=== PATIENT | male | born 1955 | race Caucasian/White ===

== ENCOUNTER 2017-10-24 09:25 | Outpatient (CLI) | payer BC ==
[~2017-10-24 09:25] MED LIST: ACET-1015 PO; ASPI-1264 PO; CHOL200016 PO; COLL30OI TP; DOCU100C40 PO; FISH1CAP2 PO; HYDR-3972 PO; LEVO125T69 PO; MULT-785 PO; NALO25TA PO; NAPR500T4 PO; PENT400T2 PO; SANTYL OINT TP ONE; UBID1CAP54 PO; VITC500T PO
== END 2017-10-24 10:31 | disposition home or self-care (01) ==
LOC: WOUND CARE 09:25
PROVIDERS: ATTEND Surgery
DX: E11.622 Type 2 diabetes mellitus with other skin ulcer (principal); L97.321 Non-pressure chronic ulcer of left ankle limited to breakdown of skin; L97.311 Non-pressure chronic ulcer of right ankle limited to breakdown of skin; E03.9 Hypothyroidism, unspecified; E66.9 Obesity, unspecified; M19.90 Unspecified osteoarthritis, unspecified site; I87.2 Venous insufficiency (chronic) (peripheral); Z68.1 Body mass index [BMI] 19.9 or less, adult; Z72.89 Other problems related to lifestyle; Z85.828 Personal history of other malignant neoplasm of skin
CPT/HCPCS: 29581; A6021; A6196; A6206; A6213; A6441

== ENCOUNTER 2017-10-30 09:49 | Outpatient (CLI) | payer BC ==
[2017-10-30] MEDS ORDERED: gentamicin 0.1% topical ointment 15gm TP ONE (13:45)
[2017-10-30] MEDS ORDERED: CLOB15CR4 TOP (13:48)
[2017-10-30] MEDS ORDERED: TYPE IN GENERIC & BRAND NAME OF PATIENT MED STRENGTH & FORM TOP SCH (20:00)
== END 2017-10-30 11:23 | disposition home or self-care (01) ==
LOC: WOUND CARE 09:49
PROVIDERS: ATTEND Surgery
DX: E11.622 Type 2 diabetes mellitus with other skin ulcer (principal); L97.321 Non-pressure chronic ulcer of left ankle limited to breakdown of skin; L97.311 Non-pressure chronic ulcer of right ankle limited to breakdown of skin; E03.9 Hypothyroidism, unspecified; M19.90 Unspecified osteoarthritis, unspecified site; I87.2 Venous insufficiency (chronic) (peripheral); E66.9 Obesity, unspecified; Z68.1 Body mass index [BMI] 19.9 or less, adult; Z72.89 Other problems related to lifestyle; Z85.828 Personal history of other malignant neoplasm of skin
CPT/HCPCS: 29581; A6021; A6196; A6206; A6209; A6441

== ENCOUNTER 2017-11-03 09:15 | Day surgery (SDC) | payer BC ==
[~2017-11-03 09:15] MED LIST changes: +CLOB15CR4 TOP; +CLOBETASOL 0.05% TOP ONE; -SANTYL OINT TP ONE; +[UNRECOGNIZED DRUG - OTHER] TOP ONE
[2017-11-03] MEDS ORDERED: LIDOcaine 2% 5ml jelly ONE (09:54)
[2017-11-03] MEDS ORDERED: gentamicin 0.1% topical ointment 15gm TP ONE (11:05)
== END 2017-11-03 12:00 | disposition home or self-care (01) ==
LOC: WOUND CARE 09:15
PROVIDERS: ATTEND Surgery
DX: I87.2 Venous insufficiency (chronic) (peripheral) (principal); E11.622 Type 2 diabetes mellitus with other skin ulcer; L97.321 Non-pressure chronic ulcer of left ankle limited to breakdown of skin; L97.311 Non-pressure chronic ulcer of right ankle limited to breakdown of skin; E03.9 Hypothyroidism, unspecified; E66.9 Obesity, unspecified; M19.90 Unspecified osteoarthritis, unspecified site; Z68.1 Body mass index [BMI] 19.9 or less, adult; Z72.89 Other problems related to lifestyle; Z85.828 Personal history of other malignant neoplasm of skin
CPT/HCPCS: 97597; 97598; A6021; A6196; A6206; A6209; A6441

== ENCOUNTER 2017-11-07 09:24 | Outpatient (CLI) | payer BC ==
[~2017-11-07 09:24] MED LIST changes: -CLOBETASOL 0.05% TOP ONE; +SANTYL OINTMENT TP ONE; -[UNRECOGNIZED DRUG - OTHER] TOP ONE
[2017-11-07] MEDS ORDERED: CLOBETASOL 0.05% TP ONE (09:25)
== END 2017-11-07 10:52 | disposition home or self-care (01) ==
LOC: WOUND CARE 09:24
PROVIDERS: ATTEND Surgery
DX: E11.622 Type 2 diabetes mellitus with other skin ulcer (principal); L97.321 Non-pressure chronic ulcer of left ankle limited to breakdown of skin; L97.311 Non-pressure chronic ulcer of right ankle limited to breakdown of skin; E03.9 Hypothyroidism, unspecified; E66.9 Obesity, unspecified; M19.90 Unspecified osteoarthritis, unspecified site; I87.2 Venous insufficiency (chronic) (peripheral); Z72.89 Other problems related to lifestyle; Z85.828 Personal history of other malignant neoplasm of skin; Z68.1 Body mass index [BMI] 19.9 or less, adult
CPT/HCPCS: 29581; A6021; A6196; A6206; A6441

== ENCOUNTER 2017-11-11 09:36 | Day surgery (SDC) | payer BC ==
[~2017-11-11 09:36] MED LIST changes: +CLOBETASOL 0.05% TP ONE
[2017-11-11] MEDS ORDERED: LIDOcaine 2% 5ml jelly ONE ×2 (10:35)
[2017-11-11] MEDS ORDERED: gentamicin 0.1% topical ointment 15gm TP ONE (10:50)
== END 2017-11-11 12:31 | disposition home or self-care (01) ==
LOC: WOUND CARE 09:36
PROVIDERS: ATTEND Surgery
DX: I87.2 Venous insufficiency (chronic) (peripheral) (principal); E11.622 Type 2 diabetes mellitus with other skin ulcer; L97.321 Non-pressure chronic ulcer of left ankle limited to breakdown of skin; L97.311 Non-pressure chronic ulcer of right ankle limited to breakdown of skin; E66.9 Obesity, unspecified; E03.9 Hypothyroidism, unspecified; M19.90 Unspecified osteoarthritis, unspecified site; Z72.89 Other problems related to lifestyle; Z68.1 Body mass index [BMI] 19.9 or less, adult; Z85.828 Personal history of other malignant neoplasm of skin
CPT/HCPCS: 97597; 97598; A6196; A6206; A6209; A6441

== ENCOUNTER 2017-11-14 09:20 | Outpatient (CLI) | payer BC ==
[~2017-11-14 09:20] MED LIST changes: -CLOBETASOL 0.05% TP ONE; +CLOBETASOL CREAM TOP ONE; +SANTYL OINTMENT TOP ONE; -SANTYL OINTMENT TP ONE
[2017-11-14] MEDS ORDERED: gentamicin 0.1% topical ointment 15gm TP ONE (09:45)
== END 2017-11-14 10:47 | disposition home or self-care (01) ==
LOC: WOUND CARE 09:20
PROVIDERS: ATTEND Surgery
DX: E11.622 Type 2 diabetes mellitus with other skin ulcer (principal); L97.321 Non-pressure chronic ulcer of left ankle limited to breakdown of skin; L97.311 Non-pressure chronic ulcer of right ankle limited to breakdown of skin; E03.9 Hypothyroidism, unspecified; E66.9 Obesity, unspecified; M19.90 Unspecified osteoarthritis, unspecified site; I87.2 Venous insufficiency (chronic) (peripheral); Z68.1 Body mass index [BMI] 19.9 or less, adult; Z72.89 Other problems related to lifestyle; Z85.828 Personal history of other malignant neoplasm of skin
CPT/HCPCS: 29581; A6021; A6196; A6206; A6209; A6441

== ENCOUNTER 2017-11-18 11:22 | Day surgery (SDC) | payer BC ==
[~2017-11-18 11:22] MED LIST changes: -CLOBETASOL CREAM TOP ONE; +SANTYL OINT TOP ONE; -SANTYL OINTMENT TOP ONE; +clobetasol 0.05% cream 30gm TOP ONE
[2017-11-18] MEDS ORDERED: LIDOcaine 2% 5ml jelly ONE (11:42)
[2017-11-18] MEDS ORDERED: gentamicin 0.1% topical ointment 15gm TP ONE (12:45)
== END 2017-11-18 12:42 | disposition home or self-care (01) ==
LOC: WOUND CARE 11:22
PROVIDERS: ATTEND Surgery
DX: E11.622 Type 2 diabetes mellitus with other skin ulcer (principal); L97.321 Non-pressure chronic ulcer of left ankle limited to breakdown of skin; L97.311 Non-pressure chronic ulcer of right ankle limited to breakdown of skin; I87.2 Venous insufficiency (chronic) (peripheral); E03.9 Hypothyroidism, unspecified; E66.9 Obesity, unspecified; M19.90 Unspecified osteoarthritis, unspecified site; Z68.1 Body mass index [BMI] 19.9 or less, adult; Z72.89 Other problems related to lifestyle; Z85.828 Personal history of other malignant neoplasm of skin
CPT/HCPCS: 97597; A6196; A6206; A6209; A6441

== ENCOUNTER 2017-11-21 09:43 | Outpatient (CLI) | payer BC ==
[~2017-11-21 09:43] MED LIST changes: +CLOBETASOL CREAM TOP ONE; -SANTYL OINT TOP ONE; +SANTYL OINTMENT TOP ONE; -clobetasol 0.05% cream 30gm TOP ONE
== END 2017-11-21 10:54 | disposition home or self-care (01) ==
LOC: WOUND CARE 09:43
PROVIDERS: ATTEND Surgery
DX: E11.622 Type 2 diabetes mellitus with other skin ulcer (principal); L97.321 Non-pressure chronic ulcer of left ankle limited to breakdown of skin; L97.311 Non-pressure chronic ulcer of right ankle limited to breakdown of skin; E03.9 Hypothyroidism, unspecified; M19.90 Unspecified osteoarthritis, unspecified site; I87.2 Venous insufficiency (chronic) (peripheral); E66.9 Obesity, unspecified; Z68.1 Body mass index [BMI] 19.9 or less, adult; Z72.89 Other problems related to lifestyle; Z85.828 Personal history of other malignant neoplasm of skin
CPT/HCPCS: 29581; A6021; A6196; A6206; A6441

== ENCOUNTER 2017-11-25 10:06 | Day surgery (SDC) | payer BC ==
[~2017-11-25 10:06] MED LIST changes: -CLOBETASOL CREAM TOP ONE; +COLLAGENASE TP ONE; -SANTYL OINTMENT TOP ONE
[2017-11-25] MEDS ORDERED: LIDOcaine 2% 5ml jelly ONE (10:29)
[2017-11-25] MEDS ORDERED: hydrocortisone 1% cream 28gm TP ONE (12:25)
== END 2017-11-25 13:11 | disposition home or self-care (01) ==
LOC: WOUND CARE 10:06
PROVIDERS: ATTEND Surgery
DX: E11.622 Type 2 diabetes mellitus with other skin ulcer (principal); L97.321 Non-pressure chronic ulcer of left ankle limited to breakdown of skin; L97.311 Non-pressure chronic ulcer of right ankle limited to breakdown of skin; I87.2 Venous insufficiency (chronic) (peripheral); E03.9 Hypothyroidism, unspecified; M19.90 Unspecified osteoarthritis, unspecified site; E66.9 Obesity, unspecified; Z68.1 Body mass index [BMI] 19.9 or less, adult; Z72.89 Other problems related to lifestyle; Z85.828 Personal history of other malignant neoplasm of skin
CPT/HCPCS: 97597; 97598; A6021; A6196; A6206; A6441

== ENCOUNTER 2017-11-28 10:02 | Outpatient (CLI) | payer BC ==
[~2017-11-28 10:02] MED LIST changes: -COLLAGENASE TP ONE
[2017-11-28] MEDS ORDERED: CLOBETASOL PROPIONATE 0.05% TOP ONE (10:15)
[2017-11-28] MEDS ORDERED: gentamicin 0.1% topical ointment 15gm TP ONE (10:20)
== END 2017-11-28 11:16 | disposition home or self-care (01) ==
LOC: WOUND CARE 10:02
PROVIDERS: ATTEND Surgery
DX: E11.622 Type 2 diabetes mellitus with other skin ulcer (principal); L97.321 Non-pressure chronic ulcer of left ankle limited to breakdown of skin; L97.311 Non-pressure chronic ulcer of right ankle limited to breakdown of skin; I87.2 Venous insufficiency (chronic) (peripheral); E03.9 Hypothyroidism, unspecified; M19.90 Unspecified osteoarthritis, unspecified site; E66.9 Obesity, unspecified; Z68.1 Body mass index [BMI] 19.9 or less, adult; Z72.89 Other problems related to lifestyle; Z85.828 Personal history of other malignant neoplasm of skin
CPT/HCPCS: 29581; A6021; A6196; A6206; A6212; A6441

== ENCOUNTER 2017-12-02 09:33 | Day surgery (SDC) | payer BC ==
[~2017-12-02 09:33] MED LIST changes: +CLOBETASOL 0.05% TP ONE; +SANTYL OINTMENT TP ONE
[2017-12-02] MEDS ORDERED: LIDOcaine 2% 5ml jelly ONE ×2 (09:57→09:58)
== END 2017-12-02 11:07 | disposition home or self-care (01) ==
LOC: WOUND CARE 09:33
PROVIDERS: ATTEND Surgery
DX: E11.622 Type 2 diabetes mellitus with other skin ulcer (principal); L97.321 Non-pressure chronic ulcer of left ankle limited to breakdown of skin; L97.311 Non-pressure chronic ulcer of right ankle limited to breakdown of skin; I87.2 Venous insufficiency (chronic) (peripheral); E03.9 Hypothyroidism, unspecified; M19.90 Unspecified osteoarthritis, unspecified site; E66.9 Obesity, unspecified; Z68.1 Body mass index [BMI] 19.9 or less, adult; Z72.89 Other problems related to lifestyle; Z85.828 Personal history of other malignant neoplasm of skin
CPT/HCPCS: 97597; A6021; A6196; A6206; A6441

== ENCOUNTER 2017-12-05 12:47 | Outpatient (CLI) | payer BC ==
[~2017-12-05 12:47] MED LIST changes: -CLOBETASOL 0.05% TP ONE; +CLOBETASOL TOP ONE; +SANTYL OINT TOP ONE; -SANTYL OINTMENT TP ONE; +gentamicin 0.1% topical ointment 15gm TP ONE
== END 2017-12-05 13:34 | disposition home or self-care (01) ==
LOC: WOUND CARE 12:47
PROVIDERS: ATTEND Surgery
DX: E11.622 Type 2 diabetes mellitus with other skin ulcer (principal); L97.321 Non-pressure chronic ulcer of left ankle limited to breakdown of skin; L97.311 Non-pressure chronic ulcer of right ankle limited to breakdown of skin; I87.2 Venous insufficiency (chronic) (peripheral); E03.9 Hypothyroidism, unspecified; M19.90 Unspecified osteoarthritis, unspecified site; E66.9 Obesity, unspecified; Z68.1 Body mass index [BMI] 19.9 or less, adult; Z72.89 Other problems related to lifestyle; Z85.828 Personal history of other malignant neoplasm of skin
CPT/HCPCS: 29581; A6021; A6206; A6441

== ENCOUNTER 2017-12-09 10:22 | Day surgery (SDC) | payer BC ==
[~2017-12-09 10:22] MED LIST changes: +CLOBETASOL 0.05% TOP ONE; -CLOBETASOL TOP ONE; -SANTYL OINT TOP ONE; +SANTYL OINTMENT TOP ONE; -gentamicin 0.1% topical ointment 15gm TP ONE
[2017-12-09] MEDS ORDERED: LIDOcaine 2% 5ml jelly ONE (12:20)
== END 2017-12-09 14:00 | disposition home or self-care (01) ==
LOC: WOUND CARE 10:22
PROVIDERS: ATTEND Surgery
DX: I87.2 Venous insufficiency (chronic) (peripheral) (principal); E11.622 Type 2 diabetes mellitus with other skin ulcer; L97.321 Non-pressure chronic ulcer of left ankle limited to breakdown of skin; L97.311 Non-pressure chronic ulcer of right ankle limited to breakdown of skin; E03.9 Hypothyroidism, unspecified; M19.90 Unspecified osteoarthritis, unspecified site; E66.9 Obesity, unspecified; Z68.1 Body mass index [BMI] 19.9 or less, adult; Z72.89 Other problems related to lifestyle; Z85.828 Personal history of other malignant neoplasm of skin
CPT/HCPCS: 97597; 97598; A6021; A6196; A6206; A6222; A6441

== ENCOUNTER 2017-12-12 09:45 | Outpatient (CLI) | payer BC ==
[~2017-12-12 09:45] MED LIST changes: -CLOBETASOL 0.05% TOP ONE; +CLOBETASOL OINTMENT TOP ONE
== END 2017-12-12 11:47 | disposition home or self-care (01) ==
LOC: WOUND CARE 09:45
PROVIDERS: ATTEND Surgery
DX: E11.622 Type 2 diabetes mellitus with other skin ulcer (principal); L97.321 Non-pressure chronic ulcer of left ankle limited to breakdown of skin; L97.311 Non-pressure chronic ulcer of right ankle limited to breakdown of skin; I87.2 Venous insufficiency (chronic) (peripheral); E03.9 Hypothyroidism, unspecified; M19.90 Unspecified osteoarthritis, unspecified site; E66.9 Obesity, unspecified; Z68.1 Body mass index [BMI] 19.9 or less, adult; Z72.89 Other problems related to lifestyle; Z85.828 Personal history of other malignant neoplasm of skin
CPT/HCPCS: 29581; A6021; A6206; A6222; A6441; 97598

== ENCOUNTER 2017-12-17 09:17 | Day surgery (SDC) | payer BC ==
[~2017-12-17 09:17] MED LIST changes: -CLOBETASOL OINTMENT TOP ONE; +CLOBETASOL TOP ONE; +SANTYL OINT TOP ONE; -SANTYL OINTMENT TOP ONE
[2017-12-17] MEDS ORDERED: LIDOcaine 2% 5ml jelly ONE ×2 (10:06)
[2017-12-17] MEDS ORDERED: gentamicin 0.1% topical ointment 15gm TP ONE (11:03)
== END 2017-12-17 11:54 | disposition home or self-care (01) ==
LOC: WOUND CARE 09:17
PROVIDERS: ATTEND Surgery
DX: E11.622 Type 2 diabetes mellitus with other skin ulcer (principal); L97.321 Non-pressure chronic ulcer of left ankle limited to breakdown of skin; L97.311 Non-pressure chronic ulcer of right ankle limited to breakdown of skin; I87.2 Venous insufficiency (chronic) (peripheral); E03.9 Hypothyroidism, unspecified; M19.90 Unspecified osteoarthritis, unspecified site; E66.9 Obesity, unspecified; Z68.1 Body mass index [BMI] 19.9 or less, adult; Z72.89 Other problems related to lifestyle; Z85.828 Personal history of other malignant neoplasm of skin
CPT/HCPCS: 97597; 97598; A6021; A6441

== ENCOUNTER 2017-12-19 09:30 | Outpatient (CLI) | payer BC ==
[~2017-12-19 09:30] MED LIST changes: +CLOBETASOL CREAM TOP SCH; -CLOBETASOL TOP ONE; -SANTYL OINT TOP ONE; +SANTYL TOP SCH
== END 2017-12-19 10:47 | disposition home or self-care (01) ==
LOC: WOUND CARE 09:30
PROVIDERS: ATTEND Surgery
DX: E11.622 Type 2 diabetes mellitus with other skin ulcer (principal); L97.321 Non-pressure chronic ulcer of left ankle limited to breakdown of skin; L97.311 Non-pressure chronic ulcer of right ankle limited to breakdown of skin; I87.2 Venous insufficiency (chronic) (peripheral); E03.9 Hypothyroidism, unspecified; M19.90 Unspecified osteoarthritis, unspecified site; E66.9 Obesity, unspecified; Z68.1 Body mass index [BMI] 19.9 or less, adult; Z72.89 Other problems related to lifestyle; Z85.828 Personal history of other malignant neoplasm of skin
CPT/HCPCS: 29581; A6206; A6209; A6441

== ENCOUNTER 2017-12-23 09:29 | Day surgery (SDC) | payer BC ==
[~2017-12-23 09:29] MED LIST changes: -CLOBETASOL CREAM TOP SCH; +SANTYL OINTMENT TP NR; -SANTYL TOP SCH
[2017-12-23] MEDS ORDERED: LIDOcaine 2% 5ml jelly ONE (09:59)
[2017-12-23] MEDS: clobetasol propionate ointment 15gm TP SCH ×3 (11:35→11:37)
[2017-12-23] MEDS: gentamicin 0.1% topical ointment 15gm TP SCH ×2 (11:35→11:36)
== END 2017-12-23 11:35 | disposition home or self-care (01) ==
LOC: WOUND CARE 09:29
PROVIDERS: ATTEND Surgery
DX: E11.622 Type 2 diabetes mellitus with other skin ulcer (principal); L97.321 Non-pressure chronic ulcer of left ankle limited to breakdown of skin; L97.311 Non-pressure chronic ulcer of right ankle limited to breakdown of skin; I87.2 Venous insufficiency (chronic) (peripheral); E03.9 Hypothyroidism, unspecified; M19.90 Unspecified osteoarthritis, unspecified site; E66.9 Obesity, unspecified; Z68.1 Body mass index [BMI] 19.9 or less, adult; Z72.89 Other problems related to lifestyle; Z85.828 Personal history of other malignant neoplasm of skin
CPT/HCPCS: 97597; 97598; A6021; A6206; A6209

== ENCOUNTER 2017-12-26 09:30 | Outpatient (CLI) | payer BC ==
[~2017-12-26 09:30] MED LIST changes: +CLOBETASOL TOP ONE; +SANTYL OINT TOP ONE; -SANTYL OINTMENT TP NR
[2017-12-26] MEDS ORDERED: gentamicin 0.1% topical ointment 15gm TP ONE (10:25)
== END 2017-12-26 10:52 | disposition home or self-care (01) ==
LOC: WOUND CARE 09:30
PROVIDERS: ATTEND Surgery
DX: E11.622 Type 2 diabetes mellitus with other skin ulcer (principal); L97.311 Non-pressure chronic ulcer of right ankle limited to breakdown of skin; L97.321 Non-pressure chronic ulcer of left ankle limited to breakdown of skin; I83.013 Varicose veins of right lower extremity with ulcer of ankle; I83.023 Varicose veins of left lower extremity with ulcer of ankle; E03.9 Hypothyroidism, unspecified; E66.9 Obesity, unspecified; M19.90 Unspecified osteoarthritis, unspecified site; Z72.89 Other problems related to lifestyle; Z68.1 Body mass index [BMI] 19.9 or less, adult; Z85.828 Personal history of other malignant neoplasm of skin
CPT/HCPCS: 29581; A6021; A6206; A6441

== ENCOUNTER 2017-12-30 09:16 | Outpatient (CLI) | payer BC ==
[2017-12-30] MEDS ORDERED: LIDOcaine 2% 5ml jelly ONE (09:45)
[2017-12-30] MEDS ORDERED: gentamicin 0.1% topical ointment 15gm TP ONE (09:50)
== END 2017-12-30 11:26 | disposition home or self-care (01) ==
LOC: WOUND CARE 09:16
PROVIDERS: ATTEND Surgery
DX: E11.622 Type 2 diabetes mellitus with other skin ulcer (principal); L97.311 Non-pressure chronic ulcer of right ankle limited to breakdown of skin; L97.321 Non-pressure chronic ulcer of left ankle limited to breakdown of skin; I83.013 Varicose veins of right lower extremity with ulcer of ankle; I83.023 Varicose veins of left lower extremity with ulcer of ankle; E03.9 Hypothyroidism, unspecified; E66.9 Obesity, unspecified; M19.90 Unspecified osteoarthritis, unspecified site; Z72.89 Other problems related to lifestyle; Z68.1 Body mass index [BMI] 19.9 or less, adult; Z85.828 Personal history of other malignant neoplasm of skin
CPT/HCPCS: 97597; 97598; A6021; A6206; A6209; A6441

== ENCOUNTER 2018-01-02 09:19 | Outpatient (CLI) | payer BC ==
[~2018-01-02 09:19] MED LIST changes: -CLOBETASOL TOP ONE; -SANTYL OINT TOP ONE
[2018-01-02] MEDS ORDERED: CLOBETASOL TOP ONE (09:30)
[2018-01-02] MEDS ORDERED: SANTYL TOP ONE (09:35)
[2018-01-02] MEDS ORDERED: gentamicin 0.1% topical ointment 15gm TP ONE (10:25)
== END 2018-01-02 11:26 | disposition home or self-care (01) ==
LOC: WOUND CARE 09:19
PROVIDERS: ATTEND Surgery
DX: E11.622 Type 2 diabetes mellitus with other skin ulcer (principal); L97.311 Non-pressure chronic ulcer of right ankle limited to breakdown of skin; L97.321 Non-pressure chronic ulcer of left ankle limited to breakdown of skin; I83.013 Varicose veins of right lower extremity with ulcer of ankle; I83.023 Varicose veins of left lower extremity with ulcer of ankle; E03.9 Hypothyroidism, unspecified; E66.9 Obesity, unspecified; M19.90 Unspecified osteoarthritis, unspecified site; Z72.89 Other problems related to lifestyle; Z68.1 Body mass index [BMI] 19.9 or less, adult; Z85.828 Personal history of other malignant neoplasm of skin
CPT/HCPCS: 29581; A6021; A6206; A6209; A6441

== ENCOUNTER 2018-01-06 09:30 | Day surgery (SDC) | payer BC ==
[~2018-01-06 09:30] MED LIST changes: +CLOBETASOL CREAM TOP ONE; +SANTYL OINTMENT TP ONE
[2018-01-06] MEDS ORDERED: LIDOcaine 2% 5ml jelly ONE ×2 (10:50→10:51)
== END 2018-01-06 12:16 | disposition home or self-care (01) ==
LOC: WOUND CARE 09:30
PROVIDERS: ATTEND Surgery
DX: E11.622 Type 2 diabetes mellitus with other skin ulcer (principal); L97.321 Non-pressure chronic ulcer of left ankle limited to breakdown of skin; L97.311 Non-pressure chronic ulcer of right ankle limited to breakdown of skin; I83.013 Varicose veins of right lower extremity with ulcer of ankle; I83.023 Varicose veins of left lower extremity with ulcer of ankle; E03.9 Hypothyroidism, unspecified; E66.9 Obesity, unspecified; M19.90 Unspecified osteoarthritis, unspecified site; Z68.1 Body mass index [BMI] 19.9 or less, adult; Z72.89 Other problems related to lifestyle; Z85.828 Personal history of other malignant neoplasm of skin
CPT/HCPCS: 97597; 97598; A6021; A6206; A6441

== ENCOUNTER 2018-01-09 10:30 | Outpatient (CLI) | payer BC ==
[~2018-01-09 10:30] MED LIST changes: +CLOBETASOL 0.05% TOP ONE; -CLOBETASOL CREAM TOP ONE; +NAPR-996 PO; -NAPR500T4 PO; +SANTYL OINTMENT TOP ONE; -SANTYL OINTMENT TP ONE
[2018-01-09] MEDS ORDERED: clobetasol propionate ointment 15gm TP ONE (11:25)
== END 2018-01-09 12:35 | disposition home or self-care (01) ==
LOC: WOUND CARE 10:30
PROVIDERS: ATTEND Surgery
DX: E11.622 Type 2 diabetes mellitus with other skin ulcer (principal); L97.321 Non-pressure chronic ulcer of left ankle limited to breakdown of skin; L97.311 Non-pressure chronic ulcer of right ankle limited to breakdown of skin; I83.013 Varicose veins of right lower extremity with ulcer of ankle; I83.023 Varicose veins of left lower extremity with ulcer of ankle; E03.9 Hypothyroidism, unspecified; E66.9 Obesity, unspecified; M19.90 Unspecified osteoarthritis, unspecified site; Z68.1 Body mass index [BMI] 19.9 or less, adult; Z72.89 Other problems related to lifestyle; Z85.828 Personal history of other malignant neoplasm of skin
CPT/HCPCS: 29581; A6021; A6206; A6441

== ENCOUNTER 2018-01-13 09:36 | Outpatient (CLI) | payer BC ==
[~2018-01-13 09:36] MED LIST changes: -CLOBETASOL 0.05% TOP ONE; +CLOBETASOL OINTMENT TP ONE; -SANTYL OINTMENT TOP ONE; +SANTYL OINTMENT TP ONE
[2018-01-13] MEDS ORDERED: gentamicin 0.1% topical ointment 15gm TP ONE (09:55)
== END 2018-01-13 10:55 | disposition home or self-care (01) ==
LOC: WOUND CARE 09:36
PROVIDERS: ATTEND Surgery
DX: E11.622 Type 2 diabetes mellitus with other skin ulcer (principal); L97.311 Non-pressure chronic ulcer of right ankle limited to breakdown of skin; L97.321 Non-pressure chronic ulcer of left ankle limited to breakdown of skin; I83.013 Varicose veins of right lower extremity with ulcer of ankle; I83.023 Varicose veins of left lower extremity with ulcer of ankle; E03.9 Hypothyroidism, unspecified; E66.9 Obesity, unspecified; M19.90 Unspecified osteoarthritis, unspecified site; Z68.1 Body mass index [BMI] 19.9 or less, adult; Z85.828 Personal history of other malignant neoplasm of skin
CPT/HCPCS: 29581; A6198; A6206; A6209; A6441

== ENCOUNTER 2018-01-19 09:56 | Day surgery (SDC) | payer BC ==
[~2018-01-19 09:56] MED LIST changes: -CLOBETASOL OINTMENT TP ONE; -SANTYL OINTMENT TP ONE
[2018-01-19] MEDS ORDERED: SANTYL OINTMENT TOP ONE (11:05)
[2018-01-19] MEDS ORDERED: LIDOcaine 2% 5ml jelly ONE (11:09)
[2018-01-19] MEDS ORDERED: CLOBETASOL 0.05% CREAM TOP ONE (11:20)
== END 2018-01-19 13:00 | disposition home or self-care (01) ==
LOC: WOUND CARE 09:56
PROVIDERS: ATTEND Surgery
DX: E11.622 Type 2 diabetes mellitus with other skin ulcer (principal); L97.311 Non-pressure chronic ulcer of right ankle limited to breakdown of skin; L97.321 Non-pressure chronic ulcer of left ankle limited to breakdown of skin; I83.013 Varicose veins of right lower extremity with ulcer of ankle; I83.023 Varicose veins of left lower extremity with ulcer of ankle; E03.9 Hypothyroidism, unspecified; E66.9 Obesity, unspecified; M19.90 Unspecified osteoarthritis, unspecified site; Z68.1 Body mass index [BMI] 19.9 or less, adult; Z85.828 Personal history of other malignant neoplasm of skin
CPT/HCPCS: 97597; 97598; A6021; A6206; A6441

== ENCOUNTER 2018-01-22 09:36 | Outpatient (CLI) | payer BC ==
[~2018-01-22 09:36] MED LIST changes: +SANTYL OINTMENT TOP ONE
[2018-01-22] MEDS ORDERED: CLOBETASOL 0.05% CREAM TOP ONE (09:40)
== END 2018-01-22 11:25 | disposition home or self-care (01) ==
LOC: WOUND CARE 09:36
PROVIDERS: ATTEND Surgery
DX: E11.622 Type 2 diabetes mellitus with other skin ulcer (principal); L97.311 Non-pressure chronic ulcer of right ankle limited to breakdown of skin; L97.321 Non-pressure chronic ulcer of left ankle limited to breakdown of skin; I87.2 Venous insufficiency (chronic) (peripheral); E03.9 Hypothyroidism, unspecified; E66.9 Obesity, unspecified; M19.90 Unspecified osteoarthritis, unspecified site; Z68.1 Body mass index [BMI] 19.9 or less, adult; Z85.828 Personal history of other malignant neoplasm of skin
CPT/HCPCS: 29581; A6206; A6209; A6441

== ENCOUNTER 2018-01-27 10:02 | Day surgery (SDC) | payer BC ==
[~2018-01-27 10:02] MED LIST changes: +CLOBETASOL PROPIONATE 0.05% CREAM TP ONE; +COLLAGENASE TP ONE; -SANTYL OINTMENT TOP ONE
[2018-01-27] MEDS ORDERED: LIDOcaine 2% 5ml jelly ONE ×2 (11:13→11:46)
== END 2018-01-27 12:55 | disposition home or self-care (01) ==
LOC: WOUND CARE 10:02
PROVIDERS: ATTEND Surgery
DX: E11.622 Type 2 diabetes mellitus with other skin ulcer (principal); L97.311 Non-pressure chronic ulcer of right ankle limited to breakdown of skin; L97.321 Non-pressure chronic ulcer of left ankle limited to breakdown of skin; I87.2 Venous insufficiency (chronic) (peripheral); E03.9 Hypothyroidism, unspecified; E66.9 Obesity, unspecified; M19.90 Unspecified osteoarthritis, unspecified site; Z68.1 Body mass index [BMI] 19.9 or less, adult; Z85.828 Personal history of other malignant neoplasm of skin
CPT/HCPCS: 97597; 97598; A6021; A6198; A6206; A6441

== ENCOUNTER 2018-01-29 09:10 | Outpatient (CLI) | payer BC ==
[2018-01-29] MEDS: CLOBETASOL TOP SCH ×2 (08:30→10:15)
[2018-01-29] MEDS: [UNRECOGNIZED DRUG - OTHER] TOP SCH ×2 (08:30→10:15)
[~2018-01-29 09:10] MED LIST changes: -CLOBETASOL PROPIONATE 0.05% CREAM TP ONE; +COLLAGENASE TOP SCH; -COLLAGENASE TP ONE; +[UNRECOGNIZED DRUG - OTHER] TOP SCH
[2018-01-29] MEDS ORDERED: gentamicin 0.1% topical ointment 15gm TP ONE (09:20)
== END 2018-01-29 10:19 | disposition home or self-care (01) ==
LOC: WOUND CARE 09:10
PROVIDERS: ATTEND Surgery
DX: E11.622 Type 2 diabetes mellitus with other skin ulcer (principal); L97.311 Non-pressure chronic ulcer of right ankle limited to breakdown of skin; L97.321 Non-pressure chronic ulcer of left ankle limited to breakdown of skin; I87.2 Venous insufficiency (chronic) (peripheral); E03.9 Hypothyroidism, unspecified; E66.9 Obesity, unspecified; M19.90 Unspecified osteoarthritis, unspecified site; Z68.1 Body mass index [BMI] 19.9 or less, adult; Z85.828 Personal history of other malignant neoplasm of skin
CPT/HCPCS: 29581; A6021; A6206; A6441

== ENCOUNTER 2018-02-03 09:40 | Outpatient (CLI) | payer BC ==
[~2018-02-03 09:40] MED LIST changes: +CLOBETASOL OINTMENT TP PRN; -COLLAGENASE TOP SCH; +SANTYL OINTMENT TP PRN; -[UNRECOGNIZED DRUG - OTHER] TOP SCH
[2018-02-03] MEDS ORDERED: LIDOcaine 2% 5ml jelly ONE (10:15)
== END 2018-02-03 11:02 | disposition home or self-care (01) ==
LOC: WOUND CARE 09:40
PROVIDERS: ATTEND Surgery
DX: E11.622 Type 2 diabetes mellitus with other skin ulcer (principal); L97.311 Non-pressure chronic ulcer of right ankle limited to breakdown of skin; L97.321 Non-pressure chronic ulcer of left ankle limited to breakdown of skin; I87.2 Venous insufficiency (chronic) (peripheral); E03.9 Hypothyroidism, unspecified; E66.9 Obesity, unspecified; M19.90 Unspecified osteoarthritis, unspecified site; Z68.1 Body mass index [BMI] 19.9 or less, adult; Z85.828 Personal history of other malignant neoplasm of skin
CPT/HCPCS: 29581; A6021

== ENCOUNTER 2018-02-06 09:24 | Day surgery (SDC) | payer BC ==
[~2018-02-06 09:24] MED LIST changes: +CLOBETASOL OINT TOP ONE; -CLOBETASOL OINTMENT TP PRN; +PENT400T12 PO; -PENT400T2 PO; +SANTYL OINT TOP ONE; -SANTYL OINTMENT TP PRN
[2018-02-06] MEDS ORDERED: LIDOcaine 2% 5ml jelly ONE (10:00)
== END 2018-02-06 11:41 | disposition home or self-care (01) ==
LOC: WOUND CARE 09:24
PROVIDERS: ATTEND Surgery
DX: E11.622 Type 2 diabetes mellitus with other skin ulcer (principal); L97.311 Non-pressure chronic ulcer of right ankle limited to breakdown of skin; L97.321 Non-pressure chronic ulcer of left ankle limited to breakdown of skin; I87.2 Venous insufficiency (chronic) (peripheral); I83.013 Varicose veins of right lower extremity with ulcer of ankle; I83.023 Varicose veins of left lower extremity with ulcer of ankle; E03.9 Hypothyroidism, unspecified; E66.9 Obesity, unspecified; M19.90 Unspecified osteoarthritis, unspecified site; Z68.1 Body mass index [BMI] 19.9 or less, adult; Z85.828 Personal history of other malignant neoplasm of skin
CPT/HCPCS: 97597; 97598; A6021; A6206; A6209; A6441

== ENCOUNTER 2018-02-10 09:40 | Outpatient (CLI) | payer BC ==
[~2018-02-10 09:40] MED LIST changes: +CLOBETASOL 0.05% CREAM TOP ONE; -CLOBETASOL OINT TOP ONE; -SANTYL OINT TOP ONE; +SANTYL OINTMENT TOP ONE; +albumin (human) 25% 100 ML IV solution IV PRN
[2018-02-10] MEDS ORDERED: gentamicin 0.1% topical ointment 15gm TP ONE (09:56)
[2018-02-10] MEDS ORDERED: LIDOcaine 2% 5ml jelly ONE ×2 (10:17)
== END 2018-02-10 11:24 | disposition home or self-care (01) ==
LOC: WOUND CARE 09:40
PROVIDERS: ATTEND Surgery
DX: E11.622 Type 2 diabetes mellitus with other skin ulcer (principal); L97.311 Non-pressure chronic ulcer of right ankle limited to breakdown of skin; L97.321 Non-pressure chronic ulcer of left ankle limited to breakdown of skin; I83.013 Varicose veins of right lower extremity with ulcer of ankle; I83.023 Varicose veins of left lower extremity with ulcer of ankle; E03.9 Hypothyroidism, unspecified; E66.9 Obesity, unspecified; M19.90 Unspecified osteoarthritis, unspecified site; Z68.1 Body mass index [BMI] 19.9 or less, adult; Z85.828 Personal history of other malignant neoplasm of skin
CPT/HCPCS: 29581; A6021; A6206; A6209; A6441

== ENCOUNTER 2018-02-13 09:46 | Day surgery (SDC) | payer BC ==
[~2018-02-13 09:46] MED LIST changes: -CLOBETASOL 0.05% CREAM TOP ONE; +CLOBETASOL TOP ONE; +SANTYL OINT TOP ONE; -SANTYL OINTMENT TOP ONE; -albumin (human) 25% 100 ML IV solution IV PRN
[2018-02-13] MEDS ORDERED: LIDOcaine 2% 5ml jelly ONE ×2 (11:21)
== END 2018-02-13 12:55 | disposition home or self-care (01) ==
LOC: WOUND CARE 09:46
PROVIDERS: ATTEND Surgery
DX: E11.622 Type 2 diabetes mellitus with other skin ulcer (principal); L97.311 Non-pressure chronic ulcer of right ankle limited to breakdown of skin; L97.321 Non-pressure chronic ulcer of left ankle limited to breakdown of skin; I83.013 Varicose veins of right lower extremity with ulcer of ankle; I83.023 Varicose veins of left lower extremity with ulcer of ankle; E03.9 Hypothyroidism, unspecified; E66.9 Obesity, unspecified; M19.90 Unspecified osteoarthritis, unspecified site; Z68.1 Body mass index [BMI] 19.9 or less, adult; Z85.828 Personal history of other malignant neoplasm of skin
CPT/HCPCS: 15271; 15272; 97597; A6021; A6206; A6223; A6449; Q4101

== ENCOUNTER 2018-02-17 09:38 | Outpatient (CLI) | payer BC ==
[2018-02-17] MEDS ORDERED: gentamicin 0.1% topical ointment 15gm TP ONE (10:55)
== END 2018-02-17 10:50 | disposition home or self-care (01) ==
LOC: WOUND CARE 09:38
PROVIDERS: ATTEND Surgery
DX: E11.622 Type 2 diabetes mellitus with other skin ulcer (principal); L97.311 Non-pressure chronic ulcer of right ankle limited to breakdown of skin; L97.321 Non-pressure chronic ulcer of left ankle limited to breakdown of skin; I83.013 Varicose veins of right lower extremity with ulcer of ankle; I83.023 Varicose veins of left lower extremity with ulcer of ankle; E03.9 Hypothyroidism, unspecified; E66.9 Obesity, unspecified; M19.90 Unspecified osteoarthritis, unspecified site; Z68.1 Body mass index [BMI] 19.9 or less, adult; Z85.828 Personal history of other malignant neoplasm of skin
CPT/HCPCS: 29581; A6198; A6206; A6441

== ENCOUNTER 2018-02-20 09:55 | Outpatient (CLI) | payer BC ==
[~2018-02-20 09:55] MED LIST changes: -CLOBETASOL TOP ONE; +CLOBETASOL TP SCH; -SANTYL OINT TOP ONE; +SANTYL TOP SCH
[2018-02-20] MEDS ORDERED: LIDOcaine 2% 5ml jelly ONE ×2 (11:33)
== END 2018-02-20 12:24 | disposition home or self-care (01) ==
LOC: WOUND CARE 09:55
PROVIDERS: ATTEND Surgery
DX: E11.622 Type 2 diabetes mellitus with other skin ulcer (principal); L97.312 Non-pressure chronic ulcer of right ankle with fat layer exposed; L97.322 Non-pressure chronic ulcer of left ankle with fat layer exposed; I83.013 Varicose veins of right lower extremity with ulcer of ankle; I83.023 Varicose veins of left lower extremity with ulcer of ankle; E03.9 Hypothyroidism, unspecified; E66.9 Obesity, unspecified; M19.90 Unspecified osteoarthritis, unspecified site; Z68.1 Body mass index [BMI] 19.9 or less, adult; Z85.828 Personal history of other malignant neoplasm of skin
CPT/HCPCS: 29581; A6021; A6196; A6206; A6441

== ENCOUNTER 2018-02-24 09:43 | Outpatient (CLI) | payer BC ==
[~2018-02-24 09:43] MED LIST changes: +CLOBETASOL TOP ONE; -CLOBETASOL TP SCH; +SANTYL OINT TOP ONE; -SANTYL TOP SCH
[2018-02-24] MEDS ORDERED: gentamicin 0.1% topical ointment 15gm TP ONE (09:59)
== END 2018-02-24 11:15 | disposition home or self-care (01) ==
LOC: WOUND CARE 09:43
PROVIDERS: ATTEND Surgery
DX: E11.622 Type 2 diabetes mellitus with other skin ulcer (principal); L97.312 Non-pressure chronic ulcer of right ankle with fat layer exposed; L97.322 Non-pressure chronic ulcer of left ankle with fat layer exposed; I83.013 Varicose veins of right lower extremity with ulcer of ankle; I83.023 Varicose veins of left lower extremity with ulcer of ankle; E03.9 Hypothyroidism, unspecified; E66.9 Obesity, unspecified; M19.90 Unspecified osteoarthritis, unspecified site; Z68.1 Body mass index [BMI] 19.9 or less, adult; Z85.828 Personal history of other malignant neoplasm of skin
CPT/HCPCS: 29581; A6021; A6206; A6212; A6441

== ENCOUNTER 2018-02-27 09:25 | Day surgery (SDC) | payer BC ==
[~2018-02-27 09:25] MED LIST changes: -CLOBETASOL TOP ONE; -SANTYL OINT TOP ONE
[2018-02-27] MEDS ORDERED: LIDOcaine 2% 5ml jelly ONE (11:00)
[2018-02-27] MEDS ORDERED: gentamicin 0.1% topical ointment 15gm TP SCH (20:00)
[2018-02-28] MEDS ORDERED: clobetasol 0.05% cream 30gm TP SCH (08:00)
[2018-02-28] MEDS ORDERED: [UNRECOGNIZED DRUG - OTHER] TP SCH (08:00)
== END 2018-02-27 12:11 | disposition home or self-care (01) ==
LOC: WOUND CARE 09:25
PROVIDERS: ATTEND Surgery
DX: E11.622 Type 2 diabetes mellitus with other skin ulcer (principal); L97.312 Non-pressure chronic ulcer of right ankle with fat layer exposed; L97.322 Non-pressure chronic ulcer of left ankle with fat layer exposed; I83.013 Varicose veins of right lower extremity with ulcer of ankle; I83.023 Varicose veins of left lower extremity with ulcer of ankle; E03.9 Hypothyroidism, unspecified; E66.9 Obesity, unspecified; M19.90 Unspecified osteoarthritis, unspecified site; Z68.1 Body mass index [BMI] 19.9 or less, adult; Z85.828 Personal history of other malignant neoplasm of skin
CPT/HCPCS: 15271; 15272; 87070; 87075; 87077; 87102; 87186; 97597; A6021; A6198; A6206; A6209; Q4101; A6441

== ENCOUNTER 2018-03-03 11:52 | Outpatient (CLI) | payer BC | END 2018-03-03 13:20 | disposition home or self-care (01) | LOC: WOUND CARE 11:52 | PROVIDERS: ATTEND Surgery | DX: E11.622 Type 2 diabetes mellitus with other skin ulcer (principal); L97.312 Non-pressure chronic ulcer of right ankle with fat layer exposed; L97.322 Non-pressure chronic ulcer of left ankle with fat layer exposed; I83.013 Varicose veins of right lower extremity with ulcer of ankle; I83.023 Varicose veins of left lower extremity with ulcer of ankle; E03.9 Hypothyroidism, unspecified; E66.9 Obesity, unspecified; M19.90 Unspecified osteoarthritis, unspecified site; Z68.1 Body mass index [BMI] 19.9 or less, adult; Z85.828 Personal history of other malignant neoplasm of skin | CPT/HCPCS: 29581; A6021; A6206; A6441 ==

== ENCOUNTER 2018-03-10 09:34 | Outpatient (CLI) | payer BC ==
[2018-03-10] MEDS ORDERED: LIDOcaine 2% 5ml jelly ONE ×2 (10:07)
[2018-03-10] MEDS ORDERED: COLLAGENASE TOP ONE (11:09)
[2018-03-10] MEDS ORDERED: CLOBETASOL TOP ONE (11:10)
[2018-03-10] MEDS ORDERED: CEPH-572 PO (12:28)
== END 2018-03-10 12:20 | disposition home or self-care (01) ==
LOC: WOUND CARE 09:34
PROVIDERS: ATTEND Surgery
DX: E11.622 Type 2 diabetes mellitus with other skin ulcer (principal); L97.312 Non-pressure chronic ulcer of right ankle with fat layer exposed; L97.322 Non-pressure chronic ulcer of left ankle with fat layer exposed; I83.013 Varicose veins of right lower extremity with ulcer of ankle; I83.023 Varicose veins of left lower extremity with ulcer of ankle; E03.9 Hypothyroidism, unspecified; E66.9 Obesity, unspecified; M19.90 Unspecified osteoarthritis, unspecified site; Z68.1 Body mass index [BMI] 19.9 or less, adult; Z85.828 Personal history of other malignant neoplasm of skin
CPT/HCPCS: 29581; A6021; A6206; A6441

== ENCOUNTER 2018-03-13 09:42 | Day surgery (SDC) | payer BC ==
[~2018-03-13 09:42] MED LIST changes: +CEPH-572 PO
[2018-03-13] MEDS ORDERED: LIDOcaine 2% 5ml jelly ONE (09:58)
== END 2018-03-13 11:55 | disposition home or self-care (01) ==
LOC: WOUND CARE 09:42
PROVIDERS: ATTEND Surgery
DX: E11.622 Type 2 diabetes mellitus with other skin ulcer (principal); L97.312 Non-pressure chronic ulcer of right ankle with fat layer exposed; L97.322 Non-pressure chronic ulcer of left ankle with fat layer exposed; I83.013 Varicose veins of right lower extremity with ulcer of ankle; I83.023 Varicose veins of left lower extremity with ulcer of ankle; E03.9 Hypothyroidism, unspecified; E66.9 Obesity, unspecified; M19.90 Unspecified osteoarthritis, unspecified site; Z68.1 Body mass index [BMI] 19.9 or less, adult; Z85.828 Personal history of other malignant neoplasm of skin
CPT/HCPCS: 15271; 15272; A6021; A6206; A6209; Q4101; A6250; A6441

== ENCOUNTER 2018-03-17 09:50 | Outpatient (CLI) | payer BC | END 2018-03-17 11:46 | disposition home or self-care (01) | LOC: WOUND CARE 09:50 | PROVIDERS: ATTEND Surgery | DX: E11.622 Type 2 diabetes mellitus with other skin ulcer (principal); L97.312 Non-pressure chronic ulcer of right ankle with fat layer exposed; L97.322 Non-pressure chronic ulcer of left ankle with fat layer exposed; I83.013 Varicose veins of right lower extremity with ulcer of ankle; I83.023 Varicose veins of left lower extremity with ulcer of ankle; E03.9 Hypothyroidism, unspecified; E66.9 Obesity, unspecified; M19.90 Unspecified osteoarthritis, unspecified site; Z68.1 Body mass index [BMI] 19.9 or less, adult; Z85.828 Personal history of other malignant neoplasm of skin | CPT/HCPCS: 29581; A6206; A6446; A6441 ==

== ENCOUNTER 2018-03-19 09:25 | Outpatient (CLI) | payer BC | END 2018-03-19 12:02 | disposition home or self-care (01) | LOC: WOUND CARE 09:25 | PROVIDERS: ATTEND Surgery | DX: E11.622 Type 2 diabetes mellitus with other skin ulcer (principal); L97.312 Non-pressure chronic ulcer of right ankle with fat layer exposed; L97.322 Non-pressure chronic ulcer of left ankle with fat layer exposed; I83.013 Varicose veins of right lower extremity with ulcer of ankle; I83.023 Varicose veins of left lower extremity with ulcer of ankle; E03.9 Hypothyroidism, unspecified; E66.9 Obesity, unspecified; M19.90 Unspecified osteoarthritis, unspecified site; Z68.1 Body mass index [BMI] 19.9 or less, adult; Z85.828 Personal history of other malignant neoplasm of skin | CPT/HCPCS: 29581; A6021; A6206; A6441 ==

== ENCOUNTER 2018-03-24 10:45 | Outpatient (CLI) | payer BC | END 2018-03-24 12:49 | disposition home or self-care (01) | LOC: WOUND CARE 10:45 | PROVIDERS: ATTEND Surgery | DX: E11.622 Type 2 diabetes mellitus with other skin ulcer (principal); L97.312 Non-pressure chronic ulcer of right ankle with fat layer exposed; L97.322 Non-pressure chronic ulcer of left ankle with fat layer exposed; I83.013 Varicose veins of right lower extremity with ulcer of ankle; I83.023 Varicose veins of left lower extremity with ulcer of ankle; E03.9 Hypothyroidism, unspecified; E66.9 Obesity, unspecified; M19.90 Unspecified osteoarthritis, unspecified site; Z68.1 Body mass index [BMI] 19.9 or less, adult; Z85.828 Personal history of other malignant neoplasm of skin | CPT/HCPCS: 29581; A6021; A6206; A6441 ==

== ENCOUNTER 2018-03-27 10:18 | Outpatient (CLI) | payer BC | END 2018-03-27 11:59 | disposition home or self-care (01) | LOC: WOUND CARE 10:18 | PROVIDERS: ATTEND Surgery | DX: E11.622 Type 2 diabetes mellitus with other skin ulcer (principal); L97.312 Non-pressure chronic ulcer of right ankle with fat layer exposed; L97.322 Non-pressure chronic ulcer of left ankle with fat layer exposed; I83.013 Varicose veins of right lower extremity with ulcer of ankle; I83.023 Varicose veins of left lower extremity with ulcer of ankle; E03.9 Hypothyroidism, unspecified; E66.9 Obesity, unspecified; M19.90 Unspecified osteoarthritis, unspecified site; Z68.1 Body mass index [BMI] 19.9 or less, adult; Z85.828 Personal history of other malignant neoplasm of skin | CPT/HCPCS: 29581; A6021; A6206; A6209 ==

== ENCOUNTER 2018-03-31 09:30 | Day surgery (SDC) | payer BC ==
[2018-03-31] MEDS ORDERED: LIDOcaine 2% 5ml jelly ONE ×2 (10:48)
== END 2018-03-31 13:01 | disposition home or self-care (01) ==
LOC: WOUND CARE 09:30
PROVIDERS: ATTEND Surgery
DX: E11.622 Type 2 diabetes mellitus with other skin ulcer (principal); L97.312 Non-pressure chronic ulcer of right ankle with fat layer exposed; L97.322 Non-pressure chronic ulcer of left ankle with fat layer exposed; I83.013 Varicose veins of right lower extremity with ulcer of ankle; I83.023 Varicose veins of left lower extremity with ulcer of ankle; E03.9 Hypothyroidism, unspecified; E66.9 Obesity, unspecified; M19.90 Unspecified osteoarthritis, unspecified site; Z68.1 Body mass index [BMI] 19.9 or less, adult; Z85.828 Personal history of other malignant neoplasm of skin
CPT/HCPCS: 15271; 15272; A6209; A6222; A6223; A6449; Q4101; A6250; A6441

== ENCOUNTER 2018-04-03 10:25 | Outpatient (CLI) | payer BC | END 2018-04-03 12:00 | disposition home or self-care (01) | LOC: WOUND CARE 10:25 | PROVIDERS: ATTEND Surgery | DX: E11.622 Type 2 diabetes mellitus with other skin ulcer (principal); L97.312 Non-pressure chronic ulcer of right ankle with fat layer exposed; L97.322 Non-pressure chronic ulcer of left ankle with fat layer exposed; I83.013 Varicose veins of right lower extremity with ulcer of ankle; I83.023 Varicose veins of left lower extremity with ulcer of ankle; E03.9 Hypothyroidism, unspecified; E66.9 Obesity, unspecified; M19.90 Unspecified osteoarthritis, unspecified site; Z68.1 Body mass index [BMI] 19.9 or less, adult; Z85.828 Personal history of other malignant neoplasm of skin | CPT/HCPCS: 29581; A6206; A6441 ==

== ENCOUNTER 2018-04-07 09:56 | Outpatient (CLI) | payer BC | END 2018-04-07 12:24 | disposition home or self-care (01) | LOC: WOUND CARE 09:56 | PROVIDERS: ATTEND Surgery | DX: E11.622 Type 2 diabetes mellitus with other skin ulcer (principal); L97.312 Non-pressure chronic ulcer of right ankle with fat layer exposed; L97.322 Non-pressure chronic ulcer of left ankle with fat layer exposed; I83.013 Varicose veins of right lower extremity with ulcer of ankle; I83.023 Varicose veins of left lower extremity with ulcer of ankle; E03.9 Hypothyroidism, unspecified; E66.9 Obesity, unspecified; M19.90 Unspecified osteoarthritis, unspecified site; Z68.1 Body mass index [BMI] 19.9 or less, adult; Z85.828 Personal history of other malignant neoplasm of skin | CPT/HCPCS: 29581; A6021; A6206; A6209; A6441 ==

== ENCOUNTER 2018-04-10 11:39 | Outpatient (CLI) | payer BC | END 2018-04-10 12:49 | disposition home or self-care (01) | LOC: WOUND CARE 11:39 | PROVIDERS: ATTEND Surgery | DX: E11.622 Type 2 diabetes mellitus with other skin ulcer (principal); L97.312 Non-pressure chronic ulcer of right ankle with fat layer exposed; L97.322 Non-pressure chronic ulcer of left ankle with fat layer exposed; I83.013 Varicose veins of right lower extremity with ulcer of ankle; I83.023 Varicose veins of left lower extremity with ulcer of ankle; E03.9 Hypothyroidism, unspecified; E66.9 Obesity, unspecified; M19.90 Unspecified osteoarthritis, unspecified site; Z68.1 Body mass index [BMI] 19.9 or less, adult; Z85.828 Personal history of other malignant neoplasm of skin | CPT/HCPCS: 29581; A6021; A6206; A6223; A6441 ==

== ENCOUNTER 2018-04-14 10:03 | Day surgery (SDC) | payer BC ==
[~2018-04-14 10:03] MED LIST changes: -CEPH-572 PO; -CLOB15CR4 TOP; -COLL30OI TP
== END 2018-04-14 13:37 | disposition home or self-care (01) ==
LOC: WOUND CARE 10:03
PROVIDERS: ATTEND Surgery
DX: E11.622 Type 2 diabetes mellitus with other skin ulcer (principal); L97.312 Non-pressure chronic ulcer of right ankle with fat layer exposed; L97.322 Non-pressure chronic ulcer of left ankle with fat layer exposed; E11.621 Type 2 diabetes mellitus with foot ulcer; L97.511 Non-pressure chronic ulcer of other part of right foot limited to breakdown of skin; I83.013 Varicose veins of right lower extremity with ulcer of ankle; I83.023 Varicose veins of left lower extremity with ulcer of ankle; E03.9 Hypothyroidism, unspecified; E66.9 Obesity, unspecified; M19.90 Unspecified osteoarthritis, unspecified site; Z68.1 Body mass index [BMI] 19.9 or less, adult; Z85.828 Personal history of other malignant neoplasm of skin
CPT/HCPCS: 15271; 15275; 15276; 87070; 87075; 87077; 87102; 87186; A6021; A6206; A6212; A6223; Q4101; A6250; A6441

== ENCOUNTER 2018-04-17 09:58 | Outpatient (CLI) | payer BC | END 2018-04-17 11:26 | disposition home or self-care (01) | LOC: WOUND CARE 09:58 | PROVIDERS: ATTEND Surgery | DX: E11.622 Type 2 diabetes mellitus with other skin ulcer (principal); L97.312 Non-pressure chronic ulcer of right ankle with fat layer exposed; L97.322 Non-pressure chronic ulcer of left ankle with fat layer exposed; E11.621 Type 2 diabetes mellitus with foot ulcer; L97.511 Non-pressure chronic ulcer of other part of right foot limited to breakdown of skin; I83.013 Varicose veins of right lower extremity with ulcer of ankle; I83.023 Varicose veins of left lower extremity with ulcer of ankle; E03.9 Hypothyroidism, unspecified; E66.9 Obesity, unspecified; M19.90 Unspecified osteoarthritis, unspecified site; Z68.1 Body mass index [BMI] 19.9 or less, adult; Z85.828 Personal history of other malignant neoplasm of skin | CPT/HCPCS: 29581; A6206; A6209; A6222; A6441 ==

== ENCOUNTER 2018-04-22 09:44 | Outpatient (CLI) | payer BC | END 2018-04-22 12:50 | disposition home or self-care (01) | LOC: WOUND CARE 09:44 | PROVIDERS: ATTEND Surgery | DX: E11.622 Type 2 diabetes mellitus with other skin ulcer (principal); L97.312 Non-pressure chronic ulcer of right ankle with fat layer exposed; L97.322 Non-pressure chronic ulcer of left ankle with fat layer exposed; E11.621 Type 2 diabetes mellitus with foot ulcer; L97.511 Non-pressure chronic ulcer of other part of right foot limited to breakdown of skin; I83.013 Varicose veins of right lower extremity with ulcer of ankle; I83.023 Varicose veins of left lower extremity with ulcer of ankle; E03.9 Hypothyroidism, unspecified; E66.9 Obesity, unspecified; M19.90 Unspecified osteoarthritis, unspecified site; Z68.1 Body mass index [BMI] 19.9 or less, adult; Z85.828 Personal history of other malignant neoplasm of skin | CPT/HCPCS: 29581; A6206; A6222; A6441 ==

== ENCOUNTER 2018-04-24 08:43 | Outpatient (CLI) | payer BC | END 2018-04-24 09:59 | disposition home or self-care (01) | LOC: WOUND CARE 08:43 → EDSTATUS 09:00 → WOUND CARE 09:59 | PROVIDERS: ATTEND Surgery | DX: E11.622 Type 2 diabetes mellitus with other skin ulcer (principal); L97.312 Non-pressure chronic ulcer of right ankle with fat layer exposed; L97.322 Non-pressure chronic ulcer of left ankle with fat layer exposed; E11.621 Type 2 diabetes mellitus with foot ulcer; L97.511 Non-pressure chronic ulcer of other part of right foot limited to breakdown of skin; I83.013 Varicose veins of right lower extremity with ulcer of ankle; I83.023 Varicose veins of left lower extremity with ulcer of ankle; E03.9 Hypothyroidism, unspecified; E66.9 Obesity, unspecified; M19.90 Unspecified osteoarthritis, unspecified site; Z68.1 Body mass index [BMI] 19.9 or less, adult; Z85.828 Personal history of other malignant neoplasm of skin | CPT/HCPCS: 29581; A6206; A6441 ==

== ENCOUNTER 2018-04-28 11:25 | Day surgery (SDC) | payer BC ==
[2018-04-28] MEDS ORDERED: LIDOcaine 2% 5ml jelly ONE (12:55)
[2018-04-28] MEDS ORDERED: hydrocortisone 1% cream 28gm TP ONE (13:35)
== END 2018-04-28 14:09 | disposition home or self-care (01) ==
LOC: WOUND CARE 11:25
PROVIDERS: ATTEND Surgery
DX: E11.622 Type 2 diabetes mellitus with other skin ulcer (principal); L97.312 Non-pressure chronic ulcer of right ankle with fat layer exposed; L97.322 Non-pressure chronic ulcer of left ankle with fat layer exposed; E11.621 Type 2 diabetes mellitus with foot ulcer; L97.511 Non-pressure chronic ulcer of other part of right foot limited to breakdown of skin; I83.013 Varicose veins of right lower extremity with ulcer of ankle; I83.023 Varicose veins of left lower extremity with ulcer of ankle; E03.9 Hypothyroidism, unspecified; E66.9 Obesity, unspecified; M19.90 Unspecified osteoarthritis, unspecified site; Z68.1 Body mass index [BMI] 19.9 or less, adult; Z85.828 Personal history of other malignant neoplasm of skin
CPT/HCPCS: 97597; 97598; A6021; A6206; A6209; A6441

== ENCOUNTER 2018-05-01 09:26 | Outpatient (CLI) | payer BC ==
[2018-05-01] MEDS ORDERED: hydrocortisone 1% cream 28gm TP ONE (10:50)
== END 2018-05-01 11:45 | disposition home or self-care (01) ==
LOC: WOUND CARE 09:26
PROVIDERS: ATTEND Surgery
DX: E11.622 Type 2 diabetes mellitus with other skin ulcer (principal); L97.312 Non-pressure chronic ulcer of right ankle with fat layer exposed; L97.322 Non-pressure chronic ulcer of left ankle with fat layer exposed; E11.621 Type 2 diabetes mellitus with foot ulcer; L97.511 Non-pressure chronic ulcer of other part of right foot limited to breakdown of skin; I83.013 Varicose veins of right lower extremity with ulcer of ankle; I83.023 Varicose veins of left lower extremity with ulcer of ankle; E03.9 Hypothyroidism, unspecified; E66.9 Obesity, unspecified; M19.90 Unspecified osteoarthritis, unspecified site; Z68.1 Body mass index [BMI] 19.9 or less, adult; Z85.828 Personal history of other malignant neoplasm of skin
CPT/HCPCS: 29581; A6021; A6206; A6209; A6223; A6441

== ENCOUNTER 2018-05-05 09:37 | Day surgery (SDC) | payer BC ==
[2018-05-05] MEDS ORDERED: LIDOcaine 2% 5ml jelly ONE ×2 (10:56)
== END 2018-05-05 12:57 | disposition home or self-care (01) ==
LOC: WOUND CARE 09:37
PROVIDERS: ATTEND Surgery
DX: E11.622 Type 2 diabetes mellitus with other skin ulcer (principal); L97.312 Non-pressure chronic ulcer of right ankle with fat layer exposed; L97.322 Non-pressure chronic ulcer of left ankle with fat layer exposed; E11.621 Type 2 diabetes mellitus with foot ulcer; L97.511 Non-pressure chronic ulcer of other part of right foot limited to breakdown of skin; I83.013 Varicose veins of right lower extremity with ulcer of ankle; I83.023 Varicose veins of left lower extremity with ulcer of ankle; E03.9 Hypothyroidism, unspecified; E66.9 Obesity, unspecified; M19.90 Unspecified osteoarthritis, unspecified site; Z68.1 Body mass index [BMI] 19.9 or less, adult; Z85.828 Personal history of other malignant neoplasm of skin
CPT/HCPCS: 15271; 15272; 15275; 15276; A6206; A6223; Q4101; A6441

== ENCOUNTER 2018-05-08 10:01 | Outpatient (CLI) | payer BC | END 2018-05-08 11:34 | disposition home or self-care (01) | LOC: WOUND CARE 10:01 | PROVIDERS: ATTEND Surgery | DX: E11.622 Type 2 diabetes mellitus with other skin ulcer (principal); L97.312 Non-pressure chronic ulcer of right ankle with fat layer exposed; L97.322 Non-pressure chronic ulcer of left ankle with fat layer exposed; E11.621 Type 2 diabetes mellitus with foot ulcer; L97.511 Non-pressure chronic ulcer of other part of right foot limited to breakdown of skin; I83.013 Varicose veins of right lower extremity with ulcer of ankle; I83.023 Varicose veins of left lower extremity with ulcer of ankle; E03.9 Hypothyroidism, unspecified; E66.9 Obesity, unspecified; M19.90 Unspecified osteoarthritis, unspecified site; Z68.1 Body mass index [BMI] 19.9 or less, adult; Z85.828 Personal history of other malignant neoplasm of skin | CPT/HCPCS: 29581; A6206; A6209; A6222; A6223; A6441 ==

== ENCOUNTER 2018-05-12 09:20 | Outpatient (CLI) | payer BC ==
[2018-05-12] MEDS ORDERED: LIDOcaine 2% 5ml jelly ONE (10:01)
== END 2018-05-12 11:43 | disposition home or self-care (01) ==
LOC: WOUND CARE 09:20
PROVIDERS: ATTEND Surgery
DX: E11.622 Type 2 diabetes mellitus with other skin ulcer (principal); L97.312 Non-pressure chronic ulcer of right ankle with fat layer exposed; L97.322 Non-pressure chronic ulcer of left ankle with fat layer exposed; E11.621 Type 2 diabetes mellitus with foot ulcer; L97.511 Non-pressure chronic ulcer of other part of right foot limited to breakdown of skin; I83.013 Varicose veins of right lower extremity with ulcer of ankle; I83.023 Varicose veins of left lower extremity with ulcer of ankle; E03.9 Hypothyroidism, unspecified; E66.9 Obesity, unspecified; M19.90 Unspecified osteoarthritis, unspecified site; Z68.1 Body mass index [BMI] 19.9 or less, adult; Z85.828 Personal history of other malignant neoplasm of skin
CPT/HCPCS: 29581; A6021; A6206; A6209; A6222; A6223; A6441

== ENCOUNTER 2018-05-15 10:25 | Outpatient (CLI) | payer BC ==
[2018-05-15] MEDS ORDERED: hydrocortisone 1% cream 28gm TP ONE (11:20)
== END 2018-05-15 12:33 | disposition home or self-care (01) ==
LOC: WOUND CARE 10:25
PROVIDERS: ATTEND Surgery
DX: E11.622 Type 2 diabetes mellitus with other skin ulcer (principal); L97.312 Non-pressure chronic ulcer of right ankle with fat layer exposed; L97.322 Non-pressure chronic ulcer of left ankle with fat layer exposed; E11.621 Type 2 diabetes mellitus with foot ulcer; L97.511 Non-pressure chronic ulcer of other part of right foot limited to breakdown of skin; I83.013 Varicose veins of right lower extremity with ulcer of ankle; I83.023 Varicose veins of left lower extremity with ulcer of ankle; E03.9 Hypothyroidism, unspecified; E66.9 Obesity, unspecified; M19.90 Unspecified osteoarthritis, unspecified site; Z68.1 Body mass index [BMI] 19.9 or less, adult; Z85.828 Personal history of other malignant neoplasm of skin
CPT/HCPCS: 29581; A6021; A6206; A6209; A6222; A6223; A6441

== ENCOUNTER 2018-05-19 10:27 | Day surgery (SDC) | payer BC | END 2018-05-19 12:23 | disposition home or self-care (01) | LOC: WOUND CARE 10:27 | PROVIDERS: ATTEND Surgery | DX: E11.622 Type 2 diabetes mellitus with other skin ulcer (principal); L97.312 Non-pressure chronic ulcer of right ankle with fat layer exposed; L97.322 Non-pressure chronic ulcer of left ankle with fat layer exposed; E11.621 Type 2 diabetes mellitus with foot ulcer; L97.511 Non-pressure chronic ulcer of other part of right foot limited to breakdown of skin; I83.013 Varicose veins of right lower extremity with ulcer of ankle; I83.023 Varicose veins of left lower extremity with ulcer of ankle; E03.9 Hypothyroidism, unspecified; E66.9 Obesity, unspecified; M19.90 Unspecified osteoarthritis, unspecified site; Z68.1 Body mass index [BMI] 19.9 or less, adult; Z85.828 Personal history of other malignant neoplasm of skin | CPT/HCPCS: 97597; 97598; A6021; A6206; A6223; A6441 ==

== ENCOUNTER 2018-05-26 09:16 | Day surgery (SDC) | payer BC ==
[2018-05-26] MEDS ORDERED: LIDOcaine 2% 5ml jelly ONE (10:30)
== END 2018-05-26 11:45 | disposition home or self-care (01) ==
LOC: WOUND CARE 09:16
PROVIDERS: ATTEND Surgery
DX: E11.622 Type 2 diabetes mellitus with other skin ulcer (principal); L97.312 Non-pressure chronic ulcer of right ankle with fat layer exposed; L97.322 Non-pressure chronic ulcer of left ankle with fat layer exposed; E11.621 Type 2 diabetes mellitus with foot ulcer; L97.511 Non-pressure chronic ulcer of other part of right foot limited to breakdown of skin; I83.013 Varicose veins of right lower extremity with ulcer of ankle; I83.023 Varicose veins of left lower extremity with ulcer of ankle; I87.2 Venous insufficiency (chronic) (peripheral); E03.9 Hypothyroidism, unspecified; E66.9 Obesity, unspecified; M19.90 Unspecified osteoarthritis, unspecified site; Z68.1 Body mass index [BMI] 19.9 or less, adult; Z85.828 Personal history of other malignant neoplasm of skin
CPT/HCPCS: 15271; 15272; 15275; A6209; A6223; Q4101; A6441

== ENCOUNTER 2018-05-29 09:35 | Outpatient (CLI) | payer BC | END 2018-05-29 12:30 | disposition home or self-care (01) | LOC: WOUND CARE 09:35 | PROVIDERS: ATTEND Surgery | DX: E11.622 Type 2 diabetes mellitus with other skin ulcer (principal); L97.312 Non-pressure chronic ulcer of right ankle with fat layer exposed; L97.322 Non-pressure chronic ulcer of left ankle with fat layer exposed; E11.621 Type 2 diabetes mellitus with foot ulcer; L97.511 Non-pressure chronic ulcer of other part of right foot limited to breakdown of skin; I83.013 Varicose veins of right lower extremity with ulcer of ankle; I83.023 Varicose veins of left lower extremity with ulcer of ankle; I87.2 Venous insufficiency (chronic) (peripheral); E03.9 Hypothyroidism, unspecified; E66.9 Obesity, unspecified; M19.90 Unspecified osteoarthritis, unspecified site; Z68.1 Body mass index [BMI] 19.9 or less, adult; Z85.828 Personal history of other malignant neoplasm of skin | CPT/HCPCS: 29581; A6206; A6209; A6223; A6441 ==

== ENCOUNTER 2018-06-02 09:29 | Outpatient (CLI) | payer BC | END 2018-06-02 11:06 | disposition home or self-care (01) | LOC: WOUND CARE 09:29 | PROVIDERS: ATTEND Surgery | DX: E11.622 Type 2 diabetes mellitus with other skin ulcer (principal); L97.312 Non-pressure chronic ulcer of right ankle with fat layer exposed; L97.322 Non-pressure chronic ulcer of left ankle with fat layer exposed; E11.621 Type 2 diabetes mellitus with foot ulcer; L97.511 Non-pressure chronic ulcer of other part of right foot limited to breakdown of skin; I83.013 Varicose veins of right lower extremity with ulcer of ankle; I83.023 Varicose veins of left lower extremity with ulcer of ankle; I87.2 Venous insufficiency (chronic) (peripheral); E03.9 Hypothyroidism, unspecified; E66.9 Obesity, unspecified; M19.90 Unspecified osteoarthritis, unspecified site; Z68.1 Body mass index [BMI] 19.9 or less, adult; Z85.828 Personal history of other malignant neoplasm of skin | CPT/HCPCS: 29581; A6206; A6209; A6222; A6223; A6441 ==

== ENCOUNTER 2018-06-05 09:44 | Outpatient (CLI) | payer BC ==
[2018-06-05] MEDS ORDERED: hydrocortisone 1% cream 28gm TP ONE (16:55)
== END 2018-06-05 13:13 | disposition home or self-care (01) ==
LOC: WOUND CARE 09:44
PROVIDERS: ATTEND Surgery
DX: E11.622 Type 2 diabetes mellitus with other skin ulcer (principal); L97.312 Non-pressure chronic ulcer of right ankle with fat layer exposed; L97.322 Non-pressure chronic ulcer of left ankle with fat layer exposed; E11.621 Type 2 diabetes mellitus with foot ulcer; L97.511 Non-pressure chronic ulcer of other part of right foot limited to breakdown of skin; I83.013 Varicose veins of right lower extremity with ulcer of ankle; I83.023 Varicose veins of left lower extremity with ulcer of ankle; I87.2 Venous insufficiency (chronic) (peripheral); E03.9 Hypothyroidism, unspecified; E66.9 Obesity, unspecified; M19.90 Unspecified osteoarthritis, unspecified site; Z68.1 Body mass index [BMI] 19.9 or less, adult; Z85.828 Personal history of other malignant neoplasm of skin
CPT/HCPCS: 29581; A6021; A6206; A6212; A6223; A6441

== ENCOUNTER 2018-06-09 09:12 | Day surgery (SDC) | payer BC ==
[2018-06-09] MEDS ORDERED: LIDOcaine 2% 5ml jelly ONE (09:52)
== END 2018-06-09 13:45 | disposition home or self-care (01) ==
LOC: WOUND CARE 09:12
PROVIDERS: ATTEND Surgery
DX: E11.622 Type 2 diabetes mellitus with other skin ulcer (principal); L97.312 Non-pressure chronic ulcer of right ankle with fat layer exposed; L97.322 Non-pressure chronic ulcer of left ankle with fat layer exposed; E11.621 Type 2 diabetes mellitus with foot ulcer; L97.511 Non-pressure chronic ulcer of other part of right foot limited to breakdown of skin; I83.013 Varicose veins of right lower extremity with ulcer of ankle; I83.023 Varicose veins of left lower extremity with ulcer of ankle; I87.2 Venous insufficiency (chronic) (peripheral); E03.9 Hypothyroidism, unspecified; E66.9 Obesity, unspecified; M19.90 Unspecified osteoarthritis, unspecified site; Z68.1 Body mass index [BMI] 19.9 or less, adult; Z85.828 Personal history of other malignant neoplasm of skin
CPT/HCPCS: 15271; 15272; 15275; A6209; A6222; A6223; Q4101; A6441

== ENCOUNTER 2018-06-12 11:00 | Outpatient (CLI) | payer BC | END 2018-06-12 13:24 | disposition home or self-care (01) | LOC: WOUND CARE 11:00 | PROVIDERS: ATTEND Surgery | DX: E11.622 Type 2 diabetes mellitus with other skin ulcer (principal); L97.312 Non-pressure chronic ulcer of right ankle with fat layer exposed; L97.322 Non-pressure chronic ulcer of left ankle with fat layer exposed; E11.621 Type 2 diabetes mellitus with foot ulcer; L97.511 Non-pressure chronic ulcer of other part of right foot limited to breakdown of skin; I83.013 Varicose veins of right lower extremity with ulcer of ankle; I83.023 Varicose veins of left lower extremity with ulcer of ankle; I87.2 Venous insufficiency (chronic) (peripheral); E03.9 Hypothyroidism, unspecified; E66.9 Obesity, unspecified; M19.90 Unspecified osteoarthritis, unspecified site; Z68.1 Body mass index [BMI] 19.9 or less, adult; Z85.828 Personal history of other malignant neoplasm of skin | CPT/HCPCS: 29581; A6206; A6222; A6223; A6441 ==

== ENCOUNTER 2018-06-16 11:58 | Day surgery (SDC) | payer BC ==
[2018-06-16] MEDS ORDERED: LIDOcaine 2% 5ml jelly ONE ×2 (12:36→12:37)
== END 2018-06-16 14:00 | disposition home or self-care (01) ==
LOC: WOUND CARE 11:58
PROVIDERS: ATTEND Surgery
DX: E11.622 Type 2 diabetes mellitus with other skin ulcer (principal); L97.312 Non-pressure chronic ulcer of right ankle with fat layer exposed; L97.322 Non-pressure chronic ulcer of left ankle with fat layer exposed; E11.621 Type 2 diabetes mellitus with foot ulcer; L97.511 Non-pressure chronic ulcer of other part of right foot limited to breakdown of skin; I83.013 Varicose veins of right lower extremity with ulcer of ankle; I83.023 Varicose veins of left lower extremity with ulcer of ankle; I87.2 Venous insufficiency (chronic) (peripheral); E03.9 Hypothyroidism, unspecified; E66.9 Obesity, unspecified; M19.90 Unspecified osteoarthritis, unspecified site; Z68.1 Body mass index [BMI] 19.9 or less, adult; Z85.828 Personal history of other malignant neoplasm of skin
CPT/HCPCS: 97597; 97598; A6021; A6206; A6223; A6441

== ENCOUNTER 2018-06-19 09:32 | Outpatient (CLI) | payer BC ==
[~2018-06-19 09:32] MED LIST changes: +hydrocortisone 1% cream 28gm TP ONE
[2018-06-19] MEDS ORDERED: hydrocortisone 1% cream 28gm TP ONE (12:56)
== END 2018-06-19 13:50 | disposition home or self-care (01) ==
LOC: WOUND CARE 09:32
PROVIDERS: ATTEND Surgery
DX: E11.622 Type 2 diabetes mellitus with other skin ulcer (principal); L97.312 Non-pressure chronic ulcer of right ankle with fat layer exposed; L97.322 Non-pressure chronic ulcer of left ankle with fat layer exposed; E11.621 Type 2 diabetes mellitus with foot ulcer; L97.511 Non-pressure chronic ulcer of other part of right foot limited to breakdown of skin; I83.013 Varicose veins of right lower extremity with ulcer of ankle; I83.023 Varicose veins of left lower extremity with ulcer of ankle; I87.2 Venous insufficiency (chronic) (peripheral); E03.9 Hypothyroidism, unspecified; E66.9 Obesity, unspecified; M19.90 Unspecified osteoarthritis, unspecified site; Z68.1 Body mass index [BMI] 19.9 or less, adult; Z85.828 Personal history of other malignant neoplasm of skin
CPT/HCPCS: 29581; A6021; A6198; A6206; A6223; A6441

== ENCOUNTER 2018-06-23 09:16 | Day surgery (SDC) | payer BC ==
[~2018-06-23 09:16] MED LIST changes: -hydrocortisone 1% cream 28gm TP ONE
[2018-06-23] MEDS ORDERED: LIDOcaine/PRILOcaine 5gm cream TP ONE (10:09)
== END 2018-06-23 12:34 | disposition home or self-care (01) ==
LOC: WOUND CARE 09:16
PROVIDERS: ATTEND Surgery
DX: E11.622 Type 2 diabetes mellitus with other skin ulcer (principal); L97.312 Non-pressure chronic ulcer of right ankle with fat layer exposed; L97.322 Non-pressure chronic ulcer of left ankle with fat layer exposed; E11.621 Type 2 diabetes mellitus with foot ulcer; L97.511 Non-pressure chronic ulcer of other part of right foot limited to breakdown of skin; L97.412 Non-pressure chronic ulcer of right heel and midfoot with fat layer exposed; I83.013 Varicose veins of right lower extremity with ulcer of ankle; I83.023 Varicose veins of left lower extremity with ulcer of ankle; I87.2 Venous insufficiency (chronic) (peripheral); E03.9 Hypothyroidism, unspecified; E66.9 Obesity, unspecified; M19.90 Unspecified osteoarthritis, unspecified site; Z68.1 Body mass index [BMI] 19.9 or less, adult; Z85.828 Personal history of other malignant neoplasm of skin
CPT/HCPCS: 97597; 97598; A6021; A6207; A6441

== ENCOUNTER 2018-06-26 11:20 | Outpatient (CLI) | payer BC | END 2018-06-26 13:06 | disposition home or self-care (01) | LOC: WOUND CARE 11:20 | PROVIDERS: ATTEND Surgery | DX: E11.622 Type 2 diabetes mellitus with other skin ulcer (principal); L97.312 Non-pressure chronic ulcer of right ankle with fat layer exposed; L97.322 Non-pressure chronic ulcer of left ankle with fat layer exposed; E11.621 Type 2 diabetes mellitus with foot ulcer; L97.511 Non-pressure chronic ulcer of other part of right foot limited to breakdown of skin; L97.412 Non-pressure chronic ulcer of right heel and midfoot with fat layer exposed; I83.013 Varicose veins of right lower extremity with ulcer of ankle; I83.023 Varicose veins of left lower extremity with ulcer of ankle; I87.2 Venous insufficiency (chronic) (peripheral); E03.9 Hypothyroidism, unspecified; E66.9 Obesity, unspecified; M19.90 Unspecified osteoarthritis, unspecified site; Z68.1 Body mass index [BMI] 19.9 or less, adult; Z85.828 Personal history of other malignant neoplasm of skin | CPT/HCPCS: 29581; 87070; 87075; 87102; 87186; A6021; A6206; A6209; A6441 ==

== ENCOUNTER 2018-07-07 08:10 | Day surgery (SDC) | payer BC ==
[~2018-07-07 08:10] MED LIST changes: -CHOL200016 PO; +CHOL200085 PO
== END 2018-07-07 11:51 | disposition home or self-care (01) ==
LOC: WOUND CARE 08:10
PROVIDERS: ATTEND Surgery
DX: E11.622 Type 2 diabetes mellitus with other skin ulcer (principal); L97.312 Non-pressure chronic ulcer of right ankle with fat layer exposed; L97.322 Non-pressure chronic ulcer of left ankle with fat layer exposed; E11.621 Type 2 diabetes mellitus with foot ulcer; L97.511 Non-pressure chronic ulcer of other part of right foot limited to breakdown of skin; L97.412 Non-pressure chronic ulcer of right heel and midfoot with fat layer exposed; I83.013 Varicose veins of right lower extremity with ulcer of ankle; I83.023 Varicose veins of left lower extremity with ulcer of ankle; I87.2 Venous insufficiency (chronic) (peripheral); E03.9 Hypothyroidism, unspecified; E66.9 Obesity, unspecified; M19.90 Unspecified osteoarthritis, unspecified site; Z68.1 Body mass index [BMI] 19.9 or less, adult; Z85.828 Personal history of other malignant neoplasm of skin
CPT/HCPCS: 97597; 97598; A6196; A6223; A6441

== ENCOUNTER 2018-07-10 08:32 | Outpatient (CLI) | payer BC ==
[2018-07-10] MEDS ORDERED: hydrocortisone 1% cream 28gm TP ONE (09:54)
== END 2018-07-10 12:34 | disposition home or self-care (01) ==
LOC: WOUND CARE 08:32 → EDSTATUS 09:00 → WOUND CARE 12:34
PROVIDERS: ATTEND Surgery
DX: E11.622 Type 2 diabetes mellitus with other skin ulcer (principal); L97.312 Non-pressure chronic ulcer of right ankle with fat layer exposed; L97.322 Non-pressure chronic ulcer of left ankle with fat layer exposed; E11.621 Type 2 diabetes mellitus with foot ulcer; L97.511 Non-pressure chronic ulcer of other part of right foot limited to breakdown of skin; L97.412 Non-pressure chronic ulcer of right heel and midfoot with fat layer exposed; I83.013 Varicose veins of right lower extremity with ulcer of ankle; I83.023 Varicose veins of left lower extremity with ulcer of ankle; I87.2 Venous insufficiency (chronic) (peripheral); E03.9 Hypothyroidism, unspecified; E66.9 Obesity, unspecified; M19.90 Unspecified osteoarthritis, unspecified site; Z68.1 Body mass index [BMI] 19.9 or less, adult; Z85.828 Personal history of other malignant neoplasm of skin
CPT/HCPCS: 29581; A6021; A6206; A6223; A6441

== ENCOUNTER 2018-07-14 09:21 | Day surgery (SDC) | payer BC ==
[2018-07-14] MEDS ORDERED: LIDOcaine/PRILOcaine 5gm cream TP ONE ×2 (10:21→10:25)
== END 2018-07-14 12:18 | disposition home or self-care (01) ==
LOC: WOUND CARE 09:21
PROVIDERS: ATTEND Surgery
DX: E11.622 Type 2 diabetes mellitus with other skin ulcer (principal); L97.312 Non-pressure chronic ulcer of right ankle with fat layer exposed; L97.322 Non-pressure chronic ulcer of left ankle with fat layer exposed; E11.621 Type 2 diabetes mellitus with foot ulcer; L97.511 Non-pressure chronic ulcer of other part of right foot limited to breakdown of skin; L97.412 Non-pressure chronic ulcer of right heel and midfoot with fat layer exposed; I83.013 Varicose veins of right lower extremity with ulcer of ankle; I83.023 Varicose veins of left lower extremity with ulcer of ankle; I87.2 Venous insufficiency (chronic) (peripheral); E03.9 Hypothyroidism, unspecified; E66.9 Obesity, unspecified; M19.90 Unspecified osteoarthritis, unspecified site; Z68.1 Body mass index [BMI] 19.9 or less, adult; Z85.828 Personal history of other malignant neoplasm of skin
CPT/HCPCS: 29581; A6021; A6206; A6209; 97597; 97598; A6441

== ENCOUNTER 2018-07-17 09:22 | Outpatient (CLI) | payer BC ==
[2018-07-17] MEDS: clobetasol 0.05% cream 30gm TP SCH ×2 (08:55→11:39)
== END 2018-07-17 11:57 | disposition home or self-care (01) ==
LOC: WOUND CARE 09:22
PROVIDERS: ATTEND Surgery
DX: E11.622 Type 2 diabetes mellitus with other skin ulcer (principal); L97.312 Non-pressure chronic ulcer of right ankle with fat layer exposed; L97.322 Non-pressure chronic ulcer of left ankle with fat layer exposed; E11.621 Type 2 diabetes mellitus with foot ulcer; L97.511 Non-pressure chronic ulcer of other part of right foot limited to breakdown of skin; L97.412 Non-pressure chronic ulcer of right heel and midfoot with fat layer exposed; I83.013 Varicose veins of right lower extremity with ulcer of ankle; I83.023 Varicose veins of left lower extremity with ulcer of ankle; I87.2 Venous insufficiency (chronic) (peripheral); E03.9 Hypothyroidism, unspecified; E66.9 Obesity, unspecified; M19.90 Unspecified osteoarthritis, unspecified site; Z68.1 Body mass index [BMI] 19.9 or less, adult; Z85.828 Personal history of other malignant neoplasm of skin
CPT/HCPCS: 29581; A6021; A6206; A6441

== ENCOUNTER 2018-07-21 09:40 | Day surgery (SDC) | payer BC ==
[~2018-07-21 09:40] MED LIST changes: +clobetasol 0.05% cream 30gm TP ONE
[2018-07-21] MEDS ORDERED: LIDOcaine/PRILOcaine 5gm cream TP ONE (10:03)
== END 2018-07-21 12:07 | disposition home or self-care (01) ==
LOC: WOUND CARE 09:40
PROVIDERS: ATTEND Surgery
DX: E11.622 Type 2 diabetes mellitus with other skin ulcer (principal); L97.312 Non-pressure chronic ulcer of right ankle with fat layer exposed; L97.322 Non-pressure chronic ulcer of left ankle with fat layer exposed; E11.621 Type 2 diabetes mellitus with foot ulcer; L97.511 Non-pressure chronic ulcer of other part of right foot limited to breakdown of skin; L97.412 Non-pressure chronic ulcer of right heel and midfoot with fat layer exposed; I83.013 Varicose veins of right lower extremity with ulcer of ankle; I83.023 Varicose veins of left lower extremity with ulcer of ankle; I87.2 Venous insufficiency (chronic) (peripheral); E03.9 Hypothyroidism, unspecified; E66.9 Obesity, unspecified; M19.90 Unspecified osteoarthritis, unspecified site; Z68.1 Body mass index [BMI] 19.9 or less, adult; Z85.828 Personal history of other malignant neoplasm of skin
CPT/HCPCS: 97597; 97598; A6021; A6206; A6209

== ENCOUNTER 2018-07-24 09:16 | Outpatient (CLI) | payer BC | END 2018-07-24 11:53 | disposition home or self-care (01) | LOC: WOUND CARE 09:16 | PROVIDERS: ATTEND Surgery | DX: E11.622 Type 2 diabetes mellitus with other skin ulcer (principal); L97.312 Non-pressure chronic ulcer of right ankle with fat layer exposed; L97.322 Non-pressure chronic ulcer of left ankle with fat layer exposed; E11.621 Type 2 diabetes mellitus with foot ulcer; L97.511 Non-pressure chronic ulcer of other part of right foot limited to breakdown of skin; L97.412 Non-pressure chronic ulcer of right heel and midfoot with fat layer exposed; I83.013 Varicose veins of right lower extremity with ulcer of ankle; I83.023 Varicose veins of left lower extremity with ulcer of ankle; I87.2 Venous insufficiency (chronic) (peripheral); E03.9 Hypothyroidism, unspecified; E66.9 Obesity, unspecified; M19.90 Unspecified osteoarthritis, unspecified site; Z68.1 Body mass index [BMI] 19.9 or less, adult; Z85.828 Personal history of other malignant neoplasm of skin | CPT/HCPCS: 29581; A6021; A6206; A6441 ==

== ENCOUNTER 2018-07-28 09:17 | Day surgery (SDC) | payer BC ==
[2018-07-28] MEDS ORDERED: LIDOcaine/PRILOcaine 5gm cream TP ONE (10:02)
[2018-07-28] MEDS ORDERED: silver sulfadiazine cream 50gm TP ONE (11:08)
== END 2018-07-28 12:40 | disposition home or self-care (01) ==
LOC: WOUND CARE 09:17
PROVIDERS: ATTEND Surgery
DX: E11.622 Type 2 diabetes mellitus with other skin ulcer (principal); L97.312 Non-pressure chronic ulcer of right ankle with fat layer exposed; L97.322 Non-pressure chronic ulcer of left ankle with fat layer exposed; E11.621 Type 2 diabetes mellitus with foot ulcer; L97.511 Non-pressure chronic ulcer of other part of right foot limited to breakdown of skin; L97.412 Non-pressure chronic ulcer of right heel and midfoot with fat layer exposed; I83.013 Varicose veins of right lower extremity with ulcer of ankle; I83.023 Varicose veins of left lower extremity with ulcer of ankle; I87.2 Venous insufficiency (chronic) (peripheral); E03.9 Hypothyroidism, unspecified; E66.9 Obesity, unspecified; M19.90 Unspecified osteoarthritis, unspecified site; Z68.1 Body mass index [BMI] 19.9 or less, adult; Z85.828 Personal history of other malignant neoplasm of skin
CPT/HCPCS: 97597; 97598; A6021; A6206; A6209; A6222; A6441

== ENCOUNTER 2018-07-31 09:31 | Outpatient (CLI) | payer BC ==
[~2018-07-31 09:31] MED LIST changes: -clobetasol 0.05% cream 30gm TP ONE
== END 2018-07-31 13:19 | disposition home or self-care (01) ==
LOC: WOUND CARE 09:31
PROVIDERS: ATTEND Surgery
DX: E11.622 Type 2 diabetes mellitus with other skin ulcer (principal); L97.312 Non-pressure chronic ulcer of right ankle with fat layer exposed; L97.322 Non-pressure chronic ulcer of left ankle with fat layer exposed; L97.211 Non-pressure chronic ulcer of right calf limited to breakdown of skin; E11.621 Type 2 diabetes mellitus with foot ulcer; L97.511 Non-pressure chronic ulcer of other part of right foot limited to breakdown of skin; L97.412 Non-pressure chronic ulcer of right heel and midfoot with fat layer exposed; I83.013 Varicose veins of right lower extremity with ulcer of ankle; I83.023 Varicose veins of left lower extremity with ulcer of ankle; I87.2 Venous insufficiency (chronic) (peripheral); E03.9 Hypothyroidism, unspecified; E66.9 Obesity, unspecified; M19.90 Unspecified osteoarthritis, unspecified site; Z68.1 Body mass index [BMI] 19.9 or less, adult; Z85.828 Personal history of other malignant neoplasm of skin
CPT/HCPCS: 29581; A6021; A6206; A6209; A6222; A6223; A6441

== ENCOUNTER 2018-08-04 09:15 | Day surgery (SDC) | payer BC ==
[2018-08-04] MEDS ORDERED: LIDOcaine/PRILOcaine 5gm cream TP ONE (09:47)
[2018-08-04] MEDS ORDERED: clobetasol 0.05% cream 30gm TP ONE (11:30)
[2018-08-04] MEDS ORDERED: GABA-532 PO (12:25)
== END 2018-08-04 12:45 | disposition home or self-care (01) ==
LOC: WOUND CARE 09:15
PROVIDERS: ATTEND Surgery
DX: E11.622 Type 2 diabetes mellitus with other skin ulcer (principal); L97.312 Non-pressure chronic ulcer of right ankle with fat layer exposed; L97.322 Non-pressure chronic ulcer of left ankle with fat layer exposed; E11.621 Type 2 diabetes mellitus with foot ulcer; L97.511 Non-pressure chronic ulcer of other part of right foot limited to breakdown of skin; L97.412 Non-pressure chronic ulcer of right heel and midfoot with fat layer exposed; I83.013 Varicose veins of right lower extremity with ulcer of ankle; I83.023 Varicose veins of left lower extremity with ulcer of ankle; I87.2 Venous insufficiency (chronic) (peripheral); E03.9 Hypothyroidism, unspecified; E66.9 Obesity, unspecified; M19.90 Unspecified osteoarthritis, unspecified site; Z68.1 Body mass index [BMI] 19.9 or less, adult; Z85.828 Personal history of other malignant neoplasm of skin
CPT/HCPCS: 97597; 97598; A6021; A6206; A6209; A6222; A6441

== ENCOUNTER 2018-08-07 09:41 | Outpatient (CLI) | payer BC ==
[~2018-08-07 09:41] MED LIST changes: +GABA-532 PO
[2018-08-07] MEDS ORDERED: CLOB15CR4 TOP (15:01)
== END 2018-08-07 12:30 | disposition home or self-care (01) ==
LOC: WOUND CARE 09:41
PROVIDERS: ATTEND Surgery
DX: E11.622 Type 2 diabetes mellitus with other skin ulcer (principal); L97.312 Non-pressure chronic ulcer of right ankle with fat layer exposed; L97.322 Non-pressure chronic ulcer of left ankle with fat layer exposed; E11.621 Type 2 diabetes mellitus with foot ulcer; L97.511 Non-pressure chronic ulcer of other part of right foot limited to breakdown of skin; I83.013 Varicose veins of right lower extremity with ulcer of ankle; I83.023 Varicose veins of left lower extremity with ulcer of ankle; I87.2 Venous insufficiency (chronic) (peripheral); E03.9 Hypothyroidism, unspecified; E66.9 Obesity, unspecified; M19.90 Unspecified osteoarthritis, unspecified site; Z68.1 Body mass index [BMI] 19.9 or less, adult; Z85.828 Personal history of other malignant neoplasm of skin
CPT/HCPCS: 29581; A6021; A6206; A6209; A6441

== ENCOUNTER 2018-08-11 10:53 | Day surgery (SDC) | payer BC ==
[~2018-08-11 10:53] MED LIST changes: +CLOB15CR4 TOP
[2018-08-11] MEDS ORDERED: LIDOcaine/PRILOcaine 5gm cream TP ONE (12:08)
[2018-08-11] MEDS ORDERED: clobetasol 0.05% cream 30gm TP ONE (12:15)
== END 2018-08-11 12:55 | disposition home or self-care (01) ==
LOC: WOUND CARE 10:53
PROVIDERS: ATTEND Surgery
DX: E11.622 Type 2 diabetes mellitus with other skin ulcer (principal); L97.312 Non-pressure chronic ulcer of right ankle with fat layer exposed; L97.322 Non-pressure chronic ulcer of left ankle with fat layer exposed; E11.621 Type 2 diabetes mellitus with foot ulcer; L97.511 Non-pressure chronic ulcer of other part of right foot limited to breakdown of skin; L97.412 Non-pressure chronic ulcer of right heel and midfoot with fat layer exposed; I83.013 Varicose veins of right lower extremity with ulcer of ankle; I83.023 Varicose veins of left lower extremity with ulcer of ankle; I87.2 Venous insufficiency (chronic) (peripheral); E03.9 Hypothyroidism, unspecified; E66.9 Obesity, unspecified; M19.90 Unspecified osteoarthritis, unspecified site; Z68.1 Body mass index [BMI] 19.9 or less, adult; Z85.828 Personal history of other malignant neoplasm of skin
CPT/HCPCS: 97597; 97598; A6021; A6198; A6206; A6209; A6441

== ENCOUNTER 2018-08-14 10:20 | Outpatient (CLI) | payer BC ==
[~2018-08-14 10:20] MED LIST changes: +LIDOcaine/PRILOcaine 5gm cream TP ONE
== END 2018-08-14 12:24 | disposition home or self-care (01) ==
LOC: WOUND CARE 10:20
PROVIDERS: ATTEND Surgery
DX: E11.622 Type 2 diabetes mellitus with other skin ulcer (principal); L97.312 Non-pressure chronic ulcer of right ankle with fat layer exposed; L97.322 Non-pressure chronic ulcer of left ankle with fat layer exposed; L97.811 Non-pressure chronic ulcer of other part of right lower leg limited to breakdown of skin; E11.621 Type 2 diabetes mellitus with foot ulcer; L97.511 Non-pressure chronic ulcer of other part of right foot limited to breakdown of skin; L97.412 Non-pressure chronic ulcer of right heel and midfoot with fat layer exposed; I83.013 Varicose veins of right lower extremity with ulcer of ankle; I83.023 Varicose veins of left lower extremity with ulcer of ankle; I87.2 Venous insufficiency (chronic) (peripheral); E03.9 Hypothyroidism, unspecified; E66.9 Obesity, unspecified; M19.90 Unspecified osteoarthritis, unspecified site; Z68.1 Body mass index [BMI] 19.9 or less, adult; Z85.828 Personal history of other malignant neoplasm of skin
CPT/HCPCS: 29581; A6021; A6206; A6209; A6441

== ENCOUNTER 2018-08-18 10:12 | Day surgery (SDC) | payer BC ==
[~2018-08-18 10:12] MED LIST changes: -LIDOcaine/PRILOcaine 5gm cream TP ONE
[2018-08-18] MEDS ORDERED: LIDOcaine/PRILOcaine 5gm cream TP ONE (11:33)
== END 2018-08-18 13:59 | disposition home or self-care (01) ==
LOC: WOUND CARE 10:12
PROVIDERS: ATTEND Surgery
DX: E11.622 Type 2 diabetes mellitus with other skin ulcer (principal); L97.312 Non-pressure chronic ulcer of right ankle with fat layer exposed; L97.322 Non-pressure chronic ulcer of left ankle with fat layer exposed; L97.811 Non-pressure chronic ulcer of other part of right lower leg limited to breakdown of skin; E11.621 Type 2 diabetes mellitus with foot ulcer; L97.511 Non-pressure chronic ulcer of other part of right foot limited to breakdown of skin; L97.412 Non-pressure chronic ulcer of right heel and midfoot with fat layer exposed; I83.013 Varicose veins of right lower extremity with ulcer of ankle; I83.023 Varicose veins of left lower extremity with ulcer of ankle; I87.2 Venous insufficiency (chronic) (peripheral); E03.9 Hypothyroidism, unspecified; E66.9 Obesity, unspecified; M19.90 Unspecified osteoarthritis, unspecified site; Z68.1 Body mass index [BMI] 19.9 or less, adult; Z85.828 Personal history of other malignant neoplasm of skin
CPT/HCPCS: 97597; 97598; A6021; A6206; A6441

== ENCOUNTER 2018-08-21 09:20 | Outpatient (CLI) | payer BC ==
[2018-08-21] MEDS ORDERED: clobetasol 0.05% cream 30gm TP ONE (10:40)
== END 2018-08-21 11:39 | disposition home or self-care (01) ==
LOC: WOUND CARE 09:20
PROVIDERS: ATTEND Surgery
DX: E11.622 Type 2 diabetes mellitus with other skin ulcer (principal); L97.312 Non-pressure chronic ulcer of right ankle with fat layer exposed; L97.322 Non-pressure chronic ulcer of left ankle with fat layer exposed; L97.811 Non-pressure chronic ulcer of other part of right lower leg limited to breakdown of skin; E11.621 Type 2 diabetes mellitus with foot ulcer; L97.511 Non-pressure chronic ulcer of other part of right foot limited to breakdown of skin; I83.013 Varicose veins of right lower extremity with ulcer of ankle; I83.023 Varicose veins of left lower extremity with ulcer of ankle; I87.2 Venous insufficiency (chronic) (peripheral); E03.9 Hypothyroidism, unspecified; E66.9 Obesity, unspecified; M19.90 Unspecified osteoarthritis, unspecified site; Z68.1 Body mass index [BMI] 19.9 or less, adult; Z85.828 Personal history of other malignant neoplasm of skin
CPT/HCPCS: 29581; A6209; 97597; A6021; A6206; A6441

== ENCOUNTER 2018-08-25 09:45 | Day surgery (SDC) | payer BC ==
[2018-08-25] MEDS ORDERED: LIDOcaine/PRILOcaine 5gm cream TP ONE (09:52)
== END 2018-08-25 13:30 | disposition home or self-care (01) ==
LOC: WOUND CARE 09:45
PROVIDERS: ATTEND Surgery
DX: E11.622 Type 2 diabetes mellitus with other skin ulcer (principal); L97.312 Non-pressure chronic ulcer of right ankle with fat layer exposed; L97.322 Non-pressure chronic ulcer of left ankle with fat layer exposed; L97.811 Non-pressure chronic ulcer of other part of right lower leg limited to breakdown of skin; E11.621 Type 2 diabetes mellitus with foot ulcer; L97.511 Non-pressure chronic ulcer of other part of right foot limited to breakdown of skin; L97.412 Non-pressure chronic ulcer of right heel and midfoot with fat layer exposed; I83.013 Varicose veins of right lower extremity with ulcer of ankle; I83.023 Varicose veins of left lower extremity with ulcer of ankle; I87.2 Venous insufficiency (chronic) (peripheral); E03.9 Hypothyroidism, unspecified; E66.9 Obesity, unspecified; M19.90 Unspecified osteoarthritis, unspecified site; Z68.1 Body mass index [BMI] 19.9 or less, adult; Z85.828 Personal history of other malignant neoplasm of skin
CPT/HCPCS: 93970; 97597; 97598; A6209; A6021; A6206; A6441

== ENCOUNTER 2018-08-28 10:53 | Outpatient (CLI) | payer BC ==
[~2018-08-28 10:53] MED LIST changes: +clobetasol 0.05% cream 30gm TP ONE
== END 2018-08-28 13:00 | disposition home or self-care (01) ==
LOC: WOUND CARE 10:53
PROVIDERS: ATTEND Surgery
DX: E11.622 Type 2 diabetes mellitus with other skin ulcer (principal); L97.312 Non-pressure chronic ulcer of right ankle with fat layer exposed; L97.322 Non-pressure chronic ulcer of left ankle with fat layer exposed; L97.811 Non-pressure chronic ulcer of other part of right lower leg limited to breakdown of skin; E11.621 Type 2 diabetes mellitus with foot ulcer; L97.511 Non-pressure chronic ulcer of other part of right foot limited to breakdown of skin; I83.013 Varicose veins of right lower extremity with ulcer of ankle; I83.023 Varicose veins of left lower extremity with ulcer of ankle; I87.2 Venous insufficiency (chronic) (peripheral); E03.9 Hypothyroidism, unspecified; E66.9 Obesity, unspecified; M19.90 Unspecified osteoarthritis, unspecified site; Z68.1 Body mass index [BMI] 19.9 or less, adult; Z85.828 Personal history of other malignant neoplasm of skin
CPT/HCPCS: 29581; A6209; A6021; A6206; A6441

== ENCOUNTER 2018-09-01 09:18 | Day surgery (SDC) | payer BC ==
[~2018-09-01 09:18] MED LIST changes: -clobetasol 0.05% cream 30gm TP ONE
[2018-09-01] MEDS ORDERED: LIDOcaine/PRILOcaine 5gm cream TP ONE (09:58)
[2018-09-01] MEDS ORDERED: clobetasol 0.05% cream 30gm TP ONE (11:15)
== END 2018-09-01 12:01 | disposition home or self-care (01) ==
LOC: WOUND CARE 09:18
PROVIDERS: ATTEND Surgery
DX: E11.622 Type 2 diabetes mellitus with other skin ulcer (principal); L97.312 Non-pressure chronic ulcer of right ankle with fat layer exposed; L97.322 Non-pressure chronic ulcer of left ankle with fat layer exposed; L97.811 Non-pressure chronic ulcer of other part of right lower leg limited to breakdown of skin; E11.621 Type 2 diabetes mellitus with foot ulcer; L97.511 Non-pressure chronic ulcer of other part of right foot limited to breakdown of skin; L97.412 Non-pressure chronic ulcer of right heel and midfoot with fat layer exposed; I83.013 Varicose veins of right lower extremity with ulcer of ankle; I83.023 Varicose veins of left lower extremity with ulcer of ankle; I87.2 Venous insufficiency (chronic) (peripheral); E03.9 Hypothyroidism, unspecified; E66.9 Obesity, unspecified; M19.90 Unspecified osteoarthritis, unspecified site; Z68.1 Body mass index [BMI] 19.9 or less, adult; Z85.828 Personal history of other malignant neoplasm of skin
CPT/HCPCS: 97597; 97598; A6209; A6021; A6206; A6441

== ENCOUNTER 2018-09-04 09:30 | Outpatient (CLI) | payer BC ==
[~2018-09-04 09:30] MED LIST changes: +clobetasol 0.05% cream 30gm TP ONE; +clobetasol propionate ointment 15gm TP ONE
== END 2018-09-04 11:03 | disposition home or self-care (01) ==
LOC: WOUND CARE 09:30
PROVIDERS: ATTEND Surgery
DX: E11.622 Type 2 diabetes mellitus with other skin ulcer (principal); L97.312 Non-pressure chronic ulcer of right ankle with fat layer exposed; L97.322 Non-pressure chronic ulcer of left ankle with fat layer exposed; L97.811 Non-pressure chronic ulcer of other part of right lower leg limited to breakdown of skin; E11.621 Type 2 diabetes mellitus with foot ulcer; L97.511 Non-pressure chronic ulcer of other part of right foot limited to breakdown of skin; I83.013 Varicose veins of right lower extremity with ulcer of ankle; I83.023 Varicose veins of left lower extremity with ulcer of ankle; I87.2 Venous insufficiency (chronic) (peripheral); E03.9 Hypothyroidism, unspecified; E66.9 Obesity, unspecified; M19.90 Unspecified osteoarthritis, unspecified site; Z68.1 Body mass index [BMI] 19.9 or less, adult; Z85.828 Personal history of other malignant neoplasm of skin
CPT/HCPCS: 29581; A6021; A6206; A6441

== ENCOUNTER 2018-09-08 09:26 | Day surgery (SDC) | payer BC ==
[~2018-09-08 09:26] MED LIST changes: -clobetasol 0.05% cream 30gm TP ONE; -clobetasol propionate ointment 15gm TP ONE
[2018-09-08] MEDS ORDERED: LIDOcaine/PRILOcaine 5gm cream TP ONE (10:08)
[2018-09-09] MEDS ORDERED: clobetasol 0.05% cream 30gm TP SCH (08:00)
== END 2018-09-08 11:52 | disposition home or self-care (01) ==
LOC: WOUND CARE 09:26
PROVIDERS: ATTEND Surgery
DX: E11.622 Type 2 diabetes mellitus with other skin ulcer (principal); L97.312 Non-pressure chronic ulcer of right ankle with fat layer exposed; L97.322 Non-pressure chronic ulcer of left ankle with fat layer exposed; L97.811 Non-pressure chronic ulcer of other part of right lower leg limited to breakdown of skin; E11.621 Type 2 diabetes mellitus with foot ulcer; L97.511 Non-pressure chronic ulcer of other part of right foot limited to breakdown of skin; L97.412 Non-pressure chronic ulcer of right heel and midfoot with fat layer exposed; I83.013 Varicose veins of right lower extremity with ulcer of ankle; I83.023 Varicose veins of left lower extremity with ulcer of ankle; I87.2 Venous insufficiency (chronic) (peripheral); E03.9 Hypothyroidism, unspecified; E66.9 Obesity, unspecified; M19.90 Unspecified osteoarthritis, unspecified site; Z68.1 Body mass index [BMI] 19.9 or less, adult; Z85.828 Personal history of other malignant neoplasm of skin
CPT/HCPCS: 87070; 87075; 87077; 87102; 87176; 87186; 97597; 97598; A6209; A6021; A6206; A6441

== ENCOUNTER 2018-09-11 09:22 | Outpatient (CLI) | payer BC ==
[2018-09-11] MEDS ORDERED: clobetasol propionate ointment 15gm TP ONE (15:00)
== END 2018-09-11 12:17 | disposition home or self-care (01) ==
LOC: WOUND CARE 09:22
PROVIDERS: ATTEND Surgery
DX: E11.622 Type 2 diabetes mellitus with other skin ulcer (principal); L97.312 Non-pressure chronic ulcer of right ankle with fat layer exposed; L97.811 Non-pressure chronic ulcer of other part of right lower leg limited to breakdown of skin; E11.621 Type 2 diabetes mellitus with foot ulcer; L97.511 Non-pressure chronic ulcer of other part of right foot limited to breakdown of skin; L97.412 Non-pressure chronic ulcer of right heel and midfoot with fat layer exposed; I87.2 Venous insufficiency (chronic) (peripheral); E03.9 Hypothyroidism, unspecified; E66.9 Obesity, unspecified; M19.90 Unspecified osteoarthritis, unspecified site; Z68.1 Body mass index [BMI] 19.9 or less, adult; Z85.828 Personal history of other malignant neoplasm of skin
CPT/HCPCS: 29581; A6209; A6021; A6206; A6441

== ENCOUNTER 2018-09-16 10:16 | Day surgery (SDC) | payer BC ==
[~2018-09-16] VITALS: Ht 165.1 cm; Wt 64.2 kg
[~2018-09-16 10:16] MED LIST changes: +clobetasol 0.05% cream 30gm TP ONE
[2018-09-16] MEDS ORDERED: LIDOcaine/PRILOcaine 5gm cream TP ONE (11:05)
== END 2018-09-16 13:15 | disposition home or self-care (01) ==
LOC: WOUND CARE 10:16
PROVIDERS: ATTEND Surgery
DX: E11.622 Type 2 diabetes mellitus with other skin ulcer (principal); L97.312 Non-pressure chronic ulcer of right ankle with fat layer exposed; L97.322 Non-pressure chronic ulcer of left ankle with fat layer exposed; L97.811 Non-pressure chronic ulcer of other part of right lower leg limited to breakdown of skin; E11.621 Type 2 diabetes mellitus with foot ulcer; L97.511 Non-pressure chronic ulcer of other part of right foot limited to breakdown of skin; L97.412 Non-pressure chronic ulcer of right heel and midfoot with fat layer exposed; I83.013 Varicose veins of right lower extremity with ulcer of ankle; I83.023 Varicose veins of left lower extremity with ulcer of ankle; I87.2 Venous insufficiency (chronic) (peripheral); E03.9 Hypothyroidism, unspecified; E66.9 Obesity, unspecified; M19.90 Unspecified osteoarthritis, unspecified site; Z68.1 Body mass index [BMI] 19.9 or less, adult; Z85.828 Personal history of other malignant neoplasm of skin
CPT/HCPCS: 97597; 97598; A6021; A6206; A6441

== ENCOUNTER 2018-09-21 09:33 | Day surgery (SDC) | payer BC ==
[~2018-09-21 09:33] MED LIST changes: -clobetasol 0.05% cream 30gm TP ONE
[2018-09-21] MEDS ORDERED: LIDOcaine/PRILOcaine 5gm cream TP ONE ×2 (12:08→12:13)
== END 2018-09-21 13:48 | disposition home or self-care (01) ==
LOC: WOUND CARE 09:33
PROVIDERS: ATTEND Surgery
DX: E11.622 Type 2 diabetes mellitus with other skin ulcer (principal); L97.312 Non-pressure chronic ulcer of right ankle with fat layer exposed; L97.322 Non-pressure chronic ulcer of left ankle with fat layer exposed; L97.811 Non-pressure chronic ulcer of other part of right lower leg limited to breakdown of skin; E11.621 Type 2 diabetes mellitus with foot ulcer; L97.511 Non-pressure chronic ulcer of other part of right foot limited to breakdown of skin; L97.412 Non-pressure chronic ulcer of right heel and midfoot with fat layer exposed; I83.013 Varicose veins of right lower extremity with ulcer of ankle; I83.023 Varicose veins of left lower extremity with ulcer of ankle; I87.2 Venous insufficiency (chronic) (peripheral); E03.9 Hypothyroidism, unspecified; E66.9 Obesity, unspecified; M19.90 Unspecified osteoarthritis, unspecified site; Z68.1 Body mass index [BMI] 19.9 or less, adult; Z85.828 Personal history of other malignant neoplasm of skin
CPT/HCPCS: 97597; 97598; A6209; A6021; A6196; A6206

== ENCOUNTER 2018-09-25 09:48 | Outpatient (CLI) | payer BC ==
[2018-09-25] MEDS: clobetasol 0.05% cream 30gm TP SCH ×2 (08:40→11:00)
== END 2018-09-25 11:14 | disposition home or self-care (01) ==
LOC: WOUND CARE 09:48
PROVIDERS: ATTEND Surgery
DX: E11.622 Type 2 diabetes mellitus with other skin ulcer (principal); L97.312 Non-pressure chronic ulcer of right ankle with fat layer exposed; L97.322 Non-pressure chronic ulcer of left ankle with fat layer exposed; L97.811 Non-pressure chronic ulcer of other part of right lower leg limited to breakdown of skin; E11.621 Type 2 diabetes mellitus with foot ulcer; L97.511 Non-pressure chronic ulcer of other part of right foot limited to breakdown of skin; I83.013 Varicose veins of right lower extremity with ulcer of ankle; I83.023 Varicose veins of left lower extremity with ulcer of ankle; I87.2 Venous insufficiency (chronic) (peripheral); E03.9 Hypothyroidism, unspecified; E66.9 Obesity, unspecified; M19.90 Unspecified osteoarthritis, unspecified site; Z68.1 Body mass index [BMI] 19.9 or less, adult; Z85.828 Personal history of other malignant neoplasm of skin
CPT/HCPCS: 29581; A6209; A6021; A6198; A6206; A6441

== ENCOUNTER 2018-09-29 09:55 | Day surgery (SDC) | payer BC ==
[2018-09-29] MEDS ORDERED: LIDOcaine/PRILOcaine 5gm cream TP ONE (11:12)
== END 2018-09-29 13:07 | disposition home or self-care (01) ==
LOC: WOUND CARE 09:55
PROVIDERS: ATTEND Surgery
DX: E11.622 Type 2 diabetes mellitus with other skin ulcer (principal); L97.312 Non-pressure chronic ulcer of right ankle with fat layer exposed; L97.322 Non-pressure chronic ulcer of left ankle with fat layer exposed; E11.621 Type 2 diabetes mellitus with foot ulcer; L97.511 Non-pressure chronic ulcer of other part of right foot limited to breakdown of skin; I83.013 Varicose veins of right lower extremity with ulcer of ankle; I83.023 Varicose veins of left lower extremity with ulcer of ankle; I87.2 Venous insufficiency (chronic) (peripheral); E03.9 Hypothyroidism, unspecified; E66.9 Obesity, unspecified; M19.90 Unspecified osteoarthritis, unspecified site; Z68.1 Body mass index [BMI] 19.9 or less, adult; Z85.828 Personal history of other malignant neoplasm of skin
CPT/HCPCS: 97597; 97598; A6209; A6021; A6206; A6441

== ENCOUNTER 2018-10-02 10:03 | Outpatient (CLI) | payer BC ==
[2018-10-02] MEDS: clobetasol 0.05% cream 30gm TP SCH ×2 (08:30→12:50)
== END 2018-10-02 13:09 | disposition home or self-care (01) ==
LOC: WOUND CARE 10:03
PROVIDERS: ATTEND Surgery
DX: E11.622 Type 2 diabetes mellitus with other skin ulcer (principal); L97.312 Non-pressure chronic ulcer of right ankle with fat layer exposed; L97.322 Non-pressure chronic ulcer of left ankle with fat layer exposed; L97.811 Non-pressure chronic ulcer of other part of right lower leg limited to breakdown of skin; E11.621 Type 2 diabetes mellitus with foot ulcer; L97.511 Non-pressure chronic ulcer of other part of right foot limited to breakdown of skin; I83.013 Varicose veins of right lower extremity with ulcer of ankle; I83.023 Varicose veins of left lower extremity with ulcer of ankle; I87.2 Venous insufficiency (chronic) (peripheral); E03.9 Hypothyroidism, unspecified; E66.9 Obesity, unspecified; M19.90 Unspecified osteoarthritis, unspecified site; Z68.1 Body mass index [BMI] 19.9 or less, adult; Z85.828 Personal history of other malignant neoplasm of skin
CPT/HCPCS: 29581; A6223; A6021; A6206; A6441

== ENCOUNTER 2018-10-06 11:25 | Outpatient (CLI) | payer BC | END 2018-10-06 13:15 | disposition home or self-care (01) | LOC: WOUND CARE 11:25 | PROVIDERS: ATTEND Surgery | DX: E11.622 Type 2 diabetes mellitus with other skin ulcer (principal); L97.312 Non-pressure chronic ulcer of right ankle with fat layer exposed; L97.322 Non-pressure chronic ulcer of left ankle with fat layer exposed; L97.811 Non-pressure chronic ulcer of other part of right lower leg limited to breakdown of skin; E11.621 Type 2 diabetes mellitus with foot ulcer; L97.412 Non-pressure chronic ulcer of right heel and midfoot with fat layer exposed; I83.013 Varicose veins of right lower extremity with ulcer of ankle; I83.023 Varicose veins of left lower extremity with ulcer of ankle; I87.2 Venous insufficiency (chronic) (peripheral); E03.9 Hypothyroidism, unspecified; E66.9 Obesity, unspecified; M19.90 Unspecified osteoarthritis, unspecified site; Z68.1 Body mass index [BMI] 19.9 or less, adult; Z85.828 Personal history of other malignant neoplasm of skin | CPT/HCPCS: 29581; A6209; A6021; A6206; A6441 ==

== ENCOUNTER 2018-10-09 10:00 | Outpatient (CLI) | payer BC ==
[~2018-10-09 10:00] MED LIST changes: +CHOL200016 PO; -CHOL200085 PO; +clobetasol 0.05% cream 30gm TP ONE
== END 2018-10-09 14:00 | disposition home or self-care (01) ==
LOC: EDSTATUS 10:00 → WOUND CARE 10:00
PROVIDERS: ATTEND Surgery
DX: E11.622 Type 2 diabetes mellitus with other skin ulcer (principal); L97.312 Non-pressure chronic ulcer of right ankle with fat layer exposed; L97.322 Non-pressure chronic ulcer of left ankle with fat layer exposed; L97.811 Non-pressure chronic ulcer of other part of right lower leg limited to breakdown of skin; E11.621 Type 2 diabetes mellitus with foot ulcer; L97.412 Non-pressure chronic ulcer of right heel and midfoot with fat layer exposed; I83.013 Varicose veins of right lower extremity with ulcer of ankle; I83.023 Varicose veins of left lower extremity with ulcer of ankle; I87.2 Venous insufficiency (chronic) (peripheral); E03.9 Hypothyroidism, unspecified; E66.9 Obesity, unspecified; M19.90 Unspecified osteoarthritis, unspecified site; Z68.1 Body mass index [BMI] 19.9 or less, adult; Z85.828 Personal history of other malignant neoplasm of skin
CPT/HCPCS: 29581; A6021; A6206; A6212; A6441

== ENCOUNTER 2018-10-13 09:05 | Day surgery (SDC) | payer BC ==
[~2018-10-13 09:05] MED LIST changes: -clobetasol 0.05% cream 30gm TP ONE
== END 2018-10-13 12:08 | disposition home or self-care (01) ==
LOC: WOUND CARE 09:05
PROVIDERS: ATTEND Surgery
DX: E11.622 Type 2 diabetes mellitus with other skin ulcer (principal); L97.312 Non-pressure chronic ulcer of right ankle with fat layer exposed; L97.322 Non-pressure chronic ulcer of left ankle with fat layer exposed; L97.811 Non-pressure chronic ulcer of other part of right lower leg limited to breakdown of skin; E11.621 Type 2 diabetes mellitus with foot ulcer; L97.412 Non-pressure chronic ulcer of right heel and midfoot with fat layer exposed; I83.013 Varicose veins of right lower extremity with ulcer of ankle; I83.023 Varicose veins of left lower extremity with ulcer of ankle; I87.2 Venous insufficiency (chronic) (peripheral); E03.9 Hypothyroidism, unspecified; E66.9 Obesity, unspecified; M19.90 Unspecified osteoarthritis, unspecified site; Z68.1 Body mass index [BMI] 19.9 or less, adult; Z85.828 Personal history of other malignant neoplasm of skin
CPT/HCPCS: 97597; 97598; A6021; A6206

== ENCOUNTER 2018-10-16 10:32 | Outpatient (CLI) | payer BC ==
[2018-10-16] MEDS ORDERED: clobetasol 0.05% cream 30gm TP ONE (10:50)
== END 2018-10-16 12:01 | disposition home or self-care (01) ==
LOC: WOUND CARE 10:32
PROVIDERS: ATTEND Surgery
DX: E11.622 Type 2 diabetes mellitus with other skin ulcer (principal); L97.312 Non-pressure chronic ulcer of right ankle with fat layer exposed; L97.322 Non-pressure chronic ulcer of left ankle with fat layer exposed; L97.811 Non-pressure chronic ulcer of other part of right lower leg limited to breakdown of skin; E11.621 Type 2 diabetes mellitus with foot ulcer; L97.412 Non-pressure chronic ulcer of right heel and midfoot with fat layer exposed; I83.013 Varicose veins of right lower extremity with ulcer of ankle; I83.023 Varicose veins of left lower extremity with ulcer of ankle; I87.2 Venous insufficiency (chronic) (peripheral); E03.9 Hypothyroidism, unspecified; E66.9 Obesity, unspecified; M19.90 Unspecified osteoarthritis, unspecified site; Z68.1 Body mass index [BMI] 19.9 or less, adult; Z85.828 Personal history of other malignant neoplasm of skin
CPT/HCPCS: 29581; A6209; A6021; A6206; A6212

== ENCOUNTER 2018-10-21 09:15 | Day surgery (SDC) | payer BC ==
[2018-10-21] MEDS ORDERED: LIDOcaine 2% 5ml jelly MM ONE (16:15)
== END 2018-10-21 11:44 | disposition home or self-care (01) ==
LOC: WOUND CARE 09:15
PROVIDERS: ATTEND Surgery
DX: E11.622 Type 2 diabetes mellitus with other skin ulcer (principal); L97.312 Non-pressure chronic ulcer of right ankle with fat layer exposed; L97.322 Non-pressure chronic ulcer of left ankle with fat layer exposed; L97.811 Non-pressure chronic ulcer of other part of right lower leg limited to breakdown of skin; E11.621 Type 2 diabetes mellitus with foot ulcer; L97.412 Non-pressure chronic ulcer of right heel and midfoot with fat layer exposed; I83.013 Varicose veins of right lower extremity with ulcer of ankle; I83.023 Varicose veins of left lower extremity with ulcer of ankle; I87.2 Venous insufficiency (chronic) (peripheral); E03.9 Hypothyroidism, unspecified; E66.9 Obesity, unspecified; M19.90 Unspecified osteoarthritis, unspecified site; Z68.1 Body mass index [BMI] 19.9 or less, adult; Z85.828 Personal history of other malignant neoplasm of skin
CPT/HCPCS: 87070; 87075; 87102; 87176; 97597; 97598; A6222; 87077; 87186; A6021; A6206; A6212; A6441

== ENCOUNTER 2018-10-23 09:15 | Outpatient (CLI) | payer BC ==
[~2018-10-23 09:15] MED LIST changes: +clobetasol 0.05% cream 30gm TP ONE
--- NOTE | 2018-10-23 13:50 | NUR ---
Patient arrived safely into [facility]. Patient admitted to outpatient wound care clinic for nursing visit, under direct supervision of . Dressings removed and wounds cleansed. Patient assessed for changes in conditions, medications and medical history. Dressings reapplied per physician orders. Patient instructed on the signs and symptoms of infection and to call the Wound Center if any occur or to go to the ED if we are closed: Increased pain in wound Increase in drainage from the wound Redness in the skin surrounding the wound Bleeding from the wound Temperature of 101 or greater Pt instructed to elevate legs at least 30 minutes 3 times a day or 10 minutes every 4 hours, also instructed check their toes. If they become purplish or blue, cool to the touch, numb or tingly, use a pair of scissors and carefully cut off the dressing. Call the Wound Center for an appointment to have the dressing reapplied. Pt instructed that decreased swelling in the legs and the potential for drainage from the wound may require them to have to schedule visits twice weekly, progressing to weekly as the swelling decreases in their legs. Pt instructed that if dressings become loose, wrinkled or falls down and if they are experiencing any pain or discomfort under their dressing cut the dressing off and call the Wound Center to have it reapplied. Pt instructed that the wraps needs to be kept dry. They may bath at a sink or there are devices designed to keep dressings dry these are available at most drug stores. If they choose to shower with a plastic bag taped over the wraps. Be sure to having another person available for assistance or placing towels on the floor of the shower or tub to eliminate the slick surface can reduce the risk of falls. Patient instructed that the weight of their body puts a large amount of pressure on their wounds. This pressure keeps the new tissue from growing and inhibits new blood vessels from forming. Explained that, if they continue to bear weight on a body part that has a wound, the time it takes to heal the wound increases, the wound may get worse or the wound may not heal at all. Patient verbalized understanding of all discharge instructions and plan of care and ambulated independently out to [facility] in stable condition with no sign or symptom of distress at time of discharge. Addendum: 10/23/18 at 1353 by Talia Worrell RN Amended: Links added.
== END 2018-10-23 12:25 | disposition home or self-care (01) ==
LOC: WOUND CARE 09:15
PROVIDERS: ATTEND Surgery
DX: E11.622 Type 2 diabetes mellitus with other skin ulcer (principal); L97.312 Non-pressure chronic ulcer of right ankle with fat layer exposed; L97.322 Non-pressure chronic ulcer of left ankle with fat layer exposed; E11.621 Type 2 diabetes mellitus with foot ulcer; L97.511 Non-pressure chronic ulcer of other part of right foot limited to breakdown of skin; I83.013 Varicose veins of right lower extremity with ulcer of ankle; I83.023 Varicose veins of left lower extremity with ulcer of ankle; I87.2 Venous insufficiency (chronic) (peripheral); E03.9 Hypothyroidism, unspecified; E66.9 Obesity, unspecified; M19.90 Unspecified osteoarthritis, unspecified site; Z68.1 Body mass index [BMI] 19.9 or less, adult; Z85.828 Personal history of other malignant neoplasm of skin
CPT/HCPCS: 29581; A6209; A6223; A6206; A6441

== ENCOUNTER 2018-10-28 09:15 | Outpatient (CLI) | payer BC ==
[~2018-10-28 09:15] MED LIST changes: -clobetasol 0.05% cream 30gm TP ONE
--- NOTE | 2018-10-28 12:49 | NUR ---
[facility] Patient admitted to outpatient wound care. Dressings removed, wounds cleansed and lidocaine applied per order. Patient assessed for changes in conditions, medications and medical history. Patient showed no s/s of distress at time of assessment. 1145- at bedside accompanied by RN. Wounds assessed and no debridement was done. Dressings applied per physician orders. Patient instructed on the signs and symptoms of infection and to call the Wound Center if any occur or to go to the ED if we are closed: Increased pain in wound Increase in drainage from the wound Redness in the skin surrounding the wound Bleeding from the wound Temperature of 101 or greater Pt instructed to elevate legs at least 30 minutes 3 times a day or 10 minutes every 4 hours, also instructed check their toes. If they become purplish or blue, cool to the touch, numb or tingly, use a pair of scissors and carefully cut off the dressing. Call the Wound Center for an appointment to have the dressing reapplied. Pt instructed that decreased swelling in the legs and the potential for drainage from the wound may require them to have to schedule visits twice weekly, progressing to weekly as the swelling decreases in their legs. Pt instructed that if dressings become loose, wrinkled or falls down and if they are experiencing any pain or discomfort under their dressing cut the dressing off and call the Wound Center to have it reapplied. Pt instructed that the wraps needs to be kept dry. They may bath at a sink or there are devices designed to keep dressings dry these are available at most drug stores. If they choose to shower with a plastic bag taped over the wraps. Be sure to having another person available for assistance or placing towels on the floor of the shower or tub to eliminate the slick surface can reduce the risk of falls. Patient verbalized understanding of all instructions and POC. Patient instructed to return to wound care clinic for scheduled follow-up appointment with physician. Patient left in stable condition with no complaints. Addendum: 01/02/19 at 1252 by Talia Worrell RN Amended: Links added.
== END 2018-10-28 12:34 | disposition home or self-care (01) ==
LOC: WOUND CARE 09:15
PROVIDERS: ATTEND Surgery
DX: E11.622 Type 2 diabetes mellitus with other skin ulcer (principal); L97.312 Non-pressure chronic ulcer of right ankle with fat layer exposed; L97.322 Non-pressure chronic ulcer of left ankle with fat layer exposed; E11.621 Type 2 diabetes mellitus with foot ulcer; L97.511 Non-pressure chronic ulcer of other part of right foot limited to breakdown of skin; I83.013 Varicose veins of right lower extremity with ulcer of ankle; I83.023 Varicose veins of left lower extremity with ulcer of ankle; I87.2 Venous insufficiency (chronic) (peripheral); E03.9 Hypothyroidism, unspecified; E66.9 Obesity, unspecified; M19.90 Unspecified osteoarthritis, unspecified site; Z68.1 Body mass index [BMI] 19.9 or less, adult; Z85.828 Personal history of other malignant neoplasm of skin
CPT/HCPCS: 29581; A6209; A6223; A6021; A6196; A6206; A6441

== ENCOUNTER 2018-10-30 09:15 | Outpatient (CLI) | payer BC ==
[2018-10-30] MEDS ORDERED: clobetasol 0.05% cream 30gm TP ONE (09:30)
--- NOTE | 2018-10-30 13:17 | NUR ---
Patient ambulated independently from [facility] and was admitted to outpatient wound care for physician visit with Elieser Brennan MD. Dressing removed, wound cleansed and lidocaine applied per order. Patient assessed for changes in conditions, medications and medical history. Dr. Brennan at bedside accompanied by RN. Wound assessed, time out performed by MD/RN. Wound debrided as detailed in the physician progress/procedure note. Plan of care discussed with patient. Dressings placed per MD orders. Patient instructed on the signs and symptoms of infection and to call the Wound Center if any occur or to go to the ED if we are closed: Increased pain in wound Increase in drainage from the wound Redness in the skin surrounding the wound Bleeding from the wound Temperature of 101 or greater Pt instructed to elevate legs at least 30 minutes 3 times a day or 10 minutes every 4 hours, also instructed check their toes. If they become purplish or blue, cool to the touch, numb or tingly, use a pair of scissors and carefully cut off the dressing. Call the Wound Center for an appointment to have the dressing reapplied. Pt instructed that decreased swelling in the legs and the potential for drainage from the wound may require them to have to schedule visits twice weekly, progressing to weekly as the swelling decreases in their legs. Pt instructed that if dressings become loose, wrinkled or falls down and if they are experiencing any pain or discomfort under their dressing cut the dressing off and call the Wound Center to have it reapplied. Pt instructed that the wraps needs to be kept dry. They may bath at a sink or there are devices designed to keep dressings dry these are available at most drug stores. If they choose to shower with a plastic bag taped over the wraps. Be sure to having another person available for assistance or placing towels on the floor of the shower or tub to eliminate the slick surface can reduce the risk of falls. Patient instructed that the weight of their body puts a large amount of pressure on their wounds. This pressure keeps the new tissue from growing and inhibits new blood vessels from forming. Explained that, if they continue to bear weight on a body part that has a wound, the time it takes to heal the wound increases, the wound may get worse or the wound may not heal at all. Patient verbalized understanding of all discharge instructions and plan of care and ambulated independently out to [facility] in stable condition with no sign or symptom of distress at time of discharge. Addendum: 10/30/18 at 1319 by Talia Worrell RN Amended: Links added.
== END 2018-10-30 10:50 | disposition home or self-care (01) ==
LOC: WOUND CARE 09:15
PROVIDERS: ATTEND Surgery
DX: E11.622 Type 2 diabetes mellitus with other skin ulcer (principal); L97.312 Non-pressure chronic ulcer of right ankle with fat layer exposed; L97.322 Non-pressure chronic ulcer of left ankle with fat layer exposed; E11.621 Type 2 diabetes mellitus with foot ulcer; L97.511 Non-pressure chronic ulcer of other part of right foot limited to breakdown of skin; I83.013 Varicose veins of right lower extremity with ulcer of ankle; I83.023 Varicose veins of left lower extremity with ulcer of ankle; I87.2 Venous insufficiency (chronic) (peripheral); E03.9 Hypothyroidism, unspecified; E66.9 Obesity, unspecified; M19.90 Unspecified osteoarthritis, unspecified site; Z68.1 Body mass index [BMI] 19.9 or less, adult; Z85.828 Personal history of other malignant neoplasm of skin
CPT/HCPCS: 29581; A6209; A6021; A6206; A6441

== ENCOUNTER 2018-11-03 10:34 | Day surgery (SDC) | payer BC ==
[2018-11-03] MEDS ORDERED: clobetasol propionate ointment 15gm TP ONE (11:55)
--- NOTE | 2018-11-03 12:15 | NUR ---
Patient ambulated independently from [facility] and was admitted to outpatient wound care for physician visit. Dressing removed, wound cleansed and Emla applied per order. Patient assessed for changes in conditions, medications and medical history. Dr. Brennan at bedside accompanied by RN. Wound assessed, time out performed by MD/RN. Wound debrided as detailed in the physician progress/procedure note. Plan of care discussed with patient. Dressings placed per MD orders. Patient instructed on the signs and symptoms of infection and to call the Wound Center if any occur or to go to the ED if we are closed: Increased pain in wound Increase in drainage from the wound Redness in the skin surrounding the wound Bleeding from the wound Temperature of 101 or greater Pt instructed to elevate legs at least 30 minutes 3 times a day or 10 minutes every 4 hours, also instructed check their toes. If they become purplish or blue, cool to the touch, numb or tingly, use a pair of scissors and carefully cut off the dressing. Call the Wound Center for an appointment to have the dressing reapplied. Pt instructed that decreased swelling in the legs and the potential for drainage from the wound may require them to have to schedule visits twice weekly, progressing to weekly as the swelling decreases in their legs. Pt instructed that if dressings become loose, wrinkled or falls down and if they are experiencing any pain or discomfort under their dressing cut the dressing off and call the Wound Center to have it reapplied. Pt instructed that the wraps needs to be kept dry. They may bath at a sink or there are devices designed to keep dressings dry these are available at most drug stores. If they choose to shower with a plastic bag taped over the wraps. Be sure to having another person available for assistance or placing towels on the floor of the shower or tub to eliminate the slick surface can reduce the risk of falls. Patient instructed that the weight of their body puts a large amount of pressure on their wounds. This pressure keeps the new tissue from growing and inhibits new blood vessels from forming. Explained that, if they continue to bear weight on a body part that has a wound, the time it takes to heal the wound increases, the wound may get worse or the wound may not heal at all. Patient verbalized understanding of all discharge instructions and plan of care and ambulated independently out to [facility] in stable condition with no sign or symptom of distress at time of discharge. Addendum: 11/03/18 at 1217 by Talia Worrell RN Amended: Links added.
== END 2018-11-03 13:30 | disposition home or self-care (01) ==
LOC: WOUND CARE 10:34
PROVIDERS: ATTEND Surgery
DX: E11.622 Type 2 diabetes mellitus with other skin ulcer (principal); L97.312 Non-pressure chronic ulcer of right ankle with fat layer exposed; L97.322 Non-pressure chronic ulcer of left ankle with fat layer exposed; E11.621 Type 2 diabetes mellitus with foot ulcer; L97.511 Non-pressure chronic ulcer of other part of right foot limited to breakdown of skin; L97.412 Non-pressure chronic ulcer of right heel and midfoot with fat layer exposed; I87.2 Venous insufficiency (chronic) (peripheral); I83.013 Varicose veins of right lower extremity with ulcer of ankle; I83.023 Varicose veins of left lower extremity with ulcer of ankle; E03.9 Hypothyroidism, unspecified; E66.9 Obesity, unspecified; M19.90 Unspecified osteoarthritis, unspecified site; Z68.1 Body mass index [BMI] 19.9 or less, adult; Z85.828 Personal history of other malignant neoplasm of skin
CPT/HCPCS: 97597; 97598; A6209; A6021; A6206

== ENCOUNTER 2018-11-06 09:21 | Outpatient (CLI) | payer BC ==
--- NOTE | 2018-11-06 11:00 | NUR ---
Patient ambulated independently from [facility] and was admitted to outpatient wound care for nursing visit under the direct supervision of Elieser Brennan MD. Dressing removed, wound cleansed and dressings applied per order. Patient assessed for changes in conditions, medications and medical history. Pt instructed to elevate legs at least 30 minutes 3 times a day or 10 minutes every 4 hours, also instructed check their toes. If they become purplish or blue, cool to the touch, numb or tingly, use a pair of scissors and carefully cut off the dressing. Call the Wound Center for an appointment to have the dressing reapplied. Pt instructed that decreased swelling in the legs and the potential for drainage from the wound may require them to have to schedule visits twice weekly, progressing to weekly as the swelling decreases in their legs. Pt instructed that if dressings become loose, wrinkled or falls down and if they are experiencing any pain or discomfort under their dressing cut the dressing off and call the Wound Center to have it reapplied. Pt instructed that the wrap needs to be kept dry. They may bath at a sink or there are devices designed to keep dressings dry these are available at most drug stores. If they choose to shower with a plastic bag taped over the wrap. Be sure to having another person available for assistance or placing towels on the floor of the shower or tub to eliminate the slick surface can reduce the risk of falls. Patient instructed on the signs and symptoms of infection and to call the Wound Center if any occur or to go to the ED if we are closed: Increased pain in wound Increase in drainage from the wound Redness in the skin surrounding the wound Bleeding from the wound Temperature of 101 or greater Patient instructed that the weight of their body puts a large amount of pressure on their wounds. This pressure keeps the new tissue from growing and inhibits new blood vessels from forming. Explained that, if they continue to bear weight on a body part that has a wound, the time it takes to heal the wound increases, the wound may get worse or the wound may not heal at all. Patient verbalized understanding of all discharge instructions and plan of care and ambulated independently out to [facility] in stable condition with no sign or symptom of distress at time of discharge.
== END 2018-11-06 11:10 | disposition home or self-care (01) ==
LOC: WOUND CARE 09:21
PROVIDERS: ATTEND Surgery
DX: E11.622 Type 2 diabetes mellitus with other skin ulcer (principal); L97.312 Non-pressure chronic ulcer of right ankle with fat layer exposed; L97.322 Non-pressure chronic ulcer of left ankle with fat layer exposed; E11.621 Type 2 diabetes mellitus with foot ulcer; L97.511 Non-pressure chronic ulcer of other part of right foot limited to breakdown of skin; I87.2 Venous insufficiency (chronic) (peripheral); I83.013 Varicose veins of right lower extremity with ulcer of ankle; I83.023 Varicose veins of left lower extremity with ulcer of ankle; E03.9 Hypothyroidism, unspecified; E66.9 Obesity, unspecified; M19.90 Unspecified osteoarthritis, unspecified site; Z68.1 Body mass index [BMI] 19.9 or less, adult; Z85.828 Personal history of other malignant neoplasm of skin
CPT/HCPCS: 29581; A6209; A6021; A6196; A6206; A6441

== ENCOUNTER 2018-11-12 09:15 | Day surgery (SDC) | payer BC ==
[~2018-11-12 09:15] MED LIST changes: +clobetasol 0.05% cream 30gm TOP ONE
[2018-11-12] MEDS ORDERED: LIDOcaine/PRILOcaine 5gm cream TP ONE (09:16)
[2018-11-12] MEDS ORDERED: clobetasol 0.05% cream 30gm TOP ONE ×2 (10:55)
[2018-11-12] MEDS ORDERED: clobetasol 0.05% cream 30gm TP SCH (11:05)
--- NOTE | 2018-11-12 14:53 | NUR ---
Patient ambulated safely into [facility]. Patient admitted to outpatient wound care clinic for follow-up visit with physician. Dressings removed, wounds cleansed and Emla cream applied per order. Patient assessed for changes in conditions, medications and medical history. Patient showed no s/s of distress at time of assessment. Lakisha- at bedside accompanied by RN. Wound assessed and selectively debrided with a scalpel. Minimal bleeding noted. Hemostasis achieved with applied pressure. Patient tolerated procedure well. Dressings applied per physician orders. Patient instructed on the signs and symptoms of infection and to call the Wound Center if any occur or to go to the ED if we are closed: Increased pain in wound Increase in drainage from the wound Redness in the skin surrounding the wound Bleeding from the wound Temperature of 101 or greater Pt instructed to elevate legs at least 30 minutes 3 times a day or 10 minutes every 4 hours, also instructed check their toes. If they become purplish or blue, cool to the touch, numb or tingly, use a pair of scissors and carefully cut off the dressing. Call the Wound Center for an appointment to have the dressing reapplied. Pt instructed that decreased swelling in the legs and the potential for drainage from the wound may require them to have to schedule visits twice weekly, progressing to weekly as the swelling decreases in their legs. Pt instructed that if dressings become loose, wrinkled or falls down and if they are experiencing any pain or discomfort under their dressing cut the dressing off and call the Wound Center to have it reapplied. Pt instructed that the wraps needs to be kept dry. They may bath at a sink or there are devices designed to keep dressings dry these are available at most drug stores. If they choose to shower with a plastic bag taped over the wraps. Be sure to having another person available for assistance or placing towels on the floor of the shower or tub to eliminate the slick surface can reduce the risk of falls. Patient verbalized understanding of all instructions and POC. Patient instructed to return to wound care clinic for scheduled follow-up visit with physician. Patient left in stable condition with no complaints. Addendum: 11/12/18 at 1500 by Talia Worrell RN Amended: Links added.
== END 2018-11-12 11:05 | disposition home or self-care (01) ==
LOC: WOUND CARE 09:15
PROVIDERS: ATTEND Surgery
DX: E11.622 Type 2 diabetes mellitus with other skin ulcer (principal); L97.312 Non-pressure chronic ulcer of right ankle with fat layer exposed; L97.322 Non-pressure chronic ulcer of left ankle with fat layer exposed; E11.621 Type 2 diabetes mellitus with foot ulcer; L97.511 Non-pressure chronic ulcer of other part of right foot limited to breakdown of skin; L97.412 Non-pressure chronic ulcer of right heel and midfoot with fat layer exposed; I87.2 Venous insufficiency (chronic) (peripheral); I83.013 Varicose veins of right lower extremity with ulcer of ankle; I83.023 Varicose veins of left lower extremity with ulcer of ankle; E03.9 Hypothyroidism, unspecified; E66.9 Obesity, unspecified; M19.90 Unspecified osteoarthritis, unspecified site; Z68.1 Body mass index [BMI] 19.9 or less, adult; Z85.828 Personal history of other malignant neoplasm of skin
CPT/HCPCS: 97597; 97598; A6209; A6223; A6021; A6196

== ENCOUNTER 2018-11-13 08:00 | Outpatient (CLI) | payer BC ==
[~2018-11-13 08:00] MED LIST changes: +LIDOcaine/PRILOcaine 5gm cream TP ONE; -clobetasol 0.05% cream 30gm TOP ONE
== END 2018-11-13 08:05 | disposition home or self-care (01) ==
LOC: WOUND CARE 08:00 → EDSTATUS 09:00
PROVIDERS: ATTEND Surgery
DX: E11.622 Type 2 diabetes mellitus with other skin ulcer (principal); L97.312 Non-pressure chronic ulcer of right ankle with fat layer exposed; Z53.21 Procedure and treatment not carried out due to patient leaving prior to being seen by health care provider; L97.322 Non-pressure chronic ulcer of left ankle with fat layer exposed; E11.621 Type 2 diabetes mellitus with foot ulcer; L97.511 Non-pressure chronic ulcer of other part of right foot limited to breakdown of skin; I87.2 Venous insufficiency (chronic) (peripheral); I83.013 Varicose veins of right lower extremity with ulcer of ankle; I83.023 Varicose veins of left lower extremity with ulcer of ankle; E03.9 Hypothyroidism, unspecified; E66.9 Obesity, unspecified; M19.90 Unspecified osteoarthritis, unspecified site; Z68.1 Body mass index [BMI] 19.9 or less, adult

== ENCOUNTER 2018-11-18 08:45 | Day surgery (SDC) | payer BC ==
[~2018-11-18 08:45] MED LIST changes: -LIDOcaine/PRILOcaine 5gm cream TP ONE
[2018-11-18] MEDS ORDERED: clobetasol propionate ointment 15gm TP ONE (08:55)
[2018-11-18] MEDS ORDERED: LIDOcaine 2% 5ml jelly ONE (09:46)
--- NOTE | 2018-11-18 14:43 | NUR ---
Patient ambulated independently from [facility] and was admitted to outpatient wound care for physician visit. Dressing removed, wound cleansed and lidocaine applied per order. Patient assessed for changes in conditions, medications and medical history. Dr. Brennan at bedside accompanied by RN. Wound assessed, time out performed by MD/RN. Wound debrided as detailed in the physician progress/procedure note. Plan of care discussed with patient. Dressings placed per MD orders. Patient instructed on the signs and symptoms of infection and to call the Wound Center if any occur or to go to the ED if we are closed: Increased pain in wound Increase in drainage from the wound Redness in the skin surrounding the wound Bleeding from the wound Temperature of 101 or greater Pt instructed to elevate legs at least 30 minutes 3 times a day or 10 minutes every 4 hours, also instructed check their toes. If they become purplish or blue, cool to the touch, numb or tingly, use a pair of scissors and carefully cut off the dressing. Call the Wound Center for an appointment to have the dressing reapplied. Pt instructed that decreased swelling in the legs and the potential for drainage from the wound may require them to have to schedule visits twice weekly, progressing to weekly as the swelling decreases in their legs. Pt instructed that if dressings become loose, wrinkled or falls down and if they are experiencing any pain or discomfort under their dressing cut the dressing off and call the Wound Center to have it reapplied. Pt instructed that the wraps needs to be kept dry. They may bath at a sink or there are devices designed to keep dressings dry these are available at most drug stores. If they choose to shower with a plastic bag taped over the wraps. Be sure to having another person available for assistance or placing towels on the floor of the shower or tub to eliminate the slick surface can reduce the risk of falls. Patient verbalized understanding of all discharge instructions and plan of care and ambulated independently out to [facility] in stable condition with no sign or symptom of distress at time of discharge. Addendum: 11/18/18 at 1452 by Talia Worrell RN Amended: Links added.
== END 2018-11-18 12:00 | disposition home or self-care (01) ==
LOC: WOUND CARE 08:45
PROVIDERS: ATTEND Surgery
DX: E11.622 Type 2 diabetes mellitus with other skin ulcer (principal); L97.312 Non-pressure chronic ulcer of right ankle with fat layer exposed; L97.322 Non-pressure chronic ulcer of left ankle with fat layer exposed; E11.621 Type 2 diabetes mellitus with foot ulcer; L97.511 Non-pressure chronic ulcer of other part of right foot limited to breakdown of skin; L97.412 Non-pressure chronic ulcer of right heel and midfoot with fat layer exposed; I87.2 Venous insufficiency (chronic) (peripheral); I83.013 Varicose veins of right lower extremity with ulcer of ankle; I83.023 Varicose veins of left lower extremity with ulcer of ankle; E03.9 Hypothyroidism, unspecified; E66.9 Obesity, unspecified; M19.90 Unspecified osteoarthritis, unspecified site; Z68.1 Body mass index [BMI] 19.9 or less, adult; Z85.828 Personal history of other malignant neoplasm of skin
CPT/HCPCS: 97597; 97598; A6209; A6021; A6196; A6206; A6441

== ENCOUNTER 2018-11-20 09:21 | Outpatient (CLI) | payer BC ==
[~2018-11-20 09:21] MED LIST changes: +clobetasol propionate ointment 15gm TP SCH
--- NOTE | 2018-11-20 12:52 | NUR ---
Patient ambulated independently from [facility] and was admitted to outpatient wound care for nursing visit under the direct supervision of Elieser Brennan MD. Placed in contact isolation precautions per hospital policy. Dressing removed, wound cleansed and new dressings applied per order. Patient assessed for changes in conditions, medications and medical history. Pt instructed to elevate legs at least 30 minutes 3 times a day or 10 minutes every 4 hours, also instructed check their toes. If they become purplish or blue, cool to the touch, numb or tingly, use a pair of scissors and carefully cut off the dressing. Call the Wound Center for an appointment to have the dressing reapplied. Pt instructed that decreased swelling in the legs and the potential for drainage from the wound may require them to have to schedule visits twice weekly, progressing to weekly as the swelling decreases in their legs. Pt instructed that if dressings become loose, wrinkled or falls down and if they are experiencing any pain or discomfort under their dressing cut the dressing off and call the Wound Center to have it reapplied. Pt instructed that the wrap needs to be kept dry. They may bath at a sink or there are devices designed to keep dressings dry these are available at most drug stores. If they choose to shower with a plastic bag taped over the wrap. Be sure to having another person available for assistance or placing towels on the floor of the shower or tub to eliminate the slick surface can reduce the risk of falls. Patient instructed on the signs and symptoms of infection and to call the Wound Center if any occur or to go to the ED if we are closed: Increased pain in wound Increase in drainage from the wound Redness in the skin surrounding the wound Bleeding from the wound Temperature of 101 or greater Patient instructed that the weight of their body puts a large amount of pressure on their wounds. This pressure keeps the new tissue from growing and inhibits new blood vessels from forming. Explained that, if they continue to bear weight on a body part that has a wound, the time it takes to heal the wound increases, the wound may get worse or the wound may not heal at all. Patient verbalized understanding of all discharge instructions and plan of care and ambulated independently out to [facility] in stable condition with no sign or symptom of distress at time of discharge.
== END 2018-11-20 11:24 | disposition home or self-care (01) ==
LOC: WOUND CARE 09:21
PROVIDERS: ATTEND Surgery
DX: E11.622 Type 2 diabetes mellitus with other skin ulcer (principal); L97.312 Non-pressure chronic ulcer of right ankle with fat layer exposed; L97.322 Non-pressure chronic ulcer of left ankle with fat layer exposed; E11.621 Type 2 diabetes mellitus with foot ulcer; L97.511 Non-pressure chronic ulcer of other part of right foot limited to breakdown of skin; L97.412 Non-pressure chronic ulcer of right heel and midfoot with fat layer exposed; I87.2 Venous insufficiency (chronic) (peripheral); I83.013 Varicose veins of right lower extremity with ulcer of ankle; I83.023 Varicose veins of left lower extremity with ulcer of ankle; E03.9 Hypothyroidism, unspecified; E66.9 Obesity, unspecified; M19.90 Unspecified osteoarthritis, unspecified site; Z68.1 Body mass index [BMI] 19.9 or less, adult; Z85.828 Personal history of other malignant neoplasm of skin
CPT/HCPCS: 29581; A6209; A6206; A6213; A6441

== ENCOUNTER 2018-11-24 10:47 | Day surgery (SDC) | payer BC ==
[~2018-11-24 10:47] MED LIST changes: -clobetasol propionate ointment 15gm TP SCH
[2018-11-24] MEDS ORDERED: LIDOcaine 2% 5ml jelly ONE (11:39)
--- NOTE | 2018-11-24 12:47 | NUR ---
Patient ambulated independently from [facility] and was admitted to outpatient wound care for physician visit with Elieser Brennan MD. Placed in contact isolation precautions per hospital policy. Dressing removed, wound cleansed and lidocaine applied per order. Patient assessed for changes in conditions, medications and medical history. 1220 - Dr. Brennan at bedside accompanied by RN. Wound assessed, time out performed by MD/RN. Wound debrided as detailed in the physician progress/procedure note. Plan of care discussed with patient. Dressings placed per MD orders. Pt instructed to elevate legs at least 30 minutes 3 times a day or 10 minutes every 4 hours, also instructed check their toes. If they become purplish or blue, cool to the touch, numb or tingly, use a pair of scissors and carefully cut off the dressing. Call the Wound Center for an appointment to have the dressing reapplied. Pt instructed that decreased swelling in the legs and the potential for drainage from the wound may require them to have to schedule visits twice weekly, progressing to weekly as the swelling decreases in their legs. Pt instructed that if dressings become loose, wrinkled or falls down and if they are experiencing any pain or discomfort under their dressing cut the dressing off and call the Wound Center to have it reapplied. Pt instructed that the wrap needs to be kept dry. They may bath at a sink or there are devices designed to keep dressings dry these are available at most drug stores. If they choose to shower with a plastic bag taped over the wrap. Be sure to having another person available for assistance or placing towels on the floor of the shower or tub to eliminate the slick surface can reduce the risk of falls. Patient instructed on the signs and symptoms of infection and to call the Wound Center if any occur or to go to the ED if we are closed: Increased pain in wound Increase in drainage from the wound Redness in the skin surrounding the wound Bleeding from the wound Temperature of 101 or greater Patient instructed that the weight of their body puts a large amount of pressure on their wounds. This pressure keeps the new tissue from growing and inhibits new blood vessels from forming. Explained that, if they continue to bear weight on a body part that has a wound, the time it takes to heal the wound increases, the wound may get worse or the wound may not heal at all. Patient verbalized understanding of all discharge instructions and plan of care and ambulated independently out to [facility] in stable condition with no sign or symptom of distress at time of discharge.
== END 2018-11-24 13:05 | disposition home or self-care (01) ==
LOC: WOUND CARE 10:47
PROVIDERS: ATTEND Surgery
DX: E11.622 Type 2 diabetes mellitus with other skin ulcer (principal); L97.312 Non-pressure chronic ulcer of right ankle with fat layer exposed; L97.322 Non-pressure chronic ulcer of left ankle with fat layer exposed; E11.621 Type 2 diabetes mellitus with foot ulcer; L97.511 Non-pressure chronic ulcer of other part of right foot limited to breakdown of skin; L97.412 Non-pressure chronic ulcer of right heel and midfoot with fat layer exposed; I87.2 Venous insufficiency (chronic) (peripheral); I83.013 Varicose veins of right lower extremity with ulcer of ankle; I83.023 Varicose veins of left lower extremity with ulcer of ankle; E03.9 Hypothyroidism, unspecified; E66.9 Obesity, unspecified; M19.90 Unspecified osteoarthritis, unspecified site; Z68.1 Body mass index [BMI] 19.9 or less, adult; Z85.828 Personal history of other malignant neoplasm of skin
CPT/HCPCS: 87070; 87075; 87102; 87176; 97597; 97598; A6209; 87077; 87186; A6021; A6206; A6441

== ENCOUNTER 2018-11-27 09:19 | Outpatient (CLI) | payer BC ==
[~2018-11-27 09:19] MED LIST changes: +CLOBETASOL OINTMENT TP NR
--- NOTE | 2018-11-27 11:00 | NUR ---
Patient ambulated independently from [facility] and was admitted to outpatient wound care for nursing visit under the direct supervision of Elieser Brennan MD. Placed in contact isolation precautions per hospital policy. Dressing removed, wound cleansed and dressings applied per order. Patient assessed for changes in conditions, medications and medical history. Per patient request, MD stopped by bedside to discuss results of culture performed on patient's last visit. Pt instructed to elevate legs at least 30 minutes 3 times a day or 10 minutes every 4 hours, also instructed check their toes. If they become purplish or blue, cool to the touch, numb or tingly, use a pair of scissors and carefully cut off the dressing. Call the Wound Center for an appointment to have the dressing reapplied. Pt instructed that decreased swelling in the legs and the potential for drainage from the wound may require them to have to schedule visits twice weekly, progressing to weekly as the swelling decreases in their legs. Pt instructed that if dressings become loose, wrinkled or falls down and if they are experiencing any pain or discomfort under their dressing cut the dressing off and call the Wound Center to have it reapplied. Pt instructed that the wrap needs to be kept dry. They may bath at a sink or there are devices designed to keep dressings dry these are available at most drug stores. If they choose to shower with a plastic bag taped over the wrap. Be sure to having another person available for assistance or placing towels on the floor of the shower or tub to eliminate the slick surface can reduce the risk of falls. Patient instructed on the signs and symptoms of infection and to call the Wound Center if any occur or to go to the ED if we are closed: Increased pain in wound Increase in drainage from the wound Redness in the skin surrounding the wound Bleeding from the wound Temperature of 101 or greater Patient instructed that the weight of their body puts a large amount of pressure on their wounds. This pressure keeps the new tissue from growing and inhibits new blood vessels from forming. Explained that, if they continue to bear weight on a body part that has a wound, the time it takes to heal the wound increases, the wound may get worse or the wound may not heal at all. Patient verbalized understanding of all discharge instructions and plan of care and ambulated independently out to [facility] in stable condition with no sign or symptom of distress at time of discharge.
== END 2018-11-27 11:53 | disposition home or self-care (01) ==
LOC: WOUND CARE 09:19
PROVIDERS: ATTEND Surgery
DX: E11.622 Type 2 diabetes mellitus with other skin ulcer (principal); L97.312 Non-pressure chronic ulcer of right ankle with fat layer exposed; L97.322 Non-pressure chronic ulcer of left ankle with fat layer exposed; E11.621 Type 2 diabetes mellitus with foot ulcer; I87.2 Venous insufficiency (chronic) (peripheral); L97.511 Non-pressure chronic ulcer of other part of right foot limited to breakdown of skin; L97.412 Non-pressure chronic ulcer of right heel and midfoot with fat layer exposed; I83.013 Varicose veins of right lower extremity with ulcer of ankle; I83.023 Varicose veins of left lower extremity with ulcer of ankle; E03.9 Hypothyroidism, unspecified; E66.9 Obesity, unspecified; M19.90 Unspecified osteoarthritis, unspecified site; Z68.1 Body mass index [BMI] 19.9 or less, adult; Z85.828 Personal history of other malignant neoplasm of skin
CPT/HCPCS: 29581; A6021; A6196; A6206; A6441

== ENCOUNTER 2018-12-01 10:11 | Day surgery (SDC) | payer BC ==
[~2018-12-01 10:11] MED LIST changes: -CLOBETASOL OINTMENT TP NR; +clobetasol propionate ointment 15gm TP ONE
[2018-12-01] MEDS ORDERED: LIDOcaine 2% 5ml jelly ONE (11:16)
[2018-12-01] MEDS ORDERED: gentamicin 0.1% topical ointment 15gm TP ONE (11:38)
--- NOTE | 2018-12-01 12:30 | NUR ---
Patient ambulated independently from [facility] and was admitted to outpatient wound care for physician visit with Elieser Brennan MD. Placed in contact isolation precautions per hospital policy. Dressing removed, wound cleansed and lidocaine applied per order. Patient assessed for changes in conditions, medications and medical history. 1130 - Dr. Brennan at bedside accompanied by RN. Wound assessed, time out performed by MD/RN. Wound debrided as detailed in the physician progress/procedure note. Plan of care discussed with patient. Dressings placed per MD orders. Pt instructed to elevate legs at least 30 minutes 3 times a day or 10 minutes every 4 hours, also instructed check their toes. If they become purplish or blue, cool to the touch, numb or tingly, use a pair of scissors and carefully cut off the dressing. Call the Wound Center for an appointment to have the dressing reapplied. Pt instructed that decreased swelling in the legs and the potential for drainage from the wound may require them to have to schedule visits twice weekly, progressing to weekly as the swelling decreases in their legs. Pt instructed that if dressings become loose, wrinkled or falls down and if they are experiencing any pain or discomfort under their dressing cut the dressing off and call the Wound Center to have it reapplied. Pt instructed that the wrap needs to be kept dry. They may bath at a sink or there are devices designed to keep dressings dry these are available at most drug stores. If they choose to shower with a plastic bag taped over the wrap. Be sure to having another person available for assistance or placing towels on the floor of the shower or tub to eliminate the slick surface can reduce the risk of falls. Patient instructed on the signs and symptoms of infection and to call the Wound Center if any occur or to go to the ED if we are closed: Increased pain in wound Increase in drainage from the wound Redness in the skin surrounding the wound Bleeding from the wound Temperature of 101 or greater Patient instructed that the weight of their body puts a large amount of pressure on their wounds. This pressure keeps the new tissue from growing and inhibits new blood vessels from forming. Explained that, if they continue to bear weight on a body part that has a wound, the time it takes to heal the wound increases, the wound may get worse or the wound may not heal at all. Patient verbalized understanding of all discharge instructions and plan of care and ambulated independently out to lobby in stable condition with no sign or symptom of distress at time of discharge.
== END 2018-12-01 13:00 | disposition home or self-care (01) ==
LOC: WOUND CARE 10:11
PROVIDERS: ATTEND Surgery
DX: E11.622 Type 2 diabetes mellitus with other skin ulcer (principal); L97.312 Non-pressure chronic ulcer of right ankle with fat layer exposed; L97.322 Non-pressure chronic ulcer of left ankle with fat layer exposed; E11.621 Type 2 diabetes mellitus with foot ulcer; I87.2 Venous insufficiency (chronic) (peripheral); L97.511 Non-pressure chronic ulcer of other part of right foot limited to breakdown of skin; L97.412 Non-pressure chronic ulcer of right heel and midfoot with fat layer exposed; I83.013 Varicose veins of right lower extremity with ulcer of ankle; I83.023 Varicose veins of left lower extremity with ulcer of ankle; E03.9 Hypothyroidism, unspecified; E66.9 Obesity, unspecified; M19.90 Unspecified osteoarthritis, unspecified site; Z68.1 Body mass index [BMI] 19.9 or less, adult; Z85.828 Personal history of other malignant neoplasm of skin
CPT/HCPCS: 97597; 97598; A6021; A6206; A6441

== ENCOUNTER 2018-12-04 09:30 | Outpatient (CLI) | payer BC ==
[~2018-12-04 09:30] MED LIST changes: -clobetasol propionate ointment 15gm TP ONE
[2018-12-04] MEDS ORDERED: gentamicin 0.1% topical ointment 15gm TP ONE (10:10)
[2018-12-04] MEDS ORDERED: clobetasol propionate ointment 15gm TP ONE (10:30)
--- NOTE | 2018-12-04 10:30 | NUR ---
Patient ambulated independently from [facility] and was admitted to outpatient wound care for nursing visit under the direct supervision of Elieser Brennan MD. Placed in contact isolation precautions per hospital policy. Dressing removed, wound cleansed and dressings applied per order. Patient assessed for changes in conditions, medications and medical history. Pt instructed to elevate legs at least 30 minutes 3 times a day or 10 minutes every 4 hours, also instructed check their toes. If they become purplish or blue, cool to the touch, numb or tingly, use a pair of scissors and carefully cut off the dressing. Call the Wound Center for an appointment to have the dressing reapplied. Pt instructed that decreased swelling in the legs and the potential for drainage from the wound may require them to have to schedule visits twice weekly, progressing to weekly as the swelling decreases in their legs. Pt instructed that if dressings become loose, wrinkled or falls down and if they are experiencing any pain or discomfort under their dressing cut the dressing off and call the Wound Center to have it reapplied. Pt instructed that the wrap needs to be kept dry. They may bath at a sink or there are devices designed to keep dressings dry these are available at most drug stores. If they choose to shower with a plastic bag taped over the wrap. Be sure to having another person available for assistance or placing towels on the floor of the shower or tub to eliminate the slick surface can reduce the risk of falls. Patient instructed on the signs and symptoms of infection and to call the Wound Center if any occur or to go to the ED if we are closed: Increased pain in wound Increase in drainage from the wound Redness in the skin surrounding the wound Bleeding from the wound Temperature of 101 or greater Patient instructed that the weight of their body puts a large amount of pressure on their wounds. This pressure keeps the new tissue from growing and inhibits new blood vessels from forming. Explained that, if they continue to bear weight on a body part that has a wound, the time it takes to heal the wound increases, the wound may get worse or the wound may not heal at all. Patient verbalized understanding of all discharge instructions and plan of care and ambulated independently out to [facility] in stable condition with no sign or symptom of distress at time of discharge.
== END 2018-12-04 11:30 | disposition home or self-care (01) ==
LOC: WOUND CARE 09:30
PROVIDERS: ATTEND Surgery
DX: E11.622 Type 2 diabetes mellitus with other skin ulcer (principal); L97.312 Non-pressure chronic ulcer of right ankle with fat layer exposed; L97.322 Non-pressure chronic ulcer of left ankle with fat layer exposed; E11.621 Type 2 diabetes mellitus with foot ulcer; I87.2 Venous insufficiency (chronic) (peripheral); L97.511 Non-pressure chronic ulcer of other part of right foot limited to breakdown of skin; L97.412 Non-pressure chronic ulcer of right heel and midfoot with fat layer exposed; I83.013 Varicose veins of right lower extremity with ulcer of ankle; I83.023 Varicose veins of left lower extremity with ulcer of ankle; E03.9 Hypothyroidism, unspecified; E66.9 Obesity, unspecified; M19.90 Unspecified osteoarthritis, unspecified site; Z68.1 Body mass index [BMI] 19.9 or less, adult; Z85.828 Personal history of other malignant neoplasm of skin
CPT/HCPCS: 29581; A6209; A6021; A6196; A6206; A6441

== ENCOUNTER 2018-12-08 09:52 | Day surgery (SDC) | payer BC ==
[2018-12-08] MEDS ORDERED: LIDOcaine 2% 5ml jelly ONE ×2 (11:28→11:29)
[2018-12-08] MEDS ORDERED: gentamicin 0.1% topical ointment 15gm TP ONE (11:37)
[2018-12-08] MEDS ORDERED: clobetasol propionate ointment 15gm TP ONE (11:37)
--- NOTE | 2018-12-08 12:30 | NUR ---
Patient ambulated independently from [facility] and was admitted to outpatient wound care for physician visit with Elieser Brennan MD. Placed in contact isolation precautions per hospital policy. Dressing removed, wound cleansed and lidocaine applied per order. Patient assessed for changes in conditions, medications and medical history. 1130 - Dr. Brennan at bedside accompanied by RN. Wound assessed, time out performed by MD/RN. Wound debrided as detailed in the physician progress/procedure note. Plan of care discussed with patient. Dressings placed per MD orders. Pt instructed to elevate legs at least 30 minutes 3 times a day or 10 minutes every 4 hours, also instructed check their toes. If they become purplish or blue, cool to the touch, numb or tingly, use a pair of scissors and carefully cut off the dressing. Call the Wound Center for an appointment to have the dressing reapplied. Pt instructed that decreased swelling in the legs and the potential for drainage from the wound may require them to have to schedule visits twice weekly, progressing to weekly as the swelling decreases in their legs. Pt instructed that if dressings become loose, wrinkled or falls down and if they are experiencing any pain or discomfort under their dressing cut the dressing off and call the Wound Center to have it reapplied. Pt instructed that the wrap needs to be kept dry. They may bath at a sink or there are devices designed to keep dressings dry these are available at most drug stores. If they choose to shower with a plastic bag taped over the wrap. Be sure to having another person available for assistance or placing towels on the floor of the shower or tub to eliminate the slick surface can reduce the risk of falls. Patient instructed on the signs and symptoms of infection and to call the Wound Center if any occur or to go to the ED if we are closed: Increased pain in wound Increase in drainage from the wound Redness in the skin surrounding the wound Bleeding from the wound Temperature of 101 or greater Patient instructed that the weight of their body puts a large amount of pressure on their wounds. This pressure keeps the new tissue from growing and inhibits new blood vessels from forming. Explained that, if they continue to bear weight on a body part that has a wound, the time it takes to heal the wound increases, the wound may get worse or the wound may not heal at all. Patient verbalized understanding of all discharge instructions and plan of care and ambulated independently out to lobby in stable condition with no sign or symptom of distress at time of discharge.
== END 2018-12-08 12:46 | disposition home or self-care (01) ==
LOC: WOUND CARE 09:52
PROVIDERS: ATTEND Surgery
DX: E11.622 Type 2 diabetes mellitus with other skin ulcer (principal); L97.312 Non-pressure chronic ulcer of right ankle with fat layer exposed; L97.322 Non-pressure chronic ulcer of left ankle with fat layer exposed; E11.621 Type 2 diabetes mellitus with foot ulcer; L97.511 Non-pressure chronic ulcer of other part of right foot limited to breakdown of skin; L97.412 Non-pressure chronic ulcer of right heel and midfoot with fat layer exposed; I87.2 Venous insufficiency (chronic) (peripheral); I83.013 Varicose veins of right lower extremity with ulcer of ankle; I83.023 Varicose veins of left lower extremity with ulcer of ankle; E03.9 Hypothyroidism, unspecified; E66.9 Obesity, unspecified; M19.90 Unspecified osteoarthritis, unspecified site; Z68.1 Body mass index [BMI] 19.9 or less, adult; Z85.828 Personal history of other malignant neoplasm of skin
CPT/HCPCS: 29581; 97597; 97598; A6209; A6223; A6021; A6206; A6441

== ENCOUNTER 2018-12-11 10:55 | Outpatient (CLI) | payer BC ==
[2018-12-11] MEDS ORDERED: clobetasol propionate ointment 15gm TP ONE (11:47)
[2018-12-11] MEDS ORDERED: gentamicin 0.1% topical ointment 15gm TP ONE (11:47)
--- NOTE | 2018-12-11 13:49 | NUR ---
Patient ambulated independently from [facility] and was admitted to outpatient wound care clinic for nursing visit. Dressings removed and wounds cleansed. Patient assessed for changes in conditions, medications and medical history. Dressings applied per physician orders. Patient instructed on the signs and symptoms of infection and to call the Wound Center if any occur or to go to the ED if we are closed: Increased pain in wound Increase in drainage from the wound Redness in the skin surrounding the wound Bleeding from the wound Temperature of 101 or greater Pt instructed to elevate legs at least 30 minutes 3 times a day or 10 minutes every 4 hours, also instructed check their toes. If they become purplish or blue, cool to the touch, numb or tingly, use a pair of scissors and carefully cut off the dressing. Call the Wound Center for an appointment to have the dressing reapplied. Pt instructed that decreased swelling in the legs and the potential for drainage from the wound may require them to have to schedule visits twice weekly, progressing to weekly as the swelling decreases in their legs. Pt instructed that if dressings become loose, wrinkled or falls down and if they are experiencing any pain or discomfort under their dressing cut the dressing off and call the Wound Center to have it reapplied. Pt instructed that the wraps needs to be kept dry. They may bath at a sink or there are devices designed to keep dressings dry these are available at most drug stores. If they choose to shower with a plastic bag taped over the wraps. Be sure to having another person available for assistance or placing towels on the floor of the shower or tub to eliminate the slick surface can reduce the risk of falls. Patient instructed that the weight of their body puts a large amount of pressure on their wounds. This pressure keeps the new tissue from growing and inhibits new blood vessels from forming. Explained that, if they continue to bear weight on a body part that has a wound, the time it takes to heal the wound increases, the wound may get worse or the wound may not heal at all. Patient verbalized understanding of all discharge instructions and plan of care and ambulated independently out to [facility] in stable condition with no sign or symptom of distress at time of discharge. Addendum: 12/11/18 at 1352 by Talia Worrell RN Amended: Links added.
== END 2018-12-11 12:50 | disposition home or self-care (01) ==
LOC: WOUND CARE 10:55
PROVIDERS: ATTEND Surgery
DX: E11.622 Type 2 diabetes mellitus with other skin ulcer (principal); L97.312 Non-pressure chronic ulcer of right ankle with fat layer exposed; L97.322 Non-pressure chronic ulcer of left ankle with fat layer exposed; I87.2 Venous insufficiency (chronic) (peripheral); I83.013 Varicose veins of right lower extremity with ulcer of ankle; I83.023 Varicose veins of left lower extremity with ulcer of ankle; E03.9 Hypothyroidism, unspecified; E66.9 Obesity, unspecified; M19.90 Unspecified osteoarthritis, unspecified site; Z68.1 Body mass index [BMI] 19.9 or less, adult; Z85.828 Personal history of other malignant neoplasm of skin
CPT/HCPCS: 29581; A6209; A6223; A6021; A6206; A6441

== ENCOUNTER 2018-12-16 09:40 | Outpatient (CLI) | payer BC ==
[2018-12-16] MEDS ORDERED: LIDOcaine/PRILOcaine 5gm cream TP ONE ×2 (10:22)
[2018-12-16] MEDS ORDERED: gentamicin 0.1% topical ointment 15gm TP ONE (11:13)
[2018-12-16] MEDS ORDERED: clobetasol propionate ointment 15gm TP ONE (11:13)
--- NOTE | 2018-12-16 12:32 | NUR ---
Patient ambulated independently from [facility] and was admitted to outpatient wound care for physician visit with Elieser Brennan MD. Dressing removed, wound cleansed and lidocaine applied per order. Patient assessed for changes in conditions, medications and medical history. Dr. Brennan at bedside accompanied by RN. Wound assessed, time out performed by MD/RN. Wound debrided as detailed in the physician progress/procedure note. Plan of care discussed with patient. Dressings placed per MD orders. Patient instructed on the signs and symptoms of infection and to call the Wound Center if any occur or to go to the ED if we are closed: Increased pain in wound Increase in drainage from the wound Redness in the skin surrounding the wound Bleeding from the wound Temperature of 101 or greater Pt instructed to elevate legs at least 30 minutes 3 times a day or 10 minutes every 4 hours, also instructed check their toes. If they become purplish or blue, cool to the touch, numb or tingly, use a pair of scissors and carefully cut off the dressing. Call the Wound Center for an appointment to have the dressing reapplied. Pt instructed that decreased swelling in the legs and the potential for drainage from the wound may require them to have to schedule visits twice weekly, progressing to weekly as the swelling decreases in their legs. Pt instructed that if dressings become loose, wrinkled or falls down and if they are experiencing any pain or discomfort under their dressing cut the dressing off and call the Wound Center to have it reapplied. Pt instructed that the wraps needs to be kept dry. They may bath at a sink or there are devices designed to keep dressings dry these are available at most drug stores. If they choose to shower with a plastic bag taped over the wraps. Be sure to having another person available for assistance or placing towels on the floor of the shower or tub to eliminate the slick surface can reduce the risk of falls. Patient instructed that the weight of their body puts a large amount of pressure on their wounds. This pressure keeps the new tissue from growing and inhibits new blood vessels from forming. Explained that, if they continue to bear weight on a body part that has a wound, the time it takes to heal the wound increases, the wound may get worse or the wound may not heal at all. Patient verbalized understanding of all discharge instructions and plan of care and ambulated independently out to [facility] in stable condition with no sign or symptom of distress at time of discharge. Addendum: 12/16/18 at 1234 by Talia Worrell RN Amended: Links added.
== END 2018-12-16 12:47 | disposition home or self-care (01) ==
LOC: WOUND CARE 09:40
PROVIDERS: ATTEND Surgery
DX: E11.622 Type 2 diabetes mellitus with other skin ulcer (principal); L97.312 Non-pressure chronic ulcer of right ankle with fat layer exposed; L97.322 Non-pressure chronic ulcer of left ankle with fat layer exposed; I87.2 Venous insufficiency (chronic) (peripheral); I83.013 Varicose veins of right lower extremity with ulcer of ankle; I83.023 Varicose veins of left lower extremity with ulcer of ankle; E03.9 Hypothyroidism, unspecified; E66.9 Obesity, unspecified; M19.90 Unspecified osteoarthritis, unspecified site; Z68.1 Body mass index [BMI] 19.9 or less, adult; Z85.828 Personal history of other malignant neoplasm of skin
CPT/HCPCS: 29581; A6209; A6223; A6021; A6206; A6250; A6441

== ENCOUNTER 2018-12-18 10:34 | Outpatient (CLI) | payer BC ==
[2018-12-18] MEDS ORDERED: clobetasol propionate ointment 15gm TP ONE (10:39)
[2018-12-18] MEDS ORDERED: gentamicin 0.1% topical ointment 15gm TP ONE (10:39)
--- NOTE | 2018-12-18 12:25 | NUR ---
Patient ambulated independently from [facility] and was admitted to outpatient wound care for nursing visit. Dressings removed and wounds cleansed. Patient assessed for changes in conditions, medications and medical history. Dressings reapplied per physician orders. Patient instructed on the signs and symptoms of infection and to call the Wound Center if any occur or to go to the ED if we are closed: Increased pain in wound Increase in drainage from the wound Redness in the skin surrounding the wound Bleeding from the wound Temperature of 101 or greater Pt instructed to elevate legs at least 30 minutes 3 times a day or 10 minutes every 4 hours, also instructed check their toes. If they become purplish or blue, cool to the touch, numb or tingly, use a pair of scissors and carefully cut off the dressing. Call the Wound Center for an appointment to have the dressing reapplied. Pt instructed that decreased swelling in the legs and the potential for drainage from the wound may require them to have to schedule visits twice weekly, progressing to weekly as the swelling decreases in their legs. Pt instructed that if dressings become loose, wrinkled or falls down and if they are experiencing any pain or discomfort under their dressing cut the dressing off and call the Wound Center to have it reapplied. Pt instructed that the wraps needs to be kept dry. They may bath at a sink or there are devices designed to keep dressings dry these are available at most drug stores. If they choose to shower with a plastic bag taped over the wraps. Be sure to having another person available for assistance or placing towels on the floor of the shower or tub to eliminate the slick surface can reduce the risk of falls. Patient instructed that the weight of their body puts a large amount of pressure on their wounds. This pressure keeps the new tissue from growing and inhibits new blood vessels from forming. Explained that, if they continue to bear weight on a body part that has a wound, the time it takes to heal the wound increases, the wound may get worse or the wound may not heal at all. Patient verbalized understanding of all discharge instructions and plan of care and ambulated independently out to [facility] in stable condition with no sign or symptom of distress at time of discharge. Addendum: 12/18/18 at 1227 by Talia Worrell RN Amended: Links added.
== END 2018-12-18 12:11 | disposition home or self-care (01) ==
LOC: WOUND CARE 10:34
PROVIDERS: ATTEND Surgery
DX: E11.622 Type 2 diabetes mellitus with other skin ulcer (principal); L97.312 Non-pressure chronic ulcer of right ankle with fat layer exposed; L97.322 Non-pressure chronic ulcer of left ankle with fat layer exposed; I83.013 Varicose veins of right lower extremity with ulcer of ankle; I83.023 Varicose veins of left lower extremity with ulcer of ankle; E03.9 Hypothyroidism, unspecified; E66.9 Obesity, unspecified; M19.90 Unspecified osteoarthritis, unspecified site; Z68.1 Body mass index [BMI] 19.9 or less, adult; Z85.828 Personal history of other malignant neoplasm of skin
CPT/HCPCS: 29581; A6209; A6223; A6021; A6196; A6206; A6441

== ENCOUNTER 2018-12-23 10:12 | Day surgery (SDC) | payer BC ==
[2018-12-23] MEDS ORDERED: LIDOcaine/PRILOcaine 5gm cream TP ONE ×2 (11:09)
[2018-12-23] MEDS ORDERED: gentamicin 0.1% topical ointment 15gm TP ONE (11:44)
[2018-12-23] MEDS ORDERED: clobetasol propionate ointment 15gm TP ONE (11:44)
--- NOTE | 2018-12-23 12:48 | NUR ---
Patient ambulated independently from [facility] and was admitted to outpatient wound care for physician visit with Elieser Brennan MD. Dressing removed, wound cleansed and lidocaine applied per order. Patient assessed for changes in conditions, medications and medical history. Dr. Brennan at bedside accompanied by RN. Wound assessed, time out performed by MD/RN. Wound debrided as detailed in the physician progress/procedure note. Plan of care discussed with patient. Dressings placed per MD orders. Patient instructed on the signs and symptoms of infection and to call the Wound Center if any occur or to go to the ED if we are closed: Increased pain in wound Increase in drainage from the wound Redness in the skin surrounding the wound Bleeding from the wound Temperature of 101 or greater Pt instructed to elevate legs at least 30 minutes 3 times a day or 10 minutes every 4 hours, also instructed check their toes. If they become purplish or blue, cool to the touch, numb or tingly, use a pair of scissors and carefully cut off the dressing. Call the Wound Center for an appointment to have the dressing reapplied. Pt instructed that decreased swelling in the legs and the potential for drainage from the wound may require them to have to schedule visits twice weekly, progressing to weekly as the swelling decreases in their legs. Pt instructed that if dressings become loose, wrinkled or falls down and if they are experiencing any pain or discomfort under their dressing cut the dressing off and call the Wound Center to have it reapplied. Pt instructed that the wraps needs to be kept dry. They may bath at a sink or there are devices designed to keep dressings dry these are available at most drug stores. If they choose to shower with a plastic bag taped over the wraps. Be sure to having another person available for assistance or placing towels on the floor of the shower or tub to eliminate the slick surface can reduce the risk of falls. Patient instructed that the weight of their body puts a large amount of pressure on their wounds. This pressure keeps the new tissue from growing and inhibits new blood vessels from forming. Explained that, if they continue to bear weight on a body part that has a wound, the time it takes to heal the wound increases, the wound may get worse or the wound may not heal at all. Patient verbalized understanding of all discharge instructions and plan of care and ambulated independently out to [facility] in stable condition with no sign or symptom of distress at time of discharge. Addendum: 12/23/18 at 1250 by Talia Worrell RN Amended: Links added.
== END 2018-12-23 12:56 | disposition home or self-care (01) ==
LOC: WOUND CARE 10:12
PROVIDERS: ATTEND Surgery
DX: E11.622 Type 2 diabetes mellitus with other skin ulcer (principal); I83.013 Varicose veins of right lower extremity with ulcer of ankle; L97.312 Non-pressure chronic ulcer of right ankle with fat layer exposed; I83.023 Varicose veins of left lower extremity with ulcer of ankle; L97.322 Non-pressure chronic ulcer of left ankle with fat layer exposed; E11.621 Type 2 diabetes mellitus with foot ulcer; L97.412 Non-pressure chronic ulcer of right heel and midfoot with fat layer exposed; E03.9 Hypothyroidism, unspecified; E66.9 Obesity, unspecified; M19.90 Unspecified osteoarthritis, unspecified site; Z68.1 Body mass index [BMI] 19.9 or less, adult; Z85.828 Personal history of other malignant neoplasm of skin
CPT/HCPCS: 87070; 87075; 87102; 87176; 97597; 97598; A6209; A6223; A6206; A6441

== ENCOUNTER 2018-12-28 09:35 | Day surgery (SDC) | payer BC ==
[2018-12-28] MEDS ORDERED: LIDOcaine/PRILOcaine 5gm cream TP ONE (10:24)
[2018-12-28] MEDS ORDERED: gentamicin 0.1% topical ointment 15gm TP ONE (11:09)
[2018-12-28] MEDS ORDERED: clobetasol propionate ointment 15gm TP ONE (11:09)
--- NOTE | 2018-12-28 14:59 | NUR ---
Patient ambulated independently from [facility] and was admitted to outpatient wound care for physician visit with Elieser Brennan MD. Dressing removed, wound cleansed and lidocaine applied per order. Patient assessed for changes in conditions, medications and medical history. Dr. Brennan at bedside accompanied by RN. Wound assessed, time out performed by MD/RN. Wound debrided as detailed in the physician progress/procedure note. Plan of care discussed with patient. Dressings placed per MD orders. Patient instructed on the signs and symptoms of infection and to call the Wound Center if any occur or to go to the ED if we are closed: Increased pain in wound Increase in drainage from the wound Redness in the skin surrounding the wound Bleeding from the wound Temperature of 101 or greater Patient instructed that the weight of their body puts a large amount of pressure on their wounds. This pressure keeps the new tissue from growing and inhibits new blood vessels from forming. Explained that, if they continue to bear weight on a body part that has a wound, the time it takes to heal the wound increases, the wound may get worse or the wound may not heal at all. Patient verbalized understanding of all discharge instructions and plan of care and ambulated independently out to [facility] in stable condition with no sign or symptom of distress at time of discharge. Addendum: 12/28/18 at 1501 by Talia Worrell RN Amended: Links added.
== END 2018-12-28 12:24 | disposition home or self-care (01) ==
LOC: WOUND CARE 09:35
PROVIDERS: ATTEND Surgery
DX: E11.622 Type 2 diabetes mellitus with other skin ulcer (principal); I83.013 Varicose veins of right lower extremity with ulcer of ankle; L97.312 Non-pressure chronic ulcer of right ankle with fat layer exposed; I83.023 Varicose veins of left lower extremity with ulcer of ankle; L97.322 Non-pressure chronic ulcer of left ankle with fat layer exposed; E11.621 Type 2 diabetes mellitus with foot ulcer; L97.412 Non-pressure chronic ulcer of right heel and midfoot with fat layer exposed; E03.9 Hypothyroidism, unspecified; E66.9 Obesity, unspecified; M19.90 Unspecified osteoarthritis, unspecified site; Z68.1 Body mass index [BMI] 19.9 or less, adult; Z85.828 Personal history of other malignant neoplasm of skin
CPT/HCPCS: 97597; 97598; A6209; A6223; A6021; A6206; A6441

== ENCOUNTER 2019-01-04 09:40 | Day surgery (SDC) | payer BC ==
[2019-01-04] MEDS ORDERED: LIDOcaine/PRILOcaine 5gm cream TP ONE ×2 (10:37→10:40)
[2019-01-04] MEDS ORDERED: cadexomer iodine 40gm GEL.GM TP ONE (11:14)
--- NOTE | 2019-01-04 16:05 | NUR ---
Patient ambulated independently from [facility] and was admitted to outpatient wound care for physician visit with Elieser Brennan MD. Dressing removed, wound cleansed and Emla cream applied per order. Patient assessed for changes in conditions, medications and medical history. Dr. Brennan at bedside accompanied by RN. Wound assessed, time out performed by MD/RN. Wound debrided as detailed in the physician progress/procedure note. Plan of care discussed with patient. Dressings placed per MD orders. Patient instructed on the signs and symptoms of infection and to call the Wound Center if any occur or to go to the ED if we are closed: Increased pain in wound Increase in drainage from the wound Redness in the skin surrounding the wound Bleeding from the wound Temperature of 101 or greater Pt instructed to elevate legs at least 30 minutes 3 times a day or 10 minutes every 4 hours, also instructed check their toes. If they become purplish or blue, cool to the touch, numb or tingly, use a pair of scissors and carefully cut off the dressing. Call the Wound Center for an appointment to have the dressing reapplied. Pt instructed that decreased swelling in the legs and the potential for drainage from the wound may require them to have to schedule visits twice weekly, progressing to weekly as the swelling decreases in their legs. Pt instructed that if dressings become loose, wrinkled or falls down and if they are experiencing any pain or discomfort under their dressing cut the dressing off and call the Wound Center to have it reapplied. Pt instructed that the wraps needs to be kept dry. They may bath at a sink or there are devices designed to keep dressings dry these are available at most drug stores. If they choose to shower with a plastic bag taped over the wraps. Be sure to having another person available for assistance or placing towels on the floor of the shower or tub to eliminate the slick surface can reduce the risk of falls. Patient instructed that the weight of their body puts a large amount of pressure on their wounds. This pressure keeps the new tissue from growing and inhibits new blood vessels from forming. Explained that, if they continue to bear weight on a body part that has a wound, the time it takes to heal the wound increases, the wound may get worse or the wound may not heal at all. Patient verbalized understanding of all discharge instructions and plan of care and ambulated independently out to [facility] in stable condition with no sign or symptom of distress at time of discharge. Addendum: 01/04/19 at 1606 by Talia Worrell RN Amended: Links added.
== END 2019-01-04 12:05 | disposition home or self-care (01) ==
LOC: WOUND CARE 09:40
PROVIDERS: ATTEND Surgery
DX: E11.622 Type 2 diabetes mellitus with other skin ulcer (principal); I83.013 Varicose veins of right lower extremity with ulcer of ankle; L97.312 Non-pressure chronic ulcer of right ankle with fat layer exposed; I83.023 Varicose veins of left lower extremity with ulcer of ankle; L97.322 Non-pressure chronic ulcer of left ankle with fat layer exposed; E11.621 Type 2 diabetes mellitus with foot ulcer; L97.412 Non-pressure chronic ulcer of right heel and midfoot with fat layer exposed; E03.9 Hypothyroidism, unspecified; E66.9 Obesity, unspecified; M19.90 Unspecified osteoarthritis, unspecified site; Z68.1 Body mass index [BMI] 19.9 or less, adult; Z85.828 Personal history of other malignant neoplasm of skin
CPT/HCPCS: 97597; 97598; A6209; A6223; A6441

== ENCOUNTER 2019-01-07 10:00 | Outpatient (CLI) | payer BC ==
[2019-01-07] MEDS ORDERED: gentamicin 0.1% topical ointment 15gm TP ONE (11:47)
[2019-01-07] MEDS ORDERED: clobetasol propionate ointment 15gm TP ONE (12:00)
--- NOTE | 2019-01-07 15:04 | NUR ---
Patient ambulated independently from [facility] and was admitted to outpatient wound care for physician visit with Elieser Brennan MD. Dressings removed and wounds cleansed. Patient assessed for changes in conditions, medications and medical history. Dr. Brennan at bedside accompanied by RN. Wound assessed, time out performed by MD/RN. Wound debrided as detailed in the physician progress/procedure note. Plan of care discussed with patient. Dressings placed per MD orders. Patient instructed on the signs and symptoms of infection and to call the Wound Center if any occur or to go to the ED if we are closed: Increased pain in wound Increase in drainage from the wound Redness in the skin surrounding the wound Bleeding from the wound Temperature of 101 or greater Pt instructed to elevate legs at least 30 minutes 3 times a day or 10 minutes every 4 hours, also instructed check their toes. If they become purplish or blue, cool to the touch, numb or tingly, use a pair of scissors and carefully cut off the dressing. Call the Wound Center for an appointment to have the dressing reapplied. Pt instructed that decreased swelling in the legs and the potential for drainage from the wound may require them to have to schedule visits twice weekly, progressing to weekly as the swelling decreases in their legs. Pt instructed that if dressings become loose, wrinkled or falls down and if they are experiencing any pain or discomfort under their dressing cut the dressing off and call the Wound Center to have it reapplied. Pt instructed that the wraps needs to be kept dry. They may bath at a sink or there are devices designed to keep dressings dry these are available at most drug stores. If they choose to shower with a plastic bag taped over the wraps. Be sure to having another person available for assistance or placing towels on the floor of the shower or tub to eliminate the slick surface can reduce the risk of falls. Patient instructed that the weight of their body puts a large amount of pressure on their wounds. This pressure keeps the new tissue from growing and inhibits new blood vessels from forming. Explained that, if they continue to bear weight on a body part that has a wound, the time it takes to heal the wound increases, the wound may get worse or the wound may not heal at all. Patient verbalized understanding of all discharge instructions and plan of care and ambulated independently out to [facility] in stable condition with no sign or symptom of distress at time of discharge. Addendum: 01/07/19 at 1506 by Talia Worrell RN Amended: Links added.
== END 2019-01-07 12:55 | disposition home or self-care (01) ==
LOC: WOUND CARE 10:00
PROVIDERS: ATTEND Surgery
DX: E11.622 Type 2 diabetes mellitus with other skin ulcer (principal); I83.013 Varicose veins of right lower extremity with ulcer of ankle; L97.312 Non-pressure chronic ulcer of right ankle with fat layer exposed; I83.023 Varicose veins of left lower extremity with ulcer of ankle; L97.322 Non-pressure chronic ulcer of left ankle with fat layer exposed; E11.621 Type 2 diabetes mellitus with foot ulcer; L97.412 Non-pressure chronic ulcer of right heel and midfoot with fat layer exposed; E03.9 Hypothyroidism, unspecified; E66.9 Obesity, unspecified; M19.90 Unspecified osteoarthritis, unspecified site; Z68.1 Body mass index [BMI] 19.9 or less, adult; Z85.828 Personal history of other malignant neoplasm of skin
CPT/HCPCS: 29581; A6209; A6021; A6206; A6441

== ENCOUNTER 2019-01-11 10:25 | Day surgery (SDC) | payer BC ==
[2019-01-11] MEDS ORDERED: LIDOcaine/PRILOcaine 5gm cream TP ONE (11:59)
[2019-01-11] MEDS ORDERED: clobetasol propionate ointment 15gm TP ONE ×2 (12:19→13:07)
[2019-01-11] MEDS ORDERED: gentamicin 0.1% topical ointment 15gm TP ONE (12:25)
--- NOTE | 2019-01-11 15:05 | NUR ---
Patient ambulated independently from [facility] and was admitted to outpatient wound care for physician visit with Elieser Brennan MD. Placed in contact isolation precautions per hospital policy. Dressing removed, wound cleansed and Emla cream applied per order. Patient assessed for changes in conditions, medications and medical history. 1214 -Dr. Brennan at bedside accompanied by RN. Wound assessed, time out performed by MD/RN. Wound debrided as detailed in the physician progress/procedure note. Plan of care discussed with patient. Dressings placed per MD orders. Pt instructed to elevate legs at least 30 minutes 3 times a day or 10 minutes every 4 hours, also instructed check their toes. If they become purplish or blue, cool to the touch, numb or tingly, use a pair of scissors and carefully cut off the dressing. Call the Wound Center for an appointment to have the dressing reapplied. Pt instructed that decreased swelling in the legs and the potential for drainage from the wound may require them to have to schedule visits twice weekly, progressing to weekly as the swelling decreases in their legs. Pt instructed that if dressings become loose, wrinkled or falls down and if they are experiencing any pain or discomfort under their dressing cut the dressing off and call the Wound Center to have it reapplied. Pt instructed that the wrap needs to be kept dry. They may bath at a sink or there are devices designed to keep dressings dry these are available at most drug stores. If they choose to shower with a plastic bag taped over the wrap. Be sure to having another person available for assistance or placing towels on the floor of the shower or tub to eliminate the slick surface can reduce the risk of falls. Patient instructed on the signs and symptoms of infection and to call the Wound Center if any occur or to go to the ED if we are closed: Increased pain in wound Increase in drainage from the wound Redness in the skin surrounding the wound Bleeding from the wound Temperature of 101 or greater Patient instructed that the weight of their body puts a large amount of pressure on their wounds. This pressure keeps the new tissue from growing and inhibits new blood vessels from forming. Explained that, if they continue to bear weight on a body part that has a wound, the time it takes to heal the wound increases, the wound may get worse or the wound may not heal at all. Patient verbalized understanding of all discharge instructions and plan of care and ambulated independently out to [facility] in stable condition with no sign or symptom of distress at time of discharge.
== END 2019-01-11 13:19 | disposition home or self-care (01) ==
LOC: WOUND CARE 10:25
PROVIDERS: ATTEND Surgery
DX: E11.622 Type 2 diabetes mellitus with other skin ulcer (principal); I83.013 Varicose veins of right lower extremity with ulcer of ankle; L97.312 Non-pressure chronic ulcer of right ankle with fat layer exposed; I83.023 Varicose veins of left lower extremity with ulcer of ankle; L97.322 Non-pressure chronic ulcer of left ankle with fat layer exposed; E11.621 Type 2 diabetes mellitus with foot ulcer; L97.412 Non-pressure chronic ulcer of right heel and midfoot with fat layer exposed; E03.9 Hypothyroidism, unspecified; E66.9 Obesity, unspecified; M19.90 Unspecified osteoarthritis, unspecified site; Z68.1 Body mass index [BMI] 19.9 or less, adult; Z85.828 Personal history of other malignant neoplasm of skin
CPT/HCPCS: 97597; 97598; A6209; A6021; A6206; A6441

== ENCOUNTER 2019-01-14 10:15 | Outpatient (CLI) | payer BC ==
[2019-01-14] MEDS ORDERED: LIDOcaine 1%/PF 5ML 10 MG/ML VIAL ONE (10:53)
[2019-01-14] MEDS ORDERED: LIDOcaine/PRILOcaine 5gm cream TP ONE (12:45)
[2019-01-14] MEDS ORDERED: clobetasol propionate ointment 15gm TP ONE (12:55)
[2019-01-14] MEDS ORDERED: gentamicin 0.1% topical ointment 15gm TP ONE (12:56)
--- NOTE | 2019-01-14 14:56 | NUR ---
Patient ambulated independently from [facility] and was admitted to outpatient wound care for physician visit with Elieser Brennan MD. Dressing removed, wound cleansed and lidocaine applied per order. Patient assessed for changes in conditions, medications and medical history. Dr. Brennan at bedside accompanied by RN. Wound assessed and no debridement was done. Plan of care discussed with patient. Dressings placed per MD orders. Patient instructed on the signs and symptoms of infection and to call the Wound Center if any occur or to go to the ED if we are closed: Increased pain in wound Increase in drainage from the wound Redness in the skin surrounding the wound Bleeding from the wound Temperature of 101 or greater Pt instructed to elevate legs at least 30 minutes 3 times a day or 10 minutes every 4 hours, also instructed check their toes. If they become purplish or blue, cool to the touch, numb or tingly, use a pair of scissors and carefully cut off the dressing. Call the Wound Center for an appointment to have the dressing reapplied. Pt instructed that decreased swelling in the legs and the potential for drainage from the wound may require them to have to schedule visits twice weekly, progressing to weekly as the swelling decreases in their legs. Pt instructed that if dressings become loose, wrinkled or falls down and if they are experiencing any pain or discomfort under their dressing cut the dressing off and call the Wound Center to have it reapplied. Pt instructed that the wraps needs to be kept dry. They may bath at a sink or there are devices designed to keep dressings dry these are available at most drug stores. If they choose to shower with a plastic bag taped over the wraps. Be sure to having another person available for assistance or placing towels on the floor of the shower or tub to eliminate the slick surface can reduce the risk of falls. Patient instructed that the weight of their body puts a large amount of pressure on their wounds. This pressure keeps the new tissue from growing and inhibits new blood vessels from forming. Explained that, if they continue to bear weight on a body part that has a wound, the time it takes to heal the wound increases, the wound may get worse or the wound may not heal at all. Patient verbalized understanding of all discharge instructions and plan of care and ambulated independently out to [facility] in stable condition with no sign or symptom of distress at time of discharge. Addendum: 01/14/19 at 1457 by Talia Worrell RN Amended: Links added.
== END 2019-01-14 13:47 | disposition home or self-care (01) ==
LOC: WOUND CARE 10:15
PROVIDERS: ATTEND Surgery
DX: E11.622 Type 2 diabetes mellitus with other skin ulcer (principal); I83.013 Varicose veins of right lower extremity with ulcer of ankle; L97.312 Non-pressure chronic ulcer of right ankle with fat layer exposed; I83.023 Varicose veins of left lower extremity with ulcer of ankle; L97.322 Non-pressure chronic ulcer of left ankle with fat layer exposed; E11.621 Type 2 diabetes mellitus with foot ulcer; L97.412 Non-pressure chronic ulcer of right heel and midfoot with fat layer exposed; E03.9 Hypothyroidism, unspecified; E66.9 Obesity, unspecified; M19.90 Unspecified osteoarthritis, unspecified site; Z68.1 Body mass index [BMI] 19.9 or less, adult; Z85.828 Personal history of other malignant neoplasm of skin
CPT/HCPCS: 29581; J2001; A6021; A6206; A6441

== ENCOUNTER 2019-01-20 10:10 | Day surgery (SDC) | payer BC ==
[2019-01-20] MEDS ORDERED: LIDOcaine/PRILOcaine 5gm cream TP ONE (11:47)
[2019-01-20] MEDS ORDERED: gentamicin 0.1% topical ointment 15gm TP ONE (12:13)
[2019-01-20] MEDS ORDERED: clobetasol propionate ointment 15gm TP ONE (12:13)
--- NOTE | 2019-01-20 13:50 | NUR ---
Patient ambulated independently from [facility] and was admitted to outpatient wound care for physician visit with Elieser Brennan MD. Placed in contact isolation precautions per hospital policy. Dressing removed, wound cleansed and Emla cream applied per order. Patient assessed for changes in conditions, medications and medical history. 1200 - Dr. Brennan at bedside accompanied by RN. Wound assessed, time out performed by MD/RN. Wound debrided as detailed in the physician progress/procedure note. Plan of care discussed with patient. Dressings placed per MD orders. Pt instructed to elevate legs at least 30 minutes 3 times a day or 10 minutes every 4 hours, also instructed check their toes. If they become purplish or blue, cool to the touch, numb or tingly, use a pair of scissors and carefully cut off the dressing. Call the Wound Center for an appointment to have the dressing reapplied. Pt instructed that decreased swelling in the legs and the potential for drainage from the wound may require them to have to schedule visits twice weekly, progressing to weekly as the swelling decreases in their legs. Pt instructed that if dressings become loose, wrinkled or falls down and if they are experiencing any pain or discomfort under their dressing cut the dressing off and call the Wound Center to have it reapplied. Pt instructed that the wrap needs to be kept dry. They may bath at a sink or there are devices designed to keep dressings dry these are available at most drug stores. If they choose to shower with a plastic bag taped over the wrap. Be sure to having another person available for assistance or placing towels on the floor of the shower or tub to eliminate the slick surface can reduce the risk of falls. Patient instructed on the signs and symptoms of infection and to call the Wound Center if any occur or to go to the ED if we are closed: Increased pain in wound Increase in drainage from the wound Redness in the skin surrounding the wound Bleeding from the wound Temperature of 101 or greater Patient instructed that the weight of their body puts a large amount of pressure on their wounds. This pressure keeps the new tissue from growing and inhibits new blood vessels from forming. Explained that, if they continue to bear weight on a body part that has a wound, the time it takes to heal the wound increases, the wound may get worse or the wound may not heal at all. Patient verbalized understanding of all discharge instructions and plan of care and ambulated independently out to [facility] in stable condition with no sign or symptom of distress at time of discharge.
== END 2019-01-20 13:00 | disposition home or self-care (01) ==
LOC: WOUND CARE 10:10
PROVIDERS: ATTEND Surgery
DX: E11.622 Type 2 diabetes mellitus with other skin ulcer (principal); I83.013 Varicose veins of right lower extremity with ulcer of ankle; L97.312 Non-pressure chronic ulcer of right ankle with fat layer exposed; I83.023 Varicose veins of left lower extremity with ulcer of ankle; L97.322 Non-pressure chronic ulcer of left ankle with fat layer exposed; E11.621 Type 2 diabetes mellitus with foot ulcer; L97.412 Non-pressure chronic ulcer of right heel and midfoot with fat layer exposed; E03.9 Hypothyroidism, unspecified; E66.9 Obesity, unspecified; M19.90 Unspecified osteoarthritis, unspecified site; Z68.1 Body mass index [BMI] 19.9 or less, adult; Z85.828 Personal history of other malignant neoplasm of skin
CPT/HCPCS: 97597; 97598; A6209; A6021; A6206; A6441

== ENCOUNTER 2019-01-25 10:26 | Day surgery (SDC) | payer BC ==
[2019-01-25] MEDS ORDERED: gentamicin 0.1% topical ointment 15gm TP ONE (12:08)
[2019-01-25] MEDS ORDERED: clobetasol propionate ointment 15gm TP ONE (12:09)
--- NOTE | 2019-01-25 17:19 | NUR ---
1030 Patient ambulated safely into [facility]. Patient admitted to outpatient wound care clinic for follow-up visit with physician. Patient placed in isolation per isolation protocol. Dressing removed, wound cleansed. Patient assessed for changes in conditions, medications and medical history. Patient showed no s/s of distress at time of assessment. Patient was 1.5 hours late today for his appointment. 1150 at bedside accompanied by RN. Wounds assessed, time out performed and debridement done today as detailed in the physician progress/procedure note. Plan of care discussed with patient. Dressings placed per MD orders. Patient instructed on the signs and symptoms of infection and to call the Wound Center if any occur or to go to the ED if we are closed: Increased pain in wound Increase in drainage from the wound Redness in the skin surrounding the wound Bleeding from the wound Temperature of 101 or greater Patient instructed that the weight of their body puts a large amount of pressure on their wounds. This pressure keeps the new tissue from growing and inhibits new blood vessels from forming. Explained that, if they continue to bear weight on a body part that has a wound, the time it takes to heal the wound increases, the wound may get worse or the wound may not heal at all. Patient verbalized understanding of all discharge instructions and plan of care. Patient ambulated independently out to [facility] and is in stable condition with no sign or symptom of distress at time of discharge.
== END 2019-01-25 13:10 | disposition home or self-care (01) ==
LOC: WOUND CARE 10:26
PROVIDERS: ATTEND Surgery
DX: E11.622 Type 2 diabetes mellitus with other skin ulcer (principal); I83.013 Varicose veins of right lower extremity with ulcer of ankle; L97.312 Non-pressure chronic ulcer of right ankle with fat layer exposed; I83.023 Varicose veins of left lower extremity with ulcer of ankle; L97.322 Non-pressure chronic ulcer of left ankle with fat layer exposed; E11.621 Type 2 diabetes mellitus with foot ulcer; L97.412 Non-pressure chronic ulcer of right heel and midfoot with fat layer exposed; E03.9 Hypothyroidism, unspecified; E66.9 Obesity, unspecified; M19.90 Unspecified osteoarthritis, unspecified site; Z68.1 Body mass index [BMI] 19.9 or less, adult; Z85.828 Personal history of other malignant neoplasm of skin
CPT/HCPCS: 97597; 97598; A6209; A6021; A6198; A6206; A6212; A6441

== ENCOUNTER 2019-01-28 09:30 | Outpatient (CLI) | payer BC ==
[2019-01-28] MEDS ORDERED: gentamicin 0.1% topical ointment 15gm TP ONE (11:02)
[2019-01-28] MEDS ORDERED: clobetasol propionate ointment 15gm TP ONE (11:04)
--- NOTE | 2019-01-28 14:49 | NUR ---
Patient ambulated independently from [facility] and was admitted to outpatient wound care for nursing visit, under direct supervision of . Dressings removed and wounds cleansed. Patient assessed for changes in conditions, medications and medical history. Plan of care discussed with patient. Dressings placed per MD orders. Patient instructed on the signs and symptoms of infection and to call the Wound Center if any occur or to go to the ED if we are closed: Increased pain in wound Increase in drainage from the wound Redness in the skin surrounding the wound Bleeding from the wound Temperature of 101 or greater Pt instructed to elevate legs at least 30 minutes 3 times a day or 10 minutes every 4 hours, also instructed check their toes. If they become purplish or blue, cool to the touch, numb or tingly, use a pair of scissors and carefully cut off the dressing. Call the Wound Center for an appointment to have the dressing reapplied. Pt instructed that decreased swelling in the legs and the potential for drainage from the wound may require them to have to schedule visits twice weekly, progressing to weekly as the swelling decreases in their legs. Pt instructed that if dressings become loose, wrinkled or falls down and if they are experiencing any pain or discomfort under their dressing cut the dressing off and call the Wound Center to have it reapplied. Pt instructed that the wraps needs to be kept dry. They may bath at a sink or there are devices designed to keep dressings dry these are available at most drug stores. If they choose to shower with a plastic bag taped over the wraps. Be sure to having another person available for assistance or placing towels on the floor of the shower or tub to eliminate the slick surface can reduce the risk of falls. Patient instructed that the weight of their body puts a large amount of pressure on their wounds. This pressure keeps the new tissue from growing and inhibits new blood vessels from forming. Explained that, if they continue to bear weight on a body part that has a wound, the time it takes to heal the wound increases, the wound may get worse or the wound may not heal at all. Patient verbalized understanding of all discharge instructions and plan of care and ambulated independently out to [facility] in stable condition with no sign or symptom of distress at time of discharge. Addendum: 01/28/19 at 1452 by Talia Worrell RN Amended: Links added.
== END 2019-01-28 12:11 | disposition home or self-care (01) ==
LOC: WOUND CARE 09:30
PROVIDERS: ATTEND Surgery
DX: E11.622 Type 2 diabetes mellitus with other skin ulcer (principal); I83.013 Varicose veins of right lower extremity with ulcer of ankle; L97.312 Non-pressure chronic ulcer of right ankle with fat layer exposed; I83.023 Varicose veins of left lower extremity with ulcer of ankle; L97.322 Non-pressure chronic ulcer of left ankle with fat layer exposed; E11.621 Type 2 diabetes mellitus with foot ulcer; L97.412 Non-pressure chronic ulcer of right heel and midfoot with fat layer exposed; E03.9 Hypothyroidism, unspecified; E66.9 Obesity, unspecified; M19.90 Unspecified osteoarthritis, unspecified site; Z68.1 Body mass index [BMI] 19.9 or less, adult; Z85.828 Personal history of other malignant neoplasm of skin
CPT/HCPCS: 29581; A6209; A6021; A6206; A6441

== ENCOUNTER 2019-02-01 09:53 | Day surgery (SDC) | payer BC ==
[2019-02-01] MEDS ORDERED: LIDOcaine/PRILOcaine 5gm cream TP ONE (11:33)
[2019-02-01] MEDS ORDERED: clobetasol propionate ointment 15gm TP ONE (12:11)
[2019-02-01] MEDS ORDERED: gentamicin 0.1% topical ointment 15gm TP ONE (12:11)
--- NOTE | 2019-02-01 13:00 | NUR ---
Patient ambulated independently from [facility] and was admitted to outpatient wound care for physician visit with Elieser Brennan MD. Dressing removed, wound cleansed and Emla cream applied per order. Patient assessed for changes in conditions, medications and medical history. 1200 - Dr. Brennan at bedside accompanied by RN. Wound assessed, time out performed by MD/RN. Wound debrided as detailed in the physician progress/procedure note. Plan of care discussed with patient. Dressings placed per MD orders. Pt instructed to elevate legs at least 30 minutes 3 times a day or 10 minutes every 4 hours, also instructed check their toes. If they become purplish or blue, cool to the touch, numb or tingly, use a pair of scissors and carefully cut off the dressing. Call the Wound Center for an appointment to have the dressing reapplied. Pt instructed that decreased swelling in the legs and the potential for drainage from the wound may require them to have to schedule visits twice weekly, progressing to weekly as the swelling decreases in their legs. Pt instructed that if dressings become loose, wrinkled or falls down and if they are experiencing any pain or discomfort under their dressing cut the dressing off and call the Wound Center to have it reapplied. Pt instructed that the wrap needs to be kept dry. They may bath at a sink or there are devices designed to keep dressings dry these are available at most drug stores. If they choose to shower with a plastic bag taped over the wrap. Be sure to having another person available for assistance or placing towels on the floor of the shower or tub to eliminate the slick surface can reduce the risk of falls. Patient instructed on the signs and symptoms of infection and to call the Wound Center if any occur or to go to the ED if we are closed: Increased pain in wound Increase in drainage from the wound Redness in the skin surrounding the wound Bleeding from the wound Temperature of 101 or greater Patient instructed that the weight of their body puts a large amount of pressure on their wounds. This pressure keeps the new tissue from growing and inhibits new blood vessels from forming. Explained that, if they continue to bear weight on a body part that has a wound, the time it takes to heal the wound increases, the wound may get worse or the wound may not heal at all. Patient verbalized understanding of all discharge instructions and plan of care and ambulated independently out to [facility] in stable condition with no sign or symptom of distress at time of discharge.
== END 2019-02-01 13:10 | disposition home or self-care (01) ==
LOC: WOUND CARE 09:53
PROVIDERS: ATTEND Surgery
DX: E11.622 Type 2 diabetes mellitus with other skin ulcer (principal); I83.013 Varicose veins of right lower extremity with ulcer of ankle; L97.312 Non-pressure chronic ulcer of right ankle with fat layer exposed; I83.023 Varicose veins of left lower extremity with ulcer of ankle; L97.322 Non-pressure chronic ulcer of left ankle with fat layer exposed; E11.621 Type 2 diabetes mellitus with foot ulcer; L97.412 Non-pressure chronic ulcer of right heel and midfoot with fat layer exposed; E03.9 Hypothyroidism, unspecified; E66.9 Obesity, unspecified; M19.90 Unspecified osteoarthritis, unspecified site; Z68.1 Body mass index [BMI] 19.9 or less, adult; Z85.828 Personal history of other malignant neoplasm of skin
CPT/HCPCS: 29581; 97597; 97598; A6021; A6206; A6441

== ENCOUNTER 2019-02-04 09:49 | Outpatient (CLI) | payer BC ==
[2019-02-04] MEDS ORDERED: LIDOcaine/PRILOcaine 5gm cream TP ONE (11:56)
[2019-02-04] MEDS ORDERED: clobetasol propionate ointment 15gm TP ONE (12:06)
[2019-02-04] MEDS ORDERED: gentamicin 0.1% topical ointment 15gm TP ONE (12:06)
--- NOTE | 2019-02-04 14:43 | NUR ---
Patient ambulated independently from the [facility] and was admitted to outpatient wound care clinic for nursing visit. Dressing removed and wounds cleansed. Patient assessed for changes in conditions, medications and medical history. Dressings reapplied per physician orders. Plan of care discussed with patient. Dressings placed per MD orders. Patient instructed on the signs and symptoms of infection and to call the Wound Center if any occur or to go to the ED if we are closed: Increased pain in wound Increase in drainage from the wound Redness in the skin surrounding the wound Bleeding from the wound Temperature of 101 or greater Pt instructed to elevate legs at least 30 minutes 3 times a day or 10 minutes every 4 hours, also instructed check their toes. If they become purplish or blue, cool to the touch, numb or tingly, use a pair of scissors and carefully cut off the dressing. Call the Wound Center for an appointment to have the dressing reapplied. Pt instructed that decreased swelling in the legs and the potential for drainage from the wound may require them to have to schedule visits twice weekly, progressing to weekly as the swelling decreases in their legs. Pt instructed that if dressings become loose, wrinkled or falls down and if they are experiencing any pain or discomfort under their dressing cut the dressing off and call the Wound Center to have it reapplied. Pt instructed that the wraps needs to be kept dry. They may bath at a sink or there are devices designed to keep dressings dry these are available at most drug stores. If they choose to shower with a plastic bag taped over the wraps. Be sure to having another person available for assistance or placing towels on the floor of the shower or tub to eliminate the slick surface can reduce the risk of falls. Patient instructed that the weight of their body puts a large amount of pressure on their wounds. This pressure keeps the new tissue from growing and inhibits new blood vessels from forming. Explained that, if they continue to bear weight on a body part that has a wound, the time it takes to heal the wound increases, the wound may get worse or the wound may not heal at all. Patient verbalized understanding of all discharge instructions and plan of care and ambulated independently out to the [facility] in stable condition with no sign or symptom of distress at time of discharge. Addendum: 02/04/19 at 1450 by Talia Worrell RN Amended: Links added.
== END 2019-02-04 13:01 | disposition home or self-care (01) ==
LOC: WOUND CARE 09:49
PROVIDERS: ATTEND Surgery
DX: E11.622 Type 2 diabetes mellitus with other skin ulcer (principal); I83.013 Varicose veins of right lower extremity with ulcer of ankle; L97.312 Non-pressure chronic ulcer of right ankle with fat layer exposed; I83.023 Varicose veins of left lower extremity with ulcer of ankle; L97.322 Non-pressure chronic ulcer of left ankle with fat layer exposed; E11.621 Type 2 diabetes mellitus with foot ulcer; L97.412 Non-pressure chronic ulcer of right heel and midfoot with fat layer exposed; E03.9 Hypothyroidism, unspecified; E66.9 Obesity, unspecified; M19.90 Unspecified osteoarthritis, unspecified site; Z68.1 Body mass index [BMI] 19.9 or less, adult; Z85.828 Personal history of other malignant neoplasm of skin
CPT/HCPCS: 29581; 36415; 82728; A6209; A6223; A6021; A6206; A6441

== ENCOUNTER 2019-02-08 10:00 | Day surgery (SDC) | payer BC ==
[2019-02-08] MEDS ORDERED: LIDOcaine/PRILOcaine 5gm cream TP ONE (11:53)
[2019-02-08] MEDS ORDERED: clobetasol propionate ointment 15gm TP ONE (12:33)
[2019-02-08] MEDS ORDERED: gentamicin 0.1% topical ointment 15gm TP ONE (12:33)
--- NOTE | 2019-02-08 16:11 | NUR ---
1100 Patient ambulated safely into [facility]. Patient admitted to outpatient wound care clinic for follow-up visit with physician. Dressing removed, wound cleansed. Patient assessed for changes in conditions, medications and medical history. Patient showed no s/s of distress at time of assessment. 1220 at bedside accompanied by RN. Wounds assessed, time out performed and debridement done today as detailed in the physician progress/procedure note. Plan of care discussed with patient. Dressings placed per MD orders. Patient instructed on the signs and symptoms of infection and to call the Wound Center if any occur or to go to the ED if we are closed: Increased pain in wound Increase in drainage from the wound Redness in the skin surrounding the wound Bleeding from the wound Temperature of 101 or greater Pt instructed to elevate legs at least 30 minutes 3 times a day or 10 minutes every 4 hours, also instructed check their toes. If they become purplish or blue, cool to the touch, numb or tingly, use a pair of scissors and carefully cut off the dressing. Call the Wound Center for an appointment to have the dressing reapplied. Pt instructed that decreased swelling in the legs and the potential for drainage from the wound may require them to have to schedule visits twice weekly, progressing to weekly as the swelling decreases in their legs. Pt instructed that if dressings become loose, wrinkled or falls down and if they are experiencing any pain or discomfort under their dressing cut the dressing off and call the Wound Center to have it reapplied. Pt instructed that the wrap needs to be kept dry. They may bath at a sink or there are devices designed to keep dressings dry these are available at most drug stores. If they choose to shower with a plastic bag taped over the wrap. Be sure to having another person available for assistance or placing towels on the floor of the shower or tub to eliminate the slick surface can reduce the risk of falls. Patient instructed that the weight of their body puts a large amount of pressure on their wounds. This pressure keeps the new tissue from growing and inhibits new blood vessels from forming. Explained that, if they continue to bear weight on a body part that has a wound, the time it takes to heal the wound increases, the wound may get worse or the wound may not heal at all. Patient verbalized understanding of all discharge instructions and plan of care. Patient ambulated independently out to [facility] and is in stable condition with no sign or symptom of distress at time of discharge.
== END 2019-02-08 13:27 | disposition home or self-care (01) ==
LOC: WOUND CARE 10:00
PROVIDERS: ATTEND Surgery
DX: E11.622 Type 2 diabetes mellitus with other skin ulcer (principal); I83.013 Varicose veins of right lower extremity with ulcer of ankle; L97.312 Non-pressure chronic ulcer of right ankle with fat layer exposed; I83.023 Varicose veins of left lower extremity with ulcer of ankle; L97.322 Non-pressure chronic ulcer of left ankle with fat layer exposed; E11.621 Type 2 diabetes mellitus with foot ulcer; L97.412 Non-pressure chronic ulcer of right heel and midfoot with fat layer exposed; E03.9 Hypothyroidism, unspecified; E66.9 Obesity, unspecified; M19.90 Unspecified osteoarthritis, unspecified site; Z68.1 Body mass index [BMI] 19.9 or less, adult; Z85.828 Personal history of other malignant neoplasm of skin
CPT/HCPCS: 97597; 97598; A6021; A6206; A6441

== ENCOUNTER 2019-02-11 10:00 | Outpatient (CLI) | payer BC ==
[2019-02-11] MEDS ORDERED: LIDOcaine/PRILOcaine 5gm cream TP ONE ×2 (10:53)
[2019-02-11] MEDS ORDERED: gentamicin 0.1% topical ointment 15gm TP ONE (11:34)
[2019-02-11] MEDS ORDERED: clobetasol propionate ointment 15gm TP ONE (11:34)
--- NOTE | 2019-02-11 15:43 | NUR ---
Patient ambulated independently from [facility] and was admitted to outpatient wound care clinic for nursing visit under direct supervision of . Dressings removed and wounds cleansed. Patient assessed and medications and any changes reviewed. Dressings reapplied per physician orders. Patient instructed on the signs and symptoms of infection and to call the Wound Center if any occur or to go to the ED if we are closed: Increased pain in wound Increase in drainage from the wound Redness in the skin surrounding the wound Bleeding from the wound Temperature of 101 or greater Pt instructed to elevate legs at least 30 minutes 3 times a day or 10 minutes every 4 hours, also instructed check their toes. If they become purplish or blue, cool to the touch, numb or tingly, use a pair of scissors and carefully cut off the dressing. Call the Wound Center for an appointment to have the dressing reapplied. Pt instructed that decreased swelling in the legs and the potential for drainage from the wound may require them to have to schedule visits twice weekly, progressing to weekly as the swelling decreases in their legs. Pt instructed that if dressings become loose, wrinkled or falls down and if they are experiencing any pain or discomfort under their dressing cut the dressing off and call the Wound Center to have it reapplied. Pt instructed that the wraps needs to be kept dry. They may bath at a sink or there are devices designed to keep dressings dry these are available at most drug stores. If they choose to shower with a plastic bag taped over the wraps. Be sure to having another person available for assistance or placing towels on the floor of the shower or tub to eliminate the slick surface can reduce the risk of falls. Patient instructed that the weight of their body puts a large amount of pressure on their wounds. This pressure keeps the new tissue from growing and inhibits new blood vessels from forming. Explained that, if they continue to bear weight on a body part that has a wound, the time it takes to heal the wound increases, the wound may get worse or the wound may not heal at all. Patient verbalized understanding of all discharge instructions and plan of care and ambulated independently out to [facility] in stable condition with no sign or symptom of distress at time of discharge. Addendum: 02/11/19 at 1549 by Talia Worrell RN Amended: Links added.
== END 2019-02-11 12:30 | disposition home or self-care (01) ==
LOC: WOUND CARE 10:00
PROVIDERS: ATTEND Surgery
DX: E11.622 Type 2 diabetes mellitus with other skin ulcer (principal); I83.013 Varicose veins of right lower extremity with ulcer of ankle; L97.312 Non-pressure chronic ulcer of right ankle with fat layer exposed; I83.023 Varicose veins of left lower extremity with ulcer of ankle; L97.322 Non-pressure chronic ulcer of left ankle with fat layer exposed; E11.621 Type 2 diabetes mellitus with foot ulcer; L97.412 Non-pressure chronic ulcer of right heel and midfoot with fat layer exposed; E03.9 Hypothyroidism, unspecified; E66.9 Obesity, unspecified; M19.90 Unspecified osteoarthritis, unspecified site; Z68.1 Body mass index [BMI] 19.9 or less, adult; Z85.828 Personal history of other malignant neoplasm of skin
CPT/HCPCS: 29581; A6209; A6021; A6206; A6441

== ENCOUNTER 2019-02-15 10:00 | Day surgery (SDC) | payer BC ==
[2019-02-15] MEDS ORDERED: LIDOcaine/PRILOcaine 5gm cream TP ONE (10:54)
[2019-02-15] MEDS ORDERED: gentamicin 0.1% topical ointment 15gm TP ONE (11:37)
--- NOTE | 2019-02-15 15:55 | NUR ---
Patient ambulated independently from [facility] and was admitted to outpatient wound care for physician visit. Dressings removed, wound cleansed. Patient assessment completed with review of patient's medical history and current medications. 1150-Dr. Brennan at bedside accompanied by RN. Wound assessed, time-out performed by MD/RN. Wound debrided as detailed in the physician progress/procedure note. Plan of care discussed with patient. Dressings placed per MD orders. Patient instructed on the signs and symptoms of infection and to call the Wound Center if any occur or to go to the ED if we are closed: Increased pain in the wound Increase in drainage from the wound Redness in the skin surrounding the wound Bleeding from the wound Temperature of 101F or greater Patient instructed that the weight of their body puts a large amount of pressure on their wounds. This pressure keeps the new tissue from growing and inhibits new blood vessels from forming. Explained that, if they continue to bear weight on a body part that has a wound, the time it takes to heal the wound increases, the wound may get worse, or the wound may not heal at all. Patient verbalized understanding of all discharge instructions and plan of care. Patient ambulated independently out to [facility] in stable condition with no signs or symptoms of distress at time of discharge.
== END 2019-02-15 12:16 | disposition home or self-care (01) ==
LOC: WOUND CARE 10:00
PROVIDERS: ATTEND Surgery
DX: E11.622 Type 2 diabetes mellitus with other skin ulcer (principal); I83.013 Varicose veins of right lower extremity with ulcer of ankle; L97.312 Non-pressure chronic ulcer of right ankle with fat layer exposed; I83.023 Varicose veins of left lower extremity with ulcer of ankle; L97.322 Non-pressure chronic ulcer of left ankle with fat layer exposed; E03.9 Hypothyroidism, unspecified; E66.9 Obesity, unspecified; M19.90 Unspecified osteoarthritis, unspecified site; Z68.1 Body mass index [BMI] 19.9 or less, adult; Z85.828 Personal history of other malignant neoplasm of skin
CPT/HCPCS: 97597; 97598; A6209; A6021; A6206; A6441

== ENCOUNTER 2019-02-19 10:00 | Outpatient (CLI) | payer BC ==
[2019-02-19] MEDS ORDERED: gentamicin 0.1% topical ointment 15gm TP ONE (11:57)
--- NOTE | 2019-02-19 14:19 | NUR ---
Patient ambulated independently from [facility] and was admitted to outpatient wound care for nursing visit under direct supervision of Dr. Brennan. Dressing removed and wounds cleansed. Patient assessed for changes in conditions, medications and medical history. Dressings reapplied per physician orders. Patient instructed on the signs and symptoms of infection and to call the Wound Center if any occur or to go to the ED if we are closed: Increased pain in wound Increase in drainage from the wound Redness in the skin surrounding the wound Bleeding from the wound Temperature of 101 or greater Pt instructed to elevate legs at least 30 minutes 3 times a day or 10 minutes every 4 hours, also instructed check their toes. If they become purplish or blue, cool to the touch, numb or tingly, use a pair of scissors and carefully cut off the dressing. Call the Wound Center for an appointment to have the dressing reapplied. Pt instructed that decreased swelling in the legs and the potential for drainage from the wound may require them to have to schedule visits twice weekly, progressing to weekly as the swelling decreases in their legs. Pt instructed that if dressings become loose, wrinkled or falls down and if they are experiencing any pain or discomfort under their dressing cut the dressing off and call the Wound Center to have it reapplied. Pt instructed that the wraps needs to be kept dry. They may bath at a sink or there are devices designed to keep dressings dry these are available at most drug stores. If they choose to shower with a plastic bag taped over the wraps. Be sure to having another person available for assistance or placing towels on the floor of the shower or tub to eliminate the slick surface can reduce the risk of falls. Patient instructed that the weight of their body puts a large amount of pressure on their wounds. This pressure keeps the new tissue from growing and inhibits new blood vessels from forming. Explained that, if they continue to bear weight on a body part that has a wound, the time it takes to heal the wound increases, the wound may get worse or the wound may not heal at all. Patient verbalized understanding of all discharge instructions and plan of care and ambulated independently out to [facility] in stable condition with no sign or symptom of distress at time of discharge. Addendum: 02/19/19 at 1423 by Talia Worrell RN Amended: Links added.
== END 2019-02-19 13:00 | disposition home or self-care (01) ==
LOC: WOUND CARE 10:00
PROVIDERS: ATTEND Surgery
DX: E11.622 Type 2 diabetes mellitus with other skin ulcer (principal); I83.013 Varicose veins of right lower extremity with ulcer of ankle; L97.312 Non-pressure chronic ulcer of right ankle with fat layer exposed; I83.023 Varicose veins of left lower extremity with ulcer of ankle; L97.322 Non-pressure chronic ulcer of left ankle with fat layer exposed; E03.9 Hypothyroidism, unspecified; E66.9 Obesity, unspecified; M19.90 Unspecified osteoarthritis, unspecified site; Z68.1 Body mass index [BMI] 19.9 or less, adult; Z85.828 Personal history of other malignant neoplasm of skin
CPT/HCPCS: 29581; A6209; A6021; A6206; A6441

== ENCOUNTER 2019-02-24 10:00 | Day surgery (SDC) | payer BC ==
[2019-02-24] MEDS ORDERED: LIDOcaine/PRILOcaine 5gm cream TP ONE (11:23)
[2019-02-24] MEDS ORDERED: gentamicin 0.1% topical ointment 15gm TP ONE (11:58)
--- NOTE | 2019-02-24 14:47 | NUR ---
Patient ambulated independently from [facility] and was admitted to outpatient wound care for physician visit with Elieser Brennan MD. Dressing removed, wound cleansed and Emla cream applied per order. Patient assessed for changes in conditions, medications and medical history. Dr. Brennan at bedside accompanied by RN. Wound assessed, time out performed by MD/RN. Wound debrided as detailed in the physician progress/procedure note. Plan of care discussed with patient. Dressings placed per MD orders. Patient instructed on the signs and symptoms of infection and to call the Wound Center if any occur or to go to the ED if we are closed: Increased pain in wound Increase in drainage from the wound Redness in the skin surrounding the wound Bleeding from the wound Temperature of 101 or greater Pt instructed to elevate legs at least 30 minutes 3 times a day or 10 minutes every 4 hours, also instructed check their toes. If they become purplish or blue, cool to the touch, numb or tingly, use a pair of scissors and carefully cut off the dressing. Call the Wound Center for an appointment to have the dressing reapplied. Pt instructed that decreased swelling in the legs and the potential for drainage from the wound may require them to have to schedule visits twice weekly, progressing to weekly as the swelling decreases in their legs. Pt instructed that if dressings become loose, wrinkled or falls down and if they are experiencing any pain or discomfort under their dressing cut the dressing off and call the Wound Center to have it reapplied. Pt instructed that the wraps needs to be kept dry. They may bath at a sink or there are devices designed to keep dressings dry these are available at most drug stores. If they choose to shower with a plastic bag taped over the wraps. Be sure to having another person available for assistance or placing towels on the floor of the shower or tub to eliminate the slick surface can reduce the risk of falls. Patient instructed that the weight of their body puts a large amount of pressure on their wounds. This pressure keeps the new tissue from growing and inhibits new blood vessels from forming. Explained that, if they continue to bear weight on a body part that has a wound, the time it takes to heal the wound increases, the wound may get worse or the wound may not heal at all. Patient verbalized understanding of all discharge instructions and plan of care and ambulated independently out to [facility] in stable condition with no sign or symptom of distress at time of discharge. Addendum: 02/24/19 at 1449 by Talia Worrell RN Amended: Links added.
== END 2019-02-24 12:48 | disposition home or self-care (01) ==
LOC: WOUND CARE 10:00
PROVIDERS: ATTEND Surgery
DX: E11.622 Type 2 diabetes mellitus with other skin ulcer (principal); I83.013 Varicose veins of right lower extremity with ulcer of ankle; L97.312 Non-pressure chronic ulcer of right ankle with fat layer exposed; I83.023 Varicose veins of left lower extremity with ulcer of ankle; L97.322 Non-pressure chronic ulcer of left ankle with fat layer exposed; E11.621 Type 2 diabetes mellitus with foot ulcer; L97.412 Non-pressure chronic ulcer of right heel and midfoot with fat layer exposed; E03.9 Hypothyroidism, unspecified; E66.9 Obesity, unspecified; M19.90 Unspecified osteoarthritis, unspecified site; Z68.1 Body mass index [BMI] 19.9 or less, adult; Z85.828 Personal history of other malignant neoplasm of skin
CPT/HCPCS: 97597; 97598; A6222; A6021; A6206; A6212; A6441

== ENCOUNTER 2019-03-01 09:59 | Day surgery (SDC) | payer BC ==
[2019-03-01] MEDS ORDERED: LIDOcaine/PRILOcaine 5gm cream TP ONE (12:03)
[2019-03-01] MEDS ORDERED: gentamicin 0.1% topical ointment 15gm TP ONE (12:59)
--- NOTE | 2019-03-01 15:30 | NUR ---
Patient ambulated independently from [facility] and was admitted to outpatient wound care for physician visit with Elieser Brennan MD. Dressing removed, wound cleansed and Emla cream applied per order. Patient assessed for changes in conditions, medications and medical history. Dr. Brennan at bedside accompanied by RN. Wound assessed, time out performed by MD/RN. Wound debrided as detailed in the physician progress/procedure note. Plan of care discussed with patient. Dressings placed per MD orders. Patient instructed on the signs and symptoms of infection and to call the Wound Center if any occur or to go to the ED if we are closed: Increased pain in wound Increase in drainage from the wound Redness in the skin surrounding the wound Bleeding from the wound Temperature of 101 or greater Pt instructed to elevate legs at least 30 minutes 3 times a day or 10 minutes every 4 hours, also instructed check their toes. If they become purplish or blue, cool to the touch, numb or tingly, use a pair of scissors and carefully cut off the dressing. Call the Wound Center for an appointment to have the dressing reapplied. Pt instructed that decreased swelling in the legs and the potential for drainage from the wound may require them to have to schedule visits twice weekly, progressing to weekly as the swelling decreases in their legs. Pt instructed that if dressings become loose, wrinkled or falls down and if they are experiencing any pain or discomfort under their dressing cut the dressing off and call the Wound Center to have it reapplied. Pt instructed that the wraps needs to be kept dry. They may bath at a sink or there are devices designed to keep dressings dry these are available at most drug stores. If they choose to shower with a plastic bag taped over the wraps. Be sure to having another person available for assistance or placing towels on the floor of the shower or tub to eliminate the slick surface can reduce the risk of falls. Patient instructed that the weight of their body puts a large amount of pressure on their wounds. This pressure keeps the new tissue from growing and inhibits new blood vessels from forming. Explained that, if they continue to bear weight on a body part that has a wound, the time it takes to heal the wound increases, the wound may get worse or the wound may not heal at all. Patient verbalized understanding of all discharge instructions and plan of care and ambulated independently out to [facility] in stable condition with no sign or symptom of distress at time of discharge. Addendum: 03/01/19 at 1531 by Talia Worrell RN Amended: Links added.
== END 2019-03-01 13:50 | disposition home or self-care (01) ==
LOC: WOUND CARE 09:59
PROVIDERS: ATTEND Surgery
DX: E11.622 Type 2 diabetes mellitus with other skin ulcer (principal); I83.013 Varicose veins of right lower extremity with ulcer of ankle; L97.312 Non-pressure chronic ulcer of right ankle with fat layer exposed; I83.023 Varicose veins of left lower extremity with ulcer of ankle; L97.322 Non-pressure chronic ulcer of left ankle with fat layer exposed; E11.621 Type 2 diabetes mellitus with foot ulcer; L97.412 Non-pressure chronic ulcer of right heel and midfoot with fat layer exposed; E03.9 Hypothyroidism, unspecified; E66.9 Obesity, unspecified; M19.90 Unspecified osteoarthritis, unspecified site; Z68.1 Body mass index [BMI] 19.9 or less, adult; Z85.828 Personal history of other malignant neoplasm of skin
CPT/HCPCS: 97597; 97598; A6021; A6206; A6212; A6441

== ENCOUNTER 2019-03-05 09:45 | Outpatient (CLI) | payer BC ==
[2019-03-05] MEDS ORDERED: gentamicin 0.1% topical ointment 15gm TP ONE (10:31)
--- NOTE | 2019-03-05 12:30 | NUR ---
Patient ambulated independently from [facility] and was admitted to outpatient wound care for nursing visit under the direct supervision of Elieser Brennan MD. Dressing removed, wound cleansed. Patient assessed for changes in conditions, medications and medical history. MD consulted for change in dressing order due to dressings slipping down from patient's activity level during this week - Alex is substituted for coban and patient is instructed to adjust compression on Alex to prevent dressings from bunching up and slipping down. Patient verbalized understanding of these instructions and stated he would be able to do that. Dressings placed per MD orders. Pt instructed to elevate legs at least 30 minutes 3 times a day or 10 minutes every 4 hours, also instructed check their toes. If they become purplish or blue, cool to the touch, numb or tingly, use a pair of scissors and carefully cut off the dressing. Call the Wound Center for an appointment to have the dressing reapplied. Pt instructed that decreased swelling in the legs and the potential for drainage from the wound may require them to have to schedule visits twice weekly, progressing to weekly as the swelling decreases in their legs. Pt instructed that if dressings become loose, wrinkled or falls down and if they are experiencing any pain or discomfort under their dressing cut the dressing off and call the Wound Center to have it reapplied. Pt instructed that the wrap needs to be kept dry. They may bath at a sink or there are devices designed to keep dressings dry these are available at most drug stores. If they choose to shower with a plastic bag taped over the wrap. Be sure to having another person available for assistance or placing towels on the floor of the shower or tub to eliminate the slick surface can reduce the risk of falls. Patient instructed on the signs and symptoms of infection and to call the Wound Center if any occur or to go to the ED if we are closed: Increased pain in wound Increase in drainage from the wound Redness in the skin surrounding the wound Bleeding from the wound Temperature of 101 or greater Patient instructed that the weight of their body puts a large amount of pressure on their wounds. This pressure keeps the new tissue from growing and inhibits new blood vessels from forming. Explained that, if they continue to bear weight on a body part that has a wound, the time it takes to heal the wound increases, the wound may get worse or the wound may not heal at all. Patient verbalized understanding of all discharge instructions and plan of care and ambulated independently out to [facility] in stable condition with no sign or symptom of distress at time of discharge.
== END 2019-03-05 12:08 | disposition home or self-care (01) ==
LOC: WOUND CARE 09:45
PROVIDERS: ATTEND Surgery
DX: E11.622 Type 2 diabetes mellitus with other skin ulcer (principal); I83.013 Varicose veins of right lower extremity with ulcer of ankle; L97.312 Non-pressure chronic ulcer of right ankle with fat layer exposed; I83.023 Varicose veins of left lower extremity with ulcer of ankle; L97.322 Non-pressure chronic ulcer of left ankle with fat layer exposed; E11.621 Type 2 diabetes mellitus with foot ulcer; L97.412 Non-pressure chronic ulcer of right heel and midfoot with fat layer exposed; E03.9 Hypothyroidism, unspecified; E66.9 Obesity, unspecified; M19.90 Unspecified osteoarthritis, unspecified site; Z68.1 Body mass index [BMI] 19.9 or less, adult; Z85.828 Personal history of other malignant neoplasm of skin
CPT/HCPCS: 29581; A6209; A6021; A6206; A6441

== ENCOUNTER 2019-03-09 10:15 | Outpatient (CLI) | payer BC ==
[2019-03-09] MEDS ORDERED: LIDOcaine/PRILOcaine 5gm cream TP ONE (11:45)
[2019-03-09] MEDS ORDERED: gentamicin 0.1% topical ointment 15gm TP ONE (11:58)
--- NOTE | 2019-03-09 13:04 | NUR ---
Patient ambulated independently from [facility] and was admitted to outpatient wound care for physician visit with Elieser Brennan MD. Dressing removed, wound cleansed and Emla cream applied per order. Patient assessed for changes in conditions, medications and medical history. 1147 - Dr. Brennan at bedside accompanied by RN. Wound assessed, time out performed by MD/RN. Wound debrided as detailed in the physician progress/procedure note. Plan of care discussed with patient. Dressings placed per MD orders. Pt instructed to elevate legs at least 30 minutes 3 times a day or 10 minutes every 4 hours, also instructed check their toes. If they become purplish or blue, cool to the touch, numb or tingly, use a pair of scissors and carefully cut off the dressing. Call the Wound Center for an appointment to have the dressing reapplied. Pt instructed that decreased swelling in the legs and the potential for drainage from the wound may require them to have to schedule visits twice weekly, progressing to weekly as the swelling decreases in their legs. Pt instructed that if dressings become loose, wrinkled or falls down and if they are experiencing any pain or discomfort under their dressing cut the dressing off and call the Wound Center to have it reapplied. Pt instructed that the wrap needs to be kept dry. They may bath at a sink or there are devices designed to keep dressings dry these are available at most drug stores. If they choose to shower with a plastic bag taped over the wrap. Be sure to having another person available for assistance or placing towels on the floor of the shower or tub to eliminate the slick surface can reduce the risk of falls. Patient instructed on the signs and symptoms of infection and to call the Wound Center if any occur or to go to the ED if we are closed: Increased pain in wound Increase in drainage from the wound Redness in the skin surrounding the wound Bleeding from the wound Temperature of 101 or greater Patient instructed that the weight of their body puts a large amount of pressure on their wounds. This pressure keeps the new tissue from growing and inhibits new blood vessels from forming. Explained that, if they continue to bear weight on a body part that has a wound, the time it takes to heal the wound increases, the wound may get worse or the wound may not heal at all. Patient verbalized understanding of all discharge instructions and plan of care and ambulated independently out to [facility] in stable condition with no sign or symptom of distress at time of discharge.
== END 2019-03-09 13:00 | disposition home or self-care (01) ==
LOC: WOUND CARE 10:15
PROVIDERS: ATTEND Surgery
DX: E11.622 Type 2 diabetes mellitus with other skin ulcer (principal); I83.013 Varicose veins of right lower extremity with ulcer of ankle; L97.312 Non-pressure chronic ulcer of right ankle with fat layer exposed; I83.023 Varicose veins of left lower extremity with ulcer of ankle; L97.322 Non-pressure chronic ulcer of left ankle with fat layer exposed; E11.621 Type 2 diabetes mellitus with foot ulcer; L97.412 Non-pressure chronic ulcer of right heel and midfoot with fat layer exposed; E03.9 Hypothyroidism, unspecified; E66.9 Obesity, unspecified; M19.90 Unspecified osteoarthritis, unspecified site; Z68.1 Body mass index [BMI] 19.9 or less, adult; Z85.828 Personal history of other malignant neoplasm of skin
CPT/HCPCS: 29581; A6209; A6021; A6206; A6441

== ENCOUNTER 2019-03-12 10:20 | Outpatient (CLI) | payer BC ==
[2019-03-12] MEDS ORDERED: gentamicin 0.1% topical ointment 15gm TP ONE (11:54)
--- NOTE | 2019-03-12 14:15 | NUR ---
Patient ambulated independently from [facility] and was admitted to outpatient wound care for nursing visit. Dressings removed, wounds cleansed and patient assessed for changes in conditions, medications and medical history. Dressings reapplied per physician orders. Patient instructed on the signs and symptoms of infection and to call the Wound Center if any occur or to go to the ED if we are closed: Increased pain in wound Increase in drainage from the wound Redness in the skin surrounding the wound Bleeding from the wound Temperature of 101 or greater Pt instructed to elevate legs at least 30 minutes 3 times a day or 10 minutes every 4 hours, also instructed check their toes. If they become purplish or blue, cool to the touch, numb or tingly, use a pair of scissors and carefully cut off the dressing. Call the Wound Center for an appointment to have the dressing reapplied. Pt instructed that decreased swelling in the legs and the potential for drainage from the wound may require them to have to schedule visits twice weekly, progressing to weekly as the swelling decreases in their legs. Pt instructed that if dressings become loose, wrinkled or falls down and if they are experiencing any pain or discomfort under their dressing cut the dressing off and call the Wound Center to have it reapplied. Pt instructed that the wraps needs to be kept dry. They may bath at a sink or there are devices designed to keep dressings dry these are available at most drug stores. If they choose to shower with a plastic bag taped over the wraps. Be sure to having another person available for assistance or placing towels on the floor of the shower or tub to eliminate the slick surface can reduce the risk of falls. Patient instructed that the weight of their body puts a large amount of pressure on their wounds. This pressure keeps the new tissue from growing and inhibits new blood vessels from forming. Explained that, if they continue to bear weight on a body part that has a wound, the time it takes to heal the wound increases, the wound may get worse or the wound may not heal at all. Patient verbalized understanding of all discharge instructions and plan of care and ambulated independently out to [facility] in stable condition with no sign or symptom of distress at time of discharge. Addendum: 03/12/19 at 1420 by Talia Worrell RN Amended: Links added.
== END 2019-03-12 12:55 | disposition home or self-care (01) ==
LOC: WOUND CARE 10:20
PROVIDERS: ATTEND Surgery
DX: E11.622 Type 2 diabetes mellitus with other skin ulcer (principal); I83.013 Varicose veins of right lower extremity with ulcer of ankle; L97.312 Non-pressure chronic ulcer of right ankle with fat layer exposed; I83.023 Varicose veins of left lower extremity with ulcer of ankle; L97.322 Non-pressure chronic ulcer of left ankle with fat layer exposed; E11.621 Type 2 diabetes mellitus with foot ulcer; L97.412 Non-pressure chronic ulcer of right heel and midfoot with fat layer exposed; E03.9 Hypothyroidism, unspecified; E66.9 Obesity, unspecified; M19.90 Unspecified osteoarthritis, unspecified site; Z68.1 Body mass index [BMI] 19.9 or less, adult; Z85.828 Personal history of other malignant neoplasm of skin
CPT/HCPCS: 29581; A6021; A6206; A6441

== ENCOUNTER 2019-03-16 10:50 | Outpatient (CLI) | payer BC ==
[2019-03-16] MEDS ORDERED: LIDOcaine/PRILOcaine 5gm cream TP ONE (12:00)
[2019-03-16] MEDS ORDERED: nystatin/triamcinolone cream 15gm TP ONE (12:15)
[2019-03-16] MEDS ORDERED: gentamicin 0.1% topical ointment 15gm TP ONE (12:15)
--- NOTE | 2019-03-16 13:00 | NUR ---
Patient ambulated independently from [facility] and was admitted to outpatient wound care for physician visit with Elieser Brennan MD. Dressing removed, wound cleansed and Emla cream applied per order. Patient assessed for changes in conditions, medications and medical history. 1200 - Dr. Brennan at bedside accompanied by RN. Wound assessed by MD, orders written. Plan of care discussed with patient. Dressings placed per MD orders. Pt instructed to elevate legs at least 30 minutes 3 times a day or 10 minutes every 4 hours, also instructed check their toes. If they become purplish or blue, cool to the touch, numb or tingly, use a pair of scissors and carefully cut off the dressing. Call the Wound Center for an appointment to have the dressing reapplied. Pt instructed that decreased swelling in the legs and the potential for drainage from the wound may require them to have to schedule visits twice weekly, progressing to weekly as the swelling decreases in their legs. Pt instructed that if dressings become loose, wrinkled or falls down and if they are experiencing any pain or discomfort under their dressing cut the dressing off and call the Wound Center to have it reapplied. Pt instructed that the wrap needs to be kept dry. They may bath at a sink or there are devices designed to keep dressings dry these are available at most drug stores. If they choose to shower with a plastic bag taped over the wrap. Be sure to having another person available for assistance or placing towels on the floor of the shower or tub to eliminate the slick surface can reduce the risk of falls. Patient instructed on the signs and symptoms of infection and to call the Wound Center if any occur or to go to the ED if we are closed: Increased pain in wound Increase in drainage from the wound Redness in the skin surrounding the wound Bleeding from the wound Temperature of 101 or greater Patient instructed that the weight of their body puts a large amount of pressure on their wounds. This pressure keeps the new tissue from growing and inhibits new blood vessels from forming. Explained that, if they continue to bear weight on a body part that has a wound, the time it takes to heal the wound increases, the wound may get worse or the wound may not heal at all. Patient verbalized understanding of all discharge instructions and plan of care and ambulated independently out to [facility] in stable condition with no sign or symptom of distress at time of discharge.
== END 2019-03-16 13:11 | disposition home or self-care (01) ==
LOC: WOUND CARE 10:50
PROVIDERS: ATTEND Surgery
DX: E11.622 Type 2 diabetes mellitus with other skin ulcer (principal); I83.013 Varicose veins of right lower extremity with ulcer of ankle; L97.312 Non-pressure chronic ulcer of right ankle with fat layer exposed; I83.023 Varicose veins of left lower extremity with ulcer of ankle; L97.322 Non-pressure chronic ulcer of left ankle with fat layer exposed; E11.621 Type 2 diabetes mellitus with foot ulcer; L97.412 Non-pressure chronic ulcer of right heel and midfoot with fat layer exposed; E03.9 Hypothyroidism, unspecified; E66.9 Obesity, unspecified; M19.90 Unspecified osteoarthritis, unspecified site; Z68.1 Body mass index [BMI] 19.9 or less, adult; Z85.828 Personal history of other malignant neoplasm of skin
CPT/HCPCS: 29581; A6223; A6206; A6441

== ENCOUNTER 2019-03-19 10:00 | Outpatient (CLI) | payer BC ==
[2019-03-19] MEDS ORDERED: gentamicin 0.1% topical ointment 15gm TP ONE ×2 (10:48→11:36)
[2019-03-19] MEDS ORDERED: nystatin/triamcinolone cream 15gm TP ONE (10:48)
--- NOTE | 2019-03-19 13:39 | NUR ---
Patient ambulated independently from [facility] and was admitted to outpatient wound care clinic for nursing visit, under direct supervision of . Dressings removed and wounds cleansed. Patient assessed for changes in conditions, medications and medical history. Dressings reapplied per physician orders. Patient instructed on the signs and symptoms of infection and to call the Wound Center if any occur or to go to the ED if we are closed: Increased pain in wound Increase in drainage from the wound Redness in the skin surrounding the wound Bleeding from the wound Temperature of 101 or greater Pt instructed to elevate legs at least 30 minutes 3 times a day or 10 minutes every 4 hours, also instructed check their toes. If they become purplish or blue, cool to the touch, numb or tingly, use a pair of scissors and carefully cut off the dressing. Call the Wound Center for an appointment to have the dressing reapplied. Pt instructed that decreased swelling in the legs and the potential for drainage from the wound may require them to have to schedule visits twice weekly, progressing to weekly as the swelling decreases in their legs. Pt instructed that if dressings become loose, wrinkled or falls down and if they are experiencing any pain or discomfort under their dressing cut the dressing off and call the Wound Center to have it reapplied. Pt instructed that the wraps needs to be kept dry. They may bath at a sink or there are devices designed to keep dressings dry these are available at most drug stores. If they choose to shower with a plastic bag taped over the wraps. Be sure to having another person available for assistance or placing towels on the floor of the shower or tub to eliminate the slick surface can reduce the risk of falls. Patient instructed that the weight of their body puts a large amount of pressure on their wounds. This pressure keeps the new tissue from growing and inhibits new blood vessels from forming. Explained that, if they continue to bear weight on a body part that has a wound, the time it takes to heal the wound increases, the wound may get worse or the wound may not heal at all. Patient verbalized understanding of all discharge instructions and plan of care and ambulated independently out to [facility] in stable condition with no sign or symptom of distress at time of discharge. Addendum: 03/19/19 at 1341 by Talia Worrell RN Amended: Links added.
== END 2019-03-19 12:12 | disposition home or self-care (01) ==
LOC: EDSTATUS 10:00 → WOUND CARE 10:00
PROVIDERS: ATTEND Surgery
DX: E11.622 Type 2 diabetes mellitus with other skin ulcer (principal); I83.013 Varicose veins of right lower extremity with ulcer of ankle; L97.312 Non-pressure chronic ulcer of right ankle with fat layer exposed; I83.023 Varicose veins of left lower extremity with ulcer of ankle; L97.322 Non-pressure chronic ulcer of left ankle with fat layer exposed; E11.621 Type 2 diabetes mellitus with foot ulcer; L97.412 Non-pressure chronic ulcer of right heel and midfoot with fat layer exposed; E03.9 Hypothyroidism, unspecified; E66.9 Obesity, unspecified; M19.90 Unspecified osteoarthritis, unspecified site; Z68.1 Body mass index [BMI] 19.9 or less, adult; Z85.828 Personal history of other malignant neoplasm of skin
CPT/HCPCS: 29581; A6209; A6223; A6206

== ENCOUNTER 2019-03-23 10:25 | Outpatient (CLI) | payer BC ==
[2019-03-23] MEDS ORDERED: gentamicin 0.1% topical ointment 15gm TP ONE (12:29)
[2019-03-23] MEDS ORDERED: nystatin/triamcinolone cream 15gm TP ONE (12:30)
--- NOTE | 2019-03-23 13:00 | NUR ---
Patient ambulated independently from [facility] and was admitted to outpatient wound care for physician visit with Elieser Brennan MD. Dressing removed, wound cleansed and lidocaine applied per order. Patient assessed for changes in conditions, medications and medical history. 1215 - Dr. Brennan at bedside accompanied by RN. Wound assessed by MD, orders written. Plan of care discussed with patient. Dressings placed per MD orders. Pt instructed to elevate legs at least 30 minutes 3 times a day or 10 minutes every 4 hours, also instructed check their toes. If they become purplish or blue, cool to the touch, numb or tingly, use a pair of scissors and carefully cut off the dressing. Call the Wound Center for an appointment to have the dressing reapplied. Pt instructed that decreased swelling in the legs and the potential for drainage from the wound may require them to have to schedule visits twice weekly, progressing to weekly as the swelling decreases in their legs. Pt instructed that if dressings become loose, wrinkled or falls down and if they are experiencing any pain or discomfort under their dressing cut the dressing off and call the Wound Center to have it reapplied. Pt instructed that the wrap needs to be kept dry. They may bath at a sink or there are devices designed to keep dressings dry these are available at most drug stores. If they choose to shower with a plastic bag taped over the wrap. Be sure to having another person available for assistance or placing towels on the floor of the shower or tub to eliminate the slick surface can reduce the risk of falls. Patient instructed on the signs and symptoms of infection and to call the Wound Center if any occur or to go to the ED if we are closed: Increased pain in wound Increase in drainage from the wound Redness in the skin surrounding the wound Bleeding from the wound Temperature of 101 or greater Patient instructed that the weight of their body puts a large amount of pressure on their wounds. This pressure keeps the new tissue from growing and inhibits new blood vessels from forming. Explained that, if they continue to bear weight on a body part that has a wound, the time it takes to heal the wound increases, the wound may get worse or the wound may not heal at all. Patient verbalized understanding of all discharge instructions and plan of care and ambulated independently out to [facility] in stable condition with no sign or symptom of distress at time of discharge.
== END 2019-03-23 13:30 | disposition home or self-care (01) ==
LOC: WOUND CARE 10:25
PROVIDERS: ATTEND Surgery
DX: E11.622 Type 2 diabetes mellitus with other skin ulcer (principal); I83.013 Varicose veins of right lower extremity with ulcer of ankle; L97.312 Non-pressure chronic ulcer of right ankle with fat layer exposed; I83.023 Varicose veins of left lower extremity with ulcer of ankle; L97.322 Non-pressure chronic ulcer of left ankle with fat layer exposed; E11.621 Type 2 diabetes mellitus with foot ulcer; L97.412 Non-pressure chronic ulcer of right heel and midfoot with fat layer exposed; E03.9 Hypothyroidism, unspecified; E66.9 Obesity, unspecified; M19.90 Unspecified osteoarthritis, unspecified site; Z68.1 Body mass index [BMI] 19.9 or less, adult; Z85.828 Personal history of other malignant neoplasm of skin
CPT/HCPCS: 29581; A6209; A6223; A6206; A6441

== ENCOUNTER 2019-03-26 10:17 | Outpatient (CLI) | payer BC ==
[~2019-03-26 10:17] MED LIST changes: -PENT400T12 PO; +PENT400T17 PO
[2019-03-26] MEDS ORDERED: gentamicin 0.1% topical ointment 15gm TP ONE (12:18)
[2019-03-26] MEDS ORDERED: nystatin/triamcinolone cream 15gm TP ONE (12:19)
--- NOTE | 2019-03-26 13:00 | NUR ---
Patient ambulated independently from [facility] and was admitted to outpatient wound care for nursing visit under the direct supervision of Elieser Brennan MD. Dressing removed, wound cleansed. Patient assessed for changes in conditions, medications and medical history. Dressings placed per MD orders. Pt instructed to elevate legs at least 30 minutes 3 times a day or 10 minutes every 4 hours, also instructed check their toes. If they become purplish or blue, cool to the touch, numb or tingly, use a pair of scissors and carefully cut off the dressing. Call the Wound Center for an appointment to have the dressing reapplied. Pt instructed that decreased swelling in the legs and the potential for drainage from the wound may require them to have to schedule visits twice weekly, progressing to weekly as the swelling decreases in their legs. Pt instructed that if dressings become loose, wrinkled or falls down and if they are experiencing any pain or discomfort under their dressing cut the dressing off and call the Wound Center to have it reapplied. Pt instructed that the wrap needs to be kept dry. They may bath at a sink or there are devices designed to keep dressings dry these are available at most drug stores. If they choose to shower with a plastic bag taped over the wrap. Be sure to having another person available for assistance or placing towels on the floor of the shower or tub to eliminate the slick surface can reduce the risk of falls. Patient instructed on the signs and symptoms of infection and to call the Wound Center if any occur or to go to the ED if we are closed: Increased pain in wound Increase in drainage from the wound Redness in the skin surrounding the wound Bleeding from the wound Temperature of 101 or greater Patient instructed that the weight of their body puts a large amount of pressure on their wounds. This pressure keeps the new tissue from growing and inhibits new blood vessels from forming. Explained that, if they continue to bear weight on a body part that has a wound, the time it takes to heal the wound increases, the wound may get worse or the wound may not heal at all. Patient verbalized understanding of all discharge instructions and plan of care and ambulated independently out to [facility] in stable condition with no sign or symptom of distress at time of discharge.
== END 2019-03-26 13:08 | disposition home or self-care (01) ==
LOC: WOUND CARE 10:17
PROVIDERS: ATTEND Surgery
DX: E11.622 Type 2 diabetes mellitus with other skin ulcer (principal); I83.013 Varicose veins of right lower extremity with ulcer of ankle; L97.312 Non-pressure chronic ulcer of right ankle with fat layer exposed; I83.023 Varicose veins of left lower extremity with ulcer of ankle; L97.322 Non-pressure chronic ulcer of left ankle with fat layer exposed; E11.621 Type 2 diabetes mellitus with foot ulcer; L97.412 Non-pressure chronic ulcer of right heel and midfoot with fat layer exposed; E03.9 Hypothyroidism, unspecified; E66.9 Obesity, unspecified; M19.90 Unspecified osteoarthritis, unspecified site; Z68.1 Body mass index [BMI] 19.9 or less, adult; Z85.828 Personal history of other malignant neoplasm of skin
CPT/HCPCS: 29581; A6209; A6223; A6206

== ENCOUNTER 2019-03-30 10:30 | Day surgery (SDC) | payer BC ==
[2019-03-30] MEDS ORDERED: LIDOcaine/PRILOcaine 5gm cream TP ONE (11:04)
[2019-03-30] MEDS ORDERED: nystatin/triamcinolone cream 15gm TP ONE (12:20)
[2019-03-30] MEDS ORDERED: gentamicin 0.1% topical ointment 15gm TP ONE (12:20)
--- NOTE | 2019-03-30 14:06 | NUR ---
Patient ambulated independently from [facility] and was admitted to outpatient wound care for physician visit with Elieser Brennan MD. Dressing removed, wound cleansed and Emla cream applied per order. Patient assessed for changes in conditions, medications and medical history. Dr. Brennan at bedside accompanied by RN. Wound assessed, time out performed by MD/RN. Wound debrided as detailed in the physician progress/procedure note. Plan of care discussed with patient. Dressings placed per MD orders. Patient instructed on the signs and symptoms of infection and to call the Wound Center if any occur or to go to the ED if we are closed: Increased pain in wound Increase in drainage from the wound Redness in the skin surrounding the wound Bleeding from the wound Temperature of 101 or greater Pt instructed to elevate legs at least 30 minutes 3 times a day or 10 minutes every 4 hours, also instructed check their toes. If they become purplish or blue, cool to the touch, numb or tingly, use a pair of scissors and carefully cut off the dressing. Call the Wound Center for an appointment to have the dressing reapplied. Pt instructed that decreased swelling in the legs and the potential for drainage from the wound may require them to have to schedule visits twice weekly, progressing to weekly as the swelling decreases in their legs. Pt instructed that if dressings become loose, wrinkled or falls down and if they are experiencing any pain or discomfort under their dressing cut the dressing off and call the Wound Center to have it reapplied. Pt instructed that the wraps needs to be kept dry. They may bath at a sink or there are devices designed to keep dressings dry these are available at most drug stores. If they choose to shower with a plastic bag taped over the wraps. Be sure to having another person available for assistance or placing towels on the floor of the shower or tub to eliminate the slick surface can reduce the risk of falls. Patient instructed that the weight of their body puts a large amount of pressure on their wounds. This pressure keeps the new tissue from growing and inhibits new blood vessels from forming. Explained that, if they continue to bear weight on a body part that has a wound, the time it takes to heal the wound increases, the wound may get worse or the wound may not heal at all. Patient verbalized understanding of all discharge instructions and plan of care and ambulated independently out to [facility] in stable condition with no sign or symptom of distress at time of discharge. Addendum: 03/30/19 at 1407 by Talia Worrell RN Amended: Links added.
== END 2019-03-30 13:21 | disposition home or self-care (01) ==
LOC: WOUND CARE 10:30
PROVIDERS: ATTEND Surgery
DX: E11.622 Type 2 diabetes mellitus with other skin ulcer (principal); I83.013 Varicose veins of right lower extremity with ulcer of ankle; L97.312 Non-pressure chronic ulcer of right ankle with fat layer exposed; I83.023 Varicose veins of left lower extremity with ulcer of ankle; L97.322 Non-pressure chronic ulcer of left ankle with fat layer exposed; E11.621 Type 2 diabetes mellitus with foot ulcer; L97.412 Non-pressure chronic ulcer of right heel and midfoot with fat layer exposed; E03.9 Hypothyroidism, unspecified; E66.9 Obesity, unspecified; M19.90 Unspecified osteoarthritis, unspecified site; Z68.1 Body mass index [BMI] 19.9 or less, adult; Z85.828 Personal history of other malignant neoplasm of skin
CPT/HCPCS: 97597; 97598; A6209; A6222; A6441

== ENCOUNTER 2019-04-02 10:15 | Outpatient (CLI) | payer BC ==
[2019-04-02] MEDS ORDERED: gentamicin 0.1% topical ointment 15gm TP ONE (12:19)
[2019-04-02] MEDS ORDERED: nystatin/triamcinolone cream 15gm TP ONE (12:20)
--- NOTE | 2019-04-02 15:21 | NUR ---
Patient ambulated independently from [facility] and was admitted to outpatient wound care for physician visit with Elieser Brennan MD. Dressings removed, wounds cleansed and patient assessed for changes in conditions, medications and medical history. Dr. Brennan at bedside accompanied by RN. Wound assessed and no debridement was done. Plan of care discussed with patient. Dressings placed per MD orders. Patient instructed on the signs and symptoms of infection and to call the Wound Center if any occur or to go to the ED if we are closed: Increased pain in wound Increase in drainage from the wound Redness in the skin surrounding the wound Bleeding from the wound Temperature of 101 or greater Pt instructed to elevate legs at least 30 minutes 3 times a day or 10 minutes every 4 hours, also instructed check their toes. If they become purplish or blue, cool to the touch, numb or tingly, use a pair of scissors and carefully cut off the dressing. Call the Wound Center for an appointment to have the dressing reapplied. Pt instructed that decreased swelling in the legs and the potential for drainage from the wound may require them to have to schedule visits twice weekly, progressing to weekly as the swelling decreases in their legs. Pt instructed that if dressings become loose, wrinkled or falls down and if they are experiencing any pain or discomfort under their dressing cut the dressing off and call the Wound Center to have it reapplied. Pt instructed that the wraps needs to be kept dry. They may bath at a sink or there are devices designed to keep dressings dry these are available at most drug stores. If they choose to shower with a plastic bag taped over the wraps. Be sure to having another person available for assistance or placing towels on the floor of the shower or tub to eliminate the slick surface can reduce the risk of falls. Patient instructed that the weight of their body puts a large amount of pressure on their wounds. This pressure keeps the new tissue from growing and inhibits new blood vessels from forming. Explained that, if they continue to bear weight on a body part that has a wound, the time it takes to heal the wound increases, the wound may get worse or the wound may not heal at all. Patient verbalized understanding of all discharge instructions and plan of care and ambulated independently out to [facility] in stable condition with no sign or symptom of distress at time of discharge. Addendum: 04/02/19 at 1523 by Talia Worrell RN Amended: Links added.
== END 2019-04-02 13:10 | disposition home or self-care (01) ==
LOC: WOUND CARE 10:15
PROVIDERS: ATTEND Surgery
DX: E11.622 Type 2 diabetes mellitus with other skin ulcer (principal); I83.013 Varicose veins of right lower extremity with ulcer of ankle; L97.312 Non-pressure chronic ulcer of right ankle with fat layer exposed; I83.023 Varicose veins of left lower extremity with ulcer of ankle; L97.322 Non-pressure chronic ulcer of left ankle with fat layer exposed; E11.621 Type 2 diabetes mellitus with foot ulcer; L97.412 Non-pressure chronic ulcer of right heel and midfoot with fat layer exposed; E03.9 Hypothyroidism, unspecified; E66.9 Obesity, unspecified; M19.90 Unspecified osteoarthritis, unspecified site; Z68.1 Body mass index [BMI] 19.9 or less, adult; Z85.828 Personal history of other malignant neoplasm of skin
CPT/HCPCS: 29581; A6209; A6223; A6441

== ENCOUNTER 2019-04-06 11:35 | Day surgery (SDC) | payer BC ==
[2019-04-06] MEDS ORDERED: LIDOcaine/PRILOcaine 5gm cream TP ONE (11:55)
[2019-04-06] MEDS ORDERED: gentamicin 0.1% topical ointment 15gm TP ONE (13:15)
[2019-04-06] MEDS ORDERED: nystatin/triamcinolone cream 15gm TP ONE (13:15)
--- NOTE | 2019-04-06 14:09 | NUR ---
Patient ambulated independently from [facility] and was admitted to outpatient wound care for physician visit with Elieser Brennan MD. Dressing removed, wound cleansed and Emla cream applied per order. Patient assessed for changes in conditions, medications and medical history. Dr. Brennan at bedside accompanied by RN. Wound assessed, time out performed by MD/RN. Wound debrided as detailed in the physician progress/procedure note. Plan of care discussed with patient. Dressings placed per MD orders. Patient instructed on the signs and symptoms of infection and to call the Wound Center if any occur or to go to the ED if we are closed: Increased pain in wound Increase in drainage from the wound Redness in the skin surrounding the wound Bleeding from the wound Temperature of 101 or greater Pt instructed to elevate legs at least 30 minutes 3 times a day or 10 minutes every 4 hours, also instructed check their toes. If they become purplish or blue, cool to the touch, numb or tingly, use a pair of scissors and carefully cut off the dressing. Call the Wound Center for an appointment to have the dressing reapplied. Pt instructed that decreased swelling in the legs and the potential for drainage from the wound may require them to have to schedule visits twice weekly, progressing to weekly as the swelling decreases in their legs. Pt instructed that if dressings become loose, wrinkled or falls down and if they are experiencing any pain or discomfort under their dressing cut the dressing off and call the Wound Center to have it reapplied. Pt instructed that the wrap needs to be kept dry. They may bath at a sink or there are devices designed to keep dressings dry these are available at most drug stores. If they choose to shower with a plastic bag taped over the wrap. Be sure to having another person available for assistance or placing towels on the floor of the shower or tub to eliminate the slick surface can reduce the risk of falls. Patient instructed that the weight of their body puts a large amount of pressure on their wounds. This pressure keeps the new tissue from growing and inhibits new blood vessels from forming. Explained that, if they continue to bear weight on a body part that has a wound, the time it takes to heal the wound increases, the wound may get worse or the wound may not heal at all. Patient verbalized understanding of all discharge instructions and plan of care and ambulated independently out to [facility] in stable condition with no sign or symptom of distress at time of discharge. Addendum: 04/06/19 at 1410 by Talia Worrell RN Amended: Links added.
== END 2019-04-06 14:00 | disposition home or self-care (01) ==
LOC: WOUND CARE 11:35
PROVIDERS: ATTEND Surgery
DX: E11.622 Type 2 diabetes mellitus with other skin ulcer (principal); I83.013 Varicose veins of right lower extremity with ulcer of ankle; L97.312 Non-pressure chronic ulcer of right ankle with fat layer exposed; I83.023 Varicose veins of left lower extremity with ulcer of ankle; L97.322 Non-pressure chronic ulcer of left ankle with fat layer exposed; E11.621 Type 2 diabetes mellitus with foot ulcer; L97.412 Non-pressure chronic ulcer of right heel and midfoot with fat layer exposed; E03.9 Hypothyroidism, unspecified; E66.9 Obesity, unspecified; M19.90 Unspecified osteoarthritis, unspecified site; Z68.1 Body mass index [BMI] 19.9 or less, adult; Z85.828 Personal history of other malignant neoplasm of skin
CPT/HCPCS: 97597; 97598; A6209; A6223; A6206; A6441

== ENCOUNTER 2019-04-09 10:40 | Outpatient (CLI) | payer BC ==
[2019-04-09] MEDS ORDERED: gentamicin 0.1% topical ointment 15gm TP ONE (11:58)
[2019-04-09] MEDS ORDERED: nystatin/triamcinolone cream 15gm TP ONE (11:58)
--- NOTE | 2019-04-09 13:55 | NUR ---
Patient ambulated independently from [facility] and was admitted to outpatient wound care for nursing visit under direct supervision of . Dressings removed, wound cleansed and patient assessed for changes in conditions, medications and medical history. Patient instructed on the signs and symptoms of infection and to call the Wound Center if any occur or to go to the ED if we are closed: Increased pain in wound Increase in drainage from the wound Redness in the skin surrounding the wound Bleeding from the wound Temperature of 101 or greater Pt instructed to elevate legs at least 30 minutes 3 times a day or 10 minutes every 4 hours, also instructed check their toes. If they become purplish or blue, cool to the touch, numb or tingly, use a pair of scissors and carefully cut off the dressing. Call the Wound Center for an appointment to have the dressing reapplied. Pt instructed that decreased swelling in the legs and the potential for drainage from the wound may require them to have to schedule visits twice weekly, progressing to weekly as the swelling decreases in their legs. Pt instructed that if dressings become loose, wrinkled or falls down and if they are experiencing any pain or discomfort under their dressing cut the dressing off and call the Wound Center to have it reapplied. Pt instructed that the wraps needs to be kept dry. They may bath at a sink or there are devices designed to keep dressings dry these are available at most drug stores. If they choose to shower with a plastic bag taped over the wraps. Be sure to having another person available for assistance or placing towels on the floor of the shower or tub to eliminate the slick surface can reduce the risk of falls. Patient instructed that the weight of their body puts a large amount of pressure on their wounds. This pressure keeps the new tissue from growing and inhibits new blood vessels from forming. Explained that, if they continue to bear weight on a body part that has a wound, the time it takes to heal the wound increases, the wound may get worse or the wound may not heal at all. Patient verbalized understanding of all discharge instructions and plan of care and ambulated independently out to [facility] in stable condition with no sign or symptom of distress at time of discharge. Addendum: 04/09/19 at 1359 by Talia Worrell RN Amended: Links added.
== END 2019-04-09 12:45 | disposition home or self-care (01) ==
LOC: WOUND CARE 10:40
PROVIDERS: ATTEND Surgery
DX: E11.622 Type 2 diabetes mellitus with other skin ulcer (principal); I83.013 Varicose veins of right lower extremity with ulcer of ankle; L97.312 Non-pressure chronic ulcer of right ankle with fat layer exposed; I83.023 Varicose veins of left lower extremity with ulcer of ankle; L97.322 Non-pressure chronic ulcer of left ankle with fat layer exposed; E11.621 Type 2 diabetes mellitus with foot ulcer; L97.412 Non-pressure chronic ulcer of right heel and midfoot with fat layer exposed; E03.9 Hypothyroidism, unspecified; E66.9 Obesity, unspecified; M19.90 Unspecified osteoarthritis, unspecified site; Z68.1 Body mass index [BMI] 19.9 or less, adult; Z85.828 Personal history of other malignant neoplasm of skin
CPT/HCPCS: 29581; A6209; A6223; A6206; A6441

== ENCOUNTER 2019-04-13 13:00 | Outpatient (CLI) | payer BC ==
[2019-04-13] MEDS ORDERED: nystatin/triamcinolone cream 15gm TP ONE (13:12)
[2019-04-13] MEDS ORDERED: gentamicin 0.1% topical ointment 15gm TP ONE (13:12)
--- NOTE | 2019-04-13 13:30 | NUR ---
Patient ambulated independently from [facility] and was admitted to outpatient wound care for visit for compression wrap dressing. Dressing removed, wound cleansed and dressings applied per order. Patient assessed for changes in conditions, medications and medical history. Pt instructed to elevate legs at least 30 minutes 3 times a day or 10 minutes every 4 hours, also instructed check their toes. If they become purplish or blue, cool to the touch, numb or tingly, use a pair of scissors and carefully cut off the dressing. Call the Wound Center for an appointment to have the dressing reapplied. Pt instructed that decreased swelling in the legs and the potential for drainage from the wound may require them to have to schedule visits twice weekly, progressing to weekly as the swelling decreases in their legs. Pt instructed that if dressings become loose, wrinkled or falls down and if they are experiencing any pain or discomfort under their dressing cut the dressing off and call the Wound Center to have it reapplied. Pt instructed that the wrap needs to be kept dry. They may bath at a sink or there are devices designed to keep dressings dry these are available at most drug stores. If they choose to shower with a plastic bag taped over the wrap. Be sure to having another person available for assistance or placing towels on the floor of the shower or tub to eliminate the slick surface can reduce the risk of falls. Patient instructed on the signs and symptoms of infection and to call the Wound Center if any occur or to go to the ED if we are closed: Increased pain in wound Increase in drainage from the wound Redness in the skin surrounding the wound Bleeding from the wound Temperature of 101 or greater Patient instructed that the weight of their body puts a large amount of pressure on their wounds. This pressure keeps the new tissue from growing and inhibits new blood vessels from forming. Explained that, if they continue to bear weight on a body part that has a wound, the time it takes to heal the wound increases, the wound may get worse or the wound may not heal at all. Patient verbalized understanding of all discharge instructions and plan of care and ambulated independently out to [facility] in stable condition with no sign or symptom of distress at time of discharge.
== END 2019-04-13 14:00 | disposition home or self-care (01) ==
LOC: WOUND CARE 13:00
PROVIDERS: ATTEND Surgery
DX: E11.622 Type 2 diabetes mellitus with other skin ulcer (principal); I83.013 Varicose veins of right lower extremity with ulcer of ankle; L97.312 Non-pressure chronic ulcer of right ankle with fat layer exposed; I83.023 Varicose veins of left lower extremity with ulcer of ankle; L97.322 Non-pressure chronic ulcer of left ankle with fat layer exposed; E11.621 Type 2 diabetes mellitus with foot ulcer; L97.412 Non-pressure chronic ulcer of right heel and midfoot with fat layer exposed; E03.9 Hypothyroidism, unspecified; E66.9 Obesity, unspecified; M19.90 Unspecified osteoarthritis, unspecified site; Z68.1 Body mass index [BMI] 19.9 or less, adult; Z85.828 Personal history of other malignant neoplasm of skin
CPT/HCPCS: 29581; A6209; A6223; A6206; A6441

== ENCOUNTER 2019-05-04 10:20 | Outpatient (CLI) | payer BC ==
[2019-05-04] MEDS ORDERED: LIDOcaine/PRILOcaine 5gm cream TP ONE (11:16)
[2019-05-04] MEDS ORDERED: gentamicin 0.1% topical ointment 15gm TP ONE (12:03)
[2019-05-04] MEDS ORDERED: nystatin/triamcinolone cream 15gm TP ONE (12:03)
--- NOTE | 2019-05-04 14:58 | NUR ---
Patient ambulated independently from [facility] and was admitted to outpatient wound care for physician visit with Elieser Brennan MD. Dressing removed, wound cleansed and Emla cream applied per order. Patient assessed for changes in conditions, medications and medical history. Dr. Brennan at bedside accompanied by RN. Wound assessed and no debridement was done. Dressings placed per MD orders. Patient instructed on the signs and symptoms of infection and to call the Wound Center if any occur or to go to the ED if we are closed: Increased pain in wound Increase in drainage from the wound Redness in the skin surrounding the wound Bleeding from the wound Temperature of 101 or greater Pt instructed to elevate legs at least 30 minutes 3 times a day or 10 minutes every 4 hours, also instructed check their toes. If they become purplish or blue, cool to the touch, numb or tingly, use a pair of scissors and carefully cut off the dressing. Call the Wound Center for an appointment to have the dressing reapplied. Pt instructed that decreased swelling in the legs and the potential for drainage from the wound may require them to have to schedule visits twice weekly, progressing to weekly as the swelling decreases in their legs. Pt instructed that if dressings become loose, wrinkled or falls down and if they are experiencing any pain or discomfort under their dressing cut the dressing off and call the Wound Center to have it reapplied. Pt instructed that the wraps needs to be kept dry. They may bath at a sink or there are devices designed to keep dressings dry these are available at most drug stores. If they choose to shower with a plastic bag taped over the wraps. Be sure to having another person available for assistance or placing towels on the floor of the shower or tub to eliminate the slick surface can reduce the risk of falls. Patient instructed that the weight of their body puts a large amount of pressure on their wounds. This pressure keeps the new tissue from growing and inhibits new blood vessels from forming. Explained that, if they continue to bear weight on a body part that has a wound, the time it takes to heal the wound increases, the wound may get worse or the wound may not heal at all. Patient verbalized understanding of all discharge instructions and plan of care and ambulated independently out to [facility] in stable condition with no sign or symptom of distress at time of discharge Addendum: 05/04/19 at 1501 by Talia Worrell RN Amended: Links added.
== END 2019-05-04 13:01 | disposition home or self-care (01) ==
LOC: WOUND CARE 10:20
PROVIDERS: ATTEND Surgery
DX: E11.622 Type 2 diabetes mellitus with other skin ulcer (principal); I83.013 Varicose veins of right lower extremity with ulcer of ankle; L97.312 Non-pressure chronic ulcer of right ankle with fat layer exposed; I83.023 Varicose veins of left lower extremity with ulcer of ankle; L97.322 Non-pressure chronic ulcer of left ankle with fat layer exposed; E11.621 Type 2 diabetes mellitus with foot ulcer; L97.412 Non-pressure chronic ulcer of right heel and midfoot with fat layer exposed; E03.9 Hypothyroidism, unspecified; E66.9 Obesity, unspecified; M19.90 Unspecified osteoarthritis, unspecified site; Z68.1 Body mass index [BMI] 19.9 or less, adult; Z85.828 Personal history of other malignant neoplasm of skin
CPT/HCPCS: 29581; A6223; J7999; A6206; A6441

== ENCOUNTER 2019-05-07 10:20 | Outpatient (CLI) | payer BC ==
[2019-05-07] MEDS ORDERED: nystatin/triamcinolone cream 15gm TP ONE (11:41)
[2019-05-07] MEDS ORDERED: gentamicin 0.1% topical ointment 15gm TP ONE (11:42)
--- NOTE | 2019-05-07 14:12 | NUR ---
Patient ambulated independently from [facility] and was admitted to outpatient wound care for nursing visit under direct supervision of . Dressings removed, wounds cleansed and patient assessed for changes in conditions, medications and medical history. Dressings reapplied per physician orders. Patient instructed on the signs and symptoms of infection and to call the Wound Center if any occur or to go to the ED if we are closed: Increased pain in wound Increase in drainage from the wound Redness in the skin surrounding the wound Bleeding from the wound Temperature of 101 or greater Patient instructed that the weight of their body puts a large amount of pressure on their wounds. This pressure keeps the new tissue from growing and inhibits new blood vessels from forming. Explained that, if they continue to bear weight on a body part that has a wound, the time it takes to heal the wound increases, the wound may get worse or the wound may not heal at all. Patient verbalized understanding of all discharge instructions and plan of care and ambulated independently out to [facility] in stable condition with no sign or symptom of distress at time of discharge. Addendum: 05/07/19 at 1414 by Talia Worrell RN Amended: Links added.
== END 2019-05-07 12:35 | disposition home or self-care (01) ==
LOC: WOUND CARE 10:20
PROVIDERS: ATTEND Surgery
DX: E11.622 Type 2 diabetes mellitus with other skin ulcer (principal); I83.013 Varicose veins of right lower extremity with ulcer of ankle; L97.312 Non-pressure chronic ulcer of right ankle with fat layer exposed; I83.023 Varicose veins of left lower extremity with ulcer of ankle; L97.322 Non-pressure chronic ulcer of left ankle with fat layer exposed; E11.621 Type 2 diabetes mellitus with foot ulcer; L97.412 Non-pressure chronic ulcer of right heel and midfoot with fat layer exposed; E03.9 Hypothyroidism, unspecified; E66.9 Obesity, unspecified; M19.90 Unspecified osteoarthritis, unspecified site; Z68.1 Body mass index [BMI] 19.9 or less, adult; Z85.828 Personal history of other malignant neoplasm of skin
CPT/HCPCS: 29581; A6223; J7999; A6441

== ENCOUNTER 2019-05-11 10:14 | Outpatient (CLI) | payer BC ==
[2019-05-11] MEDS ORDERED: LIDOcaine/PRILOcaine 5gm cream TP ONE (11:08)
[2019-05-11] MEDS ORDERED: nystatin/triamcinolone cream 15gm TP ONE (12:07)
[2019-05-11] MEDS ORDERED: gentamicin 0.1% topical ointment 15gm TP ONE (12:08)
--- NOTE | 2019-05-11 13:34 | NUR ---
Patient ambulated independently from [facility] and was admitted to outpatient wound care for physician visit with Elieser Brennan MD. Dressing removed, wound cleansed. Patient assessed for changes in conditions, medications and medical history. 1200 - Dr. Brennan at bedside accompanied by RN. Wound assessed by MD, orders written. Plan of care discussed with patient. Dressings placed per MD orders. Pt instructed to elevate legs at least 30 minutes 3 times a day or 10 minutes every 4 hours, also instructed check their toes. If they become purplish or blue, cool to the touch, numb or tingly, use a pair of scissors and carefully cut off the dressing. Call the Wound Center for an appointment to have the dressing reapplied. Pt instructed that decreased swelling in the legs and the potential for drainage from the wound may require them to have to schedule visits twice weekly, progressing to weekly as the swelling decreases in their legs. Pt instructed that if dressings become loose, wrinkled or falls down and if they are experiencing any pain or discomfort under their dressing cut the dressing off and call the Wound Center to have it reapplied. Pt instructed that the wrap needs to be kept dry. They may bath at a sink or there are devices designed to keep dressings dry these are available at most drug stores. If they choose to shower with a plastic bag taped over the wrap. Be sure to having another person available for assistance or placing towels on the floor of the shower or tub to eliminate the slick surface can reduce the risk of falls. Patient instructed on the signs and symptoms of infection and to call the Wound Center if any occur or to go to the ED if we are closed: Increased pain in wound Increase in drainage from the wound Redness in the skin surrounding the wound Bleeding from the wound Temperature of 101 or greater Patient instructed that the weight of their body puts a large amount of pressure on their wounds. This pressure keeps the new tissue from growing and inhibits new blood vessels from forming. Explained that, if they continue to bear weight on a body part that has a wound, the time it takes to heal the wound increases, the wound may get worse or the wound may not heal at all. Patient verbalized understanding of all discharge instructions and plan of care and ambulated independently out to [facility] in stable condition with no sign or symptom of distress at time of discharge.
== END 2019-05-11 13:06 | disposition home or self-care (01) ==
LOC: WOUND CARE 10:14
PROVIDERS: ATTEND Surgery
DX: E11.622 Type 2 diabetes mellitus with other skin ulcer (principal); I83.013 Varicose veins of right lower extremity with ulcer of ankle; L97.312 Non-pressure chronic ulcer of right ankle with fat layer exposed; I83.023 Varicose veins of left lower extremity with ulcer of ankle; L97.322 Non-pressure chronic ulcer of left ankle with fat layer exposed; E11.621 Type 2 diabetes mellitus with foot ulcer; L97.412 Non-pressure chronic ulcer of right heel and midfoot with fat layer exposed; E03.9 Hypothyroidism, unspecified; E66.9 Obesity, unspecified; M19.90 Unspecified osteoarthritis, unspecified site; Z68.1 Body mass index [BMI] 19.9 or less, adult; Z85.828 Personal history of other malignant neoplasm of skin
CPT/HCPCS: 29581; A6209; A6223; J7999; A4663; A6441

== ENCOUNTER 2019-05-14 10:15 | Outpatient (CLI) | payer BC ==
[2019-05-14] MEDS ORDERED: nystatin/triamcinolone cream 15gm TP ONE (11:25)
[2019-05-14] MEDS ORDERED: gentamicin 0.1% topical ointment 15gm TP ONE (11:26)
--- NOTE | 2019-05-14 14:13 | NUR ---
Patient ambulated independently from [facility] and was admitted to outpatient wound care clinic for nursing visit under direct supervision of . Dressings removed, wound cleansed and patient assessed for changes in conditions, medications and medical history. Dressings reapplied per physician orders. Patient instructed on the signs and symptoms of infection and to call the Wound Center if any occur or to go to the ED if we are closed: Increased pain in wound Increase in drainage from the wound Redness in the skin surrounding the wound Bleeding from the wound Temperature of 101 or greater Pt instructed to elevate legs at least 30 minutes 3 times a day or 10 minutes every 4 hours, also instructed check their toes. If they become purplish or blue, cool to the touch, numb or tingly, use a pair of scissors and carefully cut off the dressing. Call the Wound Center for an appointment to have the dressing reapplied. Pt instructed that decreased swelling in the legs and the potential for drainage from the wound may require them to have to schedule visits twice weekly, progressing to weekly as the swelling decreases in their legs. Pt instructed that if dressings become loose, wrinkled or falls down and if they are experiencing any pain or discomfort under their dressing cut the dressing off and call the Wound Center to have it reapplied. Pt instructed that the wraps needs to be kept dry. They may bath at a sink or there are devices designed to keep dressings dry these are available at most drug stores. If they choose to shower with a plastic bag taped over the wraps. Be sure to having another person available for assistance or placing towels on the floor of the shower or tub to eliminate the slick surface can reduce the risk of falls. Patient instructed that the weight of their body puts a large amount of pressure on their wounds. This pressure keeps the new tissue from growing and inhibits new blood vessels from forming. Explained that, if they continue to bear weight on a body part that has a wound, the time it takes to heal the wound increases, the wound may get worse or the wound may not heal at all. Patient verbalized understanding of all discharge instructions and plan of care and ambulated independently out to [facility] in stable condition with no sign or symptom of distress at time of discharge. Addendum: 05/14/19 at 1415 by Talia Worrell RN Amended: Links added.
== END 2019-05-14 12:10 | disposition home or self-care (01) ==
LOC: WOUND CARE 10:15
PROVIDERS: ATTEND Surgery
DX: E11.622 Type 2 diabetes mellitus with other skin ulcer (principal); I83.013 Varicose veins of right lower extremity with ulcer of ankle; L97.312 Non-pressure chronic ulcer of right ankle with fat layer exposed; I83.023 Varicose veins of left lower extremity with ulcer of ankle; L97.322 Non-pressure chronic ulcer of left ankle with fat layer exposed; E11.621 Type 2 diabetes mellitus with foot ulcer; L97.412 Non-pressure chronic ulcer of right heel and midfoot with fat layer exposed; E03.9 Hypothyroidism, unspecified; E66.9 Obesity, unspecified; M19.90 Unspecified osteoarthritis, unspecified site; Z68.1 Body mass index [BMI] 19.9 or less, adult; Z85.828 Personal history of other malignant neoplasm of skin
CPT/HCPCS: 29581; A6209; A6223; J7999; A4663; A6154; A6441

== ENCOUNTER 2019-05-18 10:30 | Day surgery (SDC) | payer BC ==
[2019-05-18] MEDS ORDERED: LIDOcaine/PRILOcaine 5gm cream TP ONE (11:08)
[2019-05-18] MEDS ORDERED: gentamicin 0.1% topical ointment 15gm TP ONE (11:44)
[2019-05-18] MEDS ORDERED: nystatin/triamcinolone cream 15gm TP ONE (11:45)
--- NOTE | 2019-05-18 12:10 | NUR ---
Patient ambulated independently from [facility] and was admitted to outpatient wound care for physician visit. Dressings removed, wound cleansed. Patient assessment completed with review of patient's medical history and current medications. [id number]-Dr. Brennan at bedside accompanied by RN. Wound assessed, time-out performed by MD/RN. Wound debrided as detailed in the physician progress/procedure note. Plan of care discussed with patient. Dressings placed per MD orders. Patient instructed on the signs and symptoms of infection and to call the Wound Center if any occur or to go to the ED if we are closed: Increased pain in the wound Increase in drainage from the wound Redness in the skin surrounding the wound Bleeding from the wound Temperature of 101F or greater Patient instructed that the weight of their body puts a large amount of pressure on their wounds. This pressure keeps the new tissue from growing and inhibits new blood vessels from forming. Explained that, if they continue to bear weight on a body part that has a wound, the time it takes to heal the wound increases, the wound may get worse, or the wound may not heal at all. Pt instructed to elevate legs at least 30 minutes 3 times a day or 10 minutes every 4 hours, also instructed check their toes. If they become purplish or blue, cool to the touch, numb or tingly, use a pair of scissors and carefully cut off the dressing. Call the Wound Center for an appointment to have the dressing reapplied. Pt instructed that decreased swelling in the legs and the potential for drainage from the wound may require them to have to schedule visits twice weekly, progressing to weekly as the swelling decreases in their legs. Pt instructed that if dressings become loose, wrinkled or falls down and if they are experiencing any pain or discomfort under their dressing cut the dressing off and call the Wound Center to have it reapplied. Pt instructed that the wrap needs to be kept dry. They may bath at a sink or there are devices designed to keep dressings dry these are available at most drug stores. If they choose to shower with a plastic bag taped over the wrap. Be sure to having another person available for assistance or placing towels on the floor of the shower or tub to eliminate the slick surface can reduce the risk of falls. Patient verbalized understanding of all discharge instructions and plan of care. Patient ambulated independently out to [facility] in stable condition with no signs or symptoms of distress at time of discharge.
== END 2019-05-18 12:32 | disposition home or self-care (01) ==
LOC: WOUND CARE 10:30
PROVIDERS: ATTEND Surgery
DX: E11.622 Type 2 diabetes mellitus with other skin ulcer (principal); I83.013 Varicose veins of right lower extremity with ulcer of ankle; L97.312 Non-pressure chronic ulcer of right ankle with fat layer exposed; I83.023 Varicose veins of left lower extremity with ulcer of ankle; L97.322 Non-pressure chronic ulcer of left ankle with fat layer exposed; E11.621 Type 2 diabetes mellitus with foot ulcer; L97.412 Non-pressure chronic ulcer of right heel and midfoot with fat layer exposed; E03.9 Hypothyroidism, unspecified; E66.9 Obesity, unspecified; M19.90 Unspecified osteoarthritis, unspecified site; Z68.1 Body mass index [BMI] 19.9 or less, adult; Z85.828 Personal history of other malignant neoplasm of skin
CPT/HCPCS: 97597; 97598; A6209; A6223; J7999; A4663; A6154

== ENCOUNTER 2019-05-25 10:00 | Outpatient (CLI) | payer BC ==
[2019-05-25] MEDS ORDERED: LIDOcaine/PRILOcaine 5gm cream TP ONE (10:50)
[2019-05-25] MEDS ORDERED: gentamicin 0.1% topical ointment 15gm TP ONE (12:15)
[2019-05-25] MEDS ORDERED: nystatin/triamcinolone cream 15gm TP ONE (12:16)
--- NOTE | 2019-05-25 14:17 | NUR ---
Patient ambulated independently from [facility] and was admitted to outpatient wound care for physician visit with Elieser Brennan MD. Dressing removed, wound cleansed and Emla cream applied per order. Patient assessed for changes in conditions, medications and medical history. Dr. Brennan at bedside accompanied by RN. Wound assessed and no debridement was done. Plan of care discussed with patient. Dressings placed per MD orders. Patient instructed on the signs and symptoms of infection and to call the Wound Center if any occur or to go to the ED if we are closed: Increased pain in wound Increase in drainage from the wound Redness in the skin surrounding the wound Bleeding from the wound Temperature of 101 or greater Pt instructed to elevate legs at least 30 minutes 3 times a day or 10 minutes every 4 hours, also instructed check their toes. If they become purplish or blue, cool to the touch, numb or tingly, use a pair of scissors and carefully cut off the dressing. Call the Wound Center for an appointment to have the dressing reapplied. Pt instructed that decreased swelling in the legs and the potential for drainage from the wound may require them to have to schedule visits twice weekly, progressing to weekly as the swelling decreases in their legs. Pt instructed that if dressings become loose, wrinkled or falls down and if they are experiencing any pain or discomfort under their dressing cut the dressing off and call the Wound Center to have it reapplied. Pt instructed that the wraps needs to be kept dry. They may bath at a sink or there are devices designed to keep dressings dry these are available at most drug stores. If they choose to shower with a plastic bag taped over the wraps. Be sure to having another person available for assistance or placing towels on the floor of the shower or tub to eliminate the slick surface can reduce the risk of falls. Patient instructed that the weight of their body puts a large amount of pressure on their wounds. This pressure keeps the new tissue from growing and inhibits new blood vessels from forming. Explained that, if they continue to bear weight on a body part that has a wound, the time it takes to heal the wound increases, the wound may get worse or the wound may not heal at all. Patient verbalized understanding of all discharge instructions and plan of care and ambulated independently out to [facility] in stable condition with no sign or symptom of distress at time of discharge. Addendum: 05/25/19 at 1421 by Talia Worrell RN Amended: Anitha added.
== END 2019-05-25 13:00 | disposition home or self-care (01) ==
LOC: EDSTATUS 10:00 → WOUND CARE 10:00
PROVIDERS: ATTEND Surgery
DX: E11.622 Type 2 diabetes mellitus with other skin ulcer (principal); I83.013 Varicose veins of right lower extremity with ulcer of ankle; L97.312 Non-pressure chronic ulcer of right ankle with fat layer exposed; I83.023 Varicose veins of left lower extremity with ulcer of ankle; L97.322 Non-pressure chronic ulcer of left ankle with fat layer exposed; E11.621 Type 2 diabetes mellitus with foot ulcer; L97.412 Non-pressure chronic ulcer of right heel and midfoot with fat layer exposed; E03.9 Hypothyroidism, unspecified; E66.9 Obesity, unspecified; M19.90 Unspecified osteoarthritis, unspecified site; Z68.1 Body mass index [BMI] 19.9 or less, adult; Z85.828 Personal history of other malignant neoplasm of skin
CPT/HCPCS: 29581; A6209; A6223; J7999; A4663

== ENCOUNTER 2019-06-01 11:30 | Outpatient (CLI) | payer BC ==
[2019-06-01] MEDS ORDERED: gentamicin 0.1% topical ointment 15gm TP ONE (11:46)
[2019-06-01] MEDS ORDERED: nystatin/triamcinolone cream 15gm TP ONE (11:46)
== END 2019-06-01 13:46 | disposition home or self-care (01) ==
LOC: WOUND CARE 11:30
PROVIDERS: ATTEND Surgery
DX: E11.622 Type 2 diabetes mellitus with other skin ulcer (principal); I83.013 Varicose veins of right lower extremity with ulcer of ankle; L97.311 Non-pressure chronic ulcer of right ankle limited to breakdown of skin; I83.023 Varicose veins of left lower extremity with ulcer of ankle; L97.322 Non-pressure chronic ulcer of left ankle with fat layer exposed; E11.621 Type 2 diabetes mellitus with foot ulcer; L97.412 Non-pressure chronic ulcer of right heel and midfoot with fat layer exposed; E03.9 Hypothyroidism, unspecified; E66.9 Obesity, unspecified; M19.90 Unspecified osteoarthritis, unspecified site; Z68.1 Body mass index [BMI] 19.9 or less, adult; Z85.828 Personal history of other malignant neoplasm of skin
CPT/HCPCS: 29581; A6223; J7999; A4663; A6154

== ENCOUNTER 2019-06-04 10:00 | Outpatient (CLI) | payer BC ==
[2019-06-04] MEDS ORDERED: gentamicin 0.1% topical ointment 15gm TP ONE (10:48)
[2019-06-04] MEDS ORDERED: nystatin/triamcinolone cream 15gm TP ONE (10:49)
== END 2019-06-04 11:35 | disposition home or self-care (01) ==
LOC: WOUND CARE 10:00 → EDSTATUS 10:00 → WOUND CARE 11:35
PROVIDERS: ATTEND Surgery
DX: E11.622 Type 2 diabetes mellitus with other skin ulcer (principal); I83.013 Varicose veins of right lower extremity with ulcer of ankle; L97.311 Non-pressure chronic ulcer of right ankle limited to breakdown of skin; I83.023 Varicose veins of left lower extremity with ulcer of ankle; L97.322 Non-pressure chronic ulcer of left ankle with fat layer exposed; E11.621 Type 2 diabetes mellitus with foot ulcer; L97.412 Non-pressure chronic ulcer of right heel and midfoot with fat layer exposed; E03.9 Hypothyroidism, unspecified; E66.9 Obesity, unspecified; M19.90 Unspecified osteoarthritis, unspecified site; Z68.1 Body mass index [BMI] 19.9 or less, adult; Z85.828 Personal history of other malignant neoplasm of skin
CPT/HCPCS: 29581; A6209; A6223; J7999; A6154; A6441

== ENCOUNTER 2019-06-08 10:25 | Outpatient (CLI) | payer BC ==
[2019-06-08] MEDS ORDERED: nystatin/triamcinolone cream 15gm TP ONE (12:15)
[2019-06-08] MEDS ORDERED: gentamicin 0.1% topical ointment 15gm TP ONE (12:15)
== END 2019-06-08 13:12 | disposition home or self-care (01) ==
LOC: WOUND CARE 10:25
PROVIDERS: ATTEND Surgery
DX: E11.622 Type 2 diabetes mellitus with other skin ulcer (principal); I83.013 Varicose veins of right lower extremity with ulcer of ankle; L97.311 Non-pressure chronic ulcer of right ankle limited to breakdown of skin; I83.023 Varicose veins of left lower extremity with ulcer of ankle; L97.322 Non-pressure chronic ulcer of left ankle with fat layer exposed; E11.621 Type 2 diabetes mellitus with foot ulcer; L97.412 Non-pressure chronic ulcer of right heel and midfoot with fat layer exposed; E03.9 Hypothyroidism, unspecified; E66.9 Obesity, unspecified; M19.90 Unspecified osteoarthritis, unspecified site; Z68.1 Body mass index [BMI] 19.9 or less, adult; Z85.828 Personal history of other malignant neoplasm of skin
CPT/HCPCS: 29581; A6209; A6223; J7999; A4663; A6154; A6446

== ENCOUNTER 2019-06-11 10:10 | Outpatient (CLI) | payer BC ==
[2019-06-11] MEDS ORDERED: gentamicin 0.1% topical ointment 15gm TP ONE (11:22)
[2019-06-11] MEDS ORDERED: nystatin/triamcinolone cream 15gm TP ONE (11:22)
== END 2019-06-11 12:15 | disposition home or self-care (01) ==
LOC: WOUND CARE 10:10
PROVIDERS: ATTEND Surgery
DX: E11.622 Type 2 diabetes mellitus with other skin ulcer (principal); I83.013 Varicose veins of right lower extremity with ulcer of ankle; L97.311 Non-pressure chronic ulcer of right ankle limited to breakdown of skin; I83.023 Varicose veins of left lower extremity with ulcer of ankle; L97.322 Non-pressure chronic ulcer of left ankle with fat layer exposed; E11.621 Type 2 diabetes mellitus with foot ulcer; L97.412 Non-pressure chronic ulcer of right heel and midfoot with fat layer exposed; E03.9 Hypothyroidism, unspecified; E66.9 Obesity, unspecified; M19.90 Unspecified osteoarthritis, unspecified site; Z68.1 Body mass index [BMI] 19.9 or less, adult; Z85.828 Personal history of other malignant neoplasm of skin
CPT/HCPCS: 29581; A6209; J7999; A4663; A6154; A6441

== ENCOUNTER 2019-06-15 10:22 | Outpatient (CLI) | payer BC ==
[2019-06-15] MEDS ORDERED: LIDOcaine 2% 5ml jelly ONE (11:49)
[2019-06-15] MEDS ORDERED: nystatin/triamcinolone cream 15gm TP ONE (12:33)
[2019-06-15] MEDS ORDERED: gentamicin 0.1% topical ointment 15gm TP ONE (12:33)
== END 2019-06-15 13:25 | disposition home or self-care (01) ==
LOC: WOUND CARE 10:22
PROVIDERS: ATTEND Surgery
DX: E11.622 Type 2 diabetes mellitus with other skin ulcer (principal); I83.013 Varicose veins of right lower extremity with ulcer of ankle; L97.311 Non-pressure chronic ulcer of right ankle limited to breakdown of skin; I83.023 Varicose veins of left lower extremity with ulcer of ankle; L97.322 Non-pressure chronic ulcer of left ankle with fat layer exposed; E11.621 Type 2 diabetes mellitus with foot ulcer; I83.014 Varicose veins of right lower extremity with ulcer of heel and midfoot; L97.412 Non-pressure chronic ulcer of right heel and midfoot with fat layer exposed; E03.9 Hypothyroidism, unspecified; E66.9 Obesity, unspecified; M19.90 Unspecified osteoarthritis, unspecified site; Z68.1 Body mass index [BMI] 19.9 or less, adult; Z85.828 Personal history of other malignant neoplasm of skin
CPT/HCPCS: 29581; A6209; A6223; J7999; A4663; A6154; A6441; A6446

== ENCOUNTER 2019-06-18 09:35 | Outpatient (CLI) | payer BC ==
[2019-06-18] MEDS ORDERED: gentamicin 0.1% topical ointment 15gm TP ONE (10:50)
[2019-06-18] MEDS ORDERED: nystatin/triamcinolone cream 15gm TP ONE (10:50)
== END 2019-06-18 12:15 | disposition home or self-care (01) ==
LOC: WOUND CARE 09:35
PROVIDERS: ATTEND Surgery
DX: E11.622 Type 2 diabetes mellitus with other skin ulcer (principal); I83.013 Varicose veins of right lower extremity with ulcer of ankle; L97.311 Non-pressure chronic ulcer of right ankle limited to breakdown of skin; I83.023 Varicose veins of left lower extremity with ulcer of ankle; L97.322 Non-pressure chronic ulcer of left ankle with fat layer exposed; E11.621 Type 2 diabetes mellitus with foot ulcer; I83.014 Varicose veins of right lower extremity with ulcer of heel and midfoot; L97.412 Non-pressure chronic ulcer of right heel and midfoot with fat layer exposed; E03.9 Hypothyroidism, unspecified; E66.9 Obesity, unspecified; M19.90 Unspecified osteoarthritis, unspecified site; Z68.1 Body mass index [BMI] 19.9 or less, adult; Z85.828 Personal history of other malignant neoplasm of skin
CPT/HCPCS: 29581; A6222; J7999; A4663; A6154; A6441

== ENCOUNTER 2019-06-22 09:30 | Outpatient (CLI) | payer BC ==
[2019-06-22] MEDS ORDERED: LIDOcaine/PRILOcaine 5gm cream TP ONE (09:45)
[2019-06-22] MEDS ORDERED: gentamicin 0.1% topical ointment 15gm TP ONE (11:12)
[2019-06-22] MEDS ORDERED: nystatin/triamcinolone cream 15gm TP ONE (11:12)
== END 2019-06-22 12:20 | disposition home or self-care (01) ==
LOC: WOUND CARE 09:30 → EDSTATUS 10:00 → WOUND CARE 12:20
PROVIDERS: ATTEND Surgery
DX: E11.622 Type 2 diabetes mellitus with other skin ulcer (principal); I83.013 Varicose veins of right lower extremity with ulcer of ankle; L97.311 Non-pressure chronic ulcer of right ankle limited to breakdown of skin; I83.023 Varicose veins of left lower extremity with ulcer of ankle; L97.322 Non-pressure chronic ulcer of left ankle with fat layer exposed; E11.621 Type 2 diabetes mellitus with foot ulcer; I83.014 Varicose veins of right lower extremity with ulcer of heel and midfoot; L97.412 Non-pressure chronic ulcer of right heel and midfoot with fat layer exposed; E03.9 Hypothyroidism, unspecified; E66.9 Obesity, unspecified; M19.90 Unspecified osteoarthritis, unspecified site; Z68.1 Body mass index [BMI] 19.9 or less, adult; Z85.828 Personal history of other malignant neoplasm of skin
CPT/HCPCS: 29581; A6209; A6223; J7999; A4663; A6154; A6446

== ENCOUNTER 2019-06-25 10:30 | Outpatient (CLI) | payer BC ==
[2019-06-25] MEDS ORDERED: gentamicin 0.1% topical ointment 15gm TP ONE (11:41)
[2019-06-25] MEDS ORDERED: nystatin/triamcinolone cream 15gm TP ONE (11:41)
== END 2019-06-25 12:25 | disposition home or self-care (01) ==
LOC: WOUND CARE 10:30
PROVIDERS: ATTEND Surgery
DX: E11.622 Type 2 diabetes mellitus with other skin ulcer (principal); I83.013 Varicose veins of right lower extremity with ulcer of ankle; L97.311 Non-pressure chronic ulcer of right ankle limited to breakdown of skin; I83.023 Varicose veins of left lower extremity with ulcer of ankle; L97.322 Non-pressure chronic ulcer of left ankle with fat layer exposed; E11.621 Type 2 diabetes mellitus with foot ulcer; I83.014 Varicose veins of right lower extremity with ulcer of heel and midfoot; L97.412 Non-pressure chronic ulcer of right heel and midfoot with fat layer exposed; E03.9 Hypothyroidism, unspecified; E66.9 Obesity, unspecified; M19.90 Unspecified osteoarthritis, unspecified site; Z68.1 Body mass index [BMI] 19.9 or less, adult; Z85.828 Personal history of other malignant neoplasm of skin
CPT/HCPCS: 29581; A6209; A6223; J7999; A6446

== ENCOUNTER 2019-06-29 08:45 | Outpatient (CLI) | payer BC ==
[2019-06-29] MEDS ORDERED: LIDOcaine/PRILOcaine 5gm cream TP ONE (09:24)
[2019-06-29] MEDS ORDERED: nystatin/triamcinolone cream 15gm TP ONE (10:22)
[2019-06-29] MEDS ORDERED: gentamicin 0.1% topical ointment 15gm TP ONE (10:22)
== END 2019-06-29 11:05 | disposition home or self-care (01) ==
LOC: WOUND CARE 08:45 → EDSTATUS 10:00 → WOUND CARE 11:05
PROVIDERS: ATTEND Surgery
DX: E11.622 Type 2 diabetes mellitus with other skin ulcer (principal); I83.013 Varicose veins of right lower extremity with ulcer of ankle; L97.311 Non-pressure chronic ulcer of right ankle limited to breakdown of skin; I83.023 Varicose veins of left lower extremity with ulcer of ankle; L97.322 Non-pressure chronic ulcer of left ankle with fat layer exposed; E11.621 Type 2 diabetes mellitus with foot ulcer; I83.014 Varicose veins of right lower extremity with ulcer of heel and midfoot; L97.412 Non-pressure chronic ulcer of right heel and midfoot with fat layer exposed; E03.9 Hypothyroidism, unspecified; E66.9 Obesity, unspecified; M19.90 Unspecified osteoarthritis, unspecified site; Z68.1 Body mass index [BMI] 19.9 or less, adult; Z85.828 Personal history of other malignant neoplasm of skin
CPT/HCPCS: 29581; A6209; A6223; J7999; A4663; A6446

== ENCOUNTER 2019-07-02 10:33 | Outpatient (CLI) | payer BC ==
[2019-07-02] MEDS ORDERED: nystatin/triamcinolone cream 15gm TP ONE (12:14)
[2019-07-02] MEDS ORDERED: gentamicin 0.1% topical ointment 15gm TP ONE (12:14)
== END 2019-07-02 12:55 | disposition home or self-care (01) ==
LOC: WOUND CARE 10:33
PROVIDERS: ATTEND Surgery
DX: E11.622 Type 2 diabetes mellitus with other skin ulcer (principal); I83.013 Varicose veins of right lower extremity with ulcer of ankle; L97.311 Non-pressure chronic ulcer of right ankle limited to breakdown of skin; I83.023 Varicose veins of left lower extremity with ulcer of ankle; L97.322 Non-pressure chronic ulcer of left ankle with fat layer exposed; E11.621 Type 2 diabetes mellitus with foot ulcer; I83.014 Varicose veins of right lower extremity with ulcer of heel and midfoot; L97.412 Non-pressure chronic ulcer of right heel and midfoot with fat layer exposed; E03.9 Hypothyroidism, unspecified; E66.9 Obesity, unspecified; M19.90 Unspecified osteoarthritis, unspecified site; Z68.1 Body mass index [BMI] 19.9 or less, adult; Z85.828 Personal history of other malignant neoplasm of skin
CPT/HCPCS: 29581; A6209; A6223; J7999; A4663; A6154; A6446

== ENCOUNTER 2019-07-07 10:30 | Day surgery (SDC) | payer BC ==
[2019-07-07] MEDS ORDERED: gentamicin 0.1% topical ointment 15gm TP ONE (12:03)
[2019-07-07] MEDS ORDERED: nystatin/triamcinolone cream 15gm TP ONE (12:03)
== END 2019-07-07 12:50 | disposition home or self-care (01) ==
LOC: WOUND CARE 10:30
PROVIDERS: ATTEND Surgery
DX: E11.622 Type 2 diabetes mellitus with other skin ulcer (principal); I83.013 Varicose veins of right lower extremity with ulcer of ankle; L97.311 Non-pressure chronic ulcer of right ankle limited to breakdown of skin; I83.023 Varicose veins of left lower extremity with ulcer of ankle; L97.322 Non-pressure chronic ulcer of left ankle with fat layer exposed; E11.621 Type 2 diabetes mellitus with foot ulcer; I83.014 Varicose veins of right lower extremity with ulcer of heel and midfoot; L97.412 Non-pressure chronic ulcer of right heel and midfoot with fat layer exposed; E03.9 Hypothyroidism, unspecified; E66.9 Obesity, unspecified; M19.90 Unspecified osteoarthritis, unspecified site; Z68.1 Body mass index [BMI] 19.9 or less, adult; Z85.828 Personal history of other malignant neoplasm of skin
CPT/HCPCS: 29581; A6209; A6223; J7999; A4663; A6154; A6441

== ENCOUNTER 2019-07-09 10:15 | Outpatient (CLI) | payer BC ==
[2019-07-09] MEDS ORDERED: nystatin/triamcinolone cream 15gm TP ONE (11:17)
[2019-07-09] MEDS ORDERED: gentamicin 0.1% topical ointment 15gm TP ONE (11:17)
== END 2019-07-09 12:26 | disposition home or self-care (01) ==
LOC: WOUND CARE 10:15
PROVIDERS: ATTEND Surgery
DX: E11.622 Type 2 diabetes mellitus with other skin ulcer (principal); I83.013 Varicose veins of right lower extremity with ulcer of ankle; L97.311 Non-pressure chronic ulcer of right ankle limited to breakdown of skin; I83.023 Varicose veins of left lower extremity with ulcer of ankle; L97.322 Non-pressure chronic ulcer of left ankle with fat layer exposed; E11.621 Type 2 diabetes mellitus with foot ulcer; I83.014 Varicose veins of right lower extremity with ulcer of heel and midfoot; L97.412 Non-pressure chronic ulcer of right heel and midfoot with fat layer exposed; E03.9 Hypothyroidism, unspecified; E66.9 Obesity, unspecified; M19.90 Unspecified osteoarthritis, unspecified site; Z68.1 Body mass index [BMI] 19.9 or less, adult; Z85.828 Personal history of other malignant neoplasm of skin
CPT/HCPCS: 29581; A6209; J7999; A4663; A6154; A6441

== ENCOUNTER 2019-07-13 10:32 | Outpatient (CLI) | payer BC ==
[2019-07-13] MEDS ORDERED: LIDOcaine 2% 5ml jelly ONE (11:43)
[2019-07-13] MEDS ORDERED: nystatin/triamcinolone cream 15gm TP ONE (12:15)
[2019-07-13] MEDS ORDERED: gentamicin 0.1% topical ointment 15gm TP ONE (12:16)
== END 2019-07-13 13:20 | disposition home or self-care (01) ==
LOC: WOUND CARE 10:32
PROVIDERS: ATTEND Surgery
DX: E11.622 Type 2 diabetes mellitus with other skin ulcer (principal); I83.013 Varicose veins of right lower extremity with ulcer of ankle; L97.311 Non-pressure chronic ulcer of right ankle limited to breakdown of skin; I83.023 Varicose veins of left lower extremity with ulcer of ankle; L97.322 Non-pressure chronic ulcer of left ankle with fat layer exposed; E11.621 Type 2 diabetes mellitus with foot ulcer; I83.014 Varicose veins of right lower extremity with ulcer of heel and midfoot; L97.412 Non-pressure chronic ulcer of right heel and midfoot with fat layer exposed; E03.9 Hypothyroidism, unspecified; E66.9 Obesity, unspecified; M19.90 Unspecified osteoarthritis, unspecified site; Z68.1 Body mass index [BMI] 19.9 or less, adult; Z85.828 Personal history of other malignant neoplasm of skin
CPT/HCPCS: 29581; A6209; J7999; A4663; A6154; A6441

== ENCOUNTER 2019-07-16 10:25 | Outpatient (CLI) | payer BC ==
[2019-07-16] MEDS ORDERED: nystatin/triamcinolone cream 15gm TP ONE (11:29)
[2019-07-16] MEDS ORDERED: gentamicin 0.1% topical ointment 15gm TP ONE (11:30)
== END 2019-07-16 12:40 | disposition home or self-care (01) ==
LOC: WOUND CARE 10:25
PROVIDERS: ATTEND Surgery
DX: E11.622 Type 2 diabetes mellitus with other skin ulcer (principal); I83.013 Varicose veins of right lower extremity with ulcer of ankle; L97.311 Non-pressure chronic ulcer of right ankle limited to breakdown of skin; I83.023 Varicose veins of left lower extremity with ulcer of ankle; L97.322 Non-pressure chronic ulcer of left ankle with fat layer exposed; E11.621 Type 2 diabetes mellitus with foot ulcer; I83.014 Varicose veins of right lower extremity with ulcer of heel and midfoot; L97.412 Non-pressure chronic ulcer of right heel and midfoot with fat layer exposed; E03.9 Hypothyroidism, unspecified; E66.9 Obesity, unspecified; M19.90 Unspecified osteoarthritis, unspecified site; Z68.1 Body mass index [BMI] 19.9 or less, adult; Z85.828 Personal history of other malignant neoplasm of skin
CPT/HCPCS: 29581; A6209; J7999; A4663; A6446

== ENCOUNTER 2019-07-23 10:25 | Day surgery (SDC) | payer BC ==
[2019-07-23] MEDS ORDERED: LIDOcaine 2% 5ml jelly ONE ×2 (11:52)
[2019-07-23] MEDS ORDERED: gentamicin 0.1% topical ointment 15gm TP ONE (12:13)
[2019-07-23] MEDS ORDERED: nystatin/triamcinolone cream 15gm TP ONE (12:14)
== END 2019-07-23 13:25 | disposition home or self-care (01) ==
LOC: WOUND CARE 10:25
PROVIDERS: ATTEND Surgery
DX: E11.622 Type 2 diabetes mellitus with other skin ulcer (principal); I83.013 Varicose veins of right lower extremity with ulcer of ankle; L97.311 Non-pressure chronic ulcer of right ankle limited to breakdown of skin; I83.023 Varicose veins of left lower extremity with ulcer of ankle; L97.322 Non-pressure chronic ulcer of left ankle with fat layer exposed; E11.621 Type 2 diabetes mellitus with foot ulcer; I83.014 Varicose veins of right lower extremity with ulcer of heel and midfoot; L97.412 Non-pressure chronic ulcer of right heel and midfoot with fat layer exposed; E03.9 Hypothyroidism, unspecified; E66.9 Obesity, unspecified; M19.90 Unspecified osteoarthritis, unspecified site; Z68.1 Body mass index [BMI] 19.9 or less, adult; Z85.828 Personal history of other malignant neoplasm of skin
CPT/HCPCS: 97597; A6223; J7999; A4663; A6446

== ENCOUNTER 2019-07-27 10:48 | Outpatient (CLI) | payer BC ==
[2019-07-27] MEDS ORDERED: gentamicin 0.1% topical ointment 15gm TP ONE (11:28)
[2019-07-27] MEDS ORDERED: nystatin/triamcinolone cream 15gm TP ONE (11:28)
== END 2019-07-27 12:33 | disposition home or self-care (01) ==
LOC: WOUND CARE 10:48
PROVIDERS: ATTEND Surgery
DX: E11.622 Type 2 diabetes mellitus with other skin ulcer (principal); I83.013 Varicose veins of right lower extremity with ulcer of ankle; L97.311 Non-pressure chronic ulcer of right ankle limited to breakdown of skin; I83.023 Varicose veins of left lower extremity with ulcer of ankle; L97.322 Non-pressure chronic ulcer of left ankle with fat layer exposed; E11.621 Type 2 diabetes mellitus with foot ulcer; I83.014 Varicose veins of right lower extremity with ulcer of heel and midfoot; L97.412 Non-pressure chronic ulcer of right heel and midfoot with fat layer exposed; E03.9 Hypothyroidism, unspecified; E66.9 Obesity, unspecified; M19.90 Unspecified osteoarthritis, unspecified site; Z68.1 Body mass index [BMI] 19.9 or less, adult; Z85.828 Personal history of other malignant neoplasm of skin
CPT/HCPCS: 29581; J7999; A4663; A6154; A6441

== ENCOUNTER 2019-07-30 11:10 | Outpatient (CLI) | payer BC ==
[2019-07-30] MEDS ORDERED: nystatin/triamcinolone cream 15gm TP ONE (11:56)
[2019-07-30] MEDS ORDERED: gentamicin 0.1% topical ointment 15gm TP ONE (11:56)
== END 2019-07-30 13:05 | disposition home or self-care (01) ==
LOC: WOUND CARE 11:10
PROVIDERS: ATTEND Surgery
DX: E11.622 Type 2 diabetes mellitus with other skin ulcer (principal); I83.013 Varicose veins of right lower extremity with ulcer of ankle; L97.311 Non-pressure chronic ulcer of right ankle limited to breakdown of skin; I83.023 Varicose veins of left lower extremity with ulcer of ankle; L97.322 Non-pressure chronic ulcer of left ankle with fat layer exposed; E11.621 Type 2 diabetes mellitus with foot ulcer; I83.014 Varicose veins of right lower extremity with ulcer of heel and midfoot; L97.412 Non-pressure chronic ulcer of right heel and midfoot with fat layer exposed; E03.9 Hypothyroidism, unspecified; E66.9 Obesity, unspecified; M19.90 Unspecified osteoarthritis, unspecified site; Z68.1 Body mass index [BMI] 19.9 or less, adult; Z85.828 Personal history of other malignant neoplasm of skin
CPT/HCPCS: 29581; A6209; A6222; J7999; A6154; A6446

== ENCOUNTER 2019-08-03 11:00 | Outpatient (CLI) | payer BC ==
[2019-08-03] MEDS ORDERED: LIDOcaine 2% 5ml jelly ONE (12:08)
[2019-08-03] MEDS ORDERED: nystatin/triamcinolone cream 15gm TP ONE (12:30)
[2019-08-03] MEDS ORDERED: gentamicin 0.1% topical ointment 15gm TP ONE (12:31)
== END 2019-08-03 13:25 | disposition home or self-care (01) ==
LOC: WOUND CARE 11:00
PROVIDERS: ATTEND Surgery
DX: E11.622 Type 2 diabetes mellitus with other skin ulcer (principal); I83.013 Varicose veins of right lower extremity with ulcer of ankle; L97.311 Non-pressure chronic ulcer of right ankle limited to breakdown of skin; I83.023 Varicose veins of left lower extremity with ulcer of ankle; L97.322 Non-pressure chronic ulcer of left ankle with fat layer exposed; E11.621 Type 2 diabetes mellitus with foot ulcer; I83.014 Varicose veins of right lower extremity with ulcer of heel and midfoot; L97.412 Non-pressure chronic ulcer of right heel and midfoot with fat layer exposed; E03.9 Hypothyroidism, unspecified; E66.9 Obesity, unspecified; M19.90 Unspecified osteoarthritis, unspecified site; Z68.1 Body mass index [BMI] 19.9 or less, adult; Z85.828 Personal history of other malignant neoplasm of skin
CPT/HCPCS: 29581; A6209; A6223; J7999; A4663; A6154; A6446

== ENCOUNTER 2019-08-06 11:00 | Outpatient (CLI) | payer BC ==
[2019-08-06] MEDS ORDERED: nystatin/triamcinolone cream 15gm TP ONE (12:04)
== END 2019-08-06 12:50 | disposition home or self-care (01) ==
LOC: WOUND CARE 11:00
PROVIDERS: ATTEND Surgery
DX: E11.622 Type 2 diabetes mellitus with other skin ulcer (principal); I83.013 Varicose veins of right lower extremity with ulcer of ankle; L97.311 Non-pressure chronic ulcer of right ankle limited to breakdown of skin; I83.023 Varicose veins of left lower extremity with ulcer of ankle; L97.322 Non-pressure chronic ulcer of left ankle with fat layer exposed; E11.621 Type 2 diabetes mellitus with foot ulcer; I83.014 Varicose veins of right lower extremity with ulcer of heel and midfoot; L97.412 Non-pressure chronic ulcer of right heel and midfoot with fat layer exposed; E03.9 Hypothyroidism, unspecified; E66.9 Obesity, unspecified; M19.90 Unspecified osteoarthritis, unspecified site; Z68.1 Body mass index [BMI] 19.9 or less, adult; Z85.828 Personal history of other malignant neoplasm of skin
CPT/HCPCS: 29581; A6209; A6223; J7999; A4663; A6154; A6441

== ENCOUNTER 2019-08-10 11:55 | Outpatient (CLI) | payer BC ==
[2019-08-10] MEDS ORDERED: gentamicin 0.1% topical ointment 15gm TP ONE (12:21)
[2019-08-10] MEDS ORDERED: nystatin/triamcinolone cream 15gm TP ONE (12:23)
== END 2019-08-10 13:17 | disposition home or self-care (01) ==
LOC: WOUND CARE 11:55
PROVIDERS: ATTEND Surgery
DX: E11.622 Type 2 diabetes mellitus with other skin ulcer (principal); I83.013 Varicose veins of right lower extremity with ulcer of ankle; L97.311 Non-pressure chronic ulcer of right ankle limited to breakdown of skin; I83.023 Varicose veins of left lower extremity with ulcer of ankle; L97.322 Non-pressure chronic ulcer of left ankle with fat layer exposed; E11.621 Type 2 diabetes mellitus with foot ulcer; I83.014 Varicose veins of right lower extremity with ulcer of heel and midfoot; L97.412 Non-pressure chronic ulcer of right heel and midfoot with fat layer exposed; E03.9 Hypothyroidism, unspecified; E66.9 Obesity, unspecified; M19.90 Unspecified osteoarthritis, unspecified site; Z68.1 Body mass index [BMI] 19.9 or less, adult; Z85.828 Personal history of other malignant neoplasm of skin
CPT/HCPCS: 29581; A6209; A6223; J7999; A4663; A6154; A6446

== ENCOUNTER 2019-08-13 10:20 | Outpatient (CLI) | payer BC ==
[2019-08-13] MEDS ORDERED: nystatin/triamcinolone cream 15gm TP ONE (11:38)
== END 2019-08-13 12:43 | disposition home or self-care (01) ==
LOC: WOUND CARE 10:20 → EDSTATUS 10:30 → WOUND CARE 12:43
PROVIDERS: ATTEND Surgery
DX: E11.622 Type 2 diabetes mellitus with other skin ulcer (principal); I83.013 Varicose veins of right lower extremity with ulcer of ankle; L97.311 Non-pressure chronic ulcer of right ankle limited to breakdown of skin; I83.023 Varicose veins of left lower extremity with ulcer of ankle; L97.322 Non-pressure chronic ulcer of left ankle with fat layer exposed; E11.621 Type 2 diabetes mellitus with foot ulcer; I83.014 Varicose veins of right lower extremity with ulcer of heel and midfoot; L97.412 Non-pressure chronic ulcer of right heel and midfoot with fat layer exposed; E03.9 Hypothyroidism, unspecified; E66.9 Obesity, unspecified; M19.90 Unspecified osteoarthritis, unspecified site; Z68.1 Body mass index [BMI] 19.9 or less, adult; Z85.828 Personal history of other malignant neoplasm of skin
CPT/HCPCS: 29581; A6223; J7999; A4663; A6154; A6441

== ENCOUNTER 2019-08-17 10:30 | Outpatient (CLI) | payer BC ==
[2019-08-17] MEDS ORDERED: nystatin/triamcinolone cream 15gm TP ONE (11:15)
== END 2019-08-17 12:48 | disposition home or self-care (01) ==
LOC: WOUND CARE 10:30 → EDSTATUS 10:30 → WOUND CARE 12:48
PROVIDERS: ATTEND Surgery
DX: E11.622 Type 2 diabetes mellitus with other skin ulcer (principal); I83.013 Varicose veins of right lower extremity with ulcer of ankle; L97.311 Non-pressure chronic ulcer of right ankle limited to breakdown of skin; I83.023 Varicose veins of left lower extremity with ulcer of ankle; L97.322 Non-pressure chronic ulcer of left ankle with fat layer exposed; E11.621 Type 2 diabetes mellitus with foot ulcer; I83.014 Varicose veins of right lower extremity with ulcer of heel and midfoot; L97.412 Non-pressure chronic ulcer of right heel and midfoot with fat layer exposed; E03.9 Hypothyroidism, unspecified; E66.9 Obesity, unspecified; M19.90 Unspecified osteoarthritis, unspecified site; Z68.1 Body mass index [BMI] 19.9 or less, adult; Z85.828 Personal history of other malignant neoplasm of skin
CPT/HCPCS: 29581; A6209; A6223; J7999; A4663; A6154; A6446

== ENCOUNTER 2019-08-20 10:35 | Outpatient (CLI) | payer BC ==
[2019-08-20] MEDS ORDERED: nystatin/triamcinolone cream 15gm TP ONE (11:46)
== END 2019-08-20 13:00 | disposition home or self-care (01) ==
LOC: WOUND CARE 10:35
PROVIDERS: ATTEND Surgery
DX: T81.89XD Other complications of procedures, not elsewhere classified, subsequent encounter (principal); Z53.21 Procedure and treatment not carried out due to patient leaving prior to being seen by health care provider
CPT/HCPCS: J7999

== ENCOUNTER 2019-08-24 10:55 | Outpatient (CLI) | payer BC ==
[2019-08-24] MEDS ORDERED: LIDOcaine 2% 5ml jelly ONE (12:05)
[2019-08-24] MEDS ORDERED: nystatin/triamcinolone cream 15gm TP ONE (12:47)
== END 2019-08-24 13:48 | disposition home or self-care (01) ==
LOC: WOUND CARE 10:55
PROVIDERS: ATTEND Surgery
DX: E11.622 Type 2 diabetes mellitus with other skin ulcer (principal); I83.013 Varicose veins of right lower extremity with ulcer of ankle; L97.311 Non-pressure chronic ulcer of right ankle limited to breakdown of skin; I83.023 Varicose veins of left lower extremity with ulcer of ankle; L97.322 Non-pressure chronic ulcer of left ankle with fat layer exposed; E11.621 Type 2 diabetes mellitus with foot ulcer; I83.014 Varicose veins of right lower extremity with ulcer of heel and midfoot; L97.412 Non-pressure chronic ulcer of right heel and midfoot with fat layer exposed; E03.9 Hypothyroidism, unspecified; E66.9 Obesity, unspecified; M19.90 Unspecified osteoarthritis, unspecified site; Z68.1 Body mass index [BMI] 19.9 or less, adult; Z85.828 Personal history of other malignant neoplasm of skin
CPT/HCPCS: 29581; A6209; A6223; J7999; A4663; A6154; A6446

== ENCOUNTER 2019-08-31 10:10 | Day surgery (SDC) | payer BC ==
[2019-08-31] MEDS ORDERED: LIDOcaine 2% 5ml jelly ONE (10:58)
[2019-08-31] MEDS ORDERED: nystatin/triamcinolone cream 15gm TP ONE (11:17)
== END 2019-08-31 13:00 | disposition home or self-care (01) ==
LOC: WOUND CARE 10:10
PROVIDERS: ATTEND Surgery
DX: E11.622 Type 2 diabetes mellitus with other skin ulcer (principal); I83.013 Varicose veins of right lower extremity with ulcer of ankle; L97.311 Non-pressure chronic ulcer of right ankle limited to breakdown of skin; I83.023 Varicose veins of left lower extremity with ulcer of ankle; L97.322 Non-pressure chronic ulcer of left ankle with fat layer exposed; E11.621 Type 2 diabetes mellitus with foot ulcer; I83.014 Varicose veins of right lower extremity with ulcer of heel and midfoot; L97.412 Non-pressure chronic ulcer of right heel and midfoot with fat layer exposed; E03.9 Hypothyroidism, unspecified; E66.9 Obesity, unspecified; M19.90 Unspecified osteoarthritis, unspecified site; Z68.1 Body mass index [BMI] 19.9 or less, adult; Z85.828 Personal history of other malignant neoplasm of skin
CPT/HCPCS: 97597; 97598; A6209; J7999; A4663; A6154; A6446

== ENCOUNTER 2019-09-07 10:45 | Day surgery (SDC) | payer BC ==
[~2019-09-07 10:45] MED LIST changes: +LIDOcaine 2% 5ml jelly ONE; +gentamicin 0.1% topical ointment 15gm TP ONE; +nystatin/triamcinolone cream 15gm TP ONE
== END 2019-09-07 11:25 | disposition home or self-care (01) ==
LOC: WOUND CARE 10:45
PROVIDERS: ATTEND Surgery
DX: E11.622 Type 2 diabetes mellitus with other skin ulcer (principal); I83.013 Varicose veins of right lower extremity with ulcer of ankle; L97.312 Non-pressure chronic ulcer of right ankle with fat layer exposed; I83.023 Varicose veins of left lower extremity with ulcer of ankle; L97.322 Non-pressure chronic ulcer of left ankle with fat layer exposed; E11.621 Type 2 diabetes mellitus with foot ulcer; I83.014 Varicose veins of right lower extremity with ulcer of heel and midfoot; L97.412 Non-pressure chronic ulcer of right heel and midfoot with fat layer exposed; E03.9 Hypothyroidism, unspecified; E66.9 Obesity, unspecified; M19.90 Unspecified osteoarthritis, unspecified site; Z68.1 Body mass index [BMI] 19.9 or less, adult; Z85.828 Personal history of other malignant neoplasm of skin
CPT/HCPCS: 87070; 87075; 87077; 87102; 87186; 97597; 97598; A6209; A6223; J7999; 29581; 97602; A4663; A6154; A6446

== ENCOUNTER 2019-09-10 08:40 | Outpatient (CLI) | payer BC ==
[~2019-09-10 08:40] MED LIST changes: -LIDOcaine 2% 5ml jelly ONE; -gentamicin 0.1% topical ointment 15gm TP ONE; -nystatin/triamcinolone cream 15gm TP ONE
[2019-09-10] MEDS ORDERED: nystatin/triamcinolone cream 15gm TP ONE (08:51)
[2019-09-10] MEDS ORDERED: gentamicin 0.1% topical ointment 15gm TP ONE (08:51)
== END 2019-09-10 10:05 | disposition home or self-care (01) ==
LOC: WOUND CARE 08:40 → EDSTATUS 10:00 → WOUND CARE 10:05
PROVIDERS: ATTEND Surgery
DX: E11.622 Type 2 diabetes mellitus with other skin ulcer (principal); I83.013 Varicose veins of right lower extremity with ulcer of ankle; L97.312 Non-pressure chronic ulcer of right ankle with fat layer exposed; I83.023 Varicose veins of left lower extremity with ulcer of ankle; L97.322 Non-pressure chronic ulcer of left ankle with fat layer exposed; E11.621 Type 2 diabetes mellitus with foot ulcer; I83.014 Varicose veins of right lower extremity with ulcer of heel and midfoot; L97.412 Non-pressure chronic ulcer of right heel and midfoot with fat layer exposed; E03.9 Hypothyroidism, unspecified; E66.9 Obesity, unspecified; M19.90 Unspecified osteoarthritis, unspecified site; Z68.1 Body mass index [BMI] 19.9 or less, adult; Z85.828 Personal history of other malignant neoplasm of skin
CPT/HCPCS: 29581; A6209; A6223; J7999; A4663; A6154; A6446

== ENCOUNTER 2019-09-14 11:18 | Outpatient (CLI) | payer BC ==
[2019-09-14] MEDS ORDERED: LIDOcaine 2% 5ml jelly ONE (11:50)
[2019-09-14] MEDS ORDERED: gentamicin 0.1% topical ointment 15gm TP ONE (12:03)
[2019-09-14] MEDS ORDERED: nystatin/triamcinolone cream 15gm TP ONE (12:03)
== END 2019-09-14 13:02 | disposition home or self-care (01) ==
LOC: WOUND CARE 11:18
PROVIDERS: ATTEND Surgery
DX: E11.622 Type 2 diabetes mellitus with other skin ulcer (principal); I83.013 Varicose veins of right lower extremity with ulcer of ankle; L97.312 Non-pressure chronic ulcer of right ankle with fat layer exposed; I83.023 Varicose veins of left lower extremity with ulcer of ankle; L97.322 Non-pressure chronic ulcer of left ankle with fat layer exposed; E11.621 Type 2 diabetes mellitus with foot ulcer; I83.014 Varicose veins of right lower extremity with ulcer of heel and midfoot; L97.412 Non-pressure chronic ulcer of right heel and midfoot with fat layer exposed; E03.9 Hypothyroidism, unspecified; E66.9 Obesity, unspecified; M19.90 Unspecified osteoarthritis, unspecified site; Z68.1 Body mass index [BMI] 19.9 or less, adult; Z85.828 Personal history of other malignant neoplasm of skin
CPT/HCPCS: 29581; A6222; J7999; A6154; A6441; A6446

== ENCOUNTER 2019-09-17 09:30 | Outpatient (CLI) | payer BC ==
[2019-09-17] MEDS ORDERED: gentamicin 0.1% topical ointment 15gm TP ONE (10:22)
[2019-09-17] MEDS ORDERED: nystatin/triamcinolone cream 15gm TP ONE (10:24)
== END 2019-09-17 11:51 | disposition home or self-care (01) ==
LOC: WOUND CARE 09:30
PROVIDERS: ATTEND Surgery
DX: E11.622 Type 2 diabetes mellitus with other skin ulcer (principal); I83.013 Varicose veins of right lower extremity with ulcer of ankle; L97.312 Non-pressure chronic ulcer of right ankle with fat layer exposed; I83.023 Varicose veins of left lower extremity with ulcer of ankle; L97.322 Non-pressure chronic ulcer of left ankle with fat layer exposed; E11.621 Type 2 diabetes mellitus with foot ulcer; I83.014 Varicose veins of right lower extremity with ulcer of heel and midfoot; L97.412 Non-pressure chronic ulcer of right heel and midfoot with fat layer exposed; E03.9 Hypothyroidism, unspecified; E66.9 Obesity, unspecified; M19.90 Unspecified osteoarthritis, unspecified site; Z68.1 Body mass index [BMI] 19.9 or less, adult; Z85.828 Personal history of other malignant neoplasm of skin
CPT/HCPCS: 29581; A6223; J7999; A4663; A6154; A6446

== ENCOUNTER 2019-09-21 11:15 | Outpatient (CLI) | payer BC ==
[2019-09-21] MEDS ORDERED: nystatin/triamcinolone cream 15gm TP ONE (12:03)
[2019-09-21] MEDS ORDERED: gentamicin 0.1% topical ointment 15gm TP ONE (12:04)
== END 2019-09-21 13:07 | disposition home or self-care (01) ==
LOC: WOUND CARE 11:15
PROVIDERS: ATTEND Surgery
DX: E11.622 Type 2 diabetes mellitus with other skin ulcer (principal); I83.013 Varicose veins of right lower extremity with ulcer of ankle; L97.312 Non-pressure chronic ulcer of right ankle with fat layer exposed; I83.023 Varicose veins of left lower extremity with ulcer of ankle; L97.322 Non-pressure chronic ulcer of left ankle with fat layer exposed; E11.621 Type 2 diabetes mellitus with foot ulcer; I83.014 Varicose veins of right lower extremity with ulcer of heel and midfoot; L97.412 Non-pressure chronic ulcer of right heel and midfoot with fat layer exposed; E03.9 Hypothyroidism, unspecified; E66.9 Obesity, unspecified; M19.90 Unspecified osteoarthritis, unspecified site; Z68.1 Body mass index [BMI] 19.9 or less, adult; Z85.828 Personal history of other malignant neoplasm of skin
CPT/HCPCS: 29581; A6223; J7999; A4663; A6446

== ENCOUNTER 2019-09-28 10:46 | Outpatient (CLI) | payer BC ==
[2019-09-28] MEDS ORDERED: gentamicin 0.1% topical ointment 15gm TP ONE (12:04)
[2019-09-28] MEDS ORDERED: nystatin/triamcinolone cream 15gm TP ONE (12:04)
== END 2019-09-28 13:15 | disposition home or self-care (01) ==
LOC: WOUND CARE 10:46
PROVIDERS: ATTEND Surgery
DX: E11.622 Type 2 diabetes mellitus with other skin ulcer (principal); I83.013 Varicose veins of right lower extremity with ulcer of ankle; L97.312 Non-pressure chronic ulcer of right ankle with fat layer exposed; I83.023 Varicose veins of left lower extremity with ulcer of ankle; L97.322 Non-pressure chronic ulcer of left ankle with fat layer exposed; E11.621 Type 2 diabetes mellitus with foot ulcer; I83.014 Varicose veins of right lower extremity with ulcer of heel and midfoot; L97.412 Non-pressure chronic ulcer of right heel and midfoot with fat layer exposed; E03.9 Hypothyroidism, unspecified; E66.9 Obesity, unspecified; M19.90 Unspecified osteoarthritis, unspecified site; Z68.1 Body mass index [BMI] 19.9 or less, adult; Z85.828 Personal history of other malignant neoplasm of skin
CPT/HCPCS: 29581; J7999; A4663; A6441

== ENCOUNTER 2019-10-05 09:53 | Day surgery (SDC) | payer BC ==
[2019-10-05] MEDS ORDERED: LIDOcaine/PRILOcaine 5gm cream TP ONE (10:36)
[2019-10-05] MEDS ORDERED: gentamicin 0.1% topical ointment 15gm TP ONE (12:05)
[2019-10-05] MEDS ORDERED: nystatin/triamcinolone cream 15gm TP ONE (12:05)
== END 2019-10-05 12:14 | disposition home or self-care (01) ==
LOC: WOUND CARE 09:53
PROVIDERS: ATTEND Surgery
DX: E11.622 Type 2 diabetes mellitus with other skin ulcer (principal); I83.013 Varicose veins of right lower extremity with ulcer of ankle; L97.312 Non-pressure chronic ulcer of right ankle with fat layer exposed; I83.023 Varicose veins of left lower extremity with ulcer of ankle; L97.322 Non-pressure chronic ulcer of left ankle with fat layer exposed; E11.621 Type 2 diabetes mellitus with foot ulcer; I83.014 Varicose veins of right lower extremity with ulcer of heel and midfoot; L97.412 Non-pressure chronic ulcer of right heel and midfoot with fat layer exposed; E03.9 Hypothyroidism, unspecified; E66.9 Obesity, unspecified; M19.90 Unspecified osteoarthritis, unspecified site; Z85.828 Personal history of other malignant neoplasm of skin; Z68.31 Body mass index [BMI] 31.0-31.9, adult
CPT/HCPCS: 97597; 97598; A6209; A6223; J7999; A4663; A6154; A6446

== ENCOUNTER 2019-10-08 10:48 | Day surgery (SDC) | payer BC ==
[2019-10-08] MEDS ORDERED: gentamicin 0.1% topical ointment 15gm TP ONE ×2 (12:10→12:13)
[2019-10-08] MEDS ORDERED: nystatin/triamcinolone cream 15gm TP ONE ×2 (12:10→12:12)
== END 2019-10-08 13:01 | disposition home or self-care (01) ==
LOC: WOUND CARE 10:48
PROVIDERS: ATTEND Surgery
DX: E11.622 Type 2 diabetes mellitus with other skin ulcer (principal); I83.013 Varicose veins of right lower extremity with ulcer of ankle; L97.312 Non-pressure chronic ulcer of right ankle with fat layer exposed; I83.023 Varicose veins of left lower extremity with ulcer of ankle; L97.322 Non-pressure chronic ulcer of left ankle with fat layer exposed; E11.621 Type 2 diabetes mellitus with foot ulcer; I83.014 Varicose veins of right lower extremity with ulcer of heel and midfoot; L97.412 Non-pressure chronic ulcer of right heel and midfoot with fat layer exposed; E03.9 Hypothyroidism, unspecified; E66.9 Obesity, unspecified; M19.90 Unspecified osteoarthritis, unspecified site; Z85.828 Personal history of other malignant neoplasm of skin; Z68.31 Body mass index [BMI] 31.0-31.9, adult
CPT/HCPCS: 29581; A6209; A6223; J7999; A4663; A6154; A6446

== ENCOUNTER 2019-10-12 10:10 | Outpatient (CLI) | payer BC ==
[2019-10-12] MEDS ORDERED: nystatin/triamcinolone cream 15gm TP ONE (11:42)
[2019-10-12] MEDS ORDERED: gentamicin 0.1% topical ointment 15gm TP ONE (11:42)
== END 2019-10-12 12:21 | disposition home or self-care (01) ==
LOC: WOUND CARE 10:10
PROVIDERS: ATTEND Surgery
DX: E11.622 Type 2 diabetes mellitus with other skin ulcer (principal); I83.013 Varicose veins of right lower extremity with ulcer of ankle; L97.312 Non-pressure chronic ulcer of right ankle with fat layer exposed; I83.023 Varicose veins of left lower extremity with ulcer of ankle; L97.322 Non-pressure chronic ulcer of left ankle with fat layer exposed; E11.621 Type 2 diabetes mellitus with foot ulcer; I83.014 Varicose veins of right lower extremity with ulcer of heel and midfoot; L97.412 Non-pressure chronic ulcer of right heel and midfoot with fat layer exposed; E03.9 Hypothyroidism, unspecified; E66.9 Obesity, unspecified; M19.90 Unspecified osteoarthritis, unspecified site; Z85.828 Personal history of other malignant neoplasm of skin; Z68.31 Body mass index [BMI] 31.0-31.9, adult
CPT/HCPCS: 29581; A6209; A6223; J7999; A4663; A6154; A6441

== ENCOUNTER 2019-10-15 11:14 | Outpatient (CLI) | payer BC | END 2019-10-15 13:29 | disposition home or self-care (01) | LOC: WOUND CARE 11:14 | PROVIDERS: ATTEND Surgery | DX: E11.622 Type 2 diabetes mellitus with other skin ulcer (principal); I83.013 Varicose veins of right lower extremity with ulcer of ankle; L97.312 Non-pressure chronic ulcer of right ankle with fat layer exposed; I83.023 Varicose veins of left lower extremity with ulcer of ankle; L97.322 Non-pressure chronic ulcer of left ankle with fat layer exposed; E11.621 Type 2 diabetes mellitus with foot ulcer; I83.014 Varicose veins of right lower extremity with ulcer of heel and midfoot; L97.412 Non-pressure chronic ulcer of right heel and midfoot with fat layer exposed; E03.9 Hypothyroidism, unspecified; E66.9 Obesity, unspecified; M19.90 Unspecified osteoarthritis, unspecified site; Z85.828 Personal history of other malignant neoplasm of skin; Z68.31 Body mass index [BMI] 31.0-31.9, adult | CPT/HCPCS: 29581; A6209; A4663; A6154; A6446 ==

== ENCOUNTER 2019-10-21 11:20 | Outpatient (CLI) | payer BC ==
[~2019-10-21 11:20] MED LIST changes: +gentamicin 0.1% topical ointment 15gm TP ONE; +nystatin/triamcinolone cream 15gm TP ONE
[2019-10-21] MEDS ORDERED: gentamicin 0.1% topical ointment 15gm TP ONE (11:50)
[2019-10-21] MEDS ORDERED: nystatin/triamcinolone cream 15gm TP ONE (11:51)
== END 2019-10-21 12:53 | disposition home or self-care (01) ==
LOC: WOUND CARE 11:20
PROVIDERS: ATTEND Nurse Practitioner Family
DX: E11.622 Type 2 diabetes mellitus with other skin ulcer (principal); I83.013 Varicose veins of right lower extremity with ulcer of ankle; L97.312 Non-pressure chronic ulcer of right ankle with fat layer exposed; I83.023 Varicose veins of left lower extremity with ulcer of ankle; L97.322 Non-pressure chronic ulcer of left ankle with fat layer exposed; E11.621 Type 2 diabetes mellitus with foot ulcer; I83.014 Varicose veins of right lower extremity with ulcer of heel and midfoot; L97.412 Non-pressure chronic ulcer of right heel and midfoot with fat layer exposed; E03.9 Hypothyroidism, unspecified; E66.9 Obesity, unspecified; M19.90 Unspecified osteoarthritis, unspecified site; Z85.828 Personal history of other malignant neoplasm of skin; Z68.31 Body mass index [BMI] 31.0-31.9, adult
CPT/HCPCS: 29581; A6209; A6223; J7999; A4663; A6154; A6441

== ENCOUNTER 2019-10-29 11:00 | Day surgery (SDC) | payer BC ==
[~2019-10-29 11:00] MED LIST changes: -gentamicin 0.1% topical ointment 15gm TP ONE; -nystatin/triamcinolone cream 15gm TP ONE
[2019-10-29] MEDS ORDERED: LIDOcaine 2% 5ml jelly ONE (11:29)
[2019-10-29] MEDS ORDERED: gentamicin 0.1% topical ointment 15gm TP ONE (12:03)
[2019-10-29] MEDS ORDERED: nystatin/triamcinolone cream 15gm TP ONE (12:03)
== END 2019-10-29 12:45 | disposition home or self-care (01) ==
LOC: WOUND CARE 11:00
PROVIDERS: ATTEND Surgery
DX: E11.622 Type 2 diabetes mellitus with other skin ulcer (principal); I83.013 Varicose veins of right lower extremity with ulcer of ankle; L97.312 Non-pressure chronic ulcer of right ankle with fat layer exposed; I83.023 Varicose veins of left lower extremity with ulcer of ankle; L97.322 Non-pressure chronic ulcer of left ankle with fat layer exposed; E11.621 Type 2 diabetes mellitus with foot ulcer; I83.014 Varicose veins of right lower extremity with ulcer of heel and midfoot; L97.412 Non-pressure chronic ulcer of right heel and midfoot with fat layer exposed; E03.9 Hypothyroidism, unspecified; E66.9 Obesity, unspecified; M19.90 Unspecified osteoarthritis, unspecified site; Z85.828 Personal history of other malignant neoplasm of skin; Z68.31 Body mass index [BMI] 31.0-31.9, adult
CPT/HCPCS: 29581; 97597; 97598; A6209; A6223; J7999; A4663; A6154; A6446

== ENCOUNTER 2019-11-02 11:00 | Outpatient (CLI) | payer BC ==
[2019-11-02] MEDS ORDERED: gentamicin 0.1% topical ointment 15gm TP ONE (11:44)
[2019-11-02] MEDS ORDERED: nystatin/triamcinolone cream 15gm TP ONE (11:44)
== END 2019-11-02 12:45 | disposition home or self-care (01) ==
LOC: WOUND CARE 11:00
PROVIDERS: ATTEND Surgery
DX: E11.622 Type 2 diabetes mellitus with other skin ulcer (principal); I83.013 Varicose veins of right lower extremity with ulcer of ankle; L97.312 Non-pressure chronic ulcer of right ankle with fat layer exposed; I83.023 Varicose veins of left lower extremity with ulcer of ankle; L97.322 Non-pressure chronic ulcer of left ankle with fat layer exposed; E11.621 Type 2 diabetes mellitus with foot ulcer; I83.014 Varicose veins of right lower extremity with ulcer of heel and midfoot; L97.412 Non-pressure chronic ulcer of right heel and midfoot with fat layer exposed; E03.9 Hypothyroidism, unspecified; E66.9 Obesity, unspecified; M19.90 Unspecified osteoarthritis, unspecified site; Z85.828 Personal history of other malignant neoplasm of skin; Z68.31 Body mass index [BMI] 31.0-31.9, adult
CPT/HCPCS: 29581; A6209; A6223; J7999; A4663; A6154; A6446

== ENCOUNTER 2019-11-09 09:15 | Outpatient (CLI) | payer BC ==
[2019-11-09] MEDS ORDERED: LIDOcaine 2% 5ml jelly ONE (09:48)
[2019-11-09] MEDS ORDERED: nystatin/triamcinolone cream 15gm TP ONE (10:00)
[2019-11-09] MEDS ORDERED: gentamicin 0.1% topical ointment 15gm TP ONE (10:00)
== END 2019-11-09 10:43 | disposition home or self-care (01) ==
LOC: WOUND CARE 09:15
PROVIDERS: ATTEND Nurse Practitioner Family
DX: E11.622 Type 2 diabetes mellitus with other skin ulcer (principal); I83.013 Varicose veins of right lower extremity with ulcer of ankle; L97.312 Non-pressure chronic ulcer of right ankle with fat layer exposed; I83.023 Varicose veins of left lower extremity with ulcer of ankle; L97.322 Non-pressure chronic ulcer of left ankle with fat layer exposed; E11.621 Type 2 diabetes mellitus with foot ulcer; I83.014 Varicose veins of right lower extremity with ulcer of heel and midfoot; L97.412 Non-pressure chronic ulcer of right heel and midfoot with fat layer exposed; E03.9 Hypothyroidism, unspecified; E66.9 Obesity, unspecified; M19.90 Unspecified osteoarthritis, unspecified site; Z85.828 Personal history of other malignant neoplasm of skin; Z68.31 Body mass index [BMI] 31.0-31.9, adult
CPT/HCPCS: 29581; A6209; J7999; A4663; A6154; A6446

== ENCOUNTER 2019-11-12 10:15 | Outpatient (CLI) | payer BC ==
[2019-11-12] MEDS ORDERED: gentamicin 0.1% topical ointment 15gm TP ONE (11:23)
[2019-11-12] MEDS ORDERED: nystatin/triamcinolone cream 15gm TP ONE (11:24)
== END 2019-11-12 12:21 | disposition home or self-care (01) ==
LOC: WOUND CARE 10:15
PROVIDERS: ATTEND Surgery
DX: E11.622 Type 2 diabetes mellitus with other skin ulcer (principal); I83.013 Varicose veins of right lower extremity with ulcer of ankle; L97.312 Non-pressure chronic ulcer of right ankle with fat layer exposed; I83.023 Varicose veins of left lower extremity with ulcer of ankle; L97.322 Non-pressure chronic ulcer of left ankle with fat layer exposed; E11.621 Type 2 diabetes mellitus with foot ulcer; I83.014 Varicose veins of right lower extremity with ulcer of heel and midfoot; L97.412 Non-pressure chronic ulcer of right heel and midfoot with fat layer exposed; E03.9 Hypothyroidism, unspecified; E66.9 Obesity, unspecified; M19.90 Unspecified osteoarthritis, unspecified site; Z85.828 Personal history of other malignant neoplasm of skin; Z68.31 Body mass index [BMI] 31.0-31.9, adult
CPT/HCPCS: 29581; A6209; A6223; J7999; A4663; A6154; A6446

== ENCOUNTER 2019-11-16 09:35 | Outpatient (CLI) | payer BC ==
[~2019-11-16 09:35] MED LIST changes: +LIDOcaine 2% 5ml jelly ONE
[2019-11-16] MEDS ORDERED: gentamicin 0.1% topical ointment 15gm TP ONE (10:22)
[2019-11-16] MEDS ORDERED: nystatin/triamcinolone cream 15gm TP ONE (10:23)
== END 2019-11-16 11:36 | disposition home or self-care (01) ==
LOC: WOUND CARE 09:35
PROVIDERS: ATTEND Nurse Practitioner Family
DX: E11.622 Type 2 diabetes mellitus with other skin ulcer (principal); I83.013 Varicose veins of right lower extremity with ulcer of ankle; L97.312 Non-pressure chronic ulcer of right ankle with fat layer exposed; I83.023 Varicose veins of left lower extremity with ulcer of ankle; L97.322 Non-pressure chronic ulcer of left ankle with fat layer exposed; E11.621 Type 2 diabetes mellitus with foot ulcer; I83.014 Varicose veins of right lower extremity with ulcer of heel and midfoot; L97.412 Non-pressure chronic ulcer of right heel and midfoot with fat layer exposed; E03.9 Hypothyroidism, unspecified; E66.9 Obesity, unspecified; M19.90 Unspecified osteoarthritis, unspecified site; Z85.828 Personal history of other malignant neoplasm of skin; Z68.31 Body mass index [BMI] 31.0-31.9, adult
CPT/HCPCS: 29581; A6223; J7999; A4663; A6154; A6446

== ENCOUNTER 2019-11-19 10:20 | Outpatient (CLI) | payer BC ==
[~2019-11-19 10:20] MED LIST changes: -LIDOcaine 2% 5ml jelly ONE
[2019-11-19] MEDS ORDERED: LIDOcaine 2% 5ml jelly ONE (10:59)
[2019-11-19] MEDS ORDERED: gentamicin 0.1% topical ointment 15gm TP ONE (11:56)
[2019-11-19] MEDS ORDERED: nystatin/triamcinolone cream 15gm TP ONE (11:56)
== END 2019-11-19 12:57 | disposition home or self-care (01) ==
LOC: WOUND CARE 10:20
PROVIDERS: ATTEND Surgery
DX: E11.622 Type 2 diabetes mellitus with other skin ulcer (principal); I83.013 Varicose veins of right lower extremity with ulcer of ankle; L97.312 Non-pressure chronic ulcer of right ankle with fat layer exposed; I83.023 Varicose veins of left lower extremity with ulcer of ankle; L97.322 Non-pressure chronic ulcer of left ankle with fat layer exposed; E11.621 Type 2 diabetes mellitus with foot ulcer; I83.014 Varicose veins of right lower extremity with ulcer of heel and midfoot; L97.412 Non-pressure chronic ulcer of right heel and midfoot with fat layer exposed; E03.9 Hypothyroidism, unspecified; E66.9 Obesity, unspecified; M19.90 Unspecified osteoarthritis, unspecified site; Z85.828 Personal history of other malignant neoplasm of skin; Z68.31 Body mass index [BMI] 31.0-31.9, adult
CPT/HCPCS: 29581; A6209; A6223; J7999; A4663; A6154; A6446

== ENCOUNTER 2019-11-23 09:35 | Outpatient (CLI) | payer BC ==
[2019-11-23] MEDS ORDERED: gentamicin 0.1% topical ointment 15gm TP ONE (10:24)
[2019-11-23] MEDS ORDERED: nystatin/triamcinolone cream 15gm TP ONE (10:24)
== END 2019-11-23 11:13 | disposition home or self-care (01) ==
LOC: WOUND CARE 09:35
PROVIDERS: ATTEND Nurse Practitioner Family
DX: E11.622 Type 2 diabetes mellitus with other skin ulcer (principal); I83.013 Varicose veins of right lower extremity with ulcer of ankle; L97.312 Non-pressure chronic ulcer of right ankle with fat layer exposed; I83.023 Varicose veins of left lower extremity with ulcer of ankle; L97.322 Non-pressure chronic ulcer of left ankle with fat layer exposed; E11.621 Type 2 diabetes mellitus with foot ulcer; I83.014 Varicose veins of right lower extremity with ulcer of heel and midfoot; L97.412 Non-pressure chronic ulcer of right heel and midfoot with fat layer exposed; E03.9 Hypothyroidism, unspecified; E66.9 Obesity, unspecified; M19.90 Unspecified osteoarthritis, unspecified site; Z85.828 Personal history of other malignant neoplasm of skin; Z68.31 Body mass index [BMI] 31.0-31.9, adult
CPT/HCPCS: 29581; A6209; A6223; J7999; A4663; A6154; A6446

== ENCOUNTER 2019-11-26 10:00 | Day surgery (SDC) | payer BC ==
[2019-11-26] MEDS ORDERED: LIDOcaine 2% 5ml jelly ONE ×2 (10:45)
[2019-11-26] MEDS ORDERED: gentamicin 0.1% topical ointment 15gm TP ONE (11:19)
[2019-11-26] MEDS ORDERED: nystatin/triamcinolone cream 15gm TP ONE (11:20)
== END 2019-11-26 12:19 | disposition home or self-care (01) ==
LOC: WOUND CARE 10:00
PROVIDERS: ATTEND Surgery
DX: E11.622 Type 2 diabetes mellitus with other skin ulcer (principal); I83.013 Varicose veins of right lower extremity with ulcer of ankle; L97.312 Non-pressure chronic ulcer of right ankle with fat layer exposed; I83.023 Varicose veins of left lower extremity with ulcer of ankle; L97.322 Non-pressure chronic ulcer of left ankle with fat layer exposed; E11.621 Type 2 diabetes mellitus with foot ulcer; I83.014 Varicose veins of right lower extremity with ulcer of heel and midfoot; L97.412 Non-pressure chronic ulcer of right heel and midfoot with fat layer exposed; E03.9 Hypothyroidism, unspecified; E66.9 Obesity, unspecified; M19.90 Unspecified osteoarthritis, unspecified site; Z85.828 Personal history of other malignant neoplasm of skin; Z68.31 Body mass index [BMI] 31.0-31.9, adult
CPT/HCPCS: 15271; 15272; 97597; 97598; A6209; A6223; J7999; Q4186; A4663; A6154; A6446

== ENCOUNTER 2019-11-30 09:03 | Outpatient (CLI) | payer BC ==
[2019-11-30] MEDS ORDERED: nystatin/triamcinolone cream 15gm TP ONE (09:22)
[2019-11-30] MEDS ORDERED: gentamicin 0.1% topical ointment 15gm TP ONE (09:22)
== END 2019-11-30 10:50 | disposition home or self-care (01) ==
LOC: WOUND CARE 09:03
PROVIDERS: ATTEND Nurse Practitioner Family
DX: E11.622 Type 2 diabetes mellitus with other skin ulcer (principal); I83.013 Varicose veins of right lower extremity with ulcer of ankle; L97.312 Non-pressure chronic ulcer of right ankle with fat layer exposed; I83.023 Varicose veins of left lower extremity with ulcer of ankle; L97.322 Non-pressure chronic ulcer of left ankle with fat layer exposed; E11.621 Type 2 diabetes mellitus with foot ulcer; I83.014 Varicose veins of right lower extremity with ulcer of heel and midfoot; L97.412 Non-pressure chronic ulcer of right heel and midfoot with fat layer exposed; E03.9 Hypothyroidism, unspecified; E66.9 Obesity, unspecified; M19.90 Unspecified osteoarthritis, unspecified site; Z85.828 Personal history of other malignant neoplasm of skin; Z68.31 Body mass index [BMI] 31.0-31.9, adult
CPT/HCPCS: 29581; J7999

== ENCOUNTER 2019-12-07 10:47 | Outpatient (CLI) | payer BC ==
[2019-12-07] MEDS ORDERED: gentamicin 0.1% topical ointment 15gm TP ONE (11:32)
[2019-12-07] MEDS ORDERED: mupirocin 2% ointment 22GM ONE (11:54)
== END 2019-12-07 12:00 | disposition home or self-care (01) ==
LOC: WOUND CARE 10:47
PROVIDERS: ATTEND Surgery
DX: E11.622 Type 2 diabetes mellitus with other skin ulcer (principal); I83.013 Varicose veins of right lower extremity with ulcer of ankle; L97.312 Non-pressure chronic ulcer of right ankle with fat layer exposed; I83.023 Varicose veins of left lower extremity with ulcer of ankle; L97.322 Non-pressure chronic ulcer of left ankle with fat layer exposed; E11.621 Type 2 diabetes mellitus with foot ulcer; I83.014 Varicose veins of right lower extremity with ulcer of heel and midfoot; L97.412 Non-pressure chronic ulcer of right heel and midfoot with fat layer exposed; E03.9 Hypothyroidism, unspecified; E66.9 Obesity, unspecified; M19.90 Unspecified osteoarthritis, unspecified site; Z85.828 Personal history of other malignant neoplasm of skin; Z68.31 Body mass index [BMI] 31.0-31.9, adult
CPT/HCPCS: 29581

== ENCOUNTER 2019-12-17 10:40 | Day surgery (SDC) | payer BC ==
[2019-12-17] MEDS ORDERED: LIDOcaine 2% 5ml jelly ONE (11:24)
[2019-12-17] MEDS ORDERED: gentamicin 0.1% topical ointment 15gm TP ONE (11:53)
[2019-12-17] MEDS ORDERED: nystatin/triamcinolone cream 15gm TP ONE (11:55)
== END 2019-12-17 12:47 | disposition home or self-care (01) ==
LOC: WOUND CARE 10:40
PROVIDERS: ATTEND Surgery
DX: E11.622 Type 2 diabetes mellitus with other skin ulcer (principal); I83.013 Varicose veins of right lower extremity with ulcer of ankle; L97.312 Non-pressure chronic ulcer of right ankle with fat layer exposed; I83.023 Varicose veins of left lower extremity with ulcer of ankle; L97.322 Non-pressure chronic ulcer of left ankle with fat layer exposed; E11.621 Type 2 diabetes mellitus with foot ulcer; I83.014 Varicose veins of right lower extremity with ulcer of heel and midfoot; L97.412 Non-pressure chronic ulcer of right heel and midfoot with fat layer exposed; E03.9 Hypothyroidism, unspecified; E66.9 Obesity, unspecified; R07.81 Pleurodynia; M19.90 Unspecified osteoarthritis, unspecified site; Z85.828 Personal history of other malignant neoplasm of skin; Z68.31 Body mass index [BMI] 31.0-31.9, adult
CPT/HCPCS: 29581; J7999

== ENCOUNTER 2019-12-21 11:00 | Day surgery (SDC) | payer BC ==
[2019-12-21] MEDS ORDERED: LIDOcaine 2% 5ml jelly ONE (11:32)
[2019-12-21] MEDS ORDERED: gentamicin 0.1% topical ointment 15gm TP ONE (11:53)
[2019-12-21] MEDS ORDERED: nystatin/triamcinolone cream 15gm TP ONE (12:00)
== END 2019-12-21 13:00 | disposition home or self-care (01) ==
LOC: WOUND CARE 11:00
PROVIDERS: ATTEND Nurse Practitioner Family
DX: E11.622 Type 2 diabetes mellitus with other skin ulcer (principal); I83.013 Varicose veins of right lower extremity with ulcer of ankle; L97.312 Non-pressure chronic ulcer of right ankle with fat layer exposed; I83.023 Varicose veins of left lower extremity with ulcer of ankle; L97.322 Non-pressure chronic ulcer of left ankle with fat layer exposed; E11.621 Type 2 diabetes mellitus with foot ulcer; I83.014 Varicose veins of right lower extremity with ulcer of heel and midfoot; L97.412 Non-pressure chronic ulcer of right heel and midfoot with fat layer exposed; E03.9 Hypothyroidism, unspecified; E66.9 Obesity, unspecified; R07.81 Pleurodynia; M19.90 Unspecified osteoarthritis, unspecified site; Z85.828 Personal history of other malignant neoplasm of skin; Z68.31 Body mass index [BMI] 31.0-31.9, adult
CPT/HCPCS: 15271; J7999; Q4186

== ENCOUNTER 2019-12-24 09:49 | Day surgery (SDC) | payer BC ==
[2019-12-24] MEDS ORDERED: LIDOcaine 2% 5ml jelly ONE ×2 (10:48→11:02)
[2019-12-24] MEDS ORDERED: gentamicin 0.1% topical ointment 15gm TP ONE (11:49)
[2019-12-24] MEDS ORDERED: nystatin/triamcinolone cream 15gm TP ONE (11:49)
== END 2019-12-24 12:43 | disposition home or self-care (01) ==
LOC: WOUND CARE 09:49
PROVIDERS: ATTEND Surgery
DX: E11.622 Type 2 diabetes mellitus with other skin ulcer (principal); I83.013 Varicose veins of right lower extremity with ulcer of ankle; L97.312 Non-pressure chronic ulcer of right ankle with fat layer exposed; I83.023 Varicose veins of left lower extremity with ulcer of ankle; L97.322 Non-pressure chronic ulcer of left ankle with fat layer exposed; E11.621 Type 2 diabetes mellitus with foot ulcer; I83.014 Varicose veins of right lower extremity with ulcer of heel and midfoot; L97.412 Non-pressure chronic ulcer of right heel and midfoot with fat layer exposed; E03.9 Hypothyroidism, unspecified; E66.9 Obesity, unspecified; R07.81 Pleurodynia; M19.90 Unspecified osteoarthritis, unspecified site; Z85.828 Personal history of other malignant neoplasm of skin; Z68.31 Body mass index [BMI] 31.0-31.9, adult
CPT/HCPCS: 15271; 29581; J7999; Q4186

== ENCOUNTER 2019-12-31 10:49 | Outpatient (CLI) | payer BC ==
[2019-12-31] MEDS ORDERED: nystatin/triamcinolone cream 15gm TP ONE (12:04)
[2019-12-31] MEDS ORDERED: gentamicin 0.1% topical ointment 15gm TP ONE (12:04)
== END 2019-12-31 13:05 | disposition home or self-care (01) ==
LOC: WOUND CARE 10:49
PROVIDERS: ATTEND Surgery
DX: E11.622 Type 2 diabetes mellitus with other skin ulcer (principal); I83.013 Varicose veins of right lower extremity with ulcer of ankle; L97.312 Non-pressure chronic ulcer of right ankle with fat layer exposed; I83.023 Varicose veins of left lower extremity with ulcer of ankle; L97.322 Non-pressure chronic ulcer of left ankle with fat layer exposed; E11.621 Type 2 diabetes mellitus with foot ulcer; I83.014 Varicose veins of right lower extremity with ulcer of heel and midfoot; L97.412 Non-pressure chronic ulcer of right heel and midfoot with fat layer exposed; E03.9 Hypothyroidism, unspecified; E66.9 Obesity, unspecified; R07.81 Pleurodynia; M19.90 Unspecified osteoarthritis, unspecified site; Z85.828 Personal history of other malignant neoplasm of skin; Z68.31 Body mass index [BMI] 31.0-31.9, adult
CPT/HCPCS: 29581; A6209; A6223; J7999; A4663; A6154; A6441

== ENCOUNTER 2020-01-04 09:34 | Day surgery (SDC) | payer BC ==
[2020-01-04] MEDS ORDERED: LIDOcaine 2% 5ml jelly ONE (10:14)
[2020-01-04] MEDS ORDERED: gentamicin 0.1% topical ointment 15gm TP ONE (10:38)
[2020-01-04] MEDS ORDERED: nystatin/triamcinolone cream 15gm TP ONE (10:46)
== END 2020-01-04 12:16 | disposition home or self-care (01) ==
LOC: WOUND CARE 09:34
PROVIDERS: ATTEND Nurse Practitioner Family
DX: E11.622 Type 2 diabetes mellitus with other skin ulcer (principal); I83.013 Varicose veins of right lower extremity with ulcer of ankle; L97.312 Non-pressure chronic ulcer of right ankle with fat layer exposed; I83.023 Varicose veins of left lower extremity with ulcer of ankle; L97.322 Non-pressure chronic ulcer of left ankle with fat layer exposed; E11.621 Type 2 diabetes mellitus with foot ulcer; I83.014 Varicose veins of right lower extremity with ulcer of heel and midfoot; L97.412 Non-pressure chronic ulcer of right heel and midfoot with fat layer exposed; E03.9 Hypothyroidism, unspecified; E66.9 Obesity, unspecified; R07.81 Pleurodynia; M19.90 Unspecified osteoarthritis, unspecified site; Z85.828 Personal history of other malignant neoplasm of skin; Z68.31 Body mass index [BMI] 31.0-31.9, adult
CPT/HCPCS: 15271; A6209; A6223; J7999; Q4186; A4663; A6154; A6250; A6441

== ENCOUNTER 2020-01-07 10:40 | Day surgery (SDC) | payer BC ==
[2020-01-07] MEDS ORDERED: nystatin/triamcinolone cream 15gm TP ONE (11:51)
[2020-01-07] MEDS ORDERED: gentamicin 0.1% topical ointment 15gm TP ONE (11:51)
== END 2020-01-07 12:49 | disposition home or self-care (01) ==
LOC: WOUND CARE 10:40
PROVIDERS: ATTEND Surgery
DX: E11.622 Type 2 diabetes mellitus with other skin ulcer (principal); I83.013 Varicose veins of right lower extremity with ulcer of ankle; L97.312 Non-pressure chronic ulcer of right ankle with fat layer exposed; I83.023 Varicose veins of left lower extremity with ulcer of ankle; L97.322 Non-pressure chronic ulcer of left ankle with fat layer exposed; E11.621 Type 2 diabetes mellitus with foot ulcer; I83.014 Varicose veins of right lower extremity with ulcer of heel and midfoot; L97.412 Non-pressure chronic ulcer of right heel and midfoot with fat layer exposed; E03.9 Hypothyroidism, unspecified; E66.9 Obesity, unspecified; R07.81 Pleurodynia; M19.90 Unspecified osteoarthritis, unspecified site; Z85.828 Personal history of other malignant neoplasm of skin; Z68.31 Body mass index [BMI] 31.0-31.9, adult
CPT/HCPCS: 15271; 29581; A6209; J7999; Q4186; A6154; A6250; A6446

== ENCOUNTER 2020-01-11 10:00 | Outpatient (CLI) | payer BC ==
[2020-01-11] MEDS ORDERED: gentamicin 0.1% topical ointment 15gm TP ONE (11:34)
[2020-01-11] MEDS ORDERED: nystatin/triamcinolone cream 15gm TP ONE (11:34)
== END 2020-01-11 12:35 | disposition home or self-care (01) ==
LOC: WOUND CARE 10:00 → EDSTATUS 10:30 → WOUND CARE 12:35
PROVIDERS: ATTEND Nurse Practitioner Family
DX: E11.622 Type 2 diabetes mellitus with other skin ulcer (principal); I83.013 Varicose veins of right lower extremity with ulcer of ankle; L97.312 Non-pressure chronic ulcer of right ankle with fat layer exposed; I83.023 Varicose veins of left lower extremity with ulcer of ankle; L97.322 Non-pressure chronic ulcer of left ankle with fat layer exposed; E11.621 Type 2 diabetes mellitus with foot ulcer; I83.014 Varicose veins of right lower extremity with ulcer of heel and midfoot; L97.412 Non-pressure chronic ulcer of right heel and midfoot with fat layer exposed; E03.9 Hypothyroidism, unspecified; E66.9 Obesity, unspecified; R07.81 Pleurodynia; M19.90 Unspecified osteoarthritis, unspecified site; Z85.828 Personal history of other malignant neoplasm of skin; Z68.31 Body mass index [BMI] 31.0-31.9, adult
CPT/HCPCS: 29581; J7999

== ENCOUNTER 2020-01-14 09:35 | Outpatient (CLI) | payer BC ==
[2020-01-14] MEDS ORDERED: gentamicin 0.1% topical ointment 15gm TP ONE (10:13)
[2020-01-14] MEDS ORDERED: nystatin/triamcinolone cream 15gm TP ONE (10:13)
== END 2020-01-14 11:48 | disposition home or self-care (01) ==
LOC: WOUND CARE 09:35
PROVIDERS: ATTEND Surgery
DX: E11.622 Type 2 diabetes mellitus with other skin ulcer (principal); I83.013 Varicose veins of right lower extremity with ulcer of ankle; L97.312 Non-pressure chronic ulcer of right ankle with fat layer exposed; I83.023 Varicose veins of left lower extremity with ulcer of ankle; L97.322 Non-pressure chronic ulcer of left ankle with fat layer exposed; E11.621 Type 2 diabetes mellitus with foot ulcer; I83.014 Varicose veins of right lower extremity with ulcer of heel and midfoot; L97.412 Non-pressure chronic ulcer of right heel and midfoot with fat layer exposed; E03.9 Hypothyroidism, unspecified; E66.9 Obesity, unspecified; R07.81 Pleurodynia; M19.90 Unspecified osteoarthritis, unspecified site; Z85.828 Personal history of other malignant neoplasm of skin; Z68.31 Body mass index [BMI] 31.0-31.9, adult
CPT/HCPCS: 29581; J7999

== ENCOUNTER 2020-01-18 10:25 | Outpatient (CLI) | payer BC ==
[2020-01-18] MEDS ORDERED: nystatin/triamcinolone cream 15gm TP ONE (11:35)
[2020-01-18] MEDS ORDERED: gentamicin 0.1% topical ointment 15gm TP ONE (11:35)
== END 2020-01-18 13:00 | disposition home or self-care (01) ==
LOC: WOUND CARE 10:25 → EDSTATUS 10:30 → WOUND CARE 13:00
PROVIDERS: ATTEND Nurse Practitioner Family
DX: E11.622 Type 2 diabetes mellitus with other skin ulcer (principal); I83.013 Varicose veins of right lower extremity with ulcer of ankle; L97.312 Non-pressure chronic ulcer of right ankle with fat layer exposed; I83.023 Varicose veins of left lower extremity with ulcer of ankle; L97.322 Non-pressure chronic ulcer of left ankle with fat layer exposed; E11.621 Type 2 diabetes mellitus with foot ulcer; I83.014 Varicose veins of right lower extremity with ulcer of heel and midfoot; L97.412 Non-pressure chronic ulcer of right heel and midfoot with fat layer exposed; E03.9 Hypothyroidism, unspecified; E66.9 Obesity, unspecified; R07.81 Pleurodynia; M19.90 Unspecified osteoarthritis, unspecified site; Z85.828 Personal history of other malignant neoplasm of skin; Z68.31 Body mass index [BMI] 31.0-31.9, adult
CPT/HCPCS: 29581; J7999

== ENCOUNTER 2020-01-25 10:45 | Outpatient (CLI) | payer BC ==
[2020-01-25] MEDS ORDERED: nystatin/triamcinolone cream 15gm TP ONE (12:00)
[2020-01-25] MEDS ORDERED: gentamicin 0.1% topical ointment 15gm TP ONE (12:00)
== END 2020-01-25 12:30 | disposition home or self-care (01) ==
LOC: WOUND CARE 10:45
PROVIDERS: ATTEND Nurse Practitioner Family
DX: E11.622 Type 2 diabetes mellitus with other skin ulcer (principal); I83.013 Varicose veins of right lower extremity with ulcer of ankle; L97.312 Non-pressure chronic ulcer of right ankle with fat layer exposed; I83.023 Varicose veins of left lower extremity with ulcer of ankle; L97.322 Non-pressure chronic ulcer of left ankle with fat layer exposed; E11.621 Type 2 diabetes mellitus with foot ulcer; I83.014 Varicose veins of right lower extremity with ulcer of heel and midfoot; L97.412 Non-pressure chronic ulcer of right heel and midfoot with fat layer exposed; E03.9 Hypothyroidism, unspecified; E66.9 Obesity, unspecified; R07.81 Pleurodynia; M19.90 Unspecified osteoarthritis, unspecified site; Z85.828 Personal history of other malignant neoplasm of skin; Z68.31 Body mass index [BMI] 31.0-31.9, adult
CPT/HCPCS: 29581; J7999

== ENCOUNTER 2020-02-01 10:38 | Day surgery (SDC) | payer BC ==
[2020-02-01] MEDS ORDERED: LIDOcaine 2% 5ml jelly ONE ×2 (10:42)
[2020-02-01] MEDS ORDERED: nystatin/triamcinolone cream 15gm TP ONE (11:24)
[2020-02-01] MEDS ORDERED: gentamicin 0.1% topical ointment 15gm TP ONE (11:24)
== END 2020-02-01 13:45 | disposition home or self-care (01) ==
LOC: WOUND CARE 10:38
PROVIDERS: ATTEND Nurse Practitioner Family
DX: E11.622 Type 2 diabetes mellitus with other skin ulcer (principal); I83.013 Varicose veins of right lower extremity with ulcer of ankle; L97.312 Non-pressure chronic ulcer of right ankle with fat layer exposed; I83.023 Varicose veins of left lower extremity with ulcer of ankle; L97.322 Non-pressure chronic ulcer of left ankle with fat layer exposed; E11.621 Type 2 diabetes mellitus with foot ulcer; I83.014 Varicose veins of right lower extremity with ulcer of heel and midfoot; L97.412 Non-pressure chronic ulcer of right heel and midfoot with fat layer exposed; E03.9 Hypothyroidism, unspecified; E66.9 Obesity, unspecified; R07.81 Pleurodynia; M19.90 Unspecified osteoarthritis, unspecified site; Z85.828 Personal history of other malignant neoplasm of skin; Z68.31 Body mass index [BMI] 31.0-31.9, adult
CPT/HCPCS: 97597; 97598; J7999

== ENCOUNTER 2020-02-08 10:15 | Day surgery (SDC) | payer BC ==
[2020-02-08] MEDS ORDERED: LIDOcaine 2% 5ml jelly ONE (10:53)
[2020-02-08] MEDS ORDERED: nystatin/triamcinolone cream 15gm TP ONE (11:19)
[2020-02-08] MEDS ORDERED: gentamicin 0.1% topical ointment 15gm TP ONE (11:19)
== END 2020-02-08 12:15 | disposition home or self-care (01) ==
LOC: WOUND CARE 10:15
PROVIDERS: ATTEND Nurse Practitioner Family
DX: E11.622 Type 2 diabetes mellitus with other skin ulcer (principal); I83.013 Varicose veins of right lower extremity with ulcer of ankle; L97.312 Non-pressure chronic ulcer of right ankle with fat layer exposed; I83.023 Varicose veins of left lower extremity with ulcer of ankle; L97.322 Non-pressure chronic ulcer of left ankle with fat layer exposed; E11.621 Type 2 diabetes mellitus with foot ulcer; I83.014 Varicose veins of right lower extremity with ulcer of heel and midfoot; L97.412 Non-pressure chronic ulcer of right heel and midfoot with fat layer exposed; E03.9 Hypothyroidism, unspecified; E66.9 Obesity, unspecified; R07.81 Pleurodynia; M19.90 Unspecified osteoarthritis, unspecified site; Z85.828 Personal history of other malignant neoplasm of skin; Z68.31 Body mass index [BMI] 31.0-31.9, adult
CPT/HCPCS: 97597; 97598; J7999

== ENCOUNTER 2020-02-15 10:40 | Outpatient (CLI) | payer BC ==
[2020-02-15] MEDS ORDERED: LIDOcaine 2% 5ml jelly ONE (12:54)
[2020-02-15] MEDS ORDERED: nystatin/triamcinolone cream 15gm TP ONE (13:24)
[2020-02-15] MEDS ORDERED: gentamicin 0.1% topical ointment 15gm TP ONE (13:24)
== END 2020-02-15 14:40 | disposition home or self-care (01) ==
LOC: WOUND CARE 10:40
PROVIDERS: ATTEND Nurse Practitioner Family
DX: E11.622 Type 2 diabetes mellitus with other skin ulcer (principal); I83.013 Varicose veins of right lower extremity with ulcer of ankle; L97.312 Non-pressure chronic ulcer of right ankle with fat layer exposed; I83.023 Varicose veins of left lower extremity with ulcer of ankle; L97.322 Non-pressure chronic ulcer of left ankle with fat layer exposed; E11.621 Type 2 diabetes mellitus with foot ulcer; I83.014 Varicose veins of right lower extremity with ulcer of heel and midfoot; L97.412 Non-pressure chronic ulcer of right heel and midfoot with fat layer exposed; E03.9 Hypothyroidism, unspecified; E66.9 Obesity, unspecified; R07.81 Pleurodynia; M19.90 Unspecified osteoarthritis, unspecified site; Z85.828 Personal history of other malignant neoplasm of skin; Z68.31 Body mass index [BMI] 31.0-31.9, adult
CPT/HCPCS: 93970; 97597; 97598; J7999

== ENCOUNTER 2020-02-22 09:55 | Day surgery (SDC) | payer BC ==
[2020-02-22] MEDS ORDERED: gentamicin 0.1% topical ointment 15gm TP ONE (11:09)
[2020-02-22] MEDS ORDERED: nystatin/triamcinolone cream 15gm TP ONE (11:09)
== END 2020-02-22 12:13 | disposition home or self-care (01) ==
LOC: WOUND CARE 09:55
PROVIDERS: ATTEND Nurse Practitioner Family
DX: E11.622 Type 2 diabetes mellitus with other skin ulcer (principal); I83.013 Varicose veins of right lower extremity with ulcer of ankle; L97.312 Non-pressure chronic ulcer of right ankle with fat layer exposed; I83.023 Varicose veins of left lower extremity with ulcer of ankle; L97.322 Non-pressure chronic ulcer of left ankle with fat layer exposed; E11.621 Type 2 diabetes mellitus with foot ulcer; I83.014 Varicose veins of right lower extremity with ulcer of heel and midfoot; L97.412 Non-pressure chronic ulcer of right heel and midfoot with fat layer exposed; E66.9 Obesity, unspecified; E03.9 Hypothyroidism, unspecified; R07.81 Pleurodynia; M19.90 Unspecified osteoarthritis, unspecified site; Z85.828 Personal history of other malignant neoplasm of skin; Z68.31 Body mass index [BMI] 31.0-31.9, adult
CPT/HCPCS: 97597; 97598; J7999

== ENCOUNTER 2020-02-29 10:00 | Day surgery (SDC) | payer BC ==
[2020-02-29] MEDS ORDERED: LIDOcaine 2% 5ml jelly ONE (10:37)
[2020-02-29] MEDS ORDERED: gentamicin 0.1% topical ointment 15gm TP ONE (11:19)
[2020-02-29] MEDS ORDERED: nystatin/triamcinolone cream 15gm TP ONE (11:20)
== END 2020-02-29 12:28 | disposition home or self-care (01) ==
LOC: WOUND CARE 10:00
PROVIDERS: ATTEND Nurse Practitioner Family
DX: E11.622 Type 2 diabetes mellitus with other skin ulcer (principal); I83.013 Varicose veins of right lower extremity with ulcer of ankle; I83.023 Varicose veins of left lower extremity with ulcer of ankle; L97.312 Non-pressure chronic ulcer of right ankle with fat layer exposed; L97.322 Non-pressure chronic ulcer of left ankle with fat layer exposed; E66.9 Obesity, unspecified; E03.9 Hypothyroidism, unspecified; R07.81 Pleurodynia; M19.90 Unspecified osteoarthritis, unspecified site; Z85.828 Personal history of other malignant neoplasm of skin; Z68.31 Body mass index [BMI] 31.0-31.9, adult
CPT/HCPCS: 97597; 97598; J7999

== ENCOUNTER 2020-03-07 10:15 | Day surgery (SDC) | payer BC ==
[2020-03-07] MEDS ORDERED: LIDOcaine 2% 5ml jelly ONE (10:32)
[2020-03-07] MEDS ORDERED: gentamicin 0.1% topical ointment 15gm TP ONE (11:21)
[2020-03-07] MEDS ORDERED: nystatin/triamcinolone cream 15gm TP ONE (11:21)
== END 2020-03-07 12:25 | disposition home or self-care (01) ==
LOC: WOUND CARE 10:15
PROVIDERS: ATTEND Nurse Practitioner Family
DX: E11.622 Type 2 diabetes mellitus with other skin ulcer (principal); I83.013 Varicose veins of right lower extremity with ulcer of ankle; L97.312 Non-pressure chronic ulcer of right ankle with fat layer exposed; I83.023 Varicose veins of left lower extremity with ulcer of ankle; L97.322 Non-pressure chronic ulcer of left ankle with fat layer exposed; E11.621 Type 2 diabetes mellitus with foot ulcer; I83.014 Varicose veins of right lower extremity with ulcer of heel and midfoot; L97.412 Non-pressure chronic ulcer of right heel and midfoot with fat layer exposed; E66.9 Obesity, unspecified; E03.9 Hypothyroidism, unspecified; R07.81 Pleurodynia; M19.90 Unspecified osteoarthritis, unspecified site; Z85.828 Personal history of other malignant neoplasm of skin; Z68.31 Body mass index [BMI] 31.0-31.9, adult
CPT/HCPCS: 97597; 97598; J7999

== ENCOUNTER 2020-03-14 10:00 | Day surgery (SDC) | payer BC ==
[2020-03-14] MEDS ORDERED: LIDOcaine 2% 5ml jelly ONE ×2 (10:32)
[2020-03-14] MEDS ORDERED: nystatin/triamcinolone cream 15gm TP ONE (11:04)
[2020-03-14] MEDS ORDERED: gentamicin 0.1% topical ointment 15gm TP ONE (11:04)
== END 2020-03-14 12:15 | disposition home or self-care (01) ==
LOC: WOUND CARE 10:00
PROVIDERS: ATTEND Nurse Practitioner Family
DX: E11.622 Type 2 diabetes mellitus with other skin ulcer (principal); I83.013 Varicose veins of right lower extremity with ulcer of ankle; L97.312 Non-pressure chronic ulcer of right ankle with fat layer exposed; I83.023 Varicose veins of left lower extremity with ulcer of ankle; L97.322 Non-pressure chronic ulcer of left ankle with fat layer exposed; E11.621 Type 2 diabetes mellitus with foot ulcer; I83.014 Varicose veins of right lower extremity with ulcer of heel and midfoot; L97.412 Non-pressure chronic ulcer of right heel and midfoot with fat layer exposed; E66.9 Obesity, unspecified; E03.9 Hypothyroidism, unspecified; R07.81 Pleurodynia; M19.90 Unspecified osteoarthritis, unspecified site; Z85.828 Personal history of other malignant neoplasm of skin; Z68.31 Body mass index [BMI] 31.0-31.9, adult
CPT/HCPCS: 97597; 97598; J7999

== ENCOUNTER 2020-03-21 10:15 | Day surgery (SDC) | payer BC ==
[2020-03-21] MEDS ORDERED: LIDOcaine 2% 5ml jelly ONE (10:40)
[2020-03-21 11:24] LABS: ALANINE AMINOTRANSFERASE 33 U/L (12-78); ALBUMIN 3.4 G/DL (3.4-5.0); ALBUMIN/GLOBULIN RATIO 1.1 (1.1-1.5); ALKALINE PHOSPHATASE 66 IU/L (46-116); ANION GAP 8 (8-16); ASPARTATE AMINO TRANSFERASE 31 U/L (10-37); BILIRUBIN,TOTAL 0.4 MG/DL (0.1-1.0); BLOOD UREA NITROGEN 20 MG/DL (7-18); BUN/CREATININE RATIO 21.1 (5.4-32.0); CALCIUM 8.1 MG/DL (8.5-10.1); CHLORIDE 105 MMOL/L (99-107); CREATININE 0.95 MG/DL (0.60-1.10); GLUCOSE 97 MG/DL (70-104); POTASSIUM 4.1 MMOL/L (3.5-5.1); SODIUM 139 MMOL/L (135-145); TOTAL CARBON DIOXIDE 26.2 MMOL/L (24-32); TOTAL PROTEIN 6.4 G/DL (6.4-8.2); eGFR 80 ML/MIN
[2020-03-21] MEDS ORDERED: gentamicin 0.1% topical ointment 15gm TP ONE (11:28)
[2020-03-21] MEDS ORDERED: nystatin/triamcinolone cream 15gm TP ONE (11:28)
== END 2020-03-21 13:02 | disposition home or self-care (01) ==
LOC: WOUND CARE 10:15
PROVIDERS: ATTEND Nurse Practitioner Family
DX: E11.622 Type 2 diabetes mellitus with other skin ulcer (principal); I83.013 Varicose veins of right lower extremity with ulcer of ankle; L97.312 Non-pressure chronic ulcer of right ankle with fat layer exposed; I83.023 Varicose veins of left lower extremity with ulcer of ankle; L97.322 Non-pressure chronic ulcer of left ankle with fat layer exposed; E11.621 Type 2 diabetes mellitus with foot ulcer; I83.014 Varicose veins of right lower extremity with ulcer of heel and midfoot; L97.412 Non-pressure chronic ulcer of right heel and midfoot with fat layer exposed; E66.9 Obesity, unspecified; E03.9 Hypothyroidism, unspecified; R07.81 Pleurodynia; M19.90 Unspecified osteoarthritis, unspecified site; Z85.828 Personal history of other malignant neoplasm of skin; Z68.31 Body mass index [BMI] 31.0-31.9, adult
CPT/HCPCS: 36415; 80053; 83735; 97597; 97598; G0463; J7999

== ENCOUNTER 2020-03-28 09:50 | Day surgery (SDC) | payer BC ==
[2020-03-28] MEDS ORDERED: LIDOcaine 2% 5ml jelly ONE (10:34)
[2020-03-28] MEDS ORDERED: nystatin/triamcinolone cream 15gm TP ONE (11:13)
[2020-03-28] MEDS ORDERED: gentamicin 0.1% topical ointment 15gm TP ONE (11:13)
== END 2020-03-28 12:30 | disposition home or self-care (01) ==
LOC: WOUND CARE 09:50
PROVIDERS: ATTEND Nurse Practitioner
DX: E11.622 Type 2 diabetes mellitus with other skin ulcer (principal); I83.013 Varicose veins of right lower extremity with ulcer of ankle; L97.312 Non-pressure chronic ulcer of right ankle with fat layer exposed; I83.023 Varicose veins of left lower extremity with ulcer of ankle; L97.322 Non-pressure chronic ulcer of left ankle with fat layer exposed; E11.621 Type 2 diabetes mellitus with foot ulcer; I83.014 Varicose veins of right lower extremity with ulcer of heel and midfoot; L97.412 Non-pressure chronic ulcer of right heel and midfoot with fat layer exposed; E66.9 Obesity, unspecified; E03.9 Hypothyroidism, unspecified; R07.81 Pleurodynia; M19.90 Unspecified osteoarthritis, unspecified site; Z85.828 Personal history of other malignant neoplasm of skin; Z68.31 Body mass index [BMI] 31.0-31.9, adult
CPT/HCPCS: 97597; 97598; J7999; 29581

== ENCOUNTER 2020-04-04 10:00 | Day surgery (SDC) | payer BC ==
[2020-04-04] MEDS ORDERED: LIDOcaine 2% 5ml jelly ONE ×2 (11:04)
[2020-04-04] MEDS ORDERED: gentamicin 0.1% topical ointment 15gm TP ONE (11:46)
[2020-04-04] MEDS ORDERED: nystatin/triamcinolone cream 15gm TP ONE (11:47)
== END 2020-04-04 12:00 | disposition home or self-care (01) ==
LOC: WOUND CARE 10:00
PROVIDERS: ATTEND Nurse Practitioner
DX: E11.622 Type 2 diabetes mellitus with other skin ulcer (principal); I83.013 Varicose veins of right lower extremity with ulcer of ankle; L97.312 Non-pressure chronic ulcer of right ankle with fat layer exposed; I83.023 Varicose veins of left lower extremity with ulcer of ankle; L97.322 Non-pressure chronic ulcer of left ankle with fat layer exposed; E11.621 Type 2 diabetes mellitus with foot ulcer; I83.014 Varicose veins of right lower extremity with ulcer of heel and midfoot; L97.412 Non-pressure chronic ulcer of right heel and midfoot with fat layer exposed; E66.9 Obesity, unspecified; E03.9 Hypothyroidism, unspecified; R07.81 Pleurodynia; M19.90 Unspecified osteoarthritis, unspecified site; Z85.828 Personal history of other malignant neoplasm of skin; Z68.31 Body mass index [BMI] 31.0-31.9, adult
CPT/HCPCS: 97597; 97598; J7999

== ENCOUNTER 2020-04-11 09:48 | Day surgery (SDC) | payer BC ==
[2020-04-11] MEDS ORDERED: nystatin/triamcinolone cream 15gm TP ONE (10:58)
[2020-04-11] MEDS ORDERED: gentamicin 0.1% topical ointment 15gm TP ONE (10:58)
== END 2020-04-11 12:20 | disposition home or self-care (01) ==
LOC: WOUND CARE 09:48
PROVIDERS: ATTEND Nurse Practitioner
DX: E11.622 Type 2 diabetes mellitus with other skin ulcer (principal); I83.013 Varicose veins of right lower extremity with ulcer of ankle; L97.312 Non-pressure chronic ulcer of right ankle with fat layer exposed; I83.023 Varicose veins of left lower extremity with ulcer of ankle; L97.322 Non-pressure chronic ulcer of left ankle with fat layer exposed; E11.621 Type 2 diabetes mellitus with foot ulcer; I83.014 Varicose veins of right lower extremity with ulcer of heel and midfoot; L97.412 Non-pressure chronic ulcer of right heel and midfoot with fat layer exposed; E66.9 Obesity, unspecified; E03.9 Hypothyroidism, unspecified; R07.81 Pleurodynia; M19.90 Unspecified osteoarthritis, unspecified site; Z85.828 Personal history of other malignant neoplasm of skin; Z68.31 Body mass index [BMI] 31.0-31.9, adult
CPT/HCPCS: 97597; 97598; J7999

== ENCOUNTER 2020-04-18 10:10 | Day surgery (SDC) | payer BC ==
[2020-04-18] MEDS ORDERED: LIDOcaine 2% 5ml jelly ONE (11:52)
[2020-04-18] MEDS ORDERED: nystatin/triamcinolone cream 15gm TP ONE (12:09)
[2020-04-18] MEDS ORDERED: gentamicin 0.1% topical ointment 15gm TP ONE (12:09)
== END 2020-04-18 13:46 | disposition home or self-care (01) ==
LOC: WOUND CARE 10:10
PROVIDERS: ATTEND Nurse Practitioner
DX: E11.622 Type 2 diabetes mellitus with other skin ulcer (principal); I83.013 Varicose veins of right lower extremity with ulcer of ankle; L97.312 Non-pressure chronic ulcer of right ankle with fat layer exposed; I83.023 Varicose veins of left lower extremity with ulcer of ankle; L97.322 Non-pressure chronic ulcer of left ankle with fat layer exposed; E11.621 Type 2 diabetes mellitus with foot ulcer; I83.014 Varicose veins of right lower extremity with ulcer of heel and midfoot; L97.412 Non-pressure chronic ulcer of right heel and midfoot with fat layer exposed; E66.9 Obesity, unspecified; E03.9 Hypothyroidism, unspecified; R07.81 Pleurodynia; M19.90 Unspecified osteoarthritis, unspecified site; Z85.828 Personal history of other malignant neoplasm of skin; Z68.31 Body mass index [BMI] 31.0-31.9, adult
CPT/HCPCS: 93922; 97597; 97598; J7999

== ENCOUNTER 2020-04-25 13:10 | Day surgery (SDC) | payer BC ==
[2020-04-25] MEDS ORDERED: LIDOcaine 2% 5ml jelly ONE ×2 (14:00)
[2020-04-25] MEDS ORDERED: nystatin/triamcinolone cream 15gm TP ONE (14:09)
[2020-04-25] MEDS ORDERED: gentamicin 0.1% topical ointment 15gm TP ONE (14:09)
== END 2020-04-25 15:09 | disposition home or self-care (01) ==
LOC: WOUND CARE 13:10
PROVIDERS: ATTEND Nurse Practitioner
DX: E11.622 Type 2 diabetes mellitus with other skin ulcer (principal); I83.013 Varicose veins of right lower extremity with ulcer of ankle; L97.312 Non-pressure chronic ulcer of right ankle with fat layer exposed; I83.023 Varicose veins of left lower extremity with ulcer of ankle; L97.322 Non-pressure chronic ulcer of left ankle with fat layer exposed; E11.621 Type 2 diabetes mellitus with foot ulcer; I83.014 Varicose veins of right lower extremity with ulcer of heel and midfoot; L97.412 Non-pressure chronic ulcer of right heel and midfoot with fat layer exposed; E66.9 Obesity, unspecified; E03.9 Hypothyroidism, unspecified; R07.81 Pleurodynia; M19.90 Unspecified osteoarthritis, unspecified site; Z85.828 Personal history of other malignant neoplasm of skin; Z68.31 Body mass index [BMI] 31.0-31.9, adult
CPT/HCPCS: 97597; 97598; J7999

== ENCOUNTER 2020-05-02 09:56 | Day surgery (SDC) | payer BC ==
[2020-05-02] MEDS ORDERED: LIDOcaine 2% 5ml jelly ONE (10:43)
[2020-05-02] MEDS ORDERED: gentamicin 0.1% topical ointment 15gm TP ONE (11:28)
[2020-05-02] MEDS ORDERED: nystatin/triamcinolone cream 15gm TP ONE (11:28)
== END 2020-05-02 12:35 | disposition home or self-care (01) ==
LOC: WOUND CARE 09:56
PROVIDERS: ATTEND Nurse Practitioner
DX: E11.622 Type 2 diabetes mellitus with other skin ulcer (principal); I83.013 Varicose veins of right lower extremity with ulcer of ankle; L97.312 Non-pressure chronic ulcer of right ankle with fat layer exposed; I83.023 Varicose veins of left lower extremity with ulcer of ankle; L97.322 Non-pressure chronic ulcer of left ankle with fat layer exposed; E11.621 Type 2 diabetes mellitus with foot ulcer; I83.014 Varicose veins of right lower extremity with ulcer of heel and midfoot; L97.412 Non-pressure chronic ulcer of right heel and midfoot with fat layer exposed; E66.9 Obesity, unspecified; E03.9 Hypothyroidism, unspecified; R07.81 Pleurodynia; M19.90 Unspecified osteoarthritis, unspecified site; Z85.828 Personal history of other malignant neoplasm of skin; Z68.31 Body mass index [BMI] 31.0-31.9, adult
CPT/HCPCS: 97597; 97598; J7999

== ENCOUNTER 2020-05-09 09:45 | Day surgery (SDC) | payer BC ==
[2020-05-09] MEDS ORDERED: LIDOcaine 2% 5ml jelly ONE (09:57)
[2020-05-09] MEDS ORDERED: nystatin/triamcinolone cream 15gm TP ONE (11:04)
[2020-05-09] MEDS ORDERED: gentamicin 0.1% topical ointment 15gm TP ONE (11:05)
== END 2020-05-09 12:31 | disposition home or self-care (01) ==
LOC: WOUND CARE 09:45
PROVIDERS: ATTEND Nurse Practitioner
DX: E11.622 Type 2 diabetes mellitus with other skin ulcer (principal); I83.013 Varicose veins of right lower extremity with ulcer of ankle; L97.312 Non-pressure chronic ulcer of right ankle with fat layer exposed; I83.023 Varicose veins of left lower extremity with ulcer of ankle; L97.322 Non-pressure chronic ulcer of left ankle with fat layer exposed; E11.621 Type 2 diabetes mellitus with foot ulcer; I83.014 Varicose veins of right lower extremity with ulcer of heel and midfoot; L97.412 Non-pressure chronic ulcer of right heel and midfoot with fat layer exposed; I87.2 Venous insufficiency (chronic) (peripheral); E66.9 Obesity, unspecified; E03.9 Hypothyroidism, unspecified; R07.81 Pleurodynia; M19.90 Unspecified osteoarthritis, unspecified site; Z85.828 Personal history of other malignant neoplasm of skin; Z68.31 Body mass index [BMI] 31.0-31.9, adult
CPT/HCPCS: 87070; 87075; 87102; 97597; 97598; J7999

== ENCOUNTER 2020-05-16 09:55 | Day surgery (SDC) | payer BC ==
[2020-05-16] MEDS ORDERED: LIDOcaine 2% 5ml jelly ONE (10:32)
[2020-05-16] MEDS ORDERED: gentamicin 0.1% topical ointment 15gm TP ONE (11:08)
[2020-05-16] MEDS ORDERED: nystatin/triamcinolone cream 15gm TP ONE (11:08)
== END 2020-05-16 12:21 | disposition home or self-care (01) ==
LOC: WOUND CARE 09:55
PROVIDERS: ATTEND Nurse Practitioner
DX: E11.622 Type 2 diabetes mellitus with other skin ulcer (principal); I83.013 Varicose veins of right lower extremity with ulcer of ankle; L97.312 Non-pressure chronic ulcer of right ankle with fat layer exposed; I83.023 Varicose veins of left lower extremity with ulcer of ankle; L97.322 Non-pressure chronic ulcer of left ankle with fat layer exposed; E11.621 Type 2 diabetes mellitus with foot ulcer; I83.014 Varicose veins of right lower extremity with ulcer of heel and midfoot; L97.412 Non-pressure chronic ulcer of right heel and midfoot with fat layer exposed; I87.2 Venous insufficiency (chronic) (peripheral); E66.9 Obesity, unspecified; E03.9 Hypothyroidism, unspecified; R07.81 Pleurodynia; M19.90 Unspecified osteoarthritis, unspecified site; Z85.828 Personal history of other malignant neoplasm of skin; Z68.31 Body mass index [BMI] 31.0-31.9, adult
CPT/HCPCS: 97597; 97598; J7999

== ENCOUNTER 2020-05-23 13:00 | Day surgery (SDC) | payer BC ==
[2020-05-23] MEDS ORDERED: LIDOcaine 2% 5ml jelly ONE ×2 (13:45)
[2020-05-23] MEDS ORDERED: nystatin/triamcinolone cream 15gm TP ONE (14:02)
[2020-05-23] MEDS ORDERED: gentamicin 0.1% topical ointment 15gm TP ONE (14:02)
== END 2020-05-23 15:10 | disposition home or self-care (01) ==
LOC: WOUND CARE 13:00
PROVIDERS: ATTEND Nurse Practitioner
DX: E11.622 Type 2 diabetes mellitus with other skin ulcer (principal); I83.013 Varicose veins of right lower extremity with ulcer of ankle; L97.312 Non-pressure chronic ulcer of right ankle with fat layer exposed; I83.023 Varicose veins of left lower extremity with ulcer of ankle; L97.322 Non-pressure chronic ulcer of left ankle with fat layer exposed; E11.621 Type 2 diabetes mellitus with foot ulcer; I83.014 Varicose veins of right lower extremity with ulcer of heel and midfoot; L97.412 Non-pressure chronic ulcer of right heel and midfoot with fat layer exposed; I87.2 Venous insufficiency (chronic) (peripheral); E66.9 Obesity, unspecified; E03.9 Hypothyroidism, unspecified; R07.81 Pleurodynia; M19.90 Unspecified osteoarthritis, unspecified site; Z85.828 Personal history of other malignant neoplasm of skin; Z68.31 Body mass index [BMI] 31.0-31.9, adult
CPT/HCPCS: 97597; 97598; J7999

== ENCOUNTER 2020-07-11 11:12 | Day surgery (SDC) | payer BC ==
[2020-07-11] MEDS ORDERED: LIDOcaine 2% 5ml jelly ONE (11:45)
[2020-07-11] MEDS ORDERED: gentamicin 0.1% topical ointment 15gm TP ONE (12:50)
[2020-07-11] MEDS ORDERED: nystatin/triamcinolone cream 15gm TP ONE (12:50)
== END 2020-07-11 13:49 | disposition home or self-care (01) ==
LOC: WOUND CARE 11:12
PROVIDERS: ATTEND Nurse Practitioner
DX: E11.622 Type 2 diabetes mellitus with other skin ulcer (principal); I83.013 Varicose veins of right lower extremity with ulcer of ankle; L97.312 Non-pressure chronic ulcer of right ankle with fat layer exposed; I83.023 Varicose veins of left lower extremity with ulcer of ankle; L97.322 Non-pressure chronic ulcer of left ankle with fat layer exposed; I87.2 Venous insufficiency (chronic) (peripheral); E66.9 Obesity, unspecified; E03.9 Hypothyroidism, unspecified; F41.9 Anxiety disorder, unspecified; F32.9 Major depressive disorder, single episode, unspecified; R07.81 Pleurodynia; M19.90 Unspecified osteoarthritis, unspecified site; Z85.828 Personal history of other malignant neoplasm of skin; Z68.31 Body mass index [BMI] 31.0-31.9, adult; Z98.52 Vasectomy status
CPT/HCPCS: 97597; 97598; J7999

== ENCOUNTER 2020-07-18 11:35 | Day surgery (SDC) | payer BC ==
[~2020-07-18 11:35] MED LIST changes: -NALO25TA PO; +NALO25TA4 PO
[2020-07-18] MEDS ORDERED: LIDOcaine 2% 5ml jelly ONE (12:25)
[2020-07-18] MEDS ORDERED: gentamicin 0.1% topical ointment 15gm TP ONE (13:17)
[2020-07-18] MEDS ORDERED: nystatin/triamcinolone cream 15gm TP ONE (13:17)
== END 2020-07-18 14:23 | disposition home or self-care (01) ==
LOC: WOUND CARE 11:35
PROVIDERS: ATTEND Nurse Practitioner
DX: E11.622 Type 2 diabetes mellitus with other skin ulcer (principal); I83.023 Varicose veins of left lower extremity with ulcer of ankle; L97.322 Non-pressure chronic ulcer of left ankle with fat layer exposed; I83.013 Varicose veins of right lower extremity with ulcer of ankle; L97.312 Non-pressure chronic ulcer of right ankle with fat layer exposed; I87.2 Venous insufficiency (chronic) (peripheral); E66.9 Obesity, unspecified; E03.9 Hypothyroidism, unspecified; F41.9 Anxiety disorder, unspecified; F32.9 Major depressive disorder, single episode, unspecified; R07.81 Pleurodynia; M19.90 Unspecified osteoarthritis, unspecified site; Z85.828 Personal history of other malignant neoplasm of skin; Z68.31 Body mass index [BMI] 31.0-31.9, adult; Z98.52 Vasectomy status
CPT/HCPCS: 97597; 97598; J7999

== ENCOUNTER 2020-08-01 11:30 | Day surgery (SDC) | payer BC ==
[2020-08-01] MEDS ORDERED: LIDOcaine 2% 5ml jelly ONE (12:24)
[2020-08-01] MEDS ORDERED: nystatin/triamcinolone cream 15gm TP ONE (13:27)
[2020-08-01] MEDS ORDERED: gentamicin 0.1% topical ointment 15gm TP ONE (13:27)
== END 2020-08-01 14:20 | disposition home or self-care (01) ==
LOC: WOUND CARE 11:30
PROVIDERS: ATTEND Nurse Practitioner
DX: E11.622 Type 2 diabetes mellitus with other skin ulcer (principal); I83.013 Varicose veins of right lower extremity with ulcer of ankle; L97.312 Non-pressure chronic ulcer of right ankle with fat layer exposed; I83.023 Varicose veins of left lower extremity with ulcer of ankle; L97.322 Non-pressure chronic ulcer of left ankle with fat layer exposed; I87.2 Venous insufficiency (chronic) (peripheral); E66.9 Obesity, unspecified; E03.9 Hypothyroidism, unspecified; F41.9 Anxiety disorder, unspecified; F32.9 Major depressive disorder, single episode, unspecified; R07.81 Pleurodynia; M19.90 Unspecified osteoarthritis, unspecified site; Z85.828 Personal history of other malignant neoplasm of skin; Z68.31 Body mass index [BMI] 31.0-31.9, adult
CPT/HCPCS: 97597; 97598; J7999

== ENCOUNTER 2020-08-08 11:30 | Day surgery (SDC) | payer BC ==
[2020-08-08] MEDS ORDERED: LIDOcaine 2% 5ml jelly ONE (11:56)
[2020-08-08] MEDS ORDERED: nystatin/triamcinolone cream 15gm TP ONE (12:23)
[2020-08-08] MEDS ORDERED: gentamicin 0.1% topical ointment 15gm TP ONE (12:23)
== END 2020-08-08 13:35 | disposition home or self-care (01) ==
LOC: WOUND CARE 11:30
PROVIDERS: ATTEND Nurse Practitioner
DX: E11.622 Type 2 diabetes mellitus with other skin ulcer (principal); I83.013 Varicose veins of right lower extremity with ulcer of ankle; L97.312 Non-pressure chronic ulcer of right ankle with fat layer exposed; I83.023 Varicose veins of left lower extremity with ulcer of ankle; L97.322 Non-pressure chronic ulcer of left ankle with fat layer exposed; I87.2 Venous insufficiency (chronic) (peripheral); E66.9 Obesity, unspecified; E03.9 Hypothyroidism, unspecified; F41.9 Anxiety disorder, unspecified; F32.9 Major depressive disorder, single episode, unspecified; R07.81 Pleurodynia; M19.90 Unspecified osteoarthritis, unspecified site; Z85.828 Personal history of other malignant neoplasm of skin; Z68.31 Body mass index [BMI] 31.0-31.9, adult; Z98.52 Vasectomy status
CPT/HCPCS: 97597; 97598; J7999

== ENCOUNTER 2020-08-17 13:19 | Outpatient (CLI) | payer BC ==
[2020-08-17] MEDS ORDERED: LIDOcaine 2% 5ml jelly ONE (13:56)
[2020-08-17] MEDS ORDERED: gentamicin 0.1% topical ointment 15gm TP ONE (15:13)
[2020-08-17] MEDS ORDERED: nystatin/triamcinolone cream 15gm TP ONE (15:13)
== END 2020-08-17 23:59 | disposition home or self-care (01) ==
LOC: WOUND CARE 13:19
PROVIDERS: ATTEND Nurse Practitioner
DX: E11.622 Type 2 diabetes mellitus with other skin ulcer (principal); I83.013 Varicose veins of right lower extremity with ulcer of ankle; L97.312 Non-pressure chronic ulcer of right ankle with fat layer exposed; I83.023 Varicose veins of left lower extremity with ulcer of ankle; L97.322 Non-pressure chronic ulcer of left ankle with fat layer exposed; I87.2 Venous insufficiency (chronic) (peripheral); E66.9 Obesity, unspecified; E03.9 Hypothyroidism, unspecified; F41.9 Anxiety disorder, unspecified; F32.9 Major depressive disorder, single episode, unspecified; R07.81 Pleurodynia; M19.90 Unspecified osteoarthritis, unspecified site; Z85.828 Personal history of other malignant neoplasm of skin; Z68.31 Body mass index [BMI] 31.0-31.9, adult; Z98.52 Vasectomy status
CPT/HCPCS: 11042; 11045; J7999

== ENCOUNTER 2020-08-24 13:05 | Outpatient (CLI) | payer BC ==
[2020-08-24] MEDS ORDERED: LIDOcaine 2% 5ml jelly ONE (13:44)
[2020-08-24] MEDS ORDERED: gentamicin 0.1% topical ointment 15gm TP ONE (14:04)
[2020-08-24] MEDS ORDERED: nystatin/triamcinolone cream 15gm TP ONE (14:04)
== END 2020-08-24 23:59 | disposition home or self-care (01) ==
LOC: WOUND CARE 13:05
PROVIDERS: ATTEND Nurse Practitioner
DX: E11.622 Type 2 diabetes mellitus with other skin ulcer (principal); I83.013 Varicose veins of right lower extremity with ulcer of ankle; L97.312 Non-pressure chronic ulcer of right ankle with fat layer exposed; I83.023 Varicose veins of left lower extremity with ulcer of ankle; L97.322 Non-pressure chronic ulcer of left ankle with fat layer exposed; I87.2 Venous insufficiency (chronic) (peripheral); E66.9 Obesity, unspecified; E03.9 Hypothyroidism, unspecified; F41.9 Anxiety disorder, unspecified; F32.9 Major depressive disorder, single episode, unspecified; R07.81 Pleurodynia; M19.90 Unspecified osteoarthritis, unspecified site; Z85.828 Personal history of other malignant neoplasm of skin; Z68.31 Body mass index [BMI] 31.0-31.9, adult; Z98.52 Vasectomy status
CPT/HCPCS: 11042; 11045; J7999; 29581

== ENCOUNTER 2020-08-31 13:39 | Outpatient (CLI) | payer BC ==
[2020-08-31] MEDS ORDERED: LIDOcaine 2% 5ml jelly ONE (14:19)
[2020-08-31] MEDS ORDERED: gentamicin 0.1% topical ointment 15gm TP ONE (14:38)
[2020-08-31] MEDS ORDERED: nystatin/triamcinolone cream 15gm TP ONE (14:39)
== END 2020-08-31 23:59 | disposition home or self-care (01) ==
LOC: WOUND CARE 13:39
PROVIDERS: ATTEND Nurse Practitioner
DX: E11.622 Type 2 diabetes mellitus with other skin ulcer (principal); I83.023 Varicose veins of left lower extremity with ulcer of ankle; L97.322 Non-pressure chronic ulcer of left ankle with fat layer exposed; I83.013 Varicose veins of right lower extremity with ulcer of ankle; L97.312 Non-pressure chronic ulcer of right ankle with fat layer exposed; I87.2 Venous insufficiency (chronic) (peripheral); E66.9 Obesity, unspecified; E03.9 Hypothyroidism, unspecified; F41.9 Anxiety disorder, unspecified; F32.9 Major depressive disorder, single episode, unspecified; R07.81 Pleurodynia; M19.90 Unspecified osteoarthritis, unspecified site; Z85.828 Personal history of other malignant neoplasm of skin; Z68.31 Body mass index [BMI] 31.0-31.9, adult; Z98.52 Vasectomy status
CPT/HCPCS: 97597; 97598; J7999

== ENCOUNTER 2020-09-07 13:05 | Outpatient (CLI) | payer BC ==
[2020-09-07] MEDS ORDERED: LIDOcaine 2% 5ml jelly ONE (14:06)
[2020-09-07] MEDS ORDERED: gentamicin 0.1% topical ointment 15gm TP ONE (14:22)
[2020-09-07] MEDS ORDERED: nystatin/triamcinolone cream 15gm TP ONE (14:22)
== END 2020-09-07 23:59 | disposition home or self-care (01) ==
LOC: WOUND CARE 13:05
PROVIDERS: ATTEND Nurse Practitioner
DX: E11.622 Type 2 diabetes mellitus with other skin ulcer (principal); I83.023 Varicose veins of left lower extremity with ulcer of ankle; L97.322 Non-pressure chronic ulcer of left ankle with fat layer exposed; I83.013 Varicose veins of right lower extremity with ulcer of ankle; L97.312 Non-pressure chronic ulcer of right ankle with fat layer exposed; I87.2 Venous insufficiency (chronic) (peripheral); E66.9 Obesity, unspecified; E03.9 Hypothyroidism, unspecified; F41.9 Anxiety disorder, unspecified; F32.9 Major depressive disorder, single episode, unspecified; R07.81 Pleurodynia; M19.90 Unspecified osteoarthritis, unspecified site; Z85.828 Personal history of other malignant neoplasm of skin; Z68.31 Body mass index [BMI] 31.0-31.9, adult; Z98.52 Vasectomy status
CPT/HCPCS: 11042; 11045; J7999; 29581

== ENCOUNTER 2020-09-14 13:27 | Outpatient (CLI) | payer BC ==
[2020-09-14] MEDS ORDERED: LIDOcaine 2% 5ml jelly ONE ×2 (14:09)
[2020-09-14] MEDS ORDERED: nystatin/triamcinolone cream 15gm TP ONE (14:19)
[2020-09-14] MEDS ORDERED: gentamicin 0.1% topical ointment 15gm TP ONE (14:19)
== END 2020-09-14 23:59 | disposition home or self-care (01) ==
LOC: WOUND CARE 13:27
PROVIDERS: ATTEND Nurse Practitioner
DX: E11.622 Type 2 diabetes mellitus with other skin ulcer (principal); I83.023 Varicose veins of left lower extremity with ulcer of ankle; L97.322 Non-pressure chronic ulcer of left ankle with fat layer exposed; I83.013 Varicose veins of right lower extremity with ulcer of ankle; L97.312 Non-pressure chronic ulcer of right ankle with fat layer exposed; I87.2 Venous insufficiency (chronic) (peripheral); E66.9 Obesity, unspecified; E03.9 Hypothyroidism, unspecified; F41.9 Anxiety disorder, unspecified; F32.9 Major depressive disorder, single episode, unspecified; R07.81 Pleurodynia; M19.90 Unspecified osteoarthritis, unspecified site; Z85.828 Personal history of other malignant neoplasm of skin; Z68.31 Body mass index [BMI] 31.0-31.9, adult; Z98.52 Vasectomy status
CPT/HCPCS: 97597; 97598; J7999

== ENCOUNTER 2020-09-26 13:24 | Outpatient (CLI) | payer BC ==
[2020-09-26] MEDS ORDERED: LIDOcaine 2% 5ml jelly ONE (13:59)
[2020-09-26] MEDS ORDERED: gentamicin 0.1% topical ointment 15gm TP ONE (14:21)
[2020-09-26] MEDS ORDERED: nystatin/triamcinolone cream 15gm TP ONE (14:21)
== END 2020-09-26 23:59 | disposition home or self-care (01) ==
LOC: WOUND CARE 13:24
PROVIDERS: ATTEND Nurse Practitioner
DX: E11.622 Type 2 diabetes mellitus with other skin ulcer (principal); I83.023 Varicose veins of left lower extremity with ulcer of ankle; L97.322 Non-pressure chronic ulcer of left ankle with fat layer exposed; I83.013 Varicose veins of right lower extremity with ulcer of ankle; L97.312 Non-pressure chronic ulcer of right ankle with fat layer exposed; I87.2 Venous insufficiency (chronic) (peripheral); E66.9 Obesity, unspecified; E03.9 Hypothyroidism, unspecified; F41.9 Anxiety disorder, unspecified; F32.9 Major depressive disorder, single episode, unspecified; R07.81 Pleurodynia; M19.90 Unspecified osteoarthritis, unspecified site; Z85.828 Personal history of other malignant neoplasm of skin; Z68.31 Body mass index [BMI] 31.0-31.9, adult; Z98.52 Vasectomy status
CPT/HCPCS: 11042; 11045; J7999

== ENCOUNTER 2020-10-03 13:26 | Outpatient (CLI) | payer BC ==
[2020-10-03] MEDS ORDERED: nystatin/triamcinolone cream 15gm TP ONE (14:21)
[2020-10-03] MEDS ORDERED: gentamicin 0.1% topical ointment 15gm TP ONE (14:21)
== END 2020-10-03 23:59 | disposition home or self-care (01) ==
LOC: WOUND CARE 13:26
PROVIDERS: ATTEND Nurse Practitioner
DX: E11.622 Type 2 diabetes mellitus with other skin ulcer (principal); I83.023 Varicose veins of left lower extremity with ulcer of ankle; L97.322 Non-pressure chronic ulcer of left ankle with fat layer exposed; I83.013 Varicose veins of right lower extremity with ulcer of ankle; L97.312 Non-pressure chronic ulcer of right ankle with fat layer exposed; I87.2 Venous insufficiency (chronic) (peripheral); E66.9 Obesity, unspecified; E03.9 Hypothyroidism, unspecified; F41.9 Anxiety disorder, unspecified; F32.9 Major depressive disorder, single episode, unspecified; R07.81 Pleurodynia; M19.90 Unspecified osteoarthritis, unspecified site; Z85.828 Personal history of other malignant neoplasm of skin; Z68.31 Body mass index [BMI] 31.0-31.9, adult; Z98.52 Vasectomy status
CPT/HCPCS: 29581; J7999

== ENCOUNTER 2020-10-17 12:44 | Outpatient (CLI) | payer BC ==
[2020-10-17] MEDS ORDERED: gentamicin 0.1% topical ointment 15gm TP ONE (14:51)
[2020-10-17] MEDS ORDERED: nystatin/triamcinolone cream 15gm TP ONE (14:51)
== END 2020-10-17 23:59 | disposition home or self-care (01) ==
LOC: WOUND CARE 12:44
PROVIDERS: ATTEND Nurse Practitioner
DX: I83.023 Varicose veins of left lower extremity with ulcer of ankle (principal); E11.622 Type 2 diabetes mellitus with other skin ulcer; L97.322 Non-pressure chronic ulcer of left ankle with fat layer exposed; I83.013 Varicose veins of right lower extremity with ulcer of ankle; L97.312 Non-pressure chronic ulcer of right ankle with fat layer exposed; I87.2 Venous insufficiency (chronic) (peripheral); E66.9 Obesity, unspecified; E03.9 Hypothyroidism, unspecified; F41.9 Anxiety disorder, unspecified; F32.9 Major depressive disorder, single episode, unspecified; M19.90 Unspecified osteoarthritis, unspecified site; Z85.828 Personal history of other malignant neoplasm of skin; Z68.31 Body mass index [BMI] 31.0-31.9, adult
CPT/HCPCS: 29581; J7999

== ENCOUNTER 2020-10-24 12:45 | Outpatient (CLI) | payer BC ==
[2020-10-24] MEDS ORDERED: LIDOcaine 2% 5ml jelly ONE ×2 (14:38)
[2020-10-24] MEDS ORDERED: gentamicin 0.1% topical ointment 15gm TP ONE (15:31)
[2020-10-24] MEDS ORDERED: nystatin/triamcinolone cream 15gm TP ONE (15:31)
== END 2020-10-24 23:59 | disposition home or self-care (01) ==
LOC: WOUND CARE 12:45
PROVIDERS: ATTEND Nurse Practitioner Family
DX: I83.023 Varicose veins of left lower extremity with ulcer of ankle (principal); E11.622 Type 2 diabetes mellitus with other skin ulcer; L97.322 Non-pressure chronic ulcer of left ankle with fat layer exposed; I83.013 Varicose veins of right lower extremity with ulcer of ankle; L97.312 Non-pressure chronic ulcer of right ankle with fat layer exposed; I87.2 Venous insufficiency (chronic) (peripheral); E66.9 Obesity, unspecified; E03.9 Hypothyroidism, unspecified; M19.90 Unspecified osteoarthritis, unspecified site; F41.9 Anxiety disorder, unspecified; F32.9 Major depressive disorder, single episode, unspecified; Z85.828 Personal history of other malignant neoplasm of skin; Z68.31 Body mass index [BMI] 31.0-31.9, adult
CPT/HCPCS: 97597; J7999

== ENCOUNTER 2020-10-31 13:17 | Outpatient (CLI) | payer BC ==
[2020-10-31] MEDS ORDERED: nystatin/triamcinolone cream 15gm TP ONE (14:15)
[2020-10-31] MEDS ORDERED: gentamicin 0.1% topical ointment 15gm TP ONE (14:15)
== END 2020-10-31 23:59 | disposition home or self-care (01) ==
LOC: WOUND CARE 13:17
PROVIDERS: ATTEND Nurse Practitioner
DX: I83.023 Varicose veins of left lower extremity with ulcer of ankle (principal); E11.622 Type 2 diabetes mellitus with other skin ulcer; L97.322 Non-pressure chronic ulcer of left ankle with fat layer exposed; I83.013 Varicose veins of right lower extremity with ulcer of ankle; L97.312 Non-pressure chronic ulcer of right ankle with fat layer exposed; I87.2 Venous insufficiency (chronic) (peripheral); E66.9 Obesity, unspecified; E03.9 Hypothyroidism, unspecified; M19.90 Unspecified osteoarthritis, unspecified site; F41.9 Anxiety disorder, unspecified; F32.9 Major depressive disorder, single episode, unspecified; Z85.828 Personal history of other malignant neoplasm of skin; Z68.31 Body mass index [BMI] 31.0-31.9, adult
CPT/HCPCS: G0463; J7999

== ENCOUNTER → 2020-12-28 | Outpatient (CLI) | payer BC ==
[~2020-12-28] MED LIST changes: +Dakins solution (1/4 strength) 473ml solution TP SCH; +LIDOcaine 2% 5ml jelly ONE; +gentamicin 0.1% topical ointment 15gm TP ONE; +nystatin/triamcinolone cream 15gm TP ONE
== END | disposition home or self-care (01) ==
LOC: WOUND CARE 11:30
PROVIDERS: ATTEND Nurse Practitioner
DX: I83.023 Varicose veins of left lower extremity with ulcer of ankle (principal); E11.622 Type 2 diabetes mellitus with other skin ulcer; L97.322 Non-pressure chronic ulcer of left ankle with fat layer exposed; I83.013 Varicose veins of right lower extremity with ulcer of ankle; L97.312 Non-pressure chronic ulcer of right ankle with fat layer exposed; I83.018 Varicose veins of right lower extremity with ulcer other part of lower leg; L97.812 Non-pressure chronic ulcer of other part of right lower leg with fat layer exposed; I87.2 Venous insufficiency (chronic) (peripheral); E03.9 Hypothyroidism, unspecified; M19.90 Unspecified osteoarthritis, unspecified site; E66.9 Obesity, unspecified; F41.9 Anxiety disorder, unspecified; F32.9 Major depressive disorder, single episode, unspecified; Z68.31 Body mass index [BMI] 31.0-31.9, adult; Z85.828 Personal history of other malignant neoplasm of skin
CPT/HCPCS: 11042; 11045; 87070; 87075; 87077; 87186; J7999